=== PATIENT | male | born 1955 | race Caucasian/White ===

== ENCOUNTER → 2016-03-04 | Outpatient (REF) | payer MEDICARE, MEDICAID ==
[~2016-03-04] MED LIST: LISI-542 PO; METO50TA2 PO; VARE1TA PO
[2016-03-04 19:06] LABS: ADD MORPHOLOGY? YES; BASO % 0.4 % (0.0-1.0); EOS % 0.4 % (0.0-3.0); LARGE UNSTAINED CELL # 0.3 K/mm3 (0.0-0.4); LARGE UNSTAINED CELL % 2.5 % (0.0-4.0); LYMPH # 1.9 K/mm3 (1.5-4.5); LYMPH % 16.2 % (24.0-44.0); MEAN CORPUSCULAR HEMOGLOBIN 37.3 pg (27.0-33.0); MEAN CORPUSCULAR HGB CONC 34.1 g/dl (32.0-36.5); MEAN CORPUSCULAR VOLUME 109.4 fl (80.0-96.0); MONO # 0.5 K/mm3 (0.0-0.8); MONO % 4.6 % (0.0-5.0); NEUTROPHILS # 8.7 K/mm3 (1.8-7.7); NEUTROPHILS % 75.9 % (36.0-66.0); PLATELET COUNT, AUTOMATED 236 k/mm3 (150-450); RED CELL DISTRIBUTION WIDTH 13.2 % (11.5-14.5); WHITE BLOOD COUNT 11.4 K/mm3 (4.0-10.0)
[2016-03-04 20:01] LABS: ALBUMIN 3.7 GM/DL (3.2-5.2); ALBUMIN/GLOBULIN RATIO 0.88 (1.00-1.93); ALKALINE PHOSPHATASE 103 U/L (45-117); ALT/SGPT 61 U/L (12-78); AST/SGOT 109 U/L (15-37); BILIRUBIN,TOTAL 0.9 MG/DL (0.2-1.0); BLOOD UREA NITROGEN 9 MG/DL (7-18); CALCIUM LEVEL 9.1 MG/DL (8.5-10.1); CARBON DIOXIDE LEVEL 23 MEQ/L (21-32); GLOMERULAR FILTRATION RATE > 60.0 (>56); GLUCOSE, FASTING 118 MG/DL (70-105); TOTAL PROTEIN 7.9 GM/DL (6.4-8.2)
[2016-03-04 20:14] LABS: POTASSIUM SERUM 4.5 MEQ/L (3.5-5.1); SODIUM LEVEL 138 MEQ/L (136-145)
[2016-03-04 20:15] LABS: ANION GAP 13 MEQ/L (8-16); CHLORIDE LEVEL 102 MEQ/L (98-107)
[2016-03-09 14:11] LABS: HEPATITIS C QUANTITATION HCV Not Detected IU/mL (.)
== END ==
LOC: M SFHCLERA 14:21
PROVIDERS: ATTEND Family Medicine
DX: B18.2 Chronic viral hepatitis C (principal); I25.10 Atherosclerotic heart disease of native coronary artery without angina pectoris; I10 Essential (primary) hypertension; Z13.29 Encounter for screening for other suspected endocrine disorder
CPT/HCPCS: 80053; 80061; 82043; 82105; 84443; 85025; 87522; G0463

== ENCOUNTER → 2016-06-20 | Outpatient (CLI) | payer MEDICARE, MEDICAID ==
--- NOTE | 2016-06-21 10:55 | REP ---
CHEST, TWO VIEWS: HISTORY: Dyspnea. COMPARISON: 12/13/2011 The lungs are clear. The heart is normal in size. The pulmonary vasculature is normal in appearance. The bony structure is intact. IMPRESSION: No acute disease. Signed by Silas Jaime MD 06/21/2016 10:59 A
== END ==
LOC: M LRY 17:54
PROVIDERS: ATTEND Nurse Practitioner Family
DX: R06.09 Other forms of dyspnea (principal); J40 Bronchitis, not specified as acute or chronic
CPT/HCPCS: 71020; 93005; G0463

== ENCOUNTER → 2017-01-05 | Outpatient (REF) | payer MEDICARE, MEDICAID ==
[~2017-01-05] MED LIST changes: -METO50TA2 PO; +METO50TA7 PO
[2017-01-05 19:30] LABS: MEAN CORPUSCULAR HGB CONC 33.5 g/dl (32.0-36.5); MEAN CORPUSCULAR VOLUME 104.5 fl (80.0-96.0); PLATELET COUNT, AUTOMATED 265 10^3/uL (150-450); RED CELL DISTRIBUTION WIDTH 12.1 % (11.5-14.5); WHITE BLOOD COUNT 9.4 10^3/uL (4.0-10.0)
[2017-01-05 19:42] LABS: ALBUMIN 3.9 GM/DL (3.2-5.2); ALBUMIN/GLOBULIN RATIO 0.98 (1.00-1.93); ALKALINE PHOSPHATASE 82 U/L (45-117); ALT/SGPT 27 U/L (12-78); ANION GAP 6 MEQ/L (8-16); AST/SGOT 26 U/L (7-37); BILIRUBIN,TOTAL 0.5 MG/DL (0.2-1.0); BLOOD UREA NITROGEN 11 MG/DL (7-18); CALCIUM LEVEL 9.9 MG/DL (8.5-10.1); CARBON DIOXIDE LEVEL 29 MEQ/L (21-32); CHLORIDE LEVEL 103 MEQ/L (98-107); CREATININE FOR GFR 0.96 MG/DL (0.70-1.30); GLOMERULAR FILTRATION RATE > 60.0 (>56); GLUCOSE, FASTING 110 MG/DL (70-105); SODIUM LEVEL 138 MEQ/L (136-145); TOTAL PROTEIN 7.9 GM/DL (6.4-8.2)
[2017-01-05 19:45] LABS: POTASSIUM SERUM 5.3 MEQ/L (3.5-5.1)
[2017-01-05 19:53] LABS: INR 0.97
== END ==
LOC: M SFHCLERA 16:29
PROVIDERS: ATTEND Family Medicine
DX: R10.821 Right upper quadrant rebound abdominal tenderness (principal); Z23 Encounter for immunization
CPT/HCPCS: 80053; 85027; 85610; 90686; 90732; G0008; G0009; G0463

== ENCOUNTER → 2017-01-20 | Outpatient (CLI) | payer MEDICARE, MEDICAID ==
--- NOTE | 2017-01-20 15:00 | REP ---
Clinical: COPD. Comparison: 12/13/2011. Findings: Moderate COPD and emphysematous changes are appreciated with minimal scattered scarring. Focal area of scarring in the posterior right lower lobe with a 14 mm nodular soft tissue component is identified and represent a change from prior examination (image 68). No further consolidation, pleural effusion, nodule or mass lesion. No pneumothorax. Tracheobronchial tree is patent. Mediastinum demonstrates atherosclerotic changes to the thoracic aorta and coronary arteries. A small pericardial effusion is identified and there is evidence of prior CABG. A small pericardial effusion is identified. No obvious adenopathy. Fatty infiltration to the liver noted. Impression: 1. Chronic COPD. 2. 14 mm soft tissue nodule with surrounding scarring in the posterior right lower lobe. 3-month follow-up is recommended. 3. Small pericardial effusion and evidence of prior CABG. 4. Fatty infiltration of the liver. Signed by Denilson Recinos MD 01/20/2017 02:51 P
== END ==
LOC: M RAD 13:48
PROVIDERS: ATTEND Internal Medicine Pulmonary Disease
DX: J44.9 Chronic obstructive pulmonary disease, unspecified (principal)

== ENCOUNTER → 2017-01-26 | Outpatient (REF) | payer MEDICARE, MEDICAID ==
[2017-01-26 21:23] LABS: ANION GAP 8 MEQ/L (8-16); BLOOD UREA NITROGEN 10 MG/DL (7-18); CALCIUM LEVEL 8.9 MG/DL (8.5-10.1); CARBON DIOXIDE LEVEL 26 MEQ/L (21-32); CHLORIDE LEVEL 104 MEQ/L (98-107); CREATININE FOR GFR 0.69 MG/DL (0.70-1.30); GLOMERULAR FILTRATION RATE > 60.0 (>56); GLUCOSE, FASTING 93 MG/DL (70-105); SODIUM LEVEL 138 MEQ/L (136-145)
== END ==
LOC: M SFHCLERA 16:36
PROVIDERS: ATTEND Family Medicine
DX: E87.5 Hyperkalemia (principal)
CPT/HCPCS: 80048; G0463

== ENCOUNTER → 2017-02-02 | Outpatient (CLI) | payer MEDICARE, MEDICAID ==
--- NOTE | 2017-02-03 12:13 | REP ---
PET/CT: History: Solitary pulmonary nodule. Comparisons: Comparison chest CT study January 20, 2017 described of 14 mm soft tissue nodule with surrounding scarring in the right lower lobe. CT study also showed a small pericardial effusion. TECHNIQUE: 53 minutes following the intravenous injection of a 9.9 mCi dose of F-18 FDG, three-dimensional PET scintigraphy is acquired from the skull base to the proximal thighs. Triplanar noncontrast CT scanning is acquired through the same anatomic range for attenuation correction, and image registration with scan parameters optimized to minimize radiation exposure to the patient. PET scintigraphy and CT datasets were fused and displayed on a workstation with multiplanar and projection display capability. PET/CT Findings: The fibroatelectatic appearing density in the right lower lobe of the lung shows borderline FDG accumulation, maximum SUV value 2.3. It is not frankly hypermetabolic. It is unchanged from the January 20, [address] No other hypermetabolic uptake is seen in the thorax. The previously noted pericardial effusion is again seen but no abnormal hypermetabolic uptake is seen associated with this. Head and neck soft tissues are remarkable for some brown fat FDG distribution as well as a normal variant skeletal muscle uptake. In the abdomen and pelvis, there is normal FDG distribution to the liver, spleen, gastrointestinal, and genitourinary tracts. No abnormal hypermetabolic uptake is seen. Impression: The fibroatelectatic density in the right lower lobe shows borderline FDG accumulation, SUV 2.3. Pericardial effusion again seen without hypermetabolic uptake associated with this. Recommend follow-up chest CT in 4-6 months. Signed by Zana Farah MD 02/03/2017 02:45 P
== END ==
LOC: M PLARAD 14:43
PROVIDERS: ATTEND Internal Medicine Pulmonary Disease
DX: R91.1 Solitary pulmonary nodule (principal)
CPT/HCPCS: 78815; A9552

== ENCOUNTER → 2017-04-19 | Outpatient (CLI) | payer MEDICARE, MEDICAID | LOC: M RAD 16:31 | DX: R91.1 Solitary pulmonary nodule (principal) | CPT/HCPCS: 71250 ==

== ENCOUNTER → 2017-05-14 | Outpatient (CLI) | payer MEDICARE, MEDICAID | LOC: M RAD 12:40 | DX: I70.213 Atherosclerosis of native arteries of extremities with intermittent claudication, bilateral legs (principal) | CPT/HCPCS: 93923 ==

== ENCOUNTER → 2017-06-23 | Outpatient (CLI) | payer MEDICARE, MEDICAID ==
[2017-06-23 15:09] LABS: BASO % 0.4 % (0.0-1.0); EOS # 0.1 10^3/uL (0.0-0.50); EOS % 1.5 % (0.0-3.0); HEMOGLOBIN 16.6 g/dl (13.5-17.5); IMMATURE GRANULOCYTE % 0.5 % (0-3.0); LYMPH # 2.3 10^3/uL (1.5-4.5); LYMPH % 30.9 % (24.0-44.0); MEAN CORPUSCULAR HEMOGLOBIN 36.5 pg (27.0-33.0); MEAN CORPUSCULAR HGB CONC 35.3 g/dl (32.0-36.5); MEAN CORPUSCULAR VOLUME 103.3 fl (80.0-96.0); MONO # 0.6 10^3/uL (0.0-0.8); MONO % 7.5 % (0.0-5.0); NEUTROPHILS # 4.4 10^3/uL (1.8-7.7); NEUTROPHILS % 59.2 % (36.0-66.0); PLATELET COUNT, AUTOMATED 229 10^3/uL (150-450); RED BLOOD COUNT 4.55 10^6/uL (4.30-6.10); RED CELL DISTRIBUTION WIDTH 12.7 % (11.5-14.5); WHITE BLOOD COUNT 7.4 10^3/uL (4.0-10.0)
[2017-06-23 15:37] LABS: ANION GAP 8 MEQ/L (8-16); BLOOD UREA NITROGEN 7 MG/DL (7-18); CARBON DIOXIDE LEVEL 25 MEQ/L (21-32); CHLORIDE LEVEL 103 MEQ/L (98-107); CREATININE FOR GFR 0.77 MG/DL (0.70-1.30); GLOMERULAR FILTRATION RATE > 60.0 (>49); GLUCOSE, FASTING 80 MG/DL (70-100); SODIUM LEVEL 136 MEQ/L (136-145)
== END ==
LOC: M LAB 14:42
DX: I70.213 Atherosclerosis of native arteries of extremities with intermittent claudication, bilateral legs (principal)
CPT/HCPCS: 80048

== ENCOUNTER → 2017-07-02 | Outpatient (CLI) | payer MEDICARE, MEDICAID ==
[~2017-07-02] MED LIST changes: +HEPARIN 1,000 UNITS/ML 10ML VIAL (FOR RADIOLOGY& DIALYSIS ONLY) As Ordered; +ISOVUE-300 61% 50ML VIAL (Q9967) As Ordered; -LISI-542 PO; -METO50TA7 PO; +MIDAZOLAM INJ 2 MG/2 ML VIAL (J2250) As Ordered; -VARE1TA PO; +fentaNYL 100 MCG/2 ML INJECTION (J3010) As Ordered
== END | disposition home or self-care (01) ==
LOC: M IRPRO 06:37
DX: I70.202 Unspecified atherosclerosis of native arteries of extremities, left leg (principal); I10 Essential (primary) hypertension; B19.20 Unspecified viral hepatitis C without hepatic coma; I25.10 Atherosclerotic heart disease of native coronary artery without angina pectoris; E78.00 Pure hypercholesterolemia, unspecified; J44.9 Chronic obstructive pulmonary disease, unspecified; Z72.0 Tobacco use; Z95.1 Presence of aortocoronary bypass graft
CPT/HCPCS: 37221

== ENCOUNTER → 2017-07-23 | Outpatient (CLI) | payer MEDICARE, MEDICAID ==
[2017-07-23 17:36] LABS: BASO % 0.6 % (0.0-1.0); EOS # 0.1 10^3/uL (0.0-0.50); EOS % 1.1 % (0.0-3.0); HEMATOCRIT 44.9 % (42.0-52.0); HEMOGLOBIN 15.8 g/dl (13.5-17.5); IMMATURE GRANULOCYTE % 0.7 % (0-3.0); LYMPH # 1.9 10^3/uL (1.5-4.5); LYMPH % 27.4 % (24.0-44.0); MEAN CORPUSCULAR HEMOGLOBIN 36.4 pg (27.0-33.0); MEAN CORPUSCULAR HGB CONC 35.2 g/dl (32.0-36.5); MEAN CORPUSCULAR VOLUME 103.5 fl (80.0-96.0); MONO # 0.7 10^3/uL (0.0-0.8); MONO % 10.1 % (0.0-5.0); NEUTROPHILS # 4.2 10^3/uL (1.8-7.7); NEUTROPHILS % 60.1 % (36.0-66.0); PLATELET COUNT, AUTOMATED 231 10^3/uL (150-450); RED BLOOD COUNT 4.34 10^6/uL (4.30-6.10); RED CELL DISTRIBUTION WIDTH 12.7 % (11.5-14.5); WHITE BLOOD COUNT 7.1 10^3/uL (4.0-10.0)
[2017-07-23 17:40] LABS: ALBUMIN 3.4 GM/DL (3.2-5.2); ALBUMIN/GLOBULIN RATIO 0.79 (1.00-1.93); ALKALINE PHOSPHATASE 101 U/L (45-117); ALT/SGPT 25 U/L (12-78); ANION GAP 8 MEQ/L (8-16); AST/SGOT 30 U/L (7-37); BILIRUBIN,TOTAL 0.5 MG/DL (0.2-1.0); BLOOD UREA NITROGEN 6 MG/DL (7-18); CALCIUM LEVEL 8.7 MG/DL (8.8-10.2); CARBON DIOXIDE LEVEL 26 MEQ/L (21-32); CHLORIDE LEVEL 99 MEQ/L (98-107); CREATININE FOR GFR 0.72 MG/DL (0.70-1.30); FREE T4 1.03 NG/DL (0.76-1.46); GLOMERULAR FILTRATION RATE > 60.0 (>49); GLUCOSE, FASTING 94 MG/DL (70-100); POTASSIUM SERUM 4.1 MEQ/L (3.5-5.1); SODIUM LEVEL 133 MEQ/L (136-145); TOTAL PROTEIN 7.7 GM/DL (6.4-8.2)
== END ==
LOC: M LRY 14:25
DX: R00.0 Tachycardia, unspecified (principal)
CPT/HCPCS: 84443

== ENCOUNTER → 2017-12-01 | Outpatient (REF) | payer MEDICARE, MEDICAID | LOC: M SFHCLERA 14:18 | DX: Z13.1 Encounter for screening for diabetes mellitus (principal); F10.10 Alcohol abuse, uncomplicated; Z53.21 Procedure and treatment not carried out due to patient leaving prior to being seen by health care provider ==

== ENCOUNTER → 2018-02-01 | Outpatient (CLI) | payer MEDICARE, MEDICAID | LOC: M RAD 17:05 | DX: J98.4 Other disorders of lung (principal); N28.1 Cyst of kidney, acquired; K76.0 Fatty (change of) liver, not elsewhere classified | CPT/HCPCS: 71250 ==

== ENCOUNTER → 2018-02-07 | Outpatient (CLI) | payer MEDICARE, MEDICAID ==
[~2018-02-07] MED LIST changes: +BISO5TAB5 PO; -HEPARIN 1,000 UNITS/ML 10ML VIAL (FOR RADIOLOGY& DIALYSIS ONLY) As Ordered; +INCR1INH PO; -ISOVUE-300 61% 50ML VIAL (Q9967) As Ordered; +LISI-542 PO; +METO50TA7 PO; -MIDAZOLAM INJ 2 MG/2 ML VIAL (J2250) As Ordered; +VARE1TA PO; +VENTAER PO; -fentaNYL 100 MCG/2 ML INJECTION (J3010) As Ordered
--- NOTE | 2018-02-08 07:49 | ECHO ---
DATE OF PROCEDURE: 02/07/2018 REFERRING PHYSICIAN: DAVID Carbajal INDICATION: Shortness of breath. HEIGHT: 175 cm WEIGHT: 78 kg 2D MEASUREMENTS: Left atrium: 3.2 cm Ventricular septum: 1.11 cm Posterior wall: 1.12 cm Left ventricle diastole: 3.6 cm Aortic root: 3.2 cm Aortic annulus: 2.0 cm Inferior vena cava: 1.3 cm DOPPLER MEASUREMENTS: Aortic valve velocity: 338 cm/s LVOT velocity: 166 cm/s with mild dynamic obstructive features LVOT VTI: 25.2 cm Mitral E velocity: 48.8 cm/s Mitral A velocity: 81.2 cm/s Mitral deceleration time: 88 ms Pulmonary artery systolic pressure: 41 mmHg by pulmonary acceleration time method. MITRAL ANNULAR TISSUE DOPPLER: E prime septal: 4.5 cm/s E prime lateral: 3.9 cm/s DESCRIPTION: Rhythm was sinus tachycardia. This was a moderately technically difficult echocardiogram. This was a 2D, M-mode, color flow Doppler and pulse wave Doppler examination and included mitral annular tissue Doppler. CONCLUSIONS: 1. Large circumferential pericardial effusion with more than 25% respiratory variation of intracardiac velocities and mitral annular tissue Doppler systolic waveform. Mild swinging of the heart within the pericardial effusion. No masses apparent in the pericardial effusion. Pericardial effusion measured 2.1 cm over the posterior wall of the left ventricle. Reduced left ventricle cavity volume. Relative underfilling of the left ventricle. Relative underfilling of the right ventricle. Partial collapse of the right ventricle, suggestive of near cardiac tamponade. 2. Hyperdynamic left ventricle systolic function, left ventricular ejection fraction of 75%. No regional wall motion abnormalities of the left ventricle. 3. Mild aortic valve sclerosis with a three-cusp aortic valve. No aortic regurgitation. 4. Suggestive of mild elevation of pulmonary artery systolic pressure (41 mmHg). RECOMMENDATIONS: Recommend urgent referral to cardiac surgery for consideration of pericardial window.
== END ==
LOC: M CARPUL 13:10
PROVIDERS: ATTEND Physician Assistant
DX: I31.3 Pericardial effusion (noninflammatory) (principal)

== ENCOUNTER 2018-02-08 14:06 | Emergency (ER) | payer MEDICARE, MEDICAID ==
[2018-02-08 14:59] LABS: BASO % 0.1 % (0.0-1.0); EOS % 0.4 % (0.0-3.0); HEMATOCRIT 37.4 % (42.0-52.0); HEMOGLOBIN 13.3 g/dl (13.5-17.5); IMMATURE GRANULOCYTE % 0.6 % (0-3.0); LYMPH # 1.5 10^3/uL (1.5-4.5); LYMPH % 20.2 % (24.0-44.0); MEAN CORPUSCULAR HEMOGLOBIN 42.4 pg (27.0-33.0); MEAN CORPUSCULAR HGB CONC 35.6 g/dl (32.0-36.5); MONO # 0.8 10^3/uL (0.0-0.8); MONO % 10.6 % (0.0-5.0); NEUTROPHILS # 4.9 10^3/uL (1.8-7.7); NEUTROPHILS % 68.1 % (36.0-66.0); PLATELET COUNT, AUTOMATED 159 10^3/uL (150-450); RED BLOOD COUNT 3.14 10^6/uL (4.30-6.10); RED CELL DISTRIBUTION WIDTH 14.6 % (11.5-14.5); WHITE BLOOD COUNT 7.2 10^3/uL (4.0-10.0)
[2018-02-08] MEDS: NS 1,000 ML IV (15:00)
[2018-02-08 15:15] LABS: ALBUMIN 3.3 GM/DL (3.2-5.2); ALBUMIN/GLOBULIN RATIO 0.83 (1.00-1.93); ALKALINE PHOSPHATASE 106 U/L (45-117); ALT/SGPT 16 U/L (12-78); ANION GAP 12 MEQ/L (8-16); AST/SGOT 20 U/L (7-37); BILIRUBIN,DIRECT 0.2 MG/DL (0.0-0.2); BILIRUBIN,TOTAL 0.7 MG/DL (0.2-1.0); BLOOD UREA NITROGEN 11 MG/DL (7-18); CALCIUM LEVEL 8.5 MG/DL (8.8-10.2); CARBON DIOXIDE LEVEL 22 MEQ/L (21-32); CHLORIDE LEVEL 100 MEQ/L (98-107); CK-MB VALUE MASS < 1.0 NG/ML (<3.6); CPK CREATINE PHOSPHOKINASE 37 U/L (39-308); CREATININE FOR GFR 0.99 MG/DL (0.70-1.30); GLOMERULAR FILTRATION RATE > 60.0 (>49); GLUCOSE, FASTING 102 MG/DL (70-100); POTASSIUM SERUM 4.4 MEQ/L (3.5-5.1); SODIUM LEVEL 134 MEQ/L (136-145); TOTAL PROTEIN 7.3 GM/DL (6.4-8.2); TROPONIN I < 0.02 NG/ML (< 0.10)
[2018-02-08] MEDS ORDERED: ISOVUE-370 76% 100ML VIAL (Q9967) As Ordered (15:18)
[2018-02-08 15:24] LABS: MEAN CORPUSCULAR VOLUME 119.1 fl (80.0-96.0); POSITIVE MORPH POS FLAG
[2018-02-08 15:25] LABS: ADD MORPHOLOGY? YES
[2018-02-08 15:35] LABS: PLATELET ESTIMATE DECREASED (NORMAL); POLYCHROMASIA 1+
== END 2018-02-08 18:01 | disposition short-term general hospital (02) ==
LOC: M ED 14:06
DX: I31.3 Pericardial effusion (noninflammatory) (principal); K76.0 Fatty (change of) liver, not elsewhere classified; I51.9 Heart disease, unspecified; I10 Essential (primary) hypertension; Z95.1 Presence of aortocoronary bypass graft; Z72.0 Tobacco use; Z88.8 Allergy status to other drugs, medicaments and biological substances
CPT/HCPCS: Q9967

== ENCOUNTER 2018-02-18 21:02 | Emergency (ER) | payer MEDICARE, MEDICAID ==
[~2018-02-18] VITALS: Ht 175.3 cm; Wt 72.2 kg
[2018-02-18] MEDS ORDERED: ALBUTEROL SULFATE 2.5 MG/0.5 ML INH NEB SOLN NEB ONE (21:30)
[2018-02-18 22:11] LABS: BASO % 0.2 % (0.0-1.0); EOS # 0.1 10^3/uL (0.0-0.50); EOS % 0.8 % (0.0-3.0); HEMATOCRIT 36.8 % (42.0-52.0); HEMOGLOBIN 12.7 g/dl (13.5-17.5); LYMPH # 1.8 10^3/uL (1.5-4.5); LYMPH % 15.5 % (24.0-44.0); MEAN CORPUSCULAR HEMOGLOBIN 40.2 pg (27.0-33.0); MEAN CORPUSCULAR HGB CONC 34.5 g/dl (32.0-36.5); MONO # 1.7 10^3/uL (0.0-0.8); MONO % 14.1 % (0.0-5.0); NEUTROPHILS # 8.1 10^3/uL (1.8-7.7); NEUTROPHILS % 68.2 % (36.0-66.0); PLATELET COUNT, AUTOMATED 256 10^3/uL (150-450); RED BLOOD COUNT 3.16 10^6/uL (4.30-6.10); WHITE BLOOD COUNT 11.8 10^3/uL (4.0-10.0)
[2018-02-18 22:12] LABS: MEAN CORPUSCULAR VOLUME 116.5 fl (80.0-96.0)
[2018-02-18] MEDS ORDERED: FUROSEMIDE 20 MG/2 ML VIAL (J1940) IV ONE (22:15)
[2018-02-18 22:21] LABS: INR 1.04; PROTHROMBIN TIME 13.8 SECONDS (12.1-14.4)
[2018-02-18 22:29] LABS: PLATELET ESTIMATE NORMAL (NORMAL)
[2018-02-18 22:34] LABS: ALT/SGPT 16 U/L (12-78); BILIRUBIN,DIRECT 0.3 MG/DL (0.0-0.2); BILIRUBIN,TOTAL 0.7 MG/DL (0.2-1.0); BLOOD UREA NITROGEN 11 MG/DL (7-18); CALCIUM LEVEL 8.4 MG/DL (8.8-10.2); CARBON DIOXIDE LEVEL 20 MEQ/L (21-32); CHLORIDE LEVEL 104 MEQ/L (98-107); CK-MB VALUE MASS < 1.0 NG/ML (<3.6); CPK CREATINE PHOSPHOKINASE 23 U/L (39-308); CREATININE FOR GFR 0.66 MG/DL (0.70-1.30); ETHYL ALCOHOL (ETHANOL) 0.038 % (0.000-0.010); GLOMERULAR FILTRATION RATE > 60.0 (>49); GLUCOSE, FASTING 90 MG/DL (70-100); MB/CK RELATIVE INDEX 4.35 (< OR =4); NT-PRO BNP 340 PG/ML (<125); POTASSIUM SERUM 4.4 MEQ/L (3.5-5.1); SODIUM LEVEL 133 MEQ/L (136-145); TOTAL PROTEIN 6.6 GM/DL (6.4-8.2); TROPONIN I < 0.02 NG/ML (< 0.10)
[2018-02-18 22:44] LABS: ABG BASE EXCESS -5.1 (-2.0-2.0); ABG HCO3 15.9 MEQ/L (22.0-26.0); ABG O2 SATURATION 92.8 % (95.0-99.0); ABG PARTIAL PRESSURE CO2 20.8 mmHg (35.0-45.0); ABG PARTIAL PRESSURE O2 63.5 mmHg (75.0-100.0); ABG STANDARD HCO3 20.2 MEQ/L (22.0-26.0); ABG TOTAL CO2 16.5 MEQ/L (23.0-31.0)
[2018-02-18] MEDS ORDERED: ALBUTEROL 90 MCG/ACT 8GM HFA INHALER INH ONE (23:15)
[2018-02-19 00:30] VITALS: BP 10/60
--- NOTE | 2018-02-19 07:29 | REP ---
Clinical: Cough and dyspnea . Comparison: 07/23/2017 . Technique: PA and lateral. Findings: The mediastinum and cardiac silhouette are stable. Prior sternotomy noted. The lung busby are clear and without acute consolidation, effusion, or pneumothorax. The skeletal structures are intact and normal. Impression: No focal consolidation appreciated. Electronically Signed by Denilson Recinos MD 02/19/2018 07:21 A
--- NOTE | 2018-02-19 08:58 | ECGEPIP ---
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
== END 2018-02-19 00:45 | disposition home or self-care (01) ==
LOC: M ED 21:02
DX: J81.1 Chronic pulmonary edema (principal); I10 Essential (primary) hypertension; F10.10 Alcohol abuse, uncomplicated; I25.10 Atherosclerotic heart disease of native coronary artery without angina pectoris; Z79.899 Other long term (current) drug therapy; Z88.8 Allergy status to other drugs, medicaments and biological substances; F17.210 Nicotine dependence, cigarettes, uncomplicated
CPT/HCPCS: 36600; 71046; 80048; 80076; 82550; 82553; 82803; 83880; 84484; 85025; 85610; 93005; 93041; 96374; 99285; G0480; J1940

== ENCOUNTER → 2018-06-20 | Outpatient (REF) | payer MEDICARE, MEDICAID ==
[2018-06-20 20:27] LABS: BASO % 0.2 % (0.0-1.0); EOS # 0.1 10^3/uL (0.0-0.50); EOS % 0.8 % (0.0-3.0); HEMATOCRIT 45.3 % (42.0-52.0); HEMOGLOBIN 15.7 g/dl (13.5-17.5); LYMPH # 1.9 10^3/uL (1.5-4.5); LYMPH % 21.8 % (24.0-44.0); MEAN CORPUSCULAR HEMOGLOBIN 38.1 pg (27.0-33.0); MEAN CORPUSCULAR HGB CONC 34.7 g/dl (32.0-36.5); MONO # 0.5 10^3/uL (0.0-0.8); MONO % 6.1 % (0.0-5.0); NEUTROPHILS # 6.1 10^3/uL (1.8-7.7); NEUTROPHILS % 70.6 % (36.0-66.0); PLATELET COUNT, AUTOMATED 182 10^3/uL (150-450); RED BLOOD COUNT 4.12 10^6/uL (4.30-6.10); WHITE BLOOD COUNT 8.7 10^3/uL (4.0-10.0)
[2018-06-20 20:38] LABS: ALBUMIN 3.6 GM/DL (3.2-5.2); ALT/SGPT 20 U/L (12-78); BLOOD UREA NITROGEN 10 MG/DL (7-18); CALCIUM LEVEL 8.9 MG/DL (8.8-10.2); CARBON DIOXIDE LEVEL 26 MEQ/L (21-32); CHLORIDE LEVEL 102 MEQ/L (98-107); CHOLESTEROL LEVEL 194 MG/DL (<200); CHOLESTEROL RISK RATIO 5.388 (<5); CREATININE FOR GFR 0.84 MG/DL (0.70-1.30); GLOMERULAR FILTRATION RATE > 60.0 (>49); GLUCOSE, FASTING 104 MG/DL (70-100); HDL CHOLESTEROL 36 MG/DL (>40); LDL CHOLESTEROL 129 MG/DL (<100); NON-HDL-C 158 MG/DL; POTASSIUM SERUM 4.8 MEQ/L (3.5-5.1); SODIUM LEVEL 134 MEQ/L (136-145); TOTAL PROTEIN 8.2 GM/DL (6.4-8.2); TRIGLYCERIDES LEVEL 143 MG/DL (<150)
[2018-06-20 20:39] LABS: VITAMIN B12 LEVEL 1104 PG/ML
[2018-06-20 20:40] LABS: FOLATE 0.6 NG/ML
[2018-06-20 20:41] LABS: HEMOGLOBIN A1c 5.6 %
== END ==
LOC: M SFHCLERA 15:52
PROVIDERS: ATTEND Family Medicine
DX: K74.60 Unspecified cirrhosis of liver (principal); F10.10 Alcohol abuse, uncomplicated; I25.2 Old myocardial infarction; R00.0 Tachycardia, unspecified
CPT/HCPCS: 80053; 80061; 82105; 82607; 82746; 83036; 84443; 85025; G0463

== ENCOUNTER → 2018-06-24 | Outpatient (CLI) | payer MEDICARE, MEDICAID ==
--- NOTE | 2018-06-24 19:32 | REP ---
RIGHT UPPER QUADRANT ULTRASOUND: Real-time sonographic evaluation of the right upper quadrant performed. The study is limited as the patient was unable to suspend respirations appropriately. The gallbladder demonstrates no evidence of intraluminal sludge or calculi, wall thickening or pericholecystic fluid. There is no intrahepatic or extrahepatic biliary dilatation, common bile duct measuring 3 mm. The liver demonstrates heterogeneous echotexture compatible with fibrofatty infiltration. No gross liver or pancreatic mass is seen. The right kidney is grossly normal in size with no hydronephrosis measuring 10 cm in length. IMPRESSION: Diffuse fibrofatty infiltration of the liver. Electronically Signed by Jose Briceno MD 06/25/2018 03:07 P
== END ==
LOC: M LRY 09:15
PROVIDERS: ATTEND Family Medicine
DX: K76.0 Fatty (change of) liver, not elsewhere classified (principal)

== ENCOUNTER → 2018-09-01 | Outpatient (CLI) | payer MEDICARE, MEDICAID ==
[~2018-09-01] MED LIST changes: +ASPI-1 PO; +AZIT500T2 PO; +BLOOKIT XX; +DIGO0.12 PO; +OMEP40CA2 PO; +ONDA4TAB5 PO; +PRED10TA2 PO; +ZOLP10TA2 PO
--- NOTE | 2018-09-01 19:12 | REP ---
CT CHEST WITHOUT CONTRAST: 09/01/2018. Comparison: 02/01/2018, 04/19/2017, 01/20/2017 CT chest. Clinical history: Followup abnormal chest CT finding. Technique. Noncontrast chest CT protocol with coronal and sagittal reconstructions. Findings: Curvilinear fibrosis in the medial basal segment of the right lower lobe similar appearance to previous studies with less thickening of the stranding noted. This may reflect some superimposed subsegmental atelectasis decreased. I do not see definite nodular component of a solid nature currently. There is a semi solid density on image 69 about 15 mm in the area where previously a solid density was suggested. There is some minor linear fibrotic change in the superior segment of the right lower lobe and 3.5 mm pleural-based nodule superior segment of the right lower lobe on image 39 abutting the posterior margin of the major fissure, unchanged both findings. Some emphysematous changes in the upper and midlung zones. The anterior segment right upper lobe shows new subpleural stranding suggesting some fibrotic change since the 02/08 study. Minimal linear apical fibrotic change and laterally on the left and medially and superiorly on the right. Some minor fibrotic stranding in the lingula extending from the anterior segment of the left upper lobe. Left lower lobe without at acute finding. Some mild cervical bronchiectatic changes are noted. Heart size not enlarged. There is coronary calcifications, aortic calcifications without aneurysm and no pericardial thickening or effusion. Sternotomy wires and clips from CABG noted. No pathologic sized mediastinal, hilar, axillary, supraclavicular masses. The bone windows show the sternum and manubrium without acute finding with sternotomy wires as before, medial clavicles, portions of ribs and scapula and humeral heads seen are unremarkable. The visualized portions of upper abdomen included showed simple cyst upper pole left kidney. No hydronephrosis in either stomach with some retained fluid. Adrenal glands without mass. Visualized pancreas intact. Gallbladder without calcified stone. Impression: 1. Some curvilinear fibrotic change in the medial basal segment of the right lower lobe with ill-defined ground-glass opacity where previously a more solid nodular appearing 15 mm component was seen in the 01/20/2017 exam. Less thickening of that curvilinear fibrosis than previous studies. 2. Other areas of scattered fibrotic change in both lungs are unchanged but there is a new area of peripheral linear fibrotic changes in the zone of the anterior segment of the left upper lobe and extending into the lingula without nodule, effusion, mass or any mediastinal or hilar abnormality. Electronically Signed by Lui Stark MD 09/01/2018 07:55 P
== END ==
LOC: M RAD 14:09
PROVIDERS: ATTEND Internal Medicine Pulmonary Disease
DX: R91.8 Other nonspecific abnormal finding of lung field (principal)

== ENCOUNTER 2018-09-08 15:30 | Inpatient (IN) | payer MEDICARE, MEDICAID ==
[~2018-09-08] VITALS: Ht 175.3 cm; Wt 66.9 kg
[~2018-09-08 15:30] MED LIST changes: -ASPI-1 PO; -AZIT500T2 PO; +BISO5TAB14 PO; -BISO5TAB5 PO; -BLOOKIT XX; -DIGO0.12 PO; -OMEP40CA2 PO; -ONDA4TAB5 PO; -PRED10TA2 PO; -ZOLP10TA2 PO
[2018-09-08] MEDS ORDERED: ZOLP10TA2 PO (15:37)
[2018-09-08 16:42] LABS: BASO % 0.2 % (0.0-1.0); EOS % 0.2 % (0.0-3.0); HEMATOCRIT 26.1 % (42.0-52.0); HEMOGLOBIN 9.7 g/dl (13.5-17.5); LYMPH # 0.8 10^3/uL (1.5-4.5); LYMPH % 18.2 % (24.0-44.0); MEAN CORPUSCULAR HGB CONC 37.2 g/dl (32.0-36.5); MONO # 0.2 10^3/uL (0.0-0.8); MONO % 4.6 % (0.0-5.0); NEUTROPHILS # 3.5 10^3/uL (1.8-7.7); NEUTROPHILS % 76.1 % (36.0-66.0); PLATELET COUNT, AUTOMATED 104 10^3/uL (150-450); RED BLOOD COUNT 2.11 10^6/uL (4.30-6.10); WHITE BLOOD COUNT 4.6 10^3/uL (4.0-10.0)
[2018-09-08 16:49] LABS: MEAN CORPUSCULAR VOLUME 123.7 fl (80.0-96.0)
--- NOTE | 2018-09-08 16:52 | REP ---
Portable chest x-ray: Single view. History: Dyspnea and cough. Comparison chest x-ray: February 18, 2018. Findings: Prior sternotomy wires are noted. Emphysematous changes and relative oligemia are seen in the upper lung zones consistent with COPD. Mildly increased interstitial markings are noted in the bases. No focal infiltrate is seen. Pleural angles are sharp. Impression: COPD changes as before. No focal infiltrate. Prior sternotomy wires. Electronically Signed by Zana Farah MD 09/08/2018 07:25 P
[2018-09-08 16:54] LABS: INR 1.22; PROTHROMBIN TIME 15.1 SECONDS (11.8-14.0)
[2018-09-08 16:58] LABS: ALBUMIN 3.5 GM/DL (3.2-5.2); ALT/SGPT 15 U/L (12-78); BILIRUBIN,DIRECT 0.3 MG/DL (0.0-0.2); BILIRUBIN,TOTAL 1.5 MG/DL (0.2-1.0); BLOOD UREA NITROGEN 17 MG/DL (7-18); CALCIUM LEVEL 8.8 MG/DL (8.8-10.2); CARBON DIOXIDE LEVEL 20 MEQ/L (21-32); CHLORIDE LEVEL 103 MEQ/L (98-107); CK-MB VALUE MASS < 1.0 NG/ML (<3.6); CPK CREATINE PHOSPHOKINASE 30 U/L (39-308); CREATININE FOR GFR 0.89 MG/DL (0.70-1.30); GLOMERULAR FILTRATION RATE > 60.0 (>49); GLUCOSE, FASTING 102 MG/DL (70-100); MB/CK RELATIVE INDEX 3.33 (< OR =4); NT-PRO BNP 412 PG/ML (<125); SODIUM LEVEL 133 MEQ/L (136-145); TOTAL PROTEIN 7.3 GM/DL (6.4-8.2); TROPONIN I < 0.02 NG/ML (< 0.10)
[2018-09-08 17:24] LABS: ANISOCYTOSIS 1+; OVALOCYTES 1+; POIKILOCYTOSIS 1+; POLYCHROMASIA 1+
[2018-09-08 17:25] LABS: PLATELET ESTIMATE DECREASED (NORMAL)
[2018-09-08 17:42] VITALS: O2SAT 82
[2018-09-08] MEDS ORDERED: ISOVUE-370 76% 100ML VIAL (Q9967) As Ordered ONE (18:08)
[2018-09-08 18:13] LABS: ABG BASE EXCESS -6.6 (-2.0-2.0); ABG O2 SATURATION 86.6 % (95.0-99.0); ABG STANDARD HCO3 18.8 MEQ/L (22.0-26.0); ABG TOTAL CO2 15.6 MEQ/L (23.0-31.0); ABG pH (ARTERIAL) 7.496 UNITS (7.350-7.450)
[2018-09-08 18:15] LABS: ABG PARTIAL PRESSURE CO2 19.9 mmHg (35.0-45.0)
--- NOTE | 2018-09-08 19:44 | REPVR ---
EXAM: CT Angiography Chest With Contrast EXAM DATE/TIME: 09/08/2018 6:20 PM CLINICAL HISTORY: 63 years old, male; Other: Hypoxia; Additional info: Hypoxia R/O pe TECHNIQUE: Imaging protocol: Axial computed tomographic angiography images of the chest with intravenous contrast using CT angiography protocol. Coronal and sagittal reformatted images were created and reviewed. 3D rendering: MIP reconstructed images were created and reviewed. Radiation optimization: All CT scans at this facility use at least one of these dose optimization techniques: automated exposure control; mA and/or kV adjustment per patient size (includes targeted exams where dose is matched to clinical indication); or iterative reconstruction. Contrast material: ISOVUE 370; Contrast volume: 75 ml; Contrast route: IV; COMPARISON: CT Chest without contrast 09/01/2018 2:20 PM FINDINGS: Pulmonary arteries: Normal. No pulmonary emboli. Aorta: Unremarkable. No aortic aneurysm. No aortic dissection. Lungs: Paraseptal type emphysema noted in the upper lung busby bilaterally. Centrilobular type emphysema noted bilaterally predominantly in the mid and upper lung busby, right side greater than left Discoid atelectasis or scar in the right lower lobe. Coarse subpleural pleural based linear opacities in the anterior segment of the left upper lobe suggest thickened interlobular septa.Triangular pleural based opacity in the right middle lobe measuring 5.8 mm (series 402 image 77) stable from 02/01/2018. Pleural space: 3.5 mm pleural-based nodule contiguous with the major fissure. (Series 402 image 40). Heart: Unremarkable. No cardiomegaly. No pericardial effusion. Diaphragm: Eventration of the right hemidiaphragm. Kidneys and ureters: 1.8 cm simple cyst in the upper pole the left kidney. Lymph nodes: Unremarkable. No enlarged lymph nodes. Bones/joints: Mild anterior compression deformity of the T8 vertebral body. No retropulsed fragments seen. Chronic fracture of the spinous process noted at T1. Soft tissues: Unremarkable. IMPRESSION: 1. No acute pulmonary emboli. 2. Emphysema 3. Thickening of interlobular septa with adjacent hazy density in the anterior segment left upper lobe could represent an interstitial pneumonitis. 4. Stable pulmonary nodules from 2018. Previous CT scans and reports from those earlier studies are not available.For patients at low risk (minimal or absent history of smoking and of other known risk factors), no routine follow-up is indicated. For patients at high risk (history of smoking or of other known risk factors), consider optional CT at 12 months. (Joseph et al., Fleischner Society, 2017) Electronically signed by: Shakira Shipley On 09/08/2018 19:43:40 PM
[2018-09-08] MEDS ORDERED: IPRATROPIUM 0.5MG/ALBUTEROL 2.5MG INH SOL UD 3ML (DUONEB)(J7620) NEB ONE (20:00)
[2018-09-08] MEDS ORDERED: methylPREDNISolone INJ 125 MG/2 ML VIAL (J2930) IV ONE (20:00)
[2018-09-08] MEDS ORDERED: AZIT500T5 PO (20:24)
[2018-09-08] MEDS ORDERED: ONDA-83 PO (20:25)
[2018-09-08] MEDS ORDERED: ONDANSETRON 4MG/2ML VIAL (J2405) As Ordered ONE (20:27)
[2018-09-08] MEDS ORDERED: ALBUTEROL SULFATE 2.5 MG/0.5 ML INH NEB SOLN NEB PRN (20:30)
[2018-09-08] MEDS ORDERED: ONDANSETRON 4 MG TAB (S0181) PO PRN (20:30)
--- NOTE | 2018-09-08 20:44 | HPEPDOC ---
General Date of Admission 09/08/18 Date of Service: Sep 08, 2018 Primary Care Physician: ALINE HERNANDEZ MD Attending Physician: BELIA FRANCOIS MD Chief Complaint The patient is a 63-year-old male admitted with a reason for visit of legs weak/sob. Source: Patient Exam Limitations: No limitations Severity: Moderate Associated Symptoms: Shortness of breath History of Present Illness 63 years old white male sent from Dr. Coleman's office with chief complaints of increasing shortness of breath since last few days. Patient does have extensive medical history of CAD status post CABG, status post abdominal stents, hernia repair, developed increasing shortness of breath since last few days which is progressively getting worse and also complaining of weakness of his both legs since last few days. Patient was found to have a exacerbation of COPD and we were asked to admit this patient to medical floor. Patient also has a pericardial effusion drainage in place from [facility] Medications Scheduled Azithromycin (Azithromycin) 500 Mg Tablet, 500 MG PO DAILY, (Reported) FILLED 09/06/2018, HAS NOT STARTED YET Bisoprolol Fumarate (Bisoprolol Fumarate) 5 Mg Tab, 2.5 MG PO DAILY, (Reported) Umeclidinium Pollard (Incruse Ellipta) 62.5 Mcg/Inh Inh, 1 PUFF PO DAILY, (Reported) Scheduled PRN Albuterol Sulfate (Ventolin Hfa) 108 Mcg/Act Aer, 1 PUFF PO Q4H PRN for SHORTNESS OF BREATH, (Reported) Ondansetron HCl (Ondansetron HCl) 4 Mg Tablet, 4 MG PO BID PRN for nausea/vomi ting, (Reported) FILLED 09/05/2018. HAS NOT STARTED THIS YET Zolpidem Tartrate (Zolpidem Tartrate) 10 Mg Tablet, 10 MG PO QHS PRN for INSOMNIA, (Reported) Allergies Coded Allergies: chlorpromazine (Verified Allergy, Unknown, 09/08/18) acute dystonic reaction Past Medical History Medical History CAD, CABG, abdominal stents, arthritis Surgical History CABG pericardial effusion drainage tube, hernia repair Family History Significant Family History: No pertinent family hx Social History * Smoker: current smoker Alcohol: Denies Drugs: denies A-FIB/CHADSVASC A-FIB History Current/History of A-Fib/PAF?: No Review of Systems Constitutional: Reports: Malaise Eyes: Denies: Pain, Vision change, Conjunctivae inflammation, Eyelid inflammati on, Redness, Other ENT: Denies: Head Aches, Ear Pain, Dysphagia, Sinus Congestion, Post Nasal Drip, Sore Throat, Epistaxis, Other Symptoms Skin: Denies: Rash, Lesions, Jaundice, Bruising, Itching, Dry, Breakdown, Nail Changes, Other Pulmonary: Reports: Dyspnea, Cough Cardiovascular: Denies: Chest Pain, Palpitations, Orthopnea, Paroxysmal Noc. Dyspnea, Edema, Lt Headedness, Other Symptoms Gastrointestinal: Denies: Nausea, Vomiting, Abdominal Pain, Diarrhea, Constipation, Melena, Hematochezia, Other Symptoms Genitourinary: Denies: Dysuria, Frequency, Incontinence, Hematuria, Retention, Other Symptoms Hematologic: Denies: Bruising, Bleeding Excessively, Petecchia, Purpura, Enlarged Lymph Nodes, Other Hematologic Endocrine: Denies: Polydipsia, Polyphagia, Polyuria, Heat Intolerance, Cold Intolerance, Other Endocrine Sx Musculoskeletal: Denies: Neck Pain, Back Pain, Shoulder Pain, Arm Pain, Hand Pain, Leg Pain, Foot Pain, Joint Pain, Muscle Pain, Spasms, Other Symptoms Neurological: Denies: Weakness, Numbness, Incoordination, Change in speech, Confusion, Seizures, Other Symptoms Psych: Denies: Mood Normal, Anxiety, Depression, Memory Issues, Thoughts of Self Harm, Anger, Thoughts of Harming Other, Other Psych Physical Examination General Exam: Positive: Alert, Cooperative, Mild Distress Eye Exam: Positive: PERRLA, Conjunctiva & lids normal ENT Exam: Positive: Atraumatic, Mucous membr. moist/pink Neck Exam: Positive: Supple Chest Exam: Positive: Wheezing (bilateral expiratory wheezing audible) Heart Exam: Positive: Rate Normal, Normal S1, Normal S2 Telemetry: Positive: Tachycardia Abdomen Exam: Positive: Normal bowel sounds, Soft Extremity Exam: Positive: Normal pulses Skin Exam: Positive: Nl turgor and temperature Neuro Exam: Positive: Normal Speech, Strength at 5/5 X4 ext, Sensation Intact Psych Exam: Positive: Mental status NL, Mood NL Vital Signs Vital Signs Date Time Temp Pulse Resp B/P (MAP) Pulse Ox O2 Delivery O2 Flow Rate FiO2 09/08/18 19:35 96 Nasal Cannula 2.0 09/08/18 19:19 92 22 117/73 (88) 09/08/18 15:32 97.4 Laboratory Data Labs 24H Laboratory Tests 2 09/08/18 16:12: Immature Granulocyte % (Auto) 0.7, White Blood Count 4.6, Red Blood Count 2.11L, Hemoglobin 9.7L, Hematocrit 26.1L, Mean Corpuscular Volume 123.7H, Mean Corpuscular Hemoglobin 46.0H, Mean Corpuscular Hemoglobin Concent 37.2H, Red Cell Distribution Width 16.4H, Platelet Count 104L, Neutrophils (%) (Auto) 76.1H, Lymphocytes (%) (Auto) 18.2L, Monocytes (%) (Auto) 4.6, Eosinophils (%) (Auto) 0.2, Basophils (%) (Auto) 0.2, Neutrophils # (Auto) 3.5, Lymphocytes # (Auto) 0.8L, Monocytes # (Auto) 0.2, Eosinophils # (Auto) 0.0, Basophils # (Auto) 0.0, Nucleated Red Blood Cells % (auto) 0.0, Platelet Estimate DECREASED, Polychromasia 1+, Poikilocytosis 1+, Anisocytosis 1+, Macrocytosis 4+, Ovalocytes 1+, Prothrombin Time 15.1H, Prothromb Time International Ratio 1.22, Anion Gap 10, Glomerular Filtration Rate > 60.0, Lactic Acid Level 1.7, Calcium Level 8.8, Aspartate Amino Transf (AST/SGOT) 25, Alanine Aminotransferase (ALT/SGPT) 15, Alkaline Phosphatase 84, Total Bilirubin 1.5H, Direct Bilirubin 0.3H, Total Creatine Kinase 30L, Creatine Kinase MB < 1.0, Creatine Kinase MB Relative Index 3.33, Troponin I < 0.02, YK-Kqi-U-Type Natriuretic Peptide 412H, Total Protein 7.3, Albumin 3.5, Albumin/Globulin Ratio 0.92L, Thyroid Stimulating Hormone (TSH) 2.920 09/08/18 18:01: Blood Gas Bicarbonate Standard 18.8L, Arterial Blood pH 7.496H, Arterial Blood Partial Pressure CO2 19.9*L, Arterial Blood Partial Pressure O2 55.0L, Arterial Blood Total CO2 15.6L, Arterial Blood HCO3 15.0L, Arterial Blood Base Excess - 6.6L, Arterial Blood Oxygen Saturation 86.6L CBC/BMP Laboratory Tests 09/08/18 16:12 Red Blood Count 2.11 L, Mean Corpuscular Volume 123.7 H, Mean Corpuscular Hemoglobin 46.0 H, Mean Corpuscular Hemoglobin Concent 37.2 H, Red Cell Distribution Width 16.4 H, Neutrophils (%) (Auto) 76.1 H, Lymphocytes (%) (Auto) 18.2 L, Monocytes (%) (Auto) 4.6, Eosinophils (%) (Auto) 0.2, Basophils (%) (Auto) 0.2, Neutrophils # (Auto) 3.5, Lymphocytes # (Auto) 0.8 L, Monocytes # (Auto) 0.2, Eosinophils # (Auto) 0.0, Basophils # (Auto) 0.0 Problems (1) COPD with acute exacerbation Status: Acute Problem Text: Admit to PCU for close observation under telemetry Saline lock O2 support , Solu-Medrol 80 mg every8 hours DuoNeb every 4 hours , Proventil as needed every 2 hours Continue all home meds Due to prophylaxis with heparin COPD diet Out of bed as tolerated Follow a.m. level work Plan / VTE VTE Prophylaxis Ordered?: Yes BELIA FRANCOIS MD Sep 08, 2018 20:44
[2018-09-08 22:40] VITALS: BP 128/82
[2018-09-08] MEDS: zolPIDEM TARTRATE 5 MG TAB PO PRN (23:34)
[2018-09-08 23:59] VITALS: BP 106/58
[2018-09-09] VITALS (7 sets, daily range): BP systolic 96–118; BP diastolic 60–73
[2018-09-09] MEDS ORDERED: methylPREDNISolone INJ 125 MG/2 ML VIAL (J2930) IV SCH (04:00)
[2018-09-09] MEDS: IPRATROPIUM 0.5MG/ALBUTEROL 2.5MG INH SOL UD 3ML (DUONEB)(J7620) NEB SCH ×4 (04:23→19:44)
--- NOTE | 2018-09-09 05:49 | ECGEPIP ---
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
[2018-09-09] MEDS: BISOPROLOL FUM 2.5 MG PER 1/2TAB PO SCH (08:03)
[2018-09-09] MEDS: HEPARIN SOD (PORCINE) 5000 UNITS/ML VIAL SC SCH ×3 (08:04→21:02)
[2018-09-09] MEDS: CALCIUM CARBONATE 500 MG CHEW U/D PO PRN ×4 (08:08→21:07)
[2018-09-09 08:09] LABS: HEMATOCRIT 26.8 % (42.0-52.0); HEMOGLOBIN 9.7 g/dl (13.5-17.5); MEAN CORPUSCULAR HEMOGLOBIN 44.3 pg (27.0-33.0); MEAN CORPUSCULAR HGB CONC 36.2 g/dl (32.0-36.5); RED BLOOD COUNT 2.19 10^6/uL (4.30-6.10)
[2018-09-09 08:31] LABS: ALBUMIN 3.6 GM/DL (3.2-5.2); ALT/SGPT 14 U/L (12-78); BILIRUBIN,TOTAL 1.6 MG/DL (0.2-1.0); BLOOD UREA NITROGEN 15 MG/DL (7-18); CARBON DIOXIDE LEVEL 18 MEQ/L (21-32); CHLORIDE LEVEL 104 MEQ/L (98-107); CREATININE FOR GFR 0.99 MG/DL (0.70-1.30); GLOMERULAR FILTRATION RATE > 60.0 (>49); GLUCOSE, FASTING 156 MG/DL (70-100); POTASSIUM SERUM 4.1 MEQ/L (3.5-5.1); SODIUM LEVEL 134 MEQ/L (136-145); TOTAL PROTEIN 7.5 GM/DL (6.4-8.2)
[2018-09-09 08:43] LABS: MEAN CORPUSCULAR VOLUME 122.4 fl (80.0-96.0); PLATELET COUNT, AUTOMATED 95 10^3/uL (150-450)
[2018-09-09] MEDS: NICOTINE 14 MG/24 HR TRANSDERMAL TD SCH (11:23)
--- NOTE | 2018-09-09 14:52 | IPNPDOC ---
Text Note Date of Service The patient was seen on 09/09/18. NOTE Subjective: Patient is a 63-year-old male with a PMHx of CAD s/p CABG, Abdominal stents, Arthritis, Recent history of pericardial effusion s/p drainage tube who presented to the ER with complaints of shortness of breath and associated wheezing. Patient was admitted to hospitalist service for COPD exacerbation Patient was seen and examined at the bedside. . Patient reports that his breathing is doing better. He denies any chest pain, or palpitations. Does report mild cough. Denies nausea, vomiting, abdominal pain, constipation, diarrhea, or urinary discomfort. Objective: Vitals (See below) General: Lying in bed, no acute distress, comfortable, AAOx3 HEENT: NC, AT CVS: RRR, +S1S2 Lungs: Fair air entry b/l, mild expiratory wheezing. No rhonchi or rales Abdomen: Soft, ND, NT Extremities: - Edema, - Calf tenderness Assessment and plan: Shortness of breath - likely 2/2 Acute COPD exacerbation - Presented to the emergency room with complaints of shortness of breath - Physical had initially and currently revealed expiratory wheezing - CTA chest 09/08: 1. No acute pulmonary emboli. 2. Emphysema 3. Thickening of interlobular septa with adjacent hazy density in the anterior segment left upper lobe could represent an interstitial pneumonitis. 4. Stable pulmonary nodules from 2018. - Will reduce dose of Solu-Medrol - Continue with inhaled therapy is ordered Pancytopenia - Patient has a history of Hepatitis C; appears to have been treated - No evidence of bleeding - Will repeat hepatitis profile (A/B/C) - Will continue to monitor Mild hyponatremia - improving Active smoker - Advised smoking cessation - c/w Nicotine patch CAD s/p CABG - c/w Bisoprolol Abdominal stents - Patient is not on ASA / Plavix; will differ to outpatient provider Arthritis - Currently with no pain Insomnia - c/w Zolpidem Recent history of pericardial effusion s/p drainage tube - Will have outpatient follow DVT prophylaxis - c/w Heparin VS,Fishbone, I+O VS, Fishbone, I+O Laboratory Tests 09/08/18 16:12 Red Blood Count 2.11 L, Mean Corpuscular Volume 123.7 H, Mean Corpuscular Hemoglobin 46.0 H, Mean Corpuscular Hemoglobin Concent 37.2 H, Red Cell Distribution Width 16.4 H, Neutrophils (%) (Auto) 76.1 H, Lymphocytes (%) (Auto) 18.2 L, Monocytes (%) (Auto) 4.6, Eosinophils (%) (Auto) 0.2, Basophils (%) (Auto) 0.2, Neutrophils # (Auto) 3.5, Lymphocytes # (Auto) 0.8 L, Monocytes # (Auto) 0.2, Eosinophils # (Auto) 0.0, Basophils # (Auto) 0.0 09/09/18 07:48 Red Blood Count 2.19 L, Mean Corpuscular Volume 122.4 H, Mean Corpuscular Hemoglobin 44.3 H, Mean Corpuscular Hemoglobin Concent 36.2, Red Cell Distribution Width 16.2 H, Calcium Level 9.0, Aspartate Amino Transf (AST/SGOT) 20, Alanine Aminotransferase (ALT/SGPT) 14, Alkaline Phosphatase 82, Total Bilirubin 1.6 H, Total Protein 7.5, Albumin 3.6 Vital Signs Date Time Temp Pulse Resp B/P (MAP) Pulse Ox O2 Delivery O2 Flow Rate FiO2 09/09/18 12:00 2.0 09/09/18 12:00 97.1 112 21 107/67 (80) 94 09/08/18 22:13 Nasal Cannula I&O- Last 24 Hours up to 6 AM 09/09/18 06:00 Intake Total 0 ml Output Total 0 ml Balance 0 ml DERRICK ROSALES MD Sep 09, 2018 14:52
[2018-09-09] MEDS: methylPREDNISolone INJ 125 MG/2 ML VIAL (J2930) IV SCH (15:08)
[2018-09-09] MEDS ORDERED: AZITHROMYCIN INJ 500 MG, VIAL MATE ADAPTER 1 EACH in D5W 250 ML IV SCH (17:00)
[2018-09-09] MEDS ORDERED: NS 500 ML IV ONE (18:45)
[2018-09-09] MEDS ORDERED: BISOPROLOL FUM 2.5 MG PER 1/2TAB PO ONE (19:00)
[2018-09-09] MEDS: zolPIDEM TARTRATE 5 MG TAB PO PRN (22:33)
[2018-09-10] VITALS (11 sets, daily range): BP systolic 78–125; BP diastolic 56–72
[2018-09-10] MEDS: CALCIUM CARBONATE 500 MG CHEW U/D PO PRN ×3 (01:20→21:04)
[2018-09-10] MEDS ORDERED: NS 500 ML IV ONE ×2 (01:30→09:15)
[2018-09-10] MEDS: IPRATROPIUM 0.5MG/ALBUTEROL 2.5MG INH SOL UD 3ML (DUONEB)(J7620) NEB SCH ×4 (02:00→20:51)
[2018-09-10] MEDS: methylPREDNISolone INJ 125 MG/2 ML VIAL (J2930) IV SCH (03:21)
[2018-09-10] MEDS ORDERED: NS 1,000 ML IV ONE ×2 (03:45→16:15)
[2018-09-10 07:47] LABS: BASO % 0.1 % (0.0-1.0); HEMATOCRIT 23.5 % (42.0-52.0); HEMOGLOBIN 8.5 g/dl (13.5-17.5); LYMPH # 0.5 10^3/uL (1.5-4.5); LYMPH % 3.5 % (24.0-44.0); MEAN CORPUSCULAR HEMOGLOBIN 45.2 pg (27.0-33.0); MEAN CORPUSCULAR HGB CONC 36.2 g/dl (32.0-36.5); MONO # 0.2 10^3/uL (0.0-0.8); MONO % 1.3 % (0.0-5.0); NEUTROPHILS # 12.1 10^3/uL (1.8-7.7); NEUTROPHILS % 94.3 % (36.0-66.0); RED BLOOD COUNT 1.88 10^6/uL (4.30-6.10); WHITE BLOOD COUNT 12.8 10^3/uL (4.0-10.0)
[2018-09-10 08:13] LABS: BLOOD UREA NITROGEN 16 MG/DL (7-18); CALCIUM LEVEL 8.5 MG/DL (8.8-10.2); CARBON DIOXIDE LEVEL 19 MEQ/L (21-32); CHLORIDE LEVEL 105 MEQ/L (98-107); CREATININE FOR GFR 0.83 MG/DL (0.70-1.30); GLOMERULAR FILTRATION RATE > 60.0 (>49); GLUCOSE, FASTING 111 MG/DL (70-100); POTASSIUM SERUM 4.2 MEQ/L (3.5-5.1); SODIUM LEVEL 132 MEQ/L (136-145)
[2018-09-10 08:17] LABS: PLATELET COUNT, AUTOMATED 79 10^3/uL (150-450)
[2018-09-10 08:18] LABS: ANISOCYTOSIS 1+; OVALOCYTES 1+; PLATELET ESTIMATE DECREASED (NORMAL)
[2018-09-10] MEDS: BISOPROLOL FUM 2.5 MG PER 1/2TAB PO SCH ×2 (09:00→14:07)
[2018-09-10] MEDS: HEPARIN SOD (PORCINE) 5000 UNITS/ML VIAL SC SCH ×2 (09:00→20:53)
[2018-09-10] MEDS: predniSONE 20 MG TAB PO SCH (09:01)
[2018-09-10] MEDS: AZITHROMYCIN 250 MG TAB PO SCH (09:01)
[2018-09-10] MEDS: NICOTINE 14 MG/24 HR TRANSDERMAL TD SCH (09:01)
[2018-09-10] MEDS ORDERED: DIGOXIN INJ 0.5 MG/2 ML AMP (J1160) IV ONE ×2 (14:00→20:00)
--- NOTE | 2018-09-10 14:22 | IPNPDOC ---
Text Note Date of Service The patient was seen on 09/10/18. NOTE Subjective: Patient is a 63-year-old male with a PMHx of CAD s/p CABG, Abdominal stents, Arthritis, Recent history of pericardial effusion s/p drainage tube who presented to the ER with complaints of shortness of breath and associated wheezing. Patient was admitted to hospitalist service for COPD exacerbation Patient was seen and examined at the bedside. Currently patient still complains of shortness of breath. He denies any chest pain or palpitations. Denies nausea, vomiting, abdominal pain, constipation, diarrhea, or urinary discomfort. Objective: Vitals (See below) General: Lying in bed, no acute distress, comfortable, AAOx3 HEENT: NC, AT CVS: +S1S2 Lungs: Fair air entry b/l, again there is mild expiratory wheezing bilaterally. No evidence of rhonchi, rales Abdomen: Soft, nondistended and nontender Extremities: No evidence of lower extremity edema, - Calf tenderness Assessment and plan: Shortness of breath - likely 2/2 Acute COPD exacerbation - Presented to the emergency room with complaints of shortness of breath - Physical had initially and currently revealed expiratory wheezing - CTA chest 09/08: 1. No acute pulmonary emboli. 2. Emphysema 3. Thickening of interlobular septa with adjacent hazy density in the anterior segment left upper lobe could represent an interstitial pneumonitis. 4. Stable pulmonary nodules from 2018. - Will check CXR now - Will start Prednisone; Will DC Solumedrol - Continue with inhaled therapy is ordered A. fib with RVR - As an outpatient, they take bisoprolol 2.5 daily - morning medication was held hold parameters (Hypotension) - Will provide additional dose of bisoprolol now - If HR is uncontrolled; will start digoxin - Will get ECHO - Will discuss into anticoagulation therapy with patient Pancytopenia - Patient has a history of Hepatitis C; appears to have been treated - No evidence of bleeding - Will repeat hepatitis profile (A/B/C) - Will continue to monitor Mild hyponatremia - improving Active smoker - Advised smoking cessation - c/w Nicotine patch CAD s/p CABG - c/w Bisoprolol Abdominal stents - Patient is not on ASA / Plavix; will differ to outpatient provider Arthritis - Currently with no pain Insomnia - c/w Zolpidem Recent history of pericardial effusion s/p drainage tube - Will have outpatient follow DVT prophylaxis - c/w Heparin VS,Fishbone, I+O VS, Fishbone, I+O Laboratory Tests 09/10/18 07:28 Red Blood Count 1.88 L, Mean Corpuscular Volume 125.0 H, Mean Corpuscular Hemoglobin 45.2 H, Mean Corpuscular Hemoglobin Concent 36.2, Red Cell Distribu tion Width 16.5 H, Neutrophils (%) (Auto) 94.3 H, Lymphocytes (%) (Auto) 3.5 L, Monocytes (%) (Auto) 1.3, Eosinophils (%) (Auto) 0.0, Basophils (%) (Auto) 0.1, Neutrophils # (Auto) 12.1 H, Lymphocytes # (Auto) 0.5 L, Monocytes # (Auto) 0.2, Eosinophils # (Auto) 0.0, Basophils # (Auto) 0.0, Calcium Level 8.5 L Vital Signs Date Time Temp Pulse Resp B/P (MAP) Pulse Ox O2 Delivery O2 Flow Rate FiO2 09/10/18 14:07 120 117/69 09/10/18 12:00 96.8 20 92 09/09/18 16:00 09/08/18 22:13 Nasal Cannula I&O- Last 24 Hours up to 6 AM 09/10/18 05:59 Intake Total 1855 ml Output Total 400 ml Balance 1455 ml DERRICK ROSALES MD Sep 10, 2018 14:22
--- NOTE | 2018-09-10 14:39 | REP ---
CHEST, SINGLE VIEW: COMPARISON: 09/08/2018 Once again, there is mild interstitial infiltrate in the left upper lobe. Findings are stable. No new infiltrate is seen bilaterally. The heart is normal in size and the mediastinal silhouette is unchanged. Multiple sternal wires are present. IMPRESSION: Stable exam. Electronically Signed by Jose Briceno MD 09/11/2018 10:13 P
[2018-09-10 15:18] LABS: CK-MB VALUE MASS 1.5 NG/ML (<3.6); CPK CREATINE PHOSPHOKINASE 44 U/L (39-308); MB/CK RELATIVE INDEX 3.41 (< OR =4); TROPONIN I < 0.02 NG/ML (< 0.10)
[2018-09-10] MEDS: NS 1,000 ML IV SCH (17:20)
[2018-09-10] MEDS ORDERED: GI COCKTAIL 50ML BTL(HYOSCYAMINE/MAALOX/LIDOCAINE VISCOUS)(1:3:1) PO ONE (17:30)
[2018-09-10] MEDS: zolPIDEM TARTRATE 5 MG TAB PO PRN (21:04)
[2018-09-11] MEDS: NS 1,000 ML IV SCH ×2 (00:57→08:45)
[2018-09-11] MEDS ORDERED: DIGOXIN INJ 0.5 MG/2 ML AMP (J1160) IV ONE (01:00)
[2018-09-11] MEDS: CALCIUM CARBONATE 500 MG CHEW U/D PO PRN ×2 (01:05→09:11)
[2018-09-11] MEDS: IPRATROPIUM 0.5MG/ALBUTEROL 2.5MG INH SOL UD 3ML (DUONEB)(J7620) NEB SCH ×2 (02:15→07:07)
[2018-09-11 03:30] LABS: EOS % 0.1 % (0.0-3.0); HEMATOCRIT 22.1 % (42.0-52.0); HEMOGLOBIN 7.8 g/dl (13.5-17.5); LYMPH # 1.4 10^3/uL (1.5-4.5); LYMPH % 15.7 % (24.0-44.0); MEAN CORPUSCULAR HEMOGLOBIN 44.8 pg (27.0-33.0); MEAN CORPUSCULAR HGB CONC 35.3 g/dl (32.0-36.5); MONO # 0.3 10^3/uL (0.0-0.8); MONO % 3.9 % (0.0-5.0); NEUTROPHILS % 79.7 % (36.0-66.0); RED BLOOD COUNT 1.74 10^6/uL (4.30-6.10); WHITE BLOOD COUNT 8.8 10^3/uL (4.0-10.0)
[2018-09-11 03:32] LABS: PLATELET COUNT, AUTOMATED 77 10^3/uL (150-450)
[2018-09-11 03:47] LABS: BLOOD UREA NITROGEN 15 MG/DL (7-18); CARBON DIOXIDE LEVEL 22 MEQ/L (21-32); CHLORIDE LEVEL 105 MEQ/L (98-107); GLOMERULAR FILTRATION RATE > 60.0 (>49); GLUCOSE, FASTING 87 MG/DL (70-100); MAGNESIUM LEVEL 1.9 MG/DL (1.8-2.4); POTASSIUM SERUM 3.8 MEQ/L (3.5-5.1); SODIUM LEVEL 135 MEQ/L (136-145)
[2018-09-11 03:55] LABS: ANISOCYTOSIS 1+
[2018-09-11 03:56] LABS: PLATELET ESTIMATE DECREASED (NORMAL)
[2018-09-11 04:00] VITALS: BP 116/68
[2018-09-11 08:00] VITALS: BP 124/76
[2018-09-11] MEDS: NICOTINE 14 MG/24 HR TRANSDERMAL TD SCH (08:44)
[2018-09-11] MEDS: predniSONE 20 MG TAB PO SCH (08:44)
[2018-09-11] MEDS: AZITHROMYCIN 250 MG TAB PO SCH (08:44)
[2018-09-11] MEDS: HEPARIN SOD (PORCINE) 5000 UNITS/ML VIAL SC SCH (08:45)
[2018-09-11 08:50] VITALS: BP 126/60
[2018-09-11] MEDS: BISOPROLOL FUM 2.5 MG PER 1/2TAB PO SCH (08:50)
[2018-09-11] MEDS ORDERED: DIGOXIN 0.125 MG TAB PO SCH (09:00)
[2018-09-11] MEDS ORDERED: ASPIRIN 325 MG TAB PO SCH (09:00)
[2018-09-11] MEDS ORDERED: ASPI-1 PO (09:07)
[2018-09-11] MEDS ORDERED: AZIT500T5 PO (09:07)
[2018-09-11] MEDS ORDERED: DIGO0.123 PO (09:07)
[2018-09-11] MEDS ORDERED: PRED10TA2 PO (09:07)
--- NOTE | 2018-09-11 09:17 | ECHO ---
DATE OF SERVICE: 09/10/2018 AGE: 63. REFERRING PROVIDER: Cleo Colon MD PATIENT LOCATION: Room 3213. REASON FOR THE ECHOCARDIOGRAM: Abnormal electrocardiogram (EKG). 2D MEASUREMENTS: IVS: 0.9 cm LV: 3.5 cm LVPW: 1.0 cm LA: 2.1 cm Aorta: 3.0 cm RV: 2.5 cm IVC: 1.8 cm DOPPLER MEASUREMENTS: Peak velocity across the aortic valve: 1.3 m/s Peak velocity across the LVOT: 0.76 m/s Mitral E: 0.90 Maximum tricuspid valve velocity: 2.8 m/s 2D COMMENTS: 1. Normal left ventricular size, wall thickness, and normal global left ventricular systolic function. The estimated left ventricular systolic ejection fraction is 65% to 70%. 2. The left atrium appeared to be normal. Normal right atrium and right ventricle. 3. The atrial septum appeared to be normal without evidence of defect or shunt. 4. Normal aortic root. 5. No pericardial effusion seen. 6. Minimally calcified aortic valve with normal leaflet excursion. Mildly calcified mitral annulus with normal anterior mitral valve leaflet motion. Normal tricuspid valve. The pulmonic valve and proximal pulmonary artery branches were not well visualized. 7. The inferior vena cava was normal in size, central venous pressure is most likely normal. DOPPLER: Only mild tricuspid regurgitation detected. The calculated pulmonary artery systolic pressure varies between 30 and 40 mmHg. Assessment of the left ventricular diastolic function was limited in view of the underlying atrial fibrillation. IMPRESSION: 1. Normal global left ventricular systolic function with a hyperdynamic left ventricle. Assessment of the left ventricular diastolic function was limited in view of the underlying atrial fibrillation. 2. Aortic valve sclerosis without stenosis or aortic regurgitation. 3. Isolated mitral annulus calcification. No significant mitral regurgitation detected in this transthoracic echocardiogram. 4. Mild tricuspid regurgitation with mild pulmonary hypertension. 5. No significant pericardial effusion detected. [facility]
--- NOTE | 2018-09-11 11:30 | DS.PDOC ---
Discharge Summary General Date of Admission Sep 08, 2018 at 20:29 Date of Discharge 09/11/2018 Discharge Summary PROCEDURES PERFORMED DURING STAY: [None]. ADMITTING DIAGNOSES / DISCHARGE DIAGNOSES: Shortness of breath - likely 2/2 Acute COPD exacerbation A. fib with RVR Pancytopenia Mild hyponatremia Active smoker CAD s/p CABG Abdominal stents Arthritis Insomnia Recent history of pericardial effusion s/p drainage tube DVT prophylaxis COMPLICATIONS/CHIEF COMPLAINT: Shortness of breath HISTORY OF PRESENT ILLNESS: Patient is a 63-year-old male with a PMHx of CAD s/p CABG, Abdominal stents, Arthritis, Recent history of pericardial effusion s/p drainage tube who presented to the ER with complaints of shortness of breath and associated wheezing. Patient was admitted to hospitalist service for COPD exacerbation HOSPITAL COURSE: Shortness of breath - likely 2/2 Acute COPD exacerbation - Presented to the emergency room with complaints of shortness of breath - Physical had initially and currently revealed expiratory wheezing - CTA chest 09/08: 1. No acute pulmonary emboli. 2. Emphysema 3. Thickening of interlobular septa with adjacent hazy density in the anterior segment left upper lobe could represent an interstitial pneumonitis. 4. Stable pulmonary nodules from 2018. - CXR 09/10: mild interstitial infiltrate in the left upper lobe. Findings are stable. No new infiltrate is seen bilaterally. The heart is normal in size and the mediastinal silhouette is unchanged. - c/w Prednisone; s/p Solumedrol; will c/w Solumedrol taper as outpatient - c/w Azithromycin for immunomodulatory effect - Continue with inhaled therapy is ordered - Will have outpatient follow up with Dr. David on 09/13/2018 A. fib s/p RVR - As an outpatient, they take bisoprolol 2.5 daily - morning medication was held hold parameters (Hypotension - HR is better controlled; remains optimized - CHADSVasc = 0 - ECHO 09/10: Normal EF, mild TR, mild pulmonary HTN - c/w Bisoprolol and Digoxin - c/w ASA 325 daily - Will have outpatient follow up with Dr. Zach Russell Pancytopenia - Patient has a history of Hepatitis C; appears to have been treated - No evidence of bleeding - Will repeat hepatitis profile (A/B/C) - Will continue to monitor - Will have outpatient follow up with Dr. Zach Russell Mild hyponatremia - improving Normocytic anemia - likely 2/2 dilutional etiology - Slowly trending down Hg after giving >5 L on normal saline - Will continue to monitor Active smoker - Advised smoking cessation - c/w Nicotine patch CAD s/p CABG - c/w Bisoprolol Abdominal stents - Patient is not on ASA / Plavix; will differ to outpatient provider Arthritis - Currently with no pain Insomnia - c/w Zolpidem Recent history of pericardial effusion s/p drainage tube - Will have outpatient follow DVT prophylaxis - c/w Heparin DISCHARGE MEDICATIONS: Please see below. ALLERGIES: Please see below. PHYSICAL EXAMINATION ON DISCHARGE: Vitals (See below) General: Lying in bed, no acute distress, comfortable, AAOx3 HEENT: NC, AT CVS: +S1S2 Lungs: Fair air entry b/l, no evidence of rhonchi / rales / wheezing on exam this morning Abdomen: Remains soft without distention or tenderness Extremities: Lower extremities are free of any edema, - Calf tenderness LABORATORY DATA: Please see below. ACTIVITY: [As tolerated]. DISCHARGE PLAN: Follow up with Dr. Zach Russell within 7 days Remain compliant with treatment plan and medications Return to the ER if you experience any problems DISPOSITION: Home DISCHARGE CONDITION: [Stable]. TIME SPENT ON DISCHARGE: 35 minutes Vital Signs/I&Os Vital Signs Date Time Temp Pulse Resp B/P (MAP) Pulse Ox O2 Delivery O2 Flow Rate FiO2 09/11/18 08:50 90 126/60 09/11/18 08:00 97.8 19 90 09/11/18 04:00 2.0 09/08/18 22:13 Nasal Cannula I&O- Last 24 Hours up to 6 AM 09/11/18 06:00 Intake Total 4310 ml Output Total 1500 ml Balance 2810 ml Laboratory Data Labs 24H Laboratory Tests 2 09/10/18 14:42: Total Creatine Kinase 44, Creatine Kinase MB 1.5, Creatine Kinase MB Relative I ndex 3.41, Troponin I < 0.02 09/10/18 15:16: Lactic Acid Level 3.9*H 09/10/18 19:32: Lactic Acid Followup at 4 Hours 4.0*H 09/11/18 03:22: Lactic Acid Level 2.8*H, Immature Granulocyte % (Auto) 0.6, White Blood Count 8.8, Red Blood Count 1.74L, Hemoglobin 7.8L, Hematocrit 22.1L, Mean Corpuscular Volume 127.0H, Mean Corpuscular Hemoglobin 44.8H, Mean Corpuscular Hemoglobin Concent 35.3, Red Cell Distribution Width 16.5H, Platelet Count 77L, Neutrophils (%) (Auto) 79.7H, Lymphocytes (%) (Auto) 15.7L, Monocytes (%) (Auto) 3.9, Eosinophils (%) (Auto) 0.1, Basophils (%) (Auto) 0.0, Neutrophils # (Auto) 7.0, Lymphocytes # (Auto) 1.4L, Monocytes # (Auto) 0.3, Eosinophils # (Auto) 0.0, Basophils # (Auto) 0.0, Nucleated Red Blood Cells % (auto) 0.0, Platelet Estimate DECREASED, Immature Platelet Fraction 4.5, Anisocytosis 1+, Macrocytos is 4+, Anion Gap 8, Glomerular Filtration Rate > 60.0, Blood Urea Nitrogen 15, Creatinine 0.70, Sodium Level 135L, Potassium Level 3.8, Chloride Level 105, Carbon Dioxide Level 22, Calcium Level 8.0L, Magnesium Level 1.9 09/11/18 07:39: Lactic Acid Followup at 4 Hours 2.1*H CBC/BMP Laboratory Tests 09/11/18 03:22 Red Blood Count 1.74 L, Mean Corpuscular Volume 127.0 H, Mean Corpuscular Hemoglobin 44.8 H, Mean Corpuscular Hemoglobin Concent 35.3, Red Cell Distribution Width 16.5 H, Neutrophils (%) (Auto) 79.7 H, Lymphocytes (%) (Auto) 15.7 L, Monocytes (%) (Auto) 3.9, Eosinophils (%) (Auto) 0.1, Basophils (%) (Auto) 0.0, Neutrophils # (Auto) 7.0, Lymphocytes # (Auto) 1.4 L, Monocytes # (Auto) 0.3, Eosinophils # (Auto) 0.0, Basophils # (Auto) 0.0, Calcium Level 8.0 L Microbiology Microbiology 09/11/18 Blood Culture, Received Pending Discharge Medications Scheduled Aspirin (Aspirin) 325 Mg Tablet, 325 MG PO DAILY Azithromycin (Azithromycin) 500 Mg Tablet, 500 MG PO DAILY Bisoprolol Fumarate (Bisoprolol Fumarate) 5 Mg Tab, 2.5 MG PO DAILY, (Reported) Digoxin (Digoxin) 125 Mcg Tablet, 0.125 MG PO DAILY Prednisone (Prednisone) 10 Mg Tablet, 10 MG PO TAPER Take 4 tabs daily x 3 days, then 3 tabs daily x 3 days, then 2 tabs daily x 3 days, then 1 tab daily x 3 days and stop Umeclidinium Braggs (Incruse Ellipta) 62.5 Mcg/Inh Inh, 1 PUFF PO DAILY, (Reported) Scheduled PRN Albuterol Sulfate (Ventolin Hfa) 108 Mcg/Act Aer, 1 PUFF PO Q4H PRN for SHORTNESS OF BREATH, (Reported) Zolpidem Tartrate (Zolpidem Tartrate) 10 Mg Tablet, 10 MG PO QHS PRN for INSOMNIA, (Reported) Allergies Coded Allergies: chlorpromazine (Verified Allergy, Unknown, 09/08/18) acute dystonic reaction DERRICK ROSALES MD Sep 11, 2018 11:30
[2018-09-11] MEDS ORDERED: BLOOKIT XX (11:54)
[2018-09-11] MEDS ORDERED: OMEP40CA97 PO (11:54)
--- NOTE | 2018-09-11 19:07 | ECGEPIP ---
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
[2018-09-12 11:44] LABS: HEPATITIS A ANTIBODY IGM NEGATIVE (NEGATIVE); HEPATITIS B CORE ANTIBODY IGM EQUIVOCAL (NEGATIVE); HEPATITIS B SURFACE ANTIGEN NEGATIVE (NEGATIVE)
[2018-09-12 11:45] LABS: HEPATITIS C VIRUS ABY INDEX > 11.0 INDEX (<0.8)
[2018-10-04] MEDS ORDERED: DIGO0.123 PO (11:19)
[2018-10-04] MEDS ORDERED: OMEP40CA97 PO (11:19)
== END 2018-09-11 12:09 | disposition home or self-care (01) | DRG 191 ==
LOC: M ED 15:30 → M ED INP 20:29 → M PCU 22:36
PROVIDERS: ADMIT Internal Medicine; ATTEND Internal Medicine
DX: J44.1 Chronic obstructive pulmonary disease with (acute) exacerbation (principal); D61.818 Other pancytopenia; E87.1 Hypo-osmolality and hyponatremia; I25.10 Atherosclerotic heart disease of native coronary artery without angina pectoris; Z95.5 Presence of coronary angioplasty implant and graft; Z79.899 Other long term (current) drug therapy; Z88.8 Allergy status to other drugs, medicaments and biological substances; F17.200 Nicotine dependence, unspecified, uncomplicated; M19.90 Unspecified osteoarthritis, unspecified site; G47.00 Insomnia, unspecified; I48.91 Unspecified atrial fibrillation

== ENCOUNTER → 2018-09-21 | Outpatient (CLI) | payer MEDICARE, MEDICAID ==
[~2018-09-21] MED LIST changes: +ASPI-1 PO; +AZIT500T2 PO; -BISO5TAB14 PO; +BISO5TAB5 PO; +BLOOKIT XX; +DIGO0.12 PO; +OMEP40CA2 PO; +ONDA4TAB5 PO; +PRED10TA2 PO; +ZOLP10TA2 PO
--- NOTE | 2018-09-21 10:21 | REP ---
Clinical: Symptoms related to peripheral atherosclerotic disease. Comparison: 05/14/2017 Technique: Real time merritt scale and color Doppler evaluation of the bilateral lower extremity arterial vasculature using linear high frequency transducer. Findings: There is a history of bilateral common iliac artery stenting. The right common iliac artery demonstrates normal triphasic arterial wave pattern with proximal velocity at 133 cm/sec and distal velocity beyond the stent at 116 cm/sec. The right external iliac artery demonstrates normal triphasic arterial wave pattern with a velocity of 117 cm/sec. The left common iliac artery demonstrates monophasic arterial wave patterns with a proximal velocity of 71 cm/sec and distal velocities measuring up to 218 cm/sec. The left external iliac artery demonstrates monophasic arterial wave pattern with a velocity of 189 cm/sec. Bilateral lower extremities again demonstrate significant mixed atheromatous plaquing. The right lower extremity now demonstrates increased flow as compared to prior examination. The left lower extremity again demonstrates complete occlusion of the superficial femoral artery with a large collateral originating above the area of occlusion with focal area of proximal stenosis and revascularizes the distal superficial femoral artery. Peak systolic velocities (cm/sec) RIGHT LEFT STEW 0.8 0.6 Common femoral artery 137 (biphasic) 137 (biphasic) Profunda femoris 100 (biphasic) 203 (monophasic) SFA (proximal) 88 (biphasic) 120 (monophasic) SFA (mid) 103 (biphasic) occluded SFA (distal) 100 (biphasic) 24 (monophasic) Popliteal artery 103 (biphasic) 26 (monophasic) MILTON (prox.) 35 (monophasic) 9 (monophasic) Tibioperoneal trunk 82 (biphasic) 20 (monophasic) SLOPE HOIST OPERATOR (prox.) 70 (biphasic) 33 (monophasic) SLOPE HOIST OPERATOR (distal) 31 (biphasic) 13 (monophasic) MILTON (distal) 38 (biphasic) 18 (monophasic) Impression: 1. Continued evidence for significant peripheral vascular disease as described above. New area of stenosis suggested at the origin of the collateral vessel in the proximal left superficial femoral artery. 2. Left common iliac artery findings suggests a stenosis proximal to the stented portion of the vessel with subsequent decreased velocities and monophasic wave patterns. Electronically Signed by Denilson Recinos MD 09/21/2018 10:13 A
--- NOTE | 2018-09-21 10:31 | REP ---
Bilateral carotid artery duplex ultrasound: Peak flow velocity analysis: RIGHT LEFT ICA Peak flow velocity cm/sec the 92.3 84.6 ICA Diastolic flow velocity cm/sec 44.9 41.1 ICA/CCA Ratio 1.7 2.0 ECA Peak flow velocity cm/sec 77.6 162.3 CCA Peak flow velocity cm/sec 54.2 distal 42.8 distal CCA Peak Flow velocity cm/sec 155 prox 129 prox There is moderate atheromatous plaque bilaterally except that the plaque is slightly heavier in the proximal common carotid arteries bilaterally. The peak flow velocities are normal bilaterally except in the proximal common carotid arteries were the peak flow velocities are slightly elevated bilaterally. This is compatible with 50 - 69% stenosis in the proximal common carotid arteries bilaterally. However, the proximal common carotid arteries are not optimally visualized by ultrasound because of low position in the neck. Therefore, as a precaution, follow-up MRA or CTA might be considered. The peak flow velocities in the distal common carotid arteries, internal carotid arteries and external carotid arteries are normal bilaterally . This in combination with moderate plaque indicates less than 50% stenosis bilaterally in these vessels. There is antegrade flow in the vertebral arteries bilaterally. Impression: 50 - 69% stenosis in the proximal common carotid arteries bilaterally. The proximal common carotid arteries are not optimally visualized because of the low location in the neck , therefore, follow-up MRA or CTA might be considered for further evaluation. Otherwise, there is less than 50% stenosis in the distal common carotid arteries, external carotid arteries, internal carotid arteries bilaterally. There is antegrade flow in the vertebral arteries bilaterally. Electronically Signed by Jose Kwon MD 09/21/2018 10:23 A
== END ==
LOC: M RAD 07:42
PROVIDERS: ATTEND Physician Assistant
DX: R42 Dizziness and giddiness (principal); M79.604 Pain in right leg; M79.605 Pain in left leg; I65.23 Occlusion and stenosis of bilateral carotid arteries; I70.203 Unspecified atherosclerosis of native arteries of extremities, bilateral legs; I77.1 Stricture of artery; Z95.820 Peripheral vascular angioplasty status with implants and grafts

== ENCOUNTER 2018-10-04 08:01 | Inpatient (IN) | payer MEDICARE, MEDICAID ==
[~2018-10-04] VITALS: Ht 175.3 cm; Wt 62.9 kg
[2018-10-04] MEDS: TIOTROPIUM INHALER/CAPSULE (SPIRIVA) INH SCH (08:00)
[~2018-10-04 08:01] MED LIST changes: -BAYE325T12 PO; -BUPIVACAINE HCL 0.5% 10 ML VIAL As Ordered ONE; -HEPARIN 1,000 UNITS/ML 10ML VIAL (FOR RADIOLOGY& DIALYSIS ONLY) As Ordered ONE; -ISOVUE-300 61% 50ML VIAL (Q9967) As Ordered ONE; -LIDOCAINE 2% MDV 20 ML VIAL As Ordered ONE; -MIDAZOLAM INJ 2 MG/2 ML VIAL (J2250) As Ordered ONE; -diphenhydrAMINE INJ 50MG/ML VIAL (J1200) As Ordered ONE; -fentaNYL 100 MCG/2 ML INJECTION (J3010) As Ordered ONE
[2018-10-04] MEDS ORDERED: dexameTHASONE 20 MG/5 ML VIAL (J1100) IV ONE (08:30)
[2018-10-04 08:36] LABS: ABG BASE EXCESS -8.2 (-2.0-2.0); ABG O2 SATURATION 82.9 % (95.0-99.0); ABG PARTIAL PRESSURE O2 50.3 mmHg (75.0-100.0); ABG STANDARD HCO3 17.5 MEQ/L (22.0-26.0); ABG TOTAL CO2 14.6 MEQ/L (23.0-31.0); ABG pH (ARTERIAL) 7.483 UNITS (7.350-7.450)
[2018-10-04 08:39] LABS: ABG PARTIAL PRESSURE CO2 19.1 mmHg (35.0-45.0)
[2018-10-04] MEDS: ENOXAPARIN 40 MG/0.4 ML SYRINGE (J1650) SC SCH ×2 (09:00→17:47)
[2018-10-04] MEDS: FOLIC ACID 1 MG TAB PO SCH ×2 (09:00→20:01)
--- NOTE | 2018-10-04 09:02 | REP ---
PORTABLE CHEST X-RAY: Single view. HISTORY: Dyspnea and cough. COMPARISON CHEST X-RAY: September 10, 2018. FINDINGS: Median sternotomy wires are noted. EKG electrodes are visible along with oxygen delivery tubing. There are some emphysematous changes in the upper lobes bilaterally, particularly on the right unchanged. Right hemidiaphragm remains somewhat elevated. The heart is not enlarged. Pulmonary vascular markings are not increased. No acute infiltrate. IMPRESSION: No acute infiltrate seen. Evidence of COPD. Prior sternotomy. Electronically Signed by Zana Farah MD 10/04/2018 07:28 P
[2018-10-04 09:19] LABS: HEMOGLOBIN 7.5 g/dl (13.5-17.5); MEAN CORPUSCULAR HEMOGLOBIN 49.7 pg (27.0-33.0); MEAN CORPUSCULAR HGB CONC 35.7 g/dl (32.0-36.5); MEAN CORPUSCULAR VOLUME 139.1 fl (80.0-96.0); PLATELET COUNT, AUTOMATED 134 10^3/uL (150-450); RED BLOOD COUNT 1.51 10^6/uL (4.30-6.10); WHITE BLOOD COUNT 6.2 10^3/uL (4.0-10.0)
[2018-10-04 09:39] LABS: ALBUMIN 3.2 GM/DL (3.2-5.2); ALT/SGPT 8 U/L (12-78); BILIRUBIN,DIRECT 0.6 MG/DL (0.0-0.2); BLOOD UREA NITROGEN 21 MG/DL (7-18); CALCIUM LEVEL 8.6 MG/DL (8.8-10.2); CARBON DIOXIDE LEVEL 17 MEQ/L (21-32); CHLORIDE LEVEL 106 MEQ/L (98-107); CK-MB VALUE MASS < 1.0 NG/ML (<3.6); CPK CREATINE PHOSPHOKINASE 18 U/L (39-308); CREATININE FOR GFR 0.96 MG/DL (0.70-1.30); DIGOXIN LEVEL 0.4 NG/ML (0.5-2.0); ETHYL ALCOHOL (ETHANOL) < 0.003 % (0.000-0.010); GLOMERULAR FILTRATION RATE > 60.0 (>49); GLUCOSE, FASTING 102 MG/DL (70-100); LYMPHOCYTES 15 % (16-52); MB/CK RELATIVE INDEX 5.56 (< OR =4); MONOCYTES 1 % (0-8); NEUTROPHILS 84 % (35-75); NT-PRO BNP 1464 PG/ML (<125); POTASSIUM SERUM 4.4 MEQ/L (3.5-5.1); SODIUM LEVEL 134 MEQ/L (136-145); TOTAL PROTEIN 6.6 GM/DL (6.4-8.2); TROPONIN I < 0.02 NG/ML (< 0.10)
[2018-10-04 09:40] LABS: ANISOCYTOSIS 2+; HYPERSEGMENTED POLYS 1+; PLATELET ESTIMATE DECREASED (NORMAL); POIKILOCYTOSIS 1+
[2018-10-04 10:29] LABS: FOLATE < 0.4 NG/ML; VITAMIN B12 LEVEL 943 PG/ML
[2018-10-04 10:45] LABS: BASO % 0.2 % (0.0-1.0); EOS % 0.2 % (0.0-3.0); LYMPH # 0.9 10^3/uL (1.5-4.5); LYMPH % 13.6 % (24.0-44.0); MONO # 0.2 10^3/uL (0.0-0.8); MONO % 2.9 % (0.0-5.0); NEUTROPHILS # 5.3 10^3/uL (1.8-7.7)
--- NOTE | 2018-10-04 11:03 | ECGEPIP ---
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
[2018-10-04] MEDS ORDERED: DIGO0.12 PO (11:19)
[2018-10-04] MEDS ORDERED: BAYE325T12 PO (11:19)
[2018-10-04] MEDS ORDERED: OMEP40CA2 PO (11:19)
[2018-10-04 12:37] LABS: FERRITIN 166 NG/ML (26-388); IRON (FE) 236 UG/DL (65-175); PERCENT SATURATION 93.3 % (19.7-50.0); TOTAL IRON BINDING CAPACITY 253 UG/DL (250-450)
[2018-10-04] MEDS ORDERED: FUROSEMIDE 40 MG/4 ML VIAL (J1940) IV ONE (13:00)
[2018-10-04] MEDS ORDERED: ISOVUE-370 76% 100ML VIAL (Q9967) As Ordered ONE ×2 (13:22→16:52)
[2018-10-04] MEDS ORDERED: LEVALBUTEROL 1.25 MG/0.5 ML CONCENTRATE NEB INH PRN (13:45)
[2018-10-04 15:05] VITALS: BP 120/68
[2018-10-04] MEDS: ALBUTEROL SULFATE 2.5 MG/0.5 ML INH NEB SOLN NEB SCH ×2 (15:42→21:26)
[2018-10-04] MEDS ORDERED: NICOTINE 21MG/24HR 1 EA TRANSDERMAL TD PRN (16:30)
--- NOTE | 2018-10-04 18:09 | REPVR ---
EXAM: CT Angiography Chest With Contrast EXAM DATE/TIME: 10/04/2018 5:26 PM CLINICAL HISTORY: 63 years old, male; Chest pain; Additional info: SOB, resp alkalosis, pulmonary embolism TECHNIQUE: Imaging protocol: Axial computed tomographic angiography images of the chest with intravenous contrast using CT angiography protocol. Coronal and sagittal reformatted images were created and reviewed. 3D rendering: MIP reconstructed images were created and reviewed. Radiation optimization: All CT scans at this facility use at least one of these dose optimization techniques: automated exposure control; mA and/or kV adjustment per patient size (includes targeted exams where dose is matched to clinical indication); or iterative reconstruction. Contrast material: ISO 370;Contrast volume: 75 ml;Contrast route: IV; COMPARISON: CT ANGIO CHEST 09/08/2018 6:13 PM FINDINGS: Pulmonary arteries: There are no pulmonary emboli. Great vessels off aortic arch: Moderate stenosis at the origin of the left subclavian artery. Aorta: The aorta demonstrates mild atherosclerotic calcification. There is no aortic dissection or aneurysm. Other arteries: Moderate stenosis in the proximal left common carotid artery and mild stenosis on the right. Lungs: Infiltrates demonstrated in the lingula lobe left lower lobe, and a smaller focus in the right middle lobe, with cystic changes. Increased interstitial markings in the anterior subpleural aspect of the left upper lobe were noted on the prior CT of 09/08/2018. The other mixed cystic and interstitial infiltrates are new in comparison to the prior study. Bibasilar atelectasis. Moderate bilateral centrilobular emphysema most pronounced in the mid and upper lung zones. COPD. Pleural space: Unremarkable. No pneumothorax. No pleural effusion. Heart: There is moderate atherosclerotic calcification of the coronary arteries. Status post CABG. Lymph nodes: Unremarkable. No enlarged lymph nodes. Bones/joints: Status post sternotomy. Soft tissues: Unremarkable. IMPRESSION: 1. Infiltrates demonstrated in the lingula lobe left lower lobe, and a smaller focus in the right middle lobe, with cystic changes. Increased interstitial markings in the anterior subpleural aspect of the left upper lobe were noted on the prior CT of 09/08/2018. The other mixed cystic and interstitial infiltrates are new in comparison to the prior study. 2. Moderate bilateral centrilobular emphysema most pronounced in the mid and upper lung zones. COPD. 3. There are no pulmonary emboli. 4. There is no aortic dissection or aneurysm. Electronically signed by: Norbert Matamoros On 10/04/2018 18:09:02 PM
[2018-10-04 18:12] LABS: HEMATOCRIT 31.1 % (42.0-52.0); MEAN CORPUSCULAR HEMOGLOBIN 39.8 pg (27.0-33.0); MEAN CORPUSCULAR VOLUME 113.5 fl (80.0-96.0); PLATELET COUNT, AUTOMATED 127 10^3/uL (150-450); RED BLOOD COUNT 2.74 10^6/uL (4.30-6.10); WHITE BLOOD COUNT 8.4 10^3/uL (4.0-10.0)
[2018-10-04 18:26] LABS: HEMOGLOBIN 10.9 g/dl (13.5-17.5)
[2018-10-04 18:45] LABS: CK-MB VALUE MASS < 1.0 NG/ML (<3.6); CPK CREATINE PHOSPHOKINASE 30 U/L (39-308); MB/CK RELATIVE INDEX 3.33 (< OR =4); TROPONIN I < 0.02 NG/ML (< 0.10)
[2018-10-04 18:51] VITALS: BP 141/84
[2018-10-04] MEDS: methylPREDNISolone INJ 40 MG/1 ML VIAL (J2920) IV SCH (19:58)
[2018-10-04 20:00] VITALS: BP 101/71
[2018-10-04] MEDS: ASPIRIN 325 MG TAB PO SCH (20:00)
[2018-10-04] MEDS: OMEPRAZOLE 20 MG CAP PO SCH (20:01)
[2018-10-04] MEDS: DIGOXIN 0.125 MG TAB PO SCH (20:01)
[2018-10-04] MEDS: SYMBICORT 80/4.5MCG INHALER 6GM INH SCH (21:25)
[2018-10-04] MEDS: MOXIFLOXACIN HCL 400 MG in APPROPRIATE DILUENT 1 EA IV SCH (21:39)
[2018-10-04] MEDS: zolPIDEM TARTRATE 5 MG TAB PO PRN (22:53)
[2018-10-04 23:59] VITALS: BP 112/63
[2018-10-05] VITALS (10 sets, daily range): BP systolic 105–126; BP diastolic 58–72; O2SAT 87–93
[2018-10-05 00:29] LABS: ABG BASE EXCESS -7.1 (-2.0-2.0); ABG HCO3 14.8 MEQ/L (22.0-26.0); ABG O2 SATURATION 93.5 % (95.0-99.0); ABG PARTIAL PRESSURE CO2 20.6 mmHg (35.0-45.0); ABG PARTIAL PRESSURE O2 70.9 mmHg (75.0-100.0); ABG STANDARD HCO3 18.6 MEQ/L (22.0-26.0); ABG TOTAL CO2 15.5 MEQ/L (23.0-31.0); ABG pH (ARTERIAL) 7.475 UNITS (7.350-7.450)
[2018-10-05] MEDS: methylPREDNISolone INJ 40 MG/1 ML VIAL (J2920) IV SCH ×4 (01:03→20:14)
[2018-10-05] MEDS ORDERED: zolPIDEM TARTRATE 5 MG TAB PO ONE (01:45)
[2018-10-05] MEDS: zolPIDEM TARTRATE 5 MG TAB PO PRN ×2 (01:57→22:42)
[2018-10-05 02:17] LABS: ABG HCO3 14.9 MEQ/L (22.0-26.0); ABG O2 SATURATION 88.7 % (95.0-99.0); ABG PARTIAL PRESSURE CO2 20.4 mmHg (35.0-45.0); ABG PARTIAL PRESSURE O2 56.8 mmHg (75.0-100.0); ABG STANDARD HCO3 18.6 MEQ/L (22.0-26.0); ABG TOTAL CO2 15.5 MEQ/L (23.0-31.0)
[2018-10-05 05:24] LABS: HEMOGLOBIN 9.2 g/dl (13.5-17.5); LYMPH # 0.6 10^3/uL (1.5-4.5); LYMPH % 5.3 % (24.0-44.0); MEAN CORPUSCULAR HEMOGLOBIN 41.4 pg (27.0-33.0); MEAN CORPUSCULAR HGB CONC 36.8 g/dl (32.0-36.5); MEAN CORPUSCULAR VOLUME 112.6 fl (80.0-96.0); MONO # 0.2 10^3/uL (0.0-0.8); MONO % 1.5 % (0.0-5.0); NEUTROPHILS # 9.5 10^3/uL (1.8-7.7); NEUTROPHILS % 92.1 % (36.0-66.0); PLATELET COUNT, AUTOMATED 115 10^3/uL (150-450); RED BLOOD COUNT 2.22 10^6/uL (4.30-6.10); WHITE BLOOD COUNT 10.3 10^3/uL (4.0-10.0)
[2018-10-05 05:31] LABS: BLOOD UREA NITROGEN 19 MG/DL (7-18); CALCIUM LEVEL 8.3 MG/DL (8.8-10.2); CARBON DIOXIDE LEVEL 18 MEQ/L (21-32); CHLORIDE LEVEL 104 MEQ/L (98-107); CREATININE FOR GFR 0.74 MG/DL (0.70-1.30); GLOMERULAR FILTRATION RATE > 60.0 (>49); GLUCOSE, FASTING 122 MG/DL (70-100); POTASSIUM SERUM 3.9 MEQ/L (3.5-5.1); SODIUM LEVEL 133 MEQ/L (136-145)
[2018-10-05 06:12] LABS: ANISOCYTOSIS 4+; PLATELET ESTIMATE NORMAL (NORMAL)
[2018-10-05 06:14] LABS: POLYCHROMASIA 1+
--- NOTE | 2018-10-05 06:42 | HPEPDOC ---
General Date of Admission Oct 04, 2018 at 12:05 Date of Service: Oct 04, 2018 Chief Complaint The patient is a 63-year-old male admitted with a reason for visit of Hypoxia,Symptomatic Anemia. Source: Patient Exam Limitations: No limitations Severity: Severe History of Present Illness 63 year old male with PMH of CAD s/p AMI , PVD, CABG, Atrial fibrillation, Intra abdominal stent, COPD, smoker, heavy alcohol user, cirrhosis of liver, chronic hepatitis C h/o pericardial effusion s/p drainage in jan 2018 presented today from the IR suit send to ED for SOB and Hypoxia. Patient had come to the IR today for elective angiography of his legs for claudication when he was noted to be extremely short of breath, tachypneic . He was found to be hypoxic to 70s in room air so the procedure was cancelled and he was sent to the ED for e valuation. He complained of gradually increasing exertional SOB over the past month. Now it has reached such an extent that even walking to the bathroom has become very difficult. he also complained of 1 episode of chest tightness in the past week when he used nitroglycerine. He denied any cough or pleuritic chest pain . He denied any bleeding from any where. ABG showed respiratory alkalosis. In ED he is requiring 5 liters of oxygen for maintianing his oxygen saturation to above 90% and his RR on my exam was 26. He is admitted for Acute respiratory failure due to COPD exacerbation with Severe anemia. Home Medications Scheduled Aspirin (Aspirin) 325 Mg Tablet, 325 MG PO QHS, (Reported) Digoxin (Digoxin) 125 Mcg Tablet, 125 MCG PO QHS, (Reported) Omeprazole (Omeprazole) 40 Mg Capsule.dr, 40 MG PO QHS, (Reported) Umeclidinium [place] (Incruse Ellipta) 62.5 Mcg/Inh Inh, 1 PUFF PO DAILY, (Reported) Scheduled PRN Albuterol Sulfate (Ventolin Hfa) 108 Mcg/Act Aer, 2 PUFF PO Q4H PRN for SHORTNESS OF BREATH, (Reported) Zolpidem Tartrate (Zolpidem Tartrate) 10 Mg Tablet, 10 MG PO QHS PRN for INSOMNIA, (Reported) Allergies Coded Allergies: chlorpromazine (Verified Allergy, Unknown, 09/08/18) acute dystonic reaction Past Medical History Medical History CAD HYPERLIPIDEMIA HTN OA LOW BACK PAIN CHRONIC HEPATITIS C GENOTYPE 1A VIRAL LOAD 3.6 MILLION VACCINATED FOR HEPA/B IN HISTORY OF ALCOHOL ABUSE HISTORY OF MULTIPLE DRUG ABUSE INTRAVENOUS COCAINE HISTORY OF INSOMNIA UNSPECIFIED CIRRHOSIS OF LIVER DEGENERATIVE DISC DISEASE, LUMBAR TOBACCO ABUSE HISTORY OF [place] (MYOCARDIAL INFARCTION) 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 HISTORY OF HEPATITIS C MASS OF EAR CANAL, LEFT CHRONIC OBSTRUCTIVE PULMONARY DISEASE, UNSPECIFIED COPD Surgical History RIGHT KNEE ARTHROSCOPY 1986 STENT PLACEMENT 07/2007 RIGHT INGUINAL HERNIA REPAIR 12/2009 HEART BYPASS SURGERY - [facility] 2-2014 LIVER BIOPSY- WAS TOLD THAT HIS LIVER WAS AT STAGE 1 2003 [facility] 06/2017 PERICARDIAL DRAIN IN JAN 2018 FAMILY HISTORY Family History FATHER: DIABETIC NEPHROPATHY, DIAGNOSED WITH DIABETES, HYPERTENSION, HEA RT DISEASE AGE 80 MOTHER: THYROID DISORDER ALIVE 1 SON(S) .HTN, DM WITH NEPHROPATHY, MATERNAL GRANDMOTHER, AUNT WITH HEART DISEASE Social History * Smoker: current smoker Alcohol: heavy Drugs: cocaine (in the past), IV drug use (in the past) A-FIB/CHADSVASC A-FIB History Current/History of A-Fib/PAF?: Yes Current PO Anticoag Therapy: No Review of Systems Constitutional: Denies: Chills, Fever, Night Sweats Eyes: Denies: Pain, Vision change ENT: Denies: Head Aches, Ear Pain, Dysphagia Skin: Denies: Rash, Lesions, Breakdown Pulmonary: Reports: Dyspnea; Denies: Cough, Pleuritic Chest Pain Cardiovascular: Reports: Chest Pain, Palpitations, Orthopnea Gastrointestinal: Denies: Nausea, Vomiting, Abdominal Pain, Diarrhea Genitourinary: Denies: Dysuria, Frequency, Incontinence, Retention Hematologic: Denies: Bruising, Bleeding Excessively Musculoskeletal: Reports: Back Pain; Denies: Neck Pain, Joint Pain, Muscle Pain, Spasms Physical Examination General Exam: Positive: Alert, Cooperative, Mild Distress Eye Exam: Positive: PERRLA, Conjunctiva & lids normal, EOMI, Sclera icteric ENT Exam: Positive: Atraumatic, Mucous membr. moist/pink, Pharynx Normal Neck Exam: Positive: Supple; Negative: JVD, thyromegaly Chest Exam: Positive: Rhonchi, Wheezing Heart Exam: Positive: Tachycardic, Regular Rhythm, Normal S1, Normal S2; Negative: Gallops, Murmurs, Rubs Telemetry: Positive: Sinus, Tachycardia Abdomen Exam: Positive: Normal bowel sounds, Soft; Negative: Tenderness, Hepatospenomegaly Extremity Exam: Negative: Clubbing, Cyanosis, Edema Skin Exam: Positive: Nl turgor and temperature; Negative: Breakdown, Lesion Vital Signs Vital Signs Date Time Temp Pulse Resp B/P (MAP) Pulse Ox O2 Delivery O2 Flow Rate FiO2 10/04/18 11:30 90 134/75 (94) 100 Nasal Cannula 5.0 10/04/18 08:34 97.5 10/04/18 08:31 24 Laboratory Data Labs 24H Laboratory Tests 2 10/04/18 08:29: Blood Gas Bicarbonate Standard 17.5L, Arterial Blood pH 7.483H, Arterial Blood Partial Pressure CO2 19.1*L, Arterial Blood Partial Pressure O2 50.3L, Arterial Blood Total CO2 14.6L, Arterial Blood HCO3 14.0L, Arterial Blood Base Excess - 8.2L, Arterial Blood Oxygen Saturation 82.9L 10/04/18 08:43: Vitamin B12 Level 943, Folate < 0.4 10/04/18 08:44: Lactic Acid Level 2.9*H 10/04/18 08:45: Immature Granulocyte % (Auto) 1.1, White Blood Count 6.2, Red Blood Count 1.51L, Hemoglobin 7.5L, Hematocrit 21.0L, Mean Corpuscular Volume 139.1H, Mean Corpuscular Hemoglobin 49.7H, Mean Corpuscular Hemoglobin Concent 35.7, Red Cell Distribution Width 18.9H, Platelet Count 134L, Neutrophils (%) (Auto) 82.0H, Lymphocytes (%) (Auto) 13.6L, Monocytes (%) (Auto) 2.9, Eosinophils (%) (Auto) 0.2, Basophils (%) (Auto) 0.2, Neutrophils # (Auto) 5.3, Lymphocytes # (Auto) 0.9L, Monocytes # (Auto) 0.2, Eosinophils # (Auto) 0.0, Basophils # (Auto) 0.0, Immature Granulocyte # (Auto) 0.1H, Reticulocyte # (auto) 21.3, Nucleated Red Blood Cells % (auto) 0.0, Neutrophils 84H, Lymphocytes (Manual) 15L, Monocytes (Manual) 1, Hypersegmented Polys 1+, Platelet Estimate DECREASED, Poikilocytosis 1+, Anisocytosis 2+, Macrocytosis 2+, Percent Reticulocyte Count 1.4, Reticulocyte Hemoglobin Equivalent 50.7H, Anion Gap 11, Glomerular Filtration Rate > 60.0, Calcium Level 8.6L, Aspartate Amino Transf (AST/SGOT) 17, Alanine Aminotransferase (ALT/SGPT) 8L, Alkaline Phosphatase 80, Total Bilirubin 2.0H, Direct Bilirubin 0.6H, Total Creatine Kinase 18L, Creatine Kinase MB < 1.0, Creatine Kinase MB Relative Index 5.56H, Troponin I < 0.02, CO-Lsv-V-Type Natriuretic Peptide 1464H, Total Protein 6.6, Albumin 3.2, Albumin/Globulin Ratio 0.94L, Digoxin Level 0.4L, Ethyl Alcohol Level < 0.003 CBC/BMP Laboratory Tests 10/04/18 08:45 Red Blood Count 1.51 L, Mean Corpuscular Volume 139.1 H, Mean Corpuscular Hemoglobin 49.7 H, Mean Corpuscular Hemoglobin Concent 35.7, Red Cell Distribution Width 18.9 H, Neutrophils (%) (Auto) 82.0 H, Lymphocytes (%) (Auto) 13.6 L, Monocytes (%) (Auto) 2.9, Eosinophils (%) (Auto) 0.2, Basophils (%) (Auto) 0.2, Neutrophils # (Auto) 5.3, Lymphocytes # (Auto) 0.9 L, Monocytes # (Auto) 0.2, Eosinophils # (Auto) 0.0, Basophils # (Auto) 0.0 Microbiology Microbiology 10/04/18 Blood Culture, Received Pending 10/04/18 Blood Culture, Received Pending Assessment/Plan Acute respiratory failure with hypoxia due COPD exacerbation seems to have advanced COPD and was on oxygen during last hospitalization also. Follows with Dr Delaney. will give 2 units of blood, albuterol nebs, Symbicort and spiriva, steroids. oxygen supplementation Has h/o pericardial effusion and drainage in 2018, CXR did not show any enlargement of heart Last echo in 08/2018 was negative for pericardial effusion, normal EF mild pulmonary HTN without right heart failure. will cycle cardiac enzymes. will get CT angio of chest. Lactic acidosis due to underlying cirrhosis of liver and increased work of breathing patient does not seem to be septic as no fever or increased WBC will get CT angio if there is suggestion of infection will add antibiotics. Macrocytic anemia folate deficiency due to heavy alcohol use supplementation prbc transfusion will check iron panel and stool for occult blood refused rectal exam. Peripheral vascular disease with claudication s/p abdominal aortic stents planned for angio of the lower extremities Paroxysmal Afib continue with digoxin and asa. CAD with H/O AMI s/p CABG continue asa will cycle cardiac enzymes. HYPERLIPIDEMIA HTN Bp well controlled at present. ALCOHOL ABUSE and Hepatitis C with CIRRHOSIS of Liver. CHRONIC HEPATITIS C GENOTYPE 1A VIRAL LOAD 3.6 MILLION VACCINATED thiamine, folate watch for withdrawal. HISTORY OF INSOMNIA ambien prn DEGENERATIVE DISC DISEASE, LUMBAR TOBACCO ABUSE counselled about quitting. thinking about it. Plan / VTE VTE Prophylaxis Ordered?: Yes RAMÓN CONNELL MD Oct 04, 2018 13:01
[2018-10-05] MEDS: ALBUTEROL SULFATE 2.5 MG/0.5 ML INH NEB SOLN NEB SCH ×3 (08:00→19:41)
[2018-10-05] MEDS: FOLIC ACID 1 MG TAB PO SCH ×2 (09:55→20:14)
[2018-10-05] MEDS: ENOXAPARIN 40 MG/0.4 ML SYRINGE (J1650) SC SCH (09:56)
[2018-10-05] MEDS ORDERED: LORazepam 2 MG TAB PO PRN (10:15)
--- NOTE | 2018-10-05 10:28 | IPNPDOC ---
Subjective Date Seen The patient was seen on 10/05/18. Subjective Chief Complaint/HPI Continues to have SOB unchanged from yesterday . but says he was able to sleep some overnight after he got his ambien. No chest pain , no cough or phlegm. No abdominal pain , nausea or vomiting or diarrhea. Objective Physical Examination General Exam: Positive: Alert, Cooperative, Mild Distress Eye Exam: Positive: PERRLA, Conjunctiva & lids normal, EOMI, Sclera icteric ENT Exam: Positive: Atraumatic, Mucous membr. moist/pink, Pharynx Normal Neck Exam: Positive: Supple; Negative: JVD, thyromegaly Chest Exam: Positive: Rhonchi, Wheezing Heart Exam: Positive: Tachycardic, Regular Rhythm, Normal S1, Normal S2; Negative: Gallops, Murmurs, Rubs Telemetry: Positive: Sinus, Tachycardia Abdomen Exam: Positive: Normal bowel sounds, Soft; Negative: Tenderness, Hepatospenomegaly Extremity Exam: Negative: Clubbing, Cyanosis, Edema Skin Exam: Positive: Nl turgor and temperature; Negative: Breakdown, Lesion Assessment /Plan Assessment Acute respiratory failure with hypoxia On vapotherm with 50% Fio2, on removing it spo2 drops to 82% due COPD exacerbation +/- Atypical pneumonia CT angio negative for PE but shows new cystic changes, moderate emphysema and some patchy infiltrates mixed cystic and interstitial infiltrates albuterol nebs, Symbicort and spiriva, steroids. Moxifloxacin for atypical coverage. oxygen supplementation Has h/o pericardial effusion and drainage in 2018, CXR did not show any enlargement of heart Last echo in 08/2018 was negative for pericardial effusion, normal EF mild pulmonary HTN without right heart failure. urine for legionella and pneumococcus has been ordered. Pulmonary consulted. Lactic acidosis improved due to underlying cirrhosis of liver and increased work of breathing patient does not seem to be septic as no fever or increased WBC Macrocytic anemia folate deficiency due to heavy alcohol use supplementation prbc transfusion refused rectal exam. Peripheral vascular disease with claudication s/p abdominal aortic stents planned for angio of the lower extremities Paroxysmal Afib continue with digoxin and asa. CAD with H/O AMI s/p CABG continue asa 2 sets of cardiac enzymes negative. HYPERLIPIDEMIA statin. HTN Bp well controlled at present. ALCOHOL ABUSE and Hepatitis C with CIRRHOSIS of Liver. CHRONIC HEPATITIS C GENOTYPE 1A VIRAL LOAD 3.6 MILLION VACCINATED thiamine, folate watch for withdrawal. HISTORY OF INSOMNIA ambien prn DEGENERATIVE DISC DISEASE LUMBAR TOBACCO ABUSE counselled about quitting. thinking about it. Plan/VTE VTE Prophylaxis Ordered?: Yes VS, I&O, 24H, Fishbone Vital Signs/I&O Vital Signs Date Time Temp Pulse Resp B/P (MAP) Pulse Ox O2 Delivery O2 Flow Rate FiO2 10/05/18 08:00 97.6 88 20 126/71 (89) 93 20.0 50 10/04/18 14:01 Nasal Cannula I&O- Last 24 Hours up to 6 AM 10/05/18 06:00 Intake Total 950 ml Output Total 1425 ml Balance -475 ml Laboratory Data 24H LABS Laboratory Tests 2 10/04/18 17:59: Nucleated Red Blood Cells % (auto) 0.0, Lactic Acid Level 4.2*H, Total Creatine Kinase 30L, Creatine Kinase MB < 1.0, Creatine Kinase MB Relative Index 3.33, Troponin I < 0.02 10/04/18 18:32: 10/04/18 22:20: Lactic Acid Followup at 4 Hours 2.8*H 10/05/18 00:25: Blood Gas Bicarbonate Standard 18.6L, Arterial Blood pH 7.475H, Arterial Blood Partial Pressure CO2 20.6L, Arterial Blood Partial Pressure O2 70.9L, Arterial Blood Total CO2 15.5L, Arterial Blood HCO3 14.8L, Arterial Blood Base Excess - 7.1L, Arterial Blood Oxygen Saturation 93.5L 10/05/18 02:10: Blood Gas Bicarbonate Standard 18.6L, Arterial Blood pH 7.480H, Arterial Blood Partial Pressure CO2 20.4L, Arterial Blood Partial Pressure O2 56.8L, Arterial Blood Total CO2 15.5L, Arterial Blood HCO3 14.9L, Arterial Blood Base Excess - 7.0L, Arterial Blood Oxygen Saturation 88.7L 10/05/18 04:51: Immature Granulocyte % (Auto) 1.1, White Blood Count 10.3H, Red Blood Count 2.22L, Hemoglobin 9.2L, Hematocrit 25.0L, Mean Corpuscular Volume 112.6H, Mean Corpuscular Hemoglobin 41.4H, Mean Corpuscular Hemoglobin Concent 36.8H, Red Cell Distribution Width , Platelet Count 115L, Neutrophils (%) (Auto) 92.1H, Lymphocytes (%) (Auto) 5.3L, Monocytes (%) (Auto) 1.5, Eosinophils (%) (Auto) 0.0, Basophils (%) (Auto) 0.0, Neutrophils # (Auto) 9.5H, Lymphocytes # (Auto) 0.6L, Monocytes # (Auto) 0.2, Eosinophils # (Auto) 0.0, Basophils # (Auto) 0.0, Nucleated Red Blood Cells % (auto) 0.2H, Platelet Estimate NORMAL, Polychromasia 1+, Anisocytosis 4+, Macrocytosis 2+, Anion Gap 11, Glomerular Filtration Rate > 60.0, Blood Urea Nitrogen 19H, Creatinine 0.74, Sodium Level 133L, Potassium Level 3.9, Chloride Level 104, Carbon Dioxide Level 18L, Calcium Level 8.3L CBC/BMP Laboratory Tests 10/04/18 17:59 Red Blood Count 2.74 L, Mean Corpuscular Volume 113.5 H, Mean Corpuscular Hemoglobin 39.8 H, Mean Corpuscular Hemoglobin Concent 35.0, Red Cell Distrib ution Width 28.1 H 10/05/18 04:51 Red Blood Count 2.22 L, Mean Corpuscular Volume 112.6 H, Mean Corpuscular Hemoglobin 41.4 H, Mean Corpuscular Hemoglobin Concent 36.8 H, Red Cell Distribution Width , Neutrophils (%) (Auto) 92.1 H, Lymphocytes (%) (Auto) 5.3 L, Monocytes (%) (Auto) 1.5, Eosinophils (%) (Auto) 0.0, Basophils (%) (Auto) 0.0, Neutrophils # (Auto) 9.5 H, Lymphocytes # (Auto) 0.6 L, Monocytes # (Auto) 0.2, Eosinophils # (Auto) 0.0, Basophils # (Auto) 0.0, Calcium Level 8.3 L Microbiology Microbiology 10/04/18 Blood Culture - Preliminary, Resulted No growth after 24 hours . All specim... 10/04/18 Blood Culture - Preliminary, Resulted No growth after 24 hours . All specim... 10/04/18 Gram Stain - Final, Resulted 10/04/18 Sputum Culture, Resulted Pending RAMÓN CONNELL MD Oct 05, 2018 10:27
--- NOTE | 2018-10-05 12:29 | CR ---
DATE OF CONSULTATION: 10/05/2018 HISTORY OF PRESENT ILLNESS: Mr. Mccartney is a 63-year-old male with a past medical history of coronary artery disease (CAD) status post coronary artery bypass graft (CABG), peripheral vascular disease, atrial fibrillation, chronic obstructive pulmonary disease (COPD), current active smoker, history of alcohol abuse and cirrhosis and chronic hepatitis C, who was initially sent to the emergency department (ED) from interventional radiology for hypoxia. The patient had presented to interventional radiology (IR) for elective angiography of his legs due to complaints of worsening claudication and fatigue with exertion. In the interventional radiology suite, he was noted to be tachypneic and hypoxic to the 70s on room air so the procedure was cancelled and he was sent to the ED for further evaluation. The patient had previously been admitted in August with an acute COPD exacerbation. During that admission, he was noted to be hypoxic, requiring nasal cannula oxygen. He was treated with steroids and azithromycin. During that admission, he also had a CT angiogram which did not show evidence of pulmonary embolism (PE), but there was a possible area in the anterior segment of the left upper lobe with possible interstitial pneumonitis. He was also noted to be in atrial fibrillation with rapid ventricular response (RVR) at that admission. He had an echocardiogram done which did show normal ejection fraction (EF) with likely mild pulmonary hypertension. Since discharge, the patient reports his shortness of breath with exertion has continued to worsen. He did complete his prednisone taper after discharge and he does feel after completing the steroids that his breathing worsened. He has also continued to note significant fatigue in his lower extremities, worse with exertion and as the day will go on. He has also complained of some chest heaviness which he feels is similar to his symptoms prior to his myocardial infarction (VT), but not as severe as it was previously when he had his acute VT. He does note the chest pain with exertion. The patient has taken nitroglycerin sublingual for the chest heaviness which he did note some improvement with the nitroglycerin. He has also had wheezing intermittently, more in the evening and at night time. He does have a chronic "smoker's cough", but this has improved slightly after his prednisone. In the past few days, however, he has noted some hemoptysis with blood mixed in his sputum. He denies any fevers or chills. He has not had any recent sick contacts. The patient denied any abdominal pain. No nausea or vomiting. He does have a history of smoking. He is currently smoking less than a half pack a day, he had been up to two packs a day. He also reports a history of marijuana usage, although he has not smoked any marijuana recently. He does snort opioid pain medications which he was doing after his discharge from the hospital. He otherwise denies any other inhalation or other drug abuse. He does drink alcohol, about a pint of bernard a day currently. On this admission, the patient was noted to be hypoxic in the ED. He was placed on nasal cannula oxygen supplementation, requiring 5 liters a minute. He was also given a dose of Lasix and Decadron in the ED. He was started on Solu-Medrol as well as Avelox. The patient was changed from the nasal cannula to Vapotherm as he had been complaining of dryness in his nares and for improved comfort. He is unclear if he finds it more comfortable, but he said he has been able to get some rest more recently. The patient was also anemic and he was transfused 2 units of packed red blood cell (PRBC) on admission. PAST MEDICAL HISTORY: 1. CAD with history of VT and CABG. 2. Hyperlipidemia. 3. Hypertension. 4. Chronic hepatitis C. 5. History of alcohol abuse and previous IV drug use. 7. Cirrhosis. 8. Insomnia. 9. COPD. 10. Peripheral vascular disease. SURGICAL [id number]: 1. Right knee arthroscopy. 2. Stent placement. 3. Right inguinal hernia repair. 4. CABG in 2014. 5. Liver biopsy in 2003. 6. Angioplasty in June 2017. 7. History of pericardial effusion and pericardial drain in January 2018. FAMILY HISTORY: Father with a history of diabetes, hypertension and heart disease. Mother with history of thyroid disorder. Son with hypertension and diabetes. No family history of pulmonary fibrosis. There is a family history of emphysema in his brothers. SOCIAL HISTORY: Current active smoker, half a pack a day, was up to two packs a day for the past 40 years. Previous history of IV drug use and cocaine in the past. Also previous history of marijuana use. This is more recent, but none since his last discharge. He has been snorting ground up opioid pills which he did report doing since his last discharge. The patient is also a heavy drinker, drinks about a pint of bernard a day currently. ALLERGIES: - CHLORPROMAZINE (acute dystonic reaction) HOME MEDICATIONS: - aspirin - digoxin - omeprazole - Incruse - albuterol as needed - Ambien as needed PHYSICAL EXAMINATION: Temperature 97.6, pulse 88, respirations 20, blood pressure 126/71, O2 sat 88-93% on Vapotherm at 20 liters a minute at 50% FiO2. Ins 850 mL, out 1.3 liters, net negative 475 mL. General: The patient is a male, well-developed, well-nourished who appears pale and is lying in bed in no acute distress. He is able to speak in complete sentences without accessory muscle use for respiration. HEENT: Normocephalic, atraumatic. Pupils are reactive to light bilaterally. There is no significant scleral icterus noted. Mucous membranes are moist. Neck is supple. Trachea is midline. No palpable adenopathy. Cardiovascular: Regular rate and rhythm. Normal S1 and S2. Unable to appreciate any murmurs with distant heart sounds. Pulmonary: Faint coarse inspiratory wheeze on the right side, but good air entry bilaterally. No significant crackles or rhonchi noted. Abdomen is soft, nontender, nondistended. Bowel sounds present. Lower Extremities: There is no lower extremity edema noted bilaterally. There is a fine resting tremor in the hands bilaterally. LABORATORY DATA: WBC 10.3, hemoglobin 9.3, platelets 115. Chemistry with sodium 133, potassium 3.9, chloride 104, bicarb 18, BUN 19, creatinine 0.74, glucose is 122. Total bilirubin was 2.0 on admission, AST 17, ALT 8, alkaline phosphatase 80. BNP was 1464. Troponins were negative. Lactic acid initially had gone up to 4.2, repeat overnight was 2.8. Cardiac enzymes were negative times two. IMAGINGS: CT angiogram showed no evidence of PE. There are emphysematous changes bilaterally, worse in the upper and mid lungs. There are some new endobronchial likely secretions in the trachea. In the lungs, there are some curvilinear fibrosis and scarring in the left lower lobe. There is also an area of some more linear fibrosis and scarring in the left upper lobe more in the superior aspect. Compared to the previous CT, there are new ground-glass opacities with some cystic changes versus secondary to underlying emphysema in the left upper lobe peripherally and along the major fissure going into the lingula as well as in the right middle lobe and in the left lower lobe more posteriorly. ASSESSMENT/PLAN: Mr. Mccartney is a 63-year-old male with a past medical history of hypertension, hyperlipidemia, CAD with history of VT, CABG, atrial fibrillation, COPD, hepatitis C, cirrhosis, history of alcohol abuse, and peripheral vascular disease who presented initially as an outpatient for an elective angiography for worsening claudication symptoms in his lower extremities. He was found to be hypoxic and sent to the ED for further evaluation. The patient recently had an admission in the end of August for an acute COPD exacerbation. He was treated with steroids and azithromycin with improvement and discharged home. Since his discharge, he has noted worsening shortness of breath with exertion as well as intermittent wheezing. He does have a cough which while not as productive of mucus as it previously had been he has noted some new hemoptysis. In terms of exposure history, the patient does continue to smoke cigarettes as well as report a history of snorting opioid pills that are crushed up. He does also continued to drink daily about a pint a day of bernard. The patient has been afebrile on this admission. He does not have significant leukocytosis. He did have a lactic acidosis on admission which appears somewhat chronic, possibly secondary to his liver disease, as well as, acutely with his increased work of breathing. His lactic acid has improved. The patient had a repeat CT angiogram done on this admission which did not show any evidence of PE. He does have some chronic fibrotic changes noted which are unchanged compared to his previous CT, but there are new findings of some ground-glass interstitial infiltrates in the lungs more on the left side than on the right with some associated cystic changes versus from his underlying emphysema. The patient was placed on nasal cannula oxygen supplementation initially at 5 liters a minute and later changed to Vapotherm for comfort. His oxygenation has improved on the Vapotherm. His ABG on admission showed evidence of combination respiratory alkalosis and metabolic acidosis. Patient with acute hypoxemic respiratory failure. He does have some evidence of increased BNP compared to his previous admission. His BNP was 1464 on this admission and on his previous admission in August it was 412. The patient was given a dose of Lasix with some diuresis, although he does not appear grossly fluid overloaded on exam and does not have significant crackles as well. His CT findings are not as consistent with pulmonary edema, but given the appearance may be consistent with an atypical infectious process or an acute pneumonitis. The patient does have some inhalational exposure history and hypersensitivity pneumonitis is in the differential. Also in the differential would be vasculitis, especially given his reported hemoptysis. The patient does also have a history of hepatitis C and previous IV drug use. He does have some relative immunosuppression and pneumocystis pneumonia (PCP) is also possibly in the differential. The patient did also note some wheezing as well with his shortness of breath. He may have an acute COPD exacerbation contributing to some of his hypoxemia as well. - Would continue with the Vapotherm to maintain an O2 sat above 90%. Would continue to wean down his FIO2 as tolerated. - Would check ANCAs for vasculitis as well as check Legionella, Mycoplasma and Chlamydia for atypical pneumonia workup. - Can continue with Avelox for now for atypical coverage as well as for acute COPD exacerbation. - Continue with Solu-Medrol. He is on 40 mg every 6 hours. Would continue for possible hypersensitivity pneumonitis as well as for his COPD exacerbation. - Would check a sputum cytology with GMS stain to evaluate for PCP. - Would also check an HIV test if he has not had any done recently. - Continue with Symbicort, Spiriva and albuterol nebulizers. - Can consider gentle diuresis with by mouth Lasix and continue monitoring his ins and outs. - The patient has a history of heavy alcohol abuse. He does have some mild resting tremors in his hands bilaterally, but denies any significant anxiety or other withdrawal symptoms currently. However, given his history would put him on a Clinical [place] Withdrawal Assessment (CIWA) protocol with benzodiazepines for withdrawal with close monitoring given his history of cirrhosis. Deep vein thrombosis (DVT) prophylaxis with Lovenox. MTDD
[2018-10-05] MEDS: TIOTROPIUM INHALER/CAPSULE (SPIRIVA) INH SCH (13:19)
[2018-10-05] MEDS: SYMBICORT 80/4.5MCG INHALER 6GM INH SCH ×2 (13:19→19:41)
[2018-10-05] MEDS: MULTIVITAMINS/MINERALS THERAP 1 TAB PO SCH (14:32)
[2018-10-05] MEDS: THIAMINE 100 MG TAB PO SCH ×2 (14:32→20:14)
[2018-10-05] MEDS: MOXIFLOXACIN HCL 400 MG in APPROPRIATE DILUENT 1 EA IV SCH (20:15)
[2018-10-05] MEDS: OMEPRAZOLE 20 MG CAP PO SCH (20:15)
[2018-10-05] MEDS: ASPIRIN 325 MG TAB PO SCH (20:15)
[2018-10-05] MEDS: DIGOXIN 0.125 MG TAB PO SCH (20:16)
[2018-10-06] VITALS (18 sets, daily range): BP systolic 84–111; BP diastolic 55–66; O2SAT 91–93
[2018-10-06] MEDS: methylPREDNISolone INJ 40 MG/1 ML VIAL (J2920) IV SCH ×2 (01:53→10:13)
[2018-10-06] MEDS: SYMBICORT 80/4.5MCG INHALER 6GM INH SCH ×2 (07:35→20:47)
[2018-10-06] MEDS: TIOTROPIUM INHALER/CAPSULE (SPIRIVA) INH SCH (07:35)
[2018-10-06] MEDS: ALBUTEROL SULFATE 2.5 MG/0.5 ML INH NEB SOLN NEB SCH ×2 (07:36→15:30)
[2018-10-06 07:58] LABS: BLOOD UREA NITROGEN 18 MG/DL (7-18); CALCIUM LEVEL 8.2 MG/DL (8.8-10.2); CARBON DIOXIDE LEVEL 21 MEQ/L (21-32); CHLORIDE LEVEL 102 MEQ/L (98-107); CREATININE FOR GFR 0.78 MG/DL (0.70-1.30); GLOMERULAR FILTRATION RATE > 60.0 (>49); GLUCOSE, FASTING 120 MG/DL (70-100); POTASSIUM SERUM 4.3 MEQ/L (3.5-5.1); SODIUM LEVEL 132 MEQ/L (136-145)
[2018-10-06 08:22] LABS: HEMATOCRIT 24.2 % (42.0-52.0); HEMOGLOBIN 8.4 g/dl (13.5-17.5); LYMPH # 0.4 10^3/uL (1.5-4.5); LYMPH % 3.2 % (24.0-44.0); MEAN CORPUSCULAR HGB CONC 34.7 g/dl (32.0-36.5); MONO # 0.5 10^3/uL (0.0-0.8); MONO % 3.5 % (0.0-5.0); PLATELET COUNT, AUTOMATED 106 10^3/uL (150-450); RED BLOOD COUNT 2.05 10^6/uL (4.30-6.10)
[2018-10-06] MEDS ORDERED: FUROSEMIDE 40 MG/4 ML VIAL (J1940) IV SCH ×2 (09:00)
[2018-10-06] MEDS: MULTIVITAMINS/MINERALS THERAP 1 TAB PO SCH (10:13)
[2018-10-06] MEDS: FOLIC ACID 1 MG TAB PO SCH ×2 (10:13→20:30)
[2018-10-06] MEDS: ENOXAPARIN 40 MG/0.4 ML SYRINGE (J1650) SC SCH (10:13)
[2018-10-06] MEDS: THIAMINE 100 MG TAB PO SCH ×2 (10:13→20:29)
[2018-10-06 10:16] LABS: PLATELET ESTIMATE DECREASED (NORMAL)
[2018-10-06 10:17] LABS: ANISOCYTOSIS 2+; POIKILOCYTOSIS 1+
--- NOTE | 2018-10-06 11:05 | REP ---
Portable chest x-ray: Sitting AP view. History: Hypoxia. Comparison chest x-ray: October 04, 2018. Findings: The patient is status post median sternotomy. There is a large new interstitial infiltrate in the left lower lobe. Right lung remains clear. Heart is not enlarged. Oxygen delivery tubing and EKG electrodes are seen. Impression: Large new interstitial infiltrate left lower lobe distribution consistent with pneumonia. Electronically Signed by Zana Farah MD 10/06/2018 05:28 P
[2018-10-06 11:16] LABS: ABG HCO3 16.6 MEQ/L (22.0-26.0); ABG O2 SATURATION 94.1 % (95.0-99.0); ABG PARTIAL PRESSURE CO2 23.3 mmHg (35.0-45.0); ABG PARTIAL PRESSURE O2 73.9 mmHg (75.0-100.0); ABG STANDARD HCO3 19.5 MEQ/L (22.0-26.0); ABG TOTAL CO2 17.3 MEQ/L (23.0-31.0); ABG pH (ARTERIAL) 7.471 UNITS (7.350-7.450)
[2018-10-06 11:29] LABS: BILIRUBIN,DIRECT 0.6 MG/DL (0.0-0.2); BILIRUBIN,TOTAL 1.7 MG/DL (0.2-1.0)
--- NOTE | 2018-10-06 11:48 | CCN ---
DATE: 10/06/2018 Patient was seen and examined this morning during bedside rounds. Patient continues to report significant dyspnea with very minimal exertion. He will note shortness of breath with just sitting up and reaching for something on his bedside table. He denies any chest pain. He does have some coughing still with some hemoptysis noted. Does not feel that it has worsened recently but it has not improved. He denies any significant wheezing. Has not had any abdominal pain. No nausea or vomiting. The patient is constipated, has not had any bowel movements recently. He previously had not noticed at home any melena or dark black stools. Has not had any blood in his stool either. The patient does feel that his shortness of breath worsens when he is sitting up and it improves when he is lying flat, although he is unsure if it is from the actual physical exertion of sitting up and not so much the position change. PHYSICAL EXAMINATION: Temperature 97.2, pulse 89, respirations 20, blood pressure 96/56, O2 sat 90-95% on Vapotherm at 20 liters a minute with FiO2 of 60%. Ins 1 liter, out 425 mL, net positive 645 mL. GENERAL: The patient is a well-developed male, appears pale and lying in bed in some mild respiratory distress. Is able to speak in phrases without any distress but does have to take some pauses occasionally. HEENT: Normocephalic, atraumatic. Pupils are reactive to light bilaterally. Mucous membranes appear moist. His conjunctiva are pale. NECK: Neck is supple. Trachea is midline. There is no palpable adenopathy. CARDIOVASCULAR: Distant heart sounds, regular rate and rhythm. Normal S1-S2. Unable to appreciate any murmurs. PULMONARY: Some coarse crackles noted more on the left side with no rhonchi or wheezing. ABDOMEN: Soft, nontender, nondistended. Bowel sounds are present. LOWER EXTREMITIES: There is no lower extremity edema noted bilaterally. LABORATORY DATA: WBC 13.0, hemoglobin 8.4, platelets 106. Chemistry sodium is 132, potassium 4.3, chloride is 102, bicarb is 21, BUN 18, creatinine 0.78, glucose is 120. Chest x-ray this morning shows increased interstitial infiltrate in the left lung compared to admission. ASSESSMENT/PLAN: Mr. Mccartney is a 63-year-old male with a past medical history of hypertension, hyperlipidemia, CAD with history of MT, coronary artery bypass grafting (CABG), atrial fibrillation, chronic obstructive pulmonary disease (COPD), hep C, cirrhosis, history of alcohol abuse, peripheral vascular disease (PVD) who presented initially as an outpatient for elective angiography for worsening claudication symptoms in his lower extremities. He was found to be hypoxic and sent to the ED for further evaluation. The patient had recently been admitted in the end of August for an acute COPD exacerbation with some acute hypoxemic respiratory failure at that time, but was discharged without oxygen. The patient has noted since discharge some increased shortness of breath with exertion as well as a cough productive of hemoptysis. He does continue to smoke cigarettes as well as reporting a history of snorting crushed opioid pills since his discharge. The patient is also continuing to drink alcohol, about a pint a day of bernard. On this admission, the patient was noted to have worsening of his acute hypoxemic respiratory failure. He is requiring increasing amounts of oxygen with the Vapotherm and does have desaturation was very minimal movement or exertion. His initial CT angiogram did not show any evidence of PE and there were some chronic fibrotic changes which were unchanged compared to his previous CT, but there are new findings of some ground-glass interstitial infiltrates in the lungs, more on the left side than the right with some associated cystic changes versus changes from his underlying emphysema. The patient's acute hypoxemic respiratory failure may possibly be in the setting of acute pneumonitis versus atypical infectious process. He does not have any fever and did not have significant leukocytosis on admission. His procalcitonin was also only very minimally elevated and likely not significant. The patient does have an inhalational exposure history and hypersensitivity pneumonitis is in the differential. Also in the differential however given the findings on CT and his reported hemoptysis, is for vasculitis and diffuse alveolar hemorrhage with possible capillaritis. The patient does have a history of hep C and previous IV drug use and there is some possible relative immunosuppression and PCP pneumonia is also in the differential. The patient does have increased BNP on admission when compared to previous but he does not appear grossly fluid overloaded and given the asymmetrical findings, pulmonary edema contributing to his hypoxemia is less likely. - Patient is on Solu-Medrol 40 mg q.6 h. Given the worsening chest x-ray however, would increase him to pulse dosed steroids for possible vasculitis and DAH. Will increase him to 125 mg q.6 h. - Would followup ANCAs for vasculitis panel as well as the workup for atypical pneumonia with Legionella, Mycoplasma, Chlamydia. - Continue with Avelox for now for atypical coverage as well as for possible acute COPD exacerbation. - Will followup sputum cytology was GMS stain to evaluate for PCP and followup his HIV test. - Given his worsening chest x-ray and hypoxia, the patient may need bronchoscopy with BAL and possible transbronchial biopsy for evaluation of DAH and for infectious organisms. Discussed with the patient that given his respiratory failure there is some concern that he will remain intubated post procedure and on the ventilator. - The patient does have a history of cirrhosis and questionable portal hypertension. Hepatopulmonary syndrome is also on the differential for his hypoxia as he does have some questionable platypnea. Would also evaluate for intracardiac shunt which may have been worsened with his worsening pulmonary hypertension from his acute hypoxemic respiratory failure. Will get an echo with a bubble study for further evaluation. - The patient does have worsening anemia. He was transfused 2 units of PRBC on admission, but his hemoglobin is trending down as well as his platelet count. He does not have any overt signs of bleeding currently, does not have any nausea, vomiting. No melena. Therefore will followup with hemolytic anemia labs including LDH, haptoglobin and bilirubin testing. - Continue with CIWA protocol for alcohol withdrawal given his history of alcohol abuse. DVT prophylaxis. Would change to sequential compression devices (SCDs) and hold Lovenox. NPO except meds FULL CODE. Will transfer the patient to ICU for further monitoring. Total critical care time spent not including any procedures approximately 50 minutes. JEREMY
[2018-10-06 12:31] LABS: INR 1.2; PROTHROMBIN TIME 14.9 SECONDS (11.8-14.0)
[2018-10-06 12:32] LABS: PARTIAL THROMBOPLASTIN TIME 26.6 SECONDS (25.0-38.4)
--- NOTE | 2018-10-06 13:18 | IPNPDOC ---
Subjective Date Seen The patient was seen on 10/06/18. Subjective Chief Complaint/HPI continues to be severely SOB with even minimal exertion like talking or reaching forward to get any thing. He did complain of inter mittent blood tinged sputum. No fever or chills, no chest pain, no abdominal pain , nausea or vomiting or diarrhea. No hematemesis or wilbert. Objective Physical Examination General Exam: Positive: Alert, Cooperative, Mild Distress Eye Exam: Positive: PERRLA, Conjunctiva & lids normal, EOMI, Sclera icteric ENT Exam: Positive: Atraumatic, Mucous membr. moist/pink, Pharynx Normal Neck Exam: Positive: Supple; Negative: JVD, thyromegaly Chest Exam: Positive: Wheezing, Diminished, Other (crackles on shaila left) Heart Exam: Positive: Tachycardic, Regular Rhythm, Normal S1, Normal S2; Negative: Gallops, Murmurs, Rubs Telemetry: Positive: Sinus, Tachycardia Abdomen Exam: Positive: Normal bowel sounds, Soft; Negative: Tenderness, Hepatospenomegaly Extremity Exam: Negative: Clubbing, Cyanosis, Edema Skin Exam: Positive: Nl turgor and temperature; Negative: Breakdown, Lesion Assessment /Plan Assessment Acute respiratory failure with hypoxia Etiology not yet determined. COPD exacerbation +/- Atypical pneumonia/ PCP pneumonia/ vasculitis/ alveolar hemorrhage/ capilliritis / allergic pneumonitis reaction to inhaled substances/ Requiring more oxygen. CXR with increased intrstitial infiltrates on the left Possible bronchoscopy today, Keep NPO . will transfer to ICU to closely monitor his breathing. On vapotherm with 60% Fio2, on removing it spo2 drops to 82% CT angio negative for PE but shows new cystic changes, moderate emphysema and some patchy infiltrates mixed cystic and interstitial infiltrates albuterol nebs, Symbicort and spiriva, steroids. Moxifloxacin for atypical coverage. oxygen supplementation ABG noted. Appreciate pulmonary consultation. Lactic acidosis due to underlying cirrhosis of liver and increased work of breathing patient does not seem to be septic as no fever or increased WBC Macrocytic anemia HH has again dropped. Received 2 units of PRBC on admission. Platelet has also dropped. ordered hemolysis work up folate deficiency due to heavy alcohol use on supplementation prbc transfusion prn refused rectal exam. Peripheral vascular disease with claudication s/p abdominal aortic stents planned for angio of the lower extremities once patient is better. Paroxysmal Afib continue with digoxin and asa. CAD with H/O AMI s/p CABG continue asa 2 sets of cardiac enzymes negative. HYPERLIPIDEMIA statin. HTN low normal at present lasix with hold parameters ALCOHOL ABUSE and Hepatitis C with CIRRHOSIS of Liver. CHRONIC HEPATITIS C GENOTYPE 1A VIRAL LOAD 3.6 MILLION VACCINATED thiamine, folate no withdrwal signs HISTORY OF INSOMNIA ambien prn DEGENERATIVE DISC DISEASE LUMBAR TOBACCO ABUSE counselled about quitting. thinking about it. Plan/VTE VTE Prophylaxis Ordered?: Yes VS, I&O, 24H, Fishbone Vital Signs/I&O Vital Signs Date Time Temp Pulse Resp B/P (MAP) Pulse Ox O2 Delivery O2 Flow Rate FiO2 10/06/18 08:00 97.2 89 20 96/56 (69) 95 20.0 60 10/04/18 14:01 Nasal Cannula I&O- Last 24 Hours up to 6 AM 10/06/18 06:00 Intake Total 1270 ml Output Total 425 ml Balance 845 ml Laboratory Data 24H LABS Laboratory Tests 2 10/05/18 22:23: 10/06/18 04:48: Immature Granulocyte % (Auto) 1.3, White Blood Count 13.0H, Red Blood Count 2.05L, Hemoglobin 8.4L, Hematocrit 24.2L, Mean Corpuscular Volume 118.0#H, Mean Corpuscular Hemoglobin 41.0H, Mean Corpuscular Hemoglobin Concent 34.7, Red Cell Distribution Width 29.2H, Platelet Count 106L, Neutrophils (%) (Auto) 92.0H, Lymphocytes (%) (Auto) 3.2L, Monocytes (%) (Auto) 3.5, Eosinophils (%) (Auto) 0.0, Basophils (%) (Auto) 0.0, Neutrophils # (Auto) 12.0H, Lymphocytes # (Auto) 0.4L, Monocytes # (Auto) 0.5, Eosinophils # (Auto) 0.0, Basophils # (Auto) 0.0, Nucleated Red Blood Cells % (auto) 0.2H, Platelet Estimate DECREASED, Poikilocytosis 1+, Anisocytosis 2+, Macrocytosis 2+, Anion Gap 9, Glomerular Filtration Rate > 60.0, Blood Urea Nitrogen 18, Creatinine 0.78, Sodium Level 132L, Potassium Level 4.3, Chloride Level 102, Carbon Dioxide Level 21, Calcium Level 8.2L 10/06/18 10:21: Total Bilirubin 1.7H, Direct Bilirubin 0.6H, Lactate Dehydrogenase 754H 10/06/18 10:55: Blood Gas Bicarbonate Standard 19.5L, Arterial Blood pH 7.471H, Arterial Blood Partial Pressure CO2 23.3L, Arterial Blood Partial Pressure O2 73.9L, Arterial Blood Total CO2 17.3L, Arterial Blood HCO3 16.6L, Arterial Blood Base Excess - 6.0L, Arterial Blood Oxygen Saturation 94.1L 10/06/18 12:08: Prothrombin Time 14.9H, Prothromb Time International Ratio 1.20, Activated Partial Thromboplast Time 26.6 CBC/BMP Laboratory Tests 10/06/18 04:48 Red Blood Count 2.05 L, Mean Corpuscular Volume 118.0 #H, Mean Corpuscular Hemoglobin 41.0 H, Mean Corpuscular Hemoglobin Concent 34.7, Red Cell Distribution Width 29.2 H, Neutrophils (%) (Auto) 92.0 H, Lymphocytes (%) (Auto) 3.2 L, Monocytes (%) (Auto) 3.5, Eosinophils (%) (Auto) 0.0, Basophils (%) (Auto) 0.0, Neutrophils # (Auto) 12.0 H, Lymphocytes # (Auto) 0.4 L, Monocytes # (Auto) 0.5, Eosinophils # (Auto) 0.0, Basophils # (Auto) 0.0, Calcium Level 8.2 L Microbiology Microbiology 10/04/18 Blood Culture - Preliminary, Resulted No Growth after 48 hours. All Specime... 10/04/18 Blood Culture - Preliminary, Resulted No Growth after 48 hours. All Specime... 10/04/18 Gram Stain - Final, Complete 10/04/18 Sputum Culture - Final, Complete Yeast Like Organism RAMÓN CONNELL MD Oct 06, 2018 13:18
[2018-10-06] MEDS: methylPREDNISolone INJ 125 MG/2 ML VIAL (J2930) IV SCH ×2 (16:19→23:59)
[2018-10-06] MEDS: BACTRIM 160MG/800MG DS TAB PO SCH ×2 (16:41→20:30)
--- NOTE | 2018-10-06 18:54 | ECHO ---
DATE OF PROCEDURE: 10/06/2018 REFERRING PHYSICIAN: Dr. Stefania Murphy and Dr. Debbie Chanel INDICATION: Hypoxemia. Height 175 cm, weight 64 kg. DIMENSIONS: IVS: 0.8 LV: 3.5 LVPW: 0.7 LA: 2.5 Aorta: 2.9 Mitral E wave velocity: 60 A wave: 81 E prime septal: 7.4 E prime lateral: 11.6 IVC: 1.0 FINDINGS: The study is of fair technical quality. The patient is in sinus rhythm. Left ventricle is of normal size and normal systolic function, I estimate ejection fraction (EF) around 65%. No segmental wall motion abnormalities are noted. Right ventricle does not appear grossly enlarged and is normally contractile. Both atria appear grossly normal. Aortic valve is minimally sclerotic but mobility of cusps is preserved. Mitral valve exhibits mild degenerative abnormalities but mobility of leaflets is preserved. Tricuspid valve appears normal. Pulmonic valve was not well seen. There is apparent pericardial fat pad and trivial effusion. Inferior vena cava is of relatively small caliber and appropriately collapses with respiration. Aortic root is normal. Aortic arch and abdominal aorta were not well seen. Doppler interrogation of aortic valve reveals no stenosis or insufficiency. There is trace mitral insufficiency and trace tricuspid insufficiency. Calculated pulmonary artery pressure is at minimum in high 50s corresponding to moderately severe pulmonary hypertension. Mitral inflow pattern and tissue Doppler imaging of mitral annulus revealed grade 1 diastolic dysfunction. Injection of agitated saline through peripheral vein leads to good opacification of right-sided heart chambers but no evidence for shunt across interatrial or intraventricular septum. CONCLUSIONS: 1. Study is of fair technical quality. 2. Normal left ventricular (LV) size with preserved LV systolic function and grade 1 diastolic dysfunction. 3. Right ventricle does not appear enlarged and is normally contractile. 4. No hemodynamically significant valvular disease. 5. Likely normal central venous pressure but at least moderately severe pulmonary hypertension. 6. No evidence for shunt across atrial or ventricular septum based on injection of agitated saline through peripheral vein ("negative bubble study"). COMMENT: Subacute bacterial endocarditis (SBE) prophylaxis is not recommended. The study does not provide explanation for hypoxemia. MTDD
[2018-10-06] MEDS: DIGOXIN 0.125 MG TAB PO SCH (20:29)
[2018-10-06] MEDS: OMEPRAZOLE 20 MG CAP PO SCH (20:29)
[2018-10-06] MEDS: ASPIRIN 325 MG TAB PO SCH (20:30)
[2018-10-06] MEDS: MOXIFLOXACIN HCL 400 MG in APPROPRIATE DILUENT 1 EA IV SCH (20:30)
[2018-10-06] MEDS ORDERED: NS 1,000 ML IV SCH (22:30)
[2018-10-06] MEDS: zolPIDEM TARTRATE 5 MG TAB PO PRN (23:59)
[2018-10-07] VITALS (19 sets, daily range): BP systolic 90–122; BP diastolic 52–75
[2018-10-07] MEDS: ALBUTEROL SULFATE 2.5 MG/0.5 ML INH NEB SOLN NEB SCH ×3 (00:05→15:05)
[2018-10-07 00:28] LABS: APPEARANCE, URINE CLEAR (CLEAR); BACTERIA, URINE AUTO NEGATIVE (NEGATIVE); BILIRUBIN, URINE AUTO 1+ (NEGATIVE); BLOOD, URINE BLOOD NEGATIVE (NEGATIVE); COLOR, URINE AMBER (YELLOW); GLUCOSE, URINE (UA) AUTO NEGATIVE (NEGATIVE); KETONE, URINE AUTO NEGATIVE (NEGATIVE); LEUKOCYTE ESTERASE, URINE AUTO NEGATIVE (NEGATIVE); NITRITE, URINE AUTO NEGATIVE (NEGATIVE); PROTEIN, URINE AUTO NEGATIVE (NEGATIVE); RBC, URINE AUTO 0 /HPF (0-3); SPECIFIC GRAVITY URINE AUTO 1.024 (1.002-1.035); SQUAMOUS EPITHELIAL CELL UR AU 0 /HPF (0-6); WBC, URINE AUTO 1 /HPF (0-3)
[2018-10-07] MEDS: methylPREDNISolone INJ 125 MG/2 ML VIAL (J2930) IV SCH ×4 (04:57→23:50)
[2018-10-07 05:01] LABS: HEMATOCRIT 21.4 % (42.0-52.0); HEMOGLOBIN 7.5 g/dl (13.5-17.5); LYMPH # 0.5 10^3/uL (1.5-4.5); LYMPH % 5.2 % (24.0-44.0); MEAN CORPUSCULAR HEMOGLOBIN 40.3 pg (27.0-33.0); MONO # 0.3 10^3/uL (0.0-0.8); MONO % 3.3 % (0.0-5.0); NEUTROPHILS # 8.3 10^3/uL (1.8-7.7); NEUTROPHILS % 90.7 % (36.0-66.0); RED BLOOD COUNT 1.86 10^6/uL (4.30-6.10); WHITE BLOOD COUNT 9.1 10^3/uL (4.0-10.0)
[2018-10-07 05:10] LABS: PLATELET COUNT, AUTOMATED 75 10^3/uL (150-450)
[2018-10-07 05:11] LABS: MEAN CORPUSCULAR VOLUME 115.1 fl (80.0-96.0)
[2018-10-07 05:47] LABS: BLOOD UREA NITROGEN 17 MG/DL (7-18); CALCIUM LEVEL 7.8 MG/DL (8.8-10.2); CARBON DIOXIDE LEVEL 19 MEQ/L (21-32); CHLORIDE LEVEL 105 MEQ/L (98-107); CREATININE FOR GFR 0.66 MG/DL (0.70-1.30); DIGOXIN LEVEL 0.8 NG/ML (0.5-2.0); GLOMERULAR FILTRATION RATE > 60.0 (>49); GLUCOSE, FASTING 112 MG/DL (70-100); POTASSIUM SERUM 4.5 MEQ/L (3.5-5.1); SODIUM LEVEL 134 MEQ/L (136-145)
[2018-10-07] MEDS: SYMBICORT 80/4.5MCG INHALER 6GM INH SCH ×2 (08:12→20:59)
[2018-10-07] MEDS: TIOTROPIUM INHALER/CAPSULE (SPIRIVA) INH SCH (08:13)
[2018-10-07] MEDS: MULTIVITAMINS/MINERALS THERAP 1 TAB PO SCH (09:07)
[2018-10-07] MEDS: BACTRIM 160MG/800MG DS TAB PO SCH ×3 (09:07→20:31)
[2018-10-07] MEDS: THIAMINE 100 MG TAB PO SCH ×2 (09:07→20:31)
[2018-10-07] MEDS: FOLIC ACID 1 MG TAB PO SCH ×2 (09:08→20:31)
--- NOTE | 2018-10-07 10:01 | CCN ---
DATE: 10/07/2018 I attended [facility] M[facility] here in the intensive care unit. Patient has been examined, chart reviewed. I spoke with the nurse at the bedside. T-max overnight 97.9, blood pressure in the 90s his morning. Heart rate has been in the 70s to 90s as well. Respiratory rate 18 to 22 without obvious accessory muscle use. He remains on 25 liter flow via Vapotherm. Oxygen saturation anywhere from 85 to 94%. Intake and output 1460 mL in with 660 mL out midnight to midnight. Laboratories show a white blood cell count of 9.1, hemoglobin 7.5, platelet count of 75,000 which is down from 106,000 yesterday. 91% segs, no bands. Sodium 134, K of 4.5, chloride 105, CO2 19, BUN 17, creatinine 0.66, glucose 112. Blood gas done yesterday is again reviewed and shows a respiratory alkalosis with acceptable oxygenation status with a pO2 of 73.9 on the Vapotherm. No new chest x-ray today. Other available radiographic studies have been reviewed. On exam, he is awake, alert and appropriate, comfortable in bed. He is not tachypneic and has no accessory muscle use. HEENT otherwise normocephalic, atraumatic. Pupils reactive. Neck is supple. Trachea is midline. No obvious JVD. He is mildly pale. Chest does show symmetric expansion although it is diminished. Percussion reasonable. Inspiratory crackles in the left chest throughout, some at the right base. No convincing egophony. No rubs or wheezes. Cardiac exam is generally regular. Peripheral pulses palpable. No obvious edema. Abdomen soft, nontender with active bowel sounds. No organomegaly or masses. Extremities no cyanosis or clubbing. Neurologically he is awake, alert and appropriate. Psych normal mood and affect. Pulse ox is variable and he does desaturate with activity and conversation. IMPRESSION: 1. Acute hypoxic respiratory failure complicating a chronic component. 2. Abnormal chest x-ray/CT scan. 3. Longstanding and continued tobacco abuse. 4. Worsening anemia, likely multifactorial. 5. Thrombocytopenia. 6. Vascular disease. 7. Coronary artery disease (CAD). Plan: Agree with current antibiotics. Will transfuse 2uPRBCs today. Spoke at length with patient regarding his status. Hemoptysis not surprising given his thrombocytopenia. Ulcer/DVT prophylaxis per primary service. Not tachypnic. O2 requirements fluctaute. Will add an expectorant. He will be followed closely while he is here. Further recommendations will be made in the progress record as new information becomes available. JEREMY
--- NOTE | 2018-10-07 10:31 | IPNPDOC ---
Subjective Date Seen The patient was seen on 10/07/18. Subjective Chief Complaint/HPI Breathing remains unchanged. still in Vapotherm with high flow. Becomes hypoxic to 85 % during conversations. When laying still maintaining around 88% to 90%. still having blood tinged sputum. No fever or chills, no chest pain. No abdominal pain , nausea or vomiting. Says he ate a good meal last night. Objective Physical Examination General Exam: Positive: Alert, Cooperative, Moderate Distress Eye Exam: Positive: PERRLA, Conjunctiva & lids normal, EOMI ENT Exam: Positive: Atraumatic, Mucous membr. moist/pink, Pharynx Normal Neck Exam: Positive: Supple; Negative: JVD, thyromegaly Chest Exam: Positive: Diminished, Other (diffuse crackles on shaila left only) Heart Exam: Positive: Tachycardic, Regular Rhythm, Normal S1, Normal S2; Negative: Gallops, Murmurs, Rubs Telemetry: Positive: Sinus, Tachycardia Abdomen Exam: Positive: Normal bowel sounds, Soft; Negative: Tenderness, Hepatospenomegaly Extremity Exam: Negative: Clubbing, Cyanosis, Edema Skin Exam: Positive: Nl turgor and temperature; Negative: Breakdown, Lesion Assessment /Plan Assessment Acute respiratory failure with hypoxia Etiology not yet determined. COPD exacerbation +/- Atypical pneumonia/ PCP pneumonia/ vasculitis/ alveolar hemorrhage/ capillaritis / allergic pneumonitis reaction to inhaled substances/ CXR with increased interstitial infiltrates on the left On vapotherm with 60% Fio2, on removing it spo2 drops to 82% CT angio negative for PE but shows new cystic changes, moderate emphysema and some patchy infiltrates mixed cystic and interstitial infiltrates albuterol nebs, Symbicort and spiriva, steroids. Moxifloxacin for atypical coverage. DOse of steroids has been increased. oxygen supplementation Echo noted, no increased venous pressure, no valvular disease, EFF is good , hperdynamic. Pateint is not fluid overloaded will stop lasix. Appreciate pulmonary consultation. Lactic acidosis due to underlying cirrhosis of liver and increased work of breathing patient does not seem to be septic as no fever or increased WBC Thrombocytopenia will stop lovenox patent had significant thrombocytopenia during last admission in august which is new. will check DAVID antibody and MARIAA hemolysis work up in progress Has stents in heart and aorta will continue ASA Macrocytic anemia Received 2 units of PRBC on admission. Hb has dropped again to 7.5 today Platelet has also dropped. ordered hemolysis work up folate deficiency due to heavy alcohol use on supplementation prbc transfusion prn Peripheral vascular disease with claudication s/p abdominal aortic stents planned for angio of the lower extremities once patient is better. Paroxysmal Afib continue with digoxin and asa. CAD with H/O AMI s/p CABG also s/p stents. continue asa 2 sets of cardiac enzymes negative. HYPERLIPIDEMIA statin. HTN low normal at present lasix with hold parameters ALCOHOL ABUSE and Hepatitis C with CIRRHOSIS of Liver. CHRONIC HEPATITIS C GENOTYPE 1A VIRAL LOAD 3.6 MILLION VACCINATED thiamine, folate no withdrwal signs HISTORY OF INSOMNIA ambien prn DEGENERATIVE DISC DISEASE LUMBAR TOBACCO ABUSE counselled about quitting. thinking about it. Plan/VTE VTE Prophylaxis Ordered?: Yes VS, I&O, 24H, Fishbone Vital Signs/I&O Vital Signs Date Time Temp Pulse Resp B/P (MAP) Pulse Ox O2 Delivery O2 Flow Rate FiO2 10/07/18 09:00 25.0 60 10/07/18 08:16 87 10/07/18 08:00 98.6 94 26 120/70 (87) 10/04/18 14:01 Nasal Cannula I&O- Last 24 Hours up to 6 AM 10/07/18 06:00 Intake Total 1520 ml Output Total 910 ml Balance 610 ml Laboratory Data 24H LABS Laboratory Tests 2 10/06/18 10:21: Haptoglobin 70, Total Bilirubin 1.7H, Direct Bilirubin 0.6H, Lactate Dehydrogenase 754H 10/06/18 10:55: Blood Gas Bicarbonate Standard 19.5L, Arterial Blood pH 7.471H, Arterial Blood Partial Pressure CO2 23.3L, Arterial Blood Partial Pressure O2 73.9L, Arterial Blood Total CO2 17.3L, Arterial Blood HCO3 16.6L, Arterial Blood Base Excess - 6.0L, Arterial Blood Oxygen Saturation 94.1L 10/06/18 12:08: Prothrombin Time 14.9H, Prothromb Time International Ratio 1.20, Activated Partial Thromboplast Time 26.6 10/06/18 23:59: Urine Appearance CLEAR, Urine Color WILLIAM, Urine pH 6.0, Urine Specific [place] 1.024, Urine Protein NEGATIVE, Urine Glucose (UA) NEGATIVE, Urine Ketones NEGATIVE, Urine Urobilinogen 4.0H, Urine Bilirubin 1+H, Urine Leukocyte Esterase NEGATIVE, Urine Blood NEGATIVE, Urine Nitrite NEGATIVE, Urine WBC (Auto) 1, Urine RBC (Auto) 0, Urine Hyaline Casts (Auto) 0, Urine Bacteria (Auto) NEGATIVE, Urine Squamous Epithelial Cells 0, Urine Sperm (Auto) 10/07/18 04:50: Immature Granulocyte % (Auto) 0.8, White Blood Count 9.1, Red Blood Count 1.86L, Hemoglobin 7.5L, Hematocrit 21.4L, Mean Corpuscular Volume 115.1H, Mean Corpuscular Hemoglobin 40.3H, Mean Corpuscular Hemoglobin Concent 35.0, Red Cell Distribution Width 28.6H, Platelet Count 75L, Neutrophils (%) (Auto) 90.7H, Lymphocytes (%) (Auto) 5.2L, Monocytes (%) (Auto) 3.3, Eosinophils (%) (Auto) 0.0, Basophils (%) (Auto) 0.0, Neutrophils # (Auto) 8.3H, Lymphocytes # (Auto) 0.5L, Monocytes # (Auto) 0.3, Eosinophils # (Auto) 0.0, Basophils # (Auto) 0.0, Nucleated Red Blood Cells % (auto) 0.2H, Immature Platelet Fraction 2.9, Anion Gap 10, Glomerular Filtration Rate > 60.0, Blood Urea Nitrogen 17, Creatinine 0.66L, Sodium Level 134L, Potassium Level 4.5, Chloride Level 105, Carbon Dioxide Level 19L, Calcium Level 7.8L, Digoxin Level 0.8 CBC/BMP Laboratory Tests 10/07/18 04:50 Red Blood Count 1.86 L, Mean Corpuscular Volume 115.1 H, Mean Corpuscular Hemoglobin 40.3 H, Mean Corpuscular Hemoglobin Concent 35.0, Red Cell Distribution Width 28.6 H, Neutrophils (%) (Auto) 90.7 H, Lymphocytes (%) (Auto) 5.2 L, Monocytes (%) (Auto) 3.3, Eosinophils (%) (Auto) 0.0, Basophils (%) (Auto) 0.0, Neutrophils # (Auto) 8.3 H, Lymphocytes # (Auto) 0.5 L, Monocytes # (Auto) 0.3, Eosinophils # (Auto) 0.0, Basophils # (Auto) 0.0, Calcium Level 7.8 L Microbiology Microbiology 10/04/18 Blood Culture - Preliminary, Resulted No Growth after 72 hours. All specime... 10/04/18 Blood Culture - Preliminary, Resulted No Growth after 72 hours. All specime... 10/06/18 Gram Stain, Received Pending 10/06/18 Sputum Culture, Received Pending 10/04/18 Gram Stain - Final, Complete 10/04/18 Sputum Culture - Final, Complete Yeast Like Organism RAMÓN CONNELL MD Oct 07, 2018 10:31
[2018-10-07] MEDS: guaiFENesin ER 600 MG TAB PO SCH ×2 (10:33→20:31)
[2018-10-07] MEDS: ASPIRIN 325 MG TAB PO SCH (20:30)
[2018-10-07] MEDS: DIGOXIN 0.125 MG TAB PO SCH (20:31)
[2018-10-07] MEDS: OMEPRAZOLE 20 MG CAP PO SCH (20:31)
[2018-10-07] MEDS: MOXIFLOXACIN HCL 400 MG in APPROPRIATE DILUENT 1 EA IV SCH (20:32)
[2018-10-07] MEDS: zolPIDEM TARTRATE 5 MG TAB PO PRN (21:36)
[2018-10-08] VITALS (10 sets, daily range): BP systolic 97–139; BP diastolic 59–78
[2018-10-08 00:07] LABS: G6PD2 2.18 x10E6/uL (4.14-5.80); G6PD3 536 (146-376)
[2018-10-08] MEDS: ALBUTEROL SULFATE 2.5 MG/0.5 ML INH NEB SOLN NEB SCH ×3 (00:19→14:58)
[2018-10-08 05:12] LABS: BASO % 0.1 % (0.0-1.0); HEMATOCRIT 32.5 % (42.0-52.0); LYMPH # 0.5 10^3/uL (1.5-4.5); LYMPH % 2.7 % (24.0-44.0); MEAN CORPUSCULAR HEMOGLOBIN 37.7 pg (27.0-33.0); MEAN CORPUSCULAR HGB CONC 34.8 g/dl (32.0-36.5); MEAN CORPUSCULAR VOLUME 108.3 fl (80.0-96.0); MONO # 1.5 10^3/uL (0.0-0.8); MONO % 8.3 % (0.0-5.0); NEUTROPHILS # 15.5 10^3/uL (1.8-7.7); NEUTROPHILS % 87.5 % (36.0-66.0); WHITE BLOOD COUNT 17.7 10^3/uL (4.0-10.0)
[2018-10-08] MEDS: methylPREDNISolone INJ 125 MG/2 ML VIAL (J2930) IV SCH ×4 (05:13→23:25)
[2018-10-08 05:26] LABS: HEMOGLOBIN 11.3 g/dl (13.5-17.5); PLATELET COUNT, AUTOMATED 92 10^3/uL (150-450)
[2018-10-08 05:27] LABS: BLOOD UREA NITROGEN 14 MG/DL (7-18); CALCIUM LEVEL 7.9 MG/DL (8.8-10.2); CARBON DIOXIDE LEVEL 19 MEQ/L (21-32); CHLORIDE LEVEL 106 MEQ/L (98-107); GLOMERULAR FILTRATION RATE > 60.0 (>49); GLUCOSE, FASTING 114 MG/DL (70-100); POTASSIUM SERUM 4.5 MEQ/L (3.5-5.1); SODIUM LEVEL 132 MEQ/L (136-145)
[2018-10-08] MEDS: guaiFENesin ER 600 MG TAB PO SCH ×2 (08:44→21:04)
[2018-10-08] MEDS: FOLIC ACID 1 MG TAB PO SCH ×2 (08:44→21:02)
[2018-10-08] MEDS: BACTRIM 160MG/800MG DS TAB PO SCH ×3 (08:44→21:04)
[2018-10-08] MEDS: MULTIVITAMINS/MINERALS THERAP 1 TAB PO SCH (08:44)
[2018-10-08] MEDS: VORICONAZOLE 200MG TABLET (VFEND) PO SCH ×2 (09:00→21:05)
[2018-10-08] MEDS: TIOTROPIUM INHALER/CAPSULE (SPIRIVA) INH SCH (09:02)
[2018-10-08] MEDS: SYMBICORT 80/4.5MCG INHALER 6GM INH SCH ×2 (09:02→20:51)
[2018-10-08] MEDS ORDERED: FUROSEMIDE 40 MG/4 ML VIAL (J1940) IV ONE (11:00)
--- NOTE | 2018-10-08 11:07 | REP ---
AP PORTABLE CHEST: 10/08/2018. Comparison: 10/06/2018, 10/04/2018. Clinical history: Hypoxemia. Findings: Far more extensive pattern of interstitial and alveolar infiltrates in the left lung and now some scarring in the right compared to 10/06/2018. No definite effusion. Heart size not enlarged. No widened of the mediastinum. Aorta intact. Sternotomy wires as before. No other changes. Impression: 1. Significant progression of the left lung infiltrates and new patchy interstitial infiltrates in the right lung. No effusion, cardiomegaly or jefry edema. Electronically Signed by Lui Stark MD 10/08/2018 09:48 P
--- NOTE | 2018-10-08 11:12 | IPN ---
DATE OF VISIT: 10/08/2018 I again attended [facility] Mccartney here in the intensive care unit. The patient has been examined and the chart reviewed. He remains with intermittent hemoptysis. He also remains on Vapotherm, requiring 25 to 30 liters of flow to maintain a saturation of 88-92%. T-max overnight 98, blood pressure 115 to 130, heart rate generally in the 80s, respiratory rate low to mid 20s without obvious accessory muscle use. Ins and outs midnight to midnight 2770 mL in with 1775 mL out. Sodium 132, potassium 4.5, chloride 106, CO2 19, BUN 14, creatinine 0.7. White blood cell count 17.7 (on high dose steroids), hemoglobin 11.3 after transfusion yesterday, platelet count 92,000 with 87% segs and 0 bands. Chest x-ray shows increased diffuse interstitial markings. On exam, he is awake, alert and appropriate. He is not short of breath with conversation. HEENT: Shows pupils react, sclerae clear, trachea is in the midline. No obvious jugular venous distention (JVD). Chest shows diffuse inspiratory crackles. No convincing egophony or wheezing. No rubs. Cardiac exam generally regular without any gallop. There may be a soft early systolic murmur. Peripheral pulses are diminished. No obvious edema. Abdomen soft with active bowel sounds. Nontender. No convincing organomegaly or masses. Extremities: Without cyanosis or clubbing. Neurologic: He is awake, alert and appropriate. Grossly, the motor exam is nonfocal. IMPRESSION: 1. Progressive hypoxemic respiratory failure. 2. Interstitial lung disease versus alveolar hemorrhage. 3. Long standing continued tobacco abuse. 4. Peripheral vascular disease. 5. Hepatitis C. 6. Hepatic insufficiency. 7. Thrombocytopenia. RECOMMENDATIONS: At this point, will continue his broad spectrum antimicrobials and high dose steroids. He remains with intermittent hemoptysis. His oxygen requirements are a little more today and I will gently diurese him. I had a long discussion with him regarding the high likelihood that he may progress and there is a likelihood he may not survive this hospitalization. He wonders what his function will be like when he is out of the hospital and at this point that is impossible to predict. We will proceed as outlined above. Further recommendations will be made in the progress record as new information becomes available.
--- NOTE | 2018-10-08 12:15 | IPNPDOC ---
Subjective Date Seen The patient was seen on 10/08/18. Subjective Chief Complaint/HPI patient continues to be i acute respiratory failure, continues to have hemoptysis. His oxygen requirement seems to be a little worse than yesterday. Says could not eat much today. No fever or chills, no nausea or vomiting or diarrhea. Objective Physical Examination General Exam: Positive: Alert, Cooperative, Moderate Distress Eye Exam: Positive: PERRLA, Conjunctiva & lids normal, EOMI ENT Exam: Positive: Atraumatic, Mucous membr. moist/pink, Pharynx Normal Neck Exam: Positive: Supple; Negative: JVD, thyromegaly Chest Exam: Positive: Diminished, Other (diffuse crackles now bilaterally) Heart Exam: Positive: Tachycardic, Regular Rhythm, Normal S1, Normal S2; Negative: Gallops, Murmurs, Rubs Telemetry: Positive: Sinus, Tachycardia Abdomen Exam: Positive: Normal bowel sounds, Soft; Negative: Tenderness, Hepatospenomegaly Extremity Exam: Negative: Clubbing, Cyanosis, Edema Skin Exam: Positive: Nl turgor and temperature; Negative: Breakdown, Lesion Assessment /Plan Assessment Acute respiratory failure with hypoxia Etiology not yet determined. Interstitial lung disease vs alveolar hemorrhage / Fungal infection on the back ground of COPD Atypical pneumonia/ PCP pneumonia/ vasculitis/ allergic pneumonitis reaction to inhaled substances are also in the differential. CXR with increased interstitial infiltrates on left now also on right Sputum with large amount of yeast like organism with pseudohyphae. gram positive cocci in pairs and chains and clusters. urine legionella in progress. will send sputum for fungus smear and culture. wll start on voriconazole and vancomycin. albuterol nebs, Symbicort and spiriva, steroids. Moxifloxacin for atypical coverage, steroids has been increased. Bactrim oxygen supplementation Echo noted, no increased venous pressure, no valvular disease, EFF is good , hyperdynamic. Pateint is not fluid overloaded CT angio negative for PE but shows new cystic changes, moderate emphysema and some patchy infiltrates mixed cystic and interstitial infiltrates Appreciate pulmonary consultation. Seems to be worsening. If continues in this pattern he may not survive this admission. Thrombocytopenia patent had significant thrombocytopenia during last admission in august which is new. will check DAVID antibody and MARIAA hemolysis work up in progress Has stents in heart and aorta will continue ASA Macrocytic anemia Received 4 units of PRBC since admission. Platelet has also dropped. ordered hemolysis work up folate deficiency due to heavy alcohol use on supplementation prbc transfusion prn Peripheral vascular disease with claudication s/p abdominal aortic stents planned for angio of the lower extremities once patient is better. Paroxysmal Afib continue with digoxin and asa. CAD with H/O AMI s/p CABG also s/p stents. continue asa 2 sets of cardiac enzymes negative. HYPERLIPIDEMIA statin. HTN low normal at present lasix with hold parameters ALCOHOL ABUSE and Hepatitis C with CIRRHOSIS of Liver. CHRONIC HEPATITIS C GENOTYPE 1A VIRAL LOAD 3.6 MILLION VACCINATED thiamine, folate no withdrwal signs HISTORY OF INSOMNIA ambien prn DEGENERATIVE DISC DISEASE LUMBAR TOBACCO ABUSE counselled about quitting. Plan/VTE VTE Prophylaxis Ordered?: Yes VS, I&O, 24H, Fishbone Vital Signs/I&O Vital Signs Date Time Temp Pulse Resp B/P (MAP) Pulse Ox O2 Delivery O2 Flow Rate FiO2 10/08/18 09:00 89 30.0 89 10/08/18 08:00 97.4 81 26 132/78 (96) 10/04/18 14:01 Nasal Cannula I&O- Last 24 Hours up to 6 AM 10/08/18 05:59 Intake Total 2890 ml Output Total 1275 ml Balance 1615 ml Laboratory Data 24H LABS Laboratory Tests 2 10/07/18 15:02: 10/08/18 04:47: Immature Granulocyte % (Auto) 1.4, White Blood Count 17.7H, Red Blood Count 3.00L, Hemoglobin 11.3#L, Hematocrit 32.5L, Mean Corpuscular Volume 108.3H, Mean Corpuscular Hemoglobin 37.7H, Mean Corpuscular Hemoglobin Concent 34.8, Red Cell Distribution Width 27.7H, Platelet Count 92L, Neutrophils (%) (Auto) 87.5H, Lymphocytes (%) (Auto) 2.7L, Monocytes (%) (Auto) 8.3H, Eosinophils (%) (Auto) 0.0, Basophils (%) (Auto) 0.1, Neutrophils # (Auto) 15.5H, Lymphocytes # (Auto) 0.5L, Monocytes # (Auto) 1.5H, Eosinophils # (Auto) 0.0, Basophils # (Auto) 0.0, Nucleated Red Blood Cells % (auto) 0.3H, Anion Gap 7L, Glomerular Filtration Rate > 60.0, Blood Urea Nitrogen 14, Creatinine 0.70, Sodium Level 132L, Potassium Level 4.5, Chloride Level 106, Carbon Dioxide Level 19L, Calcium Level 7.9L CBC/BMP Laboratory Tests 10/08/18 04:47 Red Blood Count 3.00 L, Mean Corpuscular Volume 108.3 H, Mean Corpuscular Hemoglobin 37.7 H, Mean Corpuscular Hemoglobin Concent 34.8, Red Cell Distribution Width 27.7 H, Neutrophils (%) (Auto) 87.5 H, Lymphocytes (%) (Auto) 2.7 L, Monocytes (%) (Auto) 8.3 H, Eosinophils (%) (Auto) 0.0, Basophils (%) (Auto) 0.1, Neutrophils # (Auto) 15.5 H, Lymphocytes # (Auto) 0.5 L, Monocytes # (Auto) 1.5 H, Eosinophils # (Auto) 0.0, Basophils # (Auto) 0.0, Calcium Level 7.9 L Microbiology Microbiology 10/04/18 Blood Culture - Preliminary, Resulted No Growth after 72 hours. All specime... 10/04/18 Blood Culture - Preliminary, Resulted No Growth after 72 hours. All specime... 10/07/18 Stool Occult Blood (JOSE) - Final, Complete 10/06/18 Gram Stain - Final, Resulted 10/06/18 Sputum Culture - Preliminary, Resulted Yeast Like Organism 10/04/18 Gram Stain - Final, Complete 10/04/18 Sputum Culture - Final, Complete Yeast Like Organism RAMÓN CONNELL MD Oct 08, 2018 12:14
--- NOTE | 2018-10-08 12:52 | PHACANCOPD ---
PHARMACY VANCOMYCIN DOSING Pt Demographics Demographics Patient Age:63 , Weight:64.800 , Gender: male Adjusted Body Weight Date: 10/08/18, Adjusted Body Weight: Kg Events Past 24 Hours Events Past 24 Hours: YES: Elevation in WBC; NO: Dialysis, Diuretic Therapy, Change in CrCl, Fever, Pending Diagnostics, Pending Procedures, Other Vancomycin Vancomycin Target Ranges: 15-20 mcg/ml Vancomycin Load Y/N: Yes Load Dose Date Time Vancomycin Load Dose: 1500MG Date: 10/08/18 Time: 1500 Vancomycin Dose Date: 10/08/18. Current Vancomycin Dose: Intermittent Dosing?: No Labs Labs Vital Signs Label Value Date Time Patient Temperature 97.2 degrees F 10/08/18 1200 Temperature Source Temporal 10/08/18 1200 Patient Temperature 97.4 degrees F 10/08/18 0800 Temperature Source Temporal 10/08/18 0800 Patient Temperature 98.0 degrees F 10/08/18 0400 Temperature Source Temporal 10/08/18 0400 Item Value Date Time White Blood Count 17.7 10^3/uL H 10/08/18 0447 White Blood Count 9.1 10^3/uL 10/07/18 0450 White Blood Count 13.0 10^3/uL H 10/06/18 0448 Creatinine 0.70 MG/DL 10/08/18 0447 Creatinine 0.66 MG/DL L 10/07/18 0450 Creatinine 0.78 MG/DL 10/06/18 0448 Micro Microbiology 10/08/18 Blood Fungal Culture, Received Pending 10/04/18 Blood Culture - Preliminary, Resulted No Growth after 72 hours. All specime... 10/04/18 Blood Culture - Preliminary, Resulted No Growth after 72 hours. All specime... 10/07/18 Stool Occult Blood (JOSE) - Final, Complete 10/06/18 Gram Stain - Final, Resulted 10/06/18 Sputum Culture - Preliminary, Resulted Yeast Like Organism 10/04/18 Gram Stain - Final, Complete 10/04/18 Sputum Culture - Final, Complete Yeast Like Organism Creatinine Clearance Date:10/08/18. Creatinine Clearance: . Assessment and Plan Maintaining Current Dose?: Yes Reason for dose change: No Dose Change Pharmacist Note Pharmacist Note Date: 10/08/18. Pharmacist note: Pt. is a 63 year old male who was admitted originally due to acute resp failure due to a COPD exacerbation. The pt has also been experiencing intermittent hemoptysis. Today the pt's WBC are elevated. Of note pt is on steroids. The pt's O2 requirements are up today as well. I have loaded the patient with Vancomycin 1500mg x1 followed by 1G IV Q12H. I feel that the pt's Scr may be falsely low due the the patient being more sedentary due to his difficulty breathing. I will schedule an earlier trough to ensure I am not underdosing this patient. Sputum culture is pending with preliminary showing gram (+). This patient has no Vanco or MRSA hx with us. We will continue to monitor and adjust dose as needed. ELIECER OLMEDO [facility]ARMAC[facility] Oct 08, 2018 12:52
[2018-10-08] MEDS ORDERED: VANCOMYCIN HCL 500 MG in D5W MINI-BAG PLUS 100 ML IV ONE (13:00)
[2018-10-08] MEDS ORDERED: MICAFUNGIN SODIUM 150 MG in D5W MINI-BAG PLUS 100 ML IV SCH (13:00)
[2018-10-08] MEDS ORDERED: MICAFUNGIN SODIUM 150 MG in D5W 100 ML IV SCH (14:00)
[2018-10-08] MEDS: VANCOMYCIN HCL 1,000 MG, VIAL MATE ADAPTER 1 EACH in D5W 250 ML IV SCH (15:13)
[2018-10-08 19:28] LABS: NT-PRO BNP 4241 PG/ML (<125)
[2018-10-08] MEDS: zolPIDEM TARTRATE 5 MG TAB PO PRN (21:02)
[2018-10-08] MEDS: DIGOXIN 0.125 MG TAB PO SCH (21:03)
[2018-10-08] MEDS: ASPIRIN 325 MG TAB PO SCH (21:03)
[2018-10-08] MEDS: OMEPRAZOLE 20 MG CAP PO SCH (21:04)
[2018-10-08] MEDS: MOXIFLOXACIN HCL 400 MG in APPROPRIATE DILUENT 1 EA IV SCH (21:22)
[2018-10-09] VITALS (12 sets, daily range): BP systolic 99–124; BP diastolic 63–85; O2SAT 95–97
[2018-10-09] MEDS: ALBUTEROL SULFATE 2.5 MG/0.5 ML INH NEB SOLN NEB SCH ×4 (00:06→23:40)
[2018-10-09 00:22] LABS: ABG BASE EXCESS -4.9 (-2.0-2.0); ABG HCO3 17.4 MEQ/L (22.0-26.0); ABG O2 SATURATION 90.6 % (95.0-99.0); ABG PARTIAL PRESSURE CO2 24.3 mmHg (35.0-45.0); ABG PARTIAL PRESSURE O2 59.9 mmHg (75.0-100.0); ABG STANDARD HCO3 20.3 MEQ/L (22.0-26.0); ABG TOTAL CO2 18.1 MEQ/L (23.0-31.0); ABG pH (ARTERIAL) 7.472 UNITS (7.350-7.450)
[2018-10-09] MEDS ORDERED: FUROSEMIDE 40 MG/4 ML VIAL (J1940) IV ONE (01:00)
[2018-10-09] MEDS: VANCOMYCIN HCL 1,000 MG, VIAL MATE ADAPTER 1 EACH in D5W 250 ML IV SCH ×2 (02:52→14:59)
[2018-10-09 05:28] LABS: BASO % 0.1 % (0.0-1.0); EOS % 0.1 % (0.0-3.0); HEMATOCRIT 31.2 % (42.0-52.0); HEMOGLOBIN 11.1 g/dl (13.5-17.5); LYMPH # 0.3 10^3/uL (1.5-4.5); LYMPH % 1.7 % (24.0-44.0); MEAN CORPUSCULAR HEMOGLOBIN 37.8 pg (27.0-33.0); MEAN CORPUSCULAR HGB CONC 35.6 g/dl (32.0-36.5); MEAN CORPUSCULAR VOLUME 106.1 fl (80.0-96.0); MONO # 1.3 10^3/uL (0.0-0.8); MONO % 8.6 % (0.0-5.0); NEUTROPHILS # 13.7 10^3/uL (1.8-7.7); NEUTROPHILS % 88.3 % (36.0-66.0); RED BLOOD COUNT 2.94 10^6/uL (4.30-6.10); WHITE BLOOD COUNT 15.5 10^3/uL (4.0-10.0)
[2018-10-09] MEDS: methylPREDNISolone INJ 125 MG/2 ML VIAL (J2930) IV SCH ×2 (05:41→12:26)
[2018-10-09 05:55] LABS: PLATELET COUNT, AUTOMATED 88 10^3/uL (150-450)
[2018-10-09 06:12] LABS: BLOOD UREA NITROGEN 16 MG/DL (7-18); CALCIUM LEVEL 7.7 MG/DL (8.8-10.2); CARBON DIOXIDE LEVEL 20 MEQ/L (21-32); CHLORIDE LEVEL 102 MEQ/L (98-107); CREATININE FOR GFR 0.64 MG/DL (0.70-1.30); DIGOXIN LEVEL 0.8 NG/ML (0.5-2.0); GLOMERULAR FILTRATION RATE > 60.0 (>49); GLUCOSE, FASTING 111 MG/DL (70-100); POTASSIUM SERUM 3.8 MEQ/L (3.5-5.1); SODIUM LEVEL 134 MEQ/L (136-145)
[2018-10-09] MEDS: FUROSEMIDE 40 MG/4 ML VIAL (J1940) IV SCH ×2 (09:42→18:07)
[2018-10-09] MEDS: guaiFENesin ER 600 MG TAB PO SCH ×2 (09:43→20:34)
[2018-10-09] MEDS: BACTRIM 160MG/800MG DS TAB PO SCH ×3 (09:43→20:34)
[2018-10-09] MEDS: MULTIVITAMINS/MINERALS THERAP 1 TAB PO SCH (09:43)
[2018-10-09] MEDS: VORICONAZOLE 200MG TABLET (VFEND) PO SCH ×2 (09:43→20:35)
[2018-10-09] MEDS: FOLIC ACID 1 MG TAB PO SCH ×2 (09:43→20:35)
--- NOTE | 2018-10-09 09:46 | IPN ---
DATE: 10/09/2018 I again attended Chele Mccartney here in the intensive care unit. The patient has been admitted and chart is reviewed. I have spoken at length with the nurse at the bedside. Through the night, he had increasing FiO2 requirements and is now on C-PAP. At 10 cm of water pressure with FiO2 of 90% his current oxygen saturation is 96-98%. He moves tidal volumes anywhere from 800 to 1100 mL with that pressure. He is less dyspneic. T-max overnight 98.8, blood pressure in the 110s, heart rate generally in the 80s to 90s with a sinus mechanism, respiratory rate generally in the low to mid 20s without accessory muscle use. Ins and outs midnight to midnight 1170 in with 2060 out. Since midnight, 270 in with 1050 out. Most recent laboratories show a white blood cell count of 15.5, hemoglobin 11.1, and platelet count of 88,000 with 88% segs and 0 bands. Sodium 134, potassium 3.8, chloride 102, CO2 20, BUN 16, creatinine 0.64. Blood gas done at 0015 on Vapotherm of 30 liters showed a pH of 7.472, pCO2 of 24.3 and pO2 of 59.9. Other laboratories show a pro-BNP drawn yesterday of 4241. Urine for Legionella remains pending. On exam, he is awake, alert and appropriate. He answers all questions. Pupils react. Sclerae are clear. Trachea is in midline. Jugular venous system difficult to assess with the C-PAP mask in place. Lung busby show symmetric expansion, fairly clear anteriorly. There are some dependent crackles, but no convincing egophony. Cardiac exam is regular with no gallop. Peripheral pulses are diminished. No obvious edema. Abdomen soft, nontender, with active bowel sounds. No organomegaly or masses. Extremities show markedly diminished pulses of the lower extremities bilaterally. Almost some early mottling it appears of the lower extremities. Microbiology shows yeast-like organism with heavy growth and moderate gram positive cocci in pairs, chains and clusters. Antimicrobials and antifungals were broadened yesterday. IMPRESSION: 1. Progressive hypoxemic respiratory failure, multifactorial. 2. Coronary artery and vascular disease with stents in place. 3. Elevated pro-BNP suggesting volume overload. 4. Anemia. 5. Thrombocytopenia. 6. Advanced obstructive lung disease with continued tobacco abuse. At this point, would continue C-PAP. We are able to titrate down his FiO2 requirements. Given his markedly elevated pro-BNP, we will continue to diurese him as tolerated. For now, his hemoglobin appears to be holding. He has not had any further hemoptysis and I believe the C-PAP is helping in that regard as well. The primary service did have a code status discussion with him, but he has not made a firm decision either way yet. I did discuss it with him briefly and again he is as yet undecided for now. Will check a procalcitonin, but for now will continue his current antimicrobials and antifungals, especially in view of his overall status and his culture results. He remains on ulcer and deep vein thrombosis (DVT) prophylaxis through the primary service. He is known to have very severe underlying vascular disease and had claudication of the lower extremities prior to his presentation. I remain quite concerned in that regard, but at this point he is not a candidate for intervention. He does remain critically ill. There is a very high likelihood of further compromise. Certainly, given his status, should he end up formally intubated and mechanically ventilated, his prognosis would be even more poor, especially regarding ability to wean. Will proceed as outlined above. For now, he remains a full code. Further recommendations will be made in the progress record as new information becomes available.
[2018-10-09] MEDS: TIOTROPIUM INHALER/CAPSULE (SPIRIVA) INH SCH (11:39)
[2018-10-09] MEDS: SYMBICORT 80/4.5MCG INHALER 6GM INH SCH ×2 (11:39→19:30)
--- NOTE | 2018-10-09 11:51 | IPNPDOC ---
Subjective Date Seen The patient was seen on 10/09/18. Subjective Chief Complaint/HPI increased oxygen requirements overnight. Now patient on CPAP support. No hemoptysis this morning. Objective Physical Examination General Exam: Positive: Alert, Cooperative, Moderate Distress Eye Exam: Positive: PERRLA, Conjunctiva & lids normal, EOMI ENT Exam: Positive: Atraumatic, Mucous membr. moist/pink, Pharynx Normal Neck Exam: Positive: Supple; Negative: JVD, thyromegaly Chest Exam: Positive: Rhonchi, Wheezing (on the left), Diminished, Other (diffuse crackles now bilaterally) Heart Exam: Positive: Tachycardic, Regular Rhythm, Normal S1, Normal S2; Negative: Gallops, Murmurs, Rubs Telemetry: Positive: Sinus, Tachycardia Abdomen Exam: Positive: Normal bowel sounds, Soft; Negative: Tenderness, Hepatospenomegaly Extremity Exam: Negative: Clubbing, Cyanosis, Edema Skin Exam: Positive: Nl turgor and temperature; Negative: Breakdown, Lesion Assessment /Plan Assessment Acute respiratory failure with hypoxia Worsening oxygen sats with high flow so put on CPAP. Etiology not yet determined. Interstitial lung disease vs alveolar hemorrhage / Fungal infection on the back ground of COPD Atypical pneumonia/ PCP pneumonia/ vasculitis/ allergic pneumonitis reaction to inhaled substances are also in the differential. CXR with increased interstitial infiltrates on left now also on right Sputum with large amount of yeast like organism with pseudohyphae. gram positive cocci in pairs and chains and clusters. urine legionella in progress. will send sputum for fungus smear and culture. will start on voriconazole and vancomycin. albuterol nebs, Symbicort and spiriva, steroids. Moxifloxacin for atypical coverage, steroids has been increased. Bactrim oxygen supplementation Echo noted, no increased venous pressure, no valvular disease, EFF is good , hyperdynamic. Pateint is not fluid overloaded CT angio negative for PE but shows new cystic changes, moderate emphysema and some patchy infiltrates mixed cystic and interstitial infiltrates Appreciate pulmonary consultation. Seems to be worsening. If continues in this pattern he may not survive this admission. Advance directive: at this point he is Full code I did discuss with him this am. about his advance directives. At this point he wants to be put on a ventilator if we can no longer maintain his oxygenation with CPAP. He is undecided about whether its going to be for a limited time or for however long was needed. He did mention that he was thinking about 2 weeks of trial of ventilation if by then his lung do not get better then he wanted to be taken off the ventilator. He has not made a firm decision yet. he is still thinking. I urged him to reach out to his family if he wanted to talk with them and explained that if he is on the ventilator he wont be able to talk to them any more. He specifically told me that he did not want his family involved in his medical decisions as he thought them to be "greedy" and he feels they will not take the decision that is right for him. Thrombocytopenia patent had significant thrombocytopenia during last admission in august which is new. will check DAVID antibody and MARIAA hemolysis work up has a normal haptoglobin level though LDH is elevated, RBC G6PD is low . He may have G6PD now with oxidative stress he is having hemolysis. Has stents in heart and aorta will continue ASA Macrocytic anemia Received 4 units of PRBC since admission. Platelet has also dropped. hemolysis work up done folate deficiency due to heavy alcohol use on supplementation prbc transfusion prn Peripheral vascular disease with claudication s/p abdominal aortic stents planned for angio of the lower extremities once patient is better. Paroxysmal Afib continue with digoxin and asa. CAD with H/O AMI s/p CABG also s/p stents. continue asa HYPERLIPIDEMIA statin. HTN low normal at present lasix with hold parameters ALCOHOL ABUSE and Hepatitis C with CIRRHOSIS of Liver. CHRONIC HEPATITIS C GENOTYPE 1A VIRAL LOAD 3.6 MILLION VACCINATED thiamine, folate HISTORY OF INSOMNIA ambien prn DEGENERATIVE DISC DISEASE LUMBAR TOBACCO ABUSE counselled about quitting. Plan/VTE VTE Prophylaxis Ordered?: Yes VS, I&O, 24H, [place] Vital Signs/I&O Vital Signs Date Time Temp Pulse Resp B/P (MAP) Pulse Ox O2 Delivery O2 Flow Rate FiO2 10/09/18 08:00 97.5 87 20 124/74 (91) 95 90 10/09/18 04:20 BIPAP/CPAP 10/09/18 00:07 40.0 I&O- Last 24 Hours up to 6 AM 10/09/18 06:00 Intake Total 1260 ml Output Total 2735 ml Balance -1475 ml Laboratory Data 24H LABS Laboratory Tests 2 10/09/18 00:15: Blood Gas Bicarbonate Standard 20.3L, Arterial Blood pH 7.472H, Arterial Blood Partial Pressure CO2 24.3L, Arterial Blood Partial Pressure O2 59.9L, Arterial Blood Total CO2 18.1L, Arterial Blood HCO3 17.4L, Arterial Blood Base Excess - 4.9L, Arterial Blood Oxygen Saturation 90.6L 10/09/18 05:07: Immature Granulocyte % (Auto) 1.2, White Blood Count 15.5H, Red Blood Count 2.94L, Hemoglobin 11.1L, Hematocrit 31.2L, Mean Corpuscular Volume 106.1H, Mean Corpuscular Hemoglobin 37.8H, Mean Corpuscular Hemoglobin Concent 35.6, Red Cell Distribution Width 27.1H, Platelet Count 88L, Neutrophils (%) (Auto) 88.3H, Lymphocytes (%) (Auto) 1.7L, Monocytes (%) (Auto) 8.6H, Eosinophils (%) (Auto) 0.1, Basophils (%) (Auto) 0.1, Neutrophils # (Auto) 13.7H, Lymphocytes # (Auto) 0.3L, Monocytes # (Auto) 1.3H, Eosinophils # (Auto) 0.0, Basophils # (Auto) 0.0, Nucleated Red Blood Cells % (auto) 0.4H, Immature Platelet Fraction 5.6, Anion Gap 12, Glomerular Filtration Rate > 60.0, Blood Urea Nitrogen 16, Creatinine 0.64L, Sodium Level 134L, Potassium Level 3.8, Chloride Level 102, Carbon Diox ly Level 20L, Calcium Level 7.7L, Digoxin Level 0.8 CBC/BMP Laboratory Tests 10/09/18 05:07 Red Blood Count 2.94 L, Mean Corpuscular Volume 106.1 H, Mean Corpuscular Hemoglobin 37.8 H, Mean Corpuscular Hemoglobin Concent 35.6, Red Cell Distribution Width 27.1 H, Neutrophils (%) (Auto) 88.3 H, Lymphocytes (%) (Auto) 1.7 L, Monocytes (%) (Auto) 8.6 H, Eosinophils (%) (Auto) 0.1, Basophils (%) (Auto) 0.1, Neutrophils # (Auto) 13.7 H, Lymphocytes # (Auto) 0.3 L, Monocytes # (Auto) 1.3 H, Eosinophils # (Auto) 0.0, Basophils # (Auto) 0.0, Calcium Level 7.7 L Microbiology Microbiology 10/08/18 Blood Fungal Culture, Received Pending 10/04/18 Blood Culture - Final, Complete NO GROWTH AFTER 5 DAYS 10/04/18 Blood Culture - Final, Complete NO GROWTH AFTER 5 DAYS 10/07/18 Stool Occult Blood (JOSE) - Final, Complete 10/08/18 Fungal Smear, Received Pending 10/08/18 Fungal Culture, Received Pending 10/06/18 Gram Stain - Final, Complete 10/06/18 Sputum Culture - Final, Complete Yeast Like Organism 10/04/18 Gram Stain - Final, Complete 10/04/18 Sputum Culture - Final, Complete Yeast Like Organism RAMÓN CONNELL MD Oct 09, 2018 11:51
[2018-10-09] MEDS: LORazepam 0.5 MG TAB PO PRN ×2 (14:13→20:34)
--- NOTE | 2018-10-09 14:50 | PHACANCOPD ---
PHARMACY VANCOMYCIN DOSING Pt Demographics Demographics Patient Age:63 , Weight:64.500 , Gender: male Adjusted Body Weight Date: 10/08/18, Adjusted Body Weight: Kg Events Past 24 Hours Events Past 24 Hours: NO: Dialysis, Diuretic Therapy, Change in CrCl, Fever, Elevation in WBC, Pending Diagnostics, Pending Procedures, Other Vancomycin Vancomycin Target Ranges: 15-20 mcg/ml Vancomycin Load Y/N: Yes Load Dose Date Time Vancomycin Load Dose: 1500MG Date: 10/08/18 Time: 1500 Vancomycin Dose Date: 10/08/18. Current Vancomycin Dose: Intermittent Dosing?: No Labs Labs Vital Signs Label Value Date Time Patient Temperature 97.5 degrees F 10/09/18 0800 Temperature Source Temporal 10/09/18 0800 Patient Temperature 98.8 degrees F 10/09/18 0400 Temperature Source Temporal 10/09/18 0400 Item Value Date Time White Blood Count 15.5 10^3/uL H 10/09/18 0507 White Blood Count 17.7 10^3/uL H 10/08/18 0447 White Blood Count 9.1 10^3/uL 10/07/18 0450 Creatinine 0.64 MG/DL L 10/09/18 0507 Creatinine 0.70 MG/DL 10/08/18 0447 Creatinine 0.66 MG/DL L 10/07/18 0450 Vancomycin Level Trough 10.4 UG/ML 10/09/18 1355 Micro Microbiology 10/08/18 Blood Fungal Culture, Received Pending 10/04/18 Blood Culture - Final, Complete NO GROWTH AFTER 5 DAYS 10/04/18 Blood Culture - Final, Complete NO GROWTH AFTER 5 DAYS 10/07/18 Stool Occult Blood (JOSE) - Final, Complete 10/08/18 Fungal Smear, Received Pending 10/08/18 Fungal Culture, Received Pending 10/06/18 Gram Stain - Final, Complete 10/06/18 Sputum Culture - Final, Complete Yeast Like Organism 10/04/18 Gram Stain - Final, Complete 10/04/18 Sputum Culture - Final, Complete Yeast Like Organism Creatinine Clearance Date:10/08/18. Creatinine Clearance: . Assessment and Plan Maintaining Current Dose?: No Reason for dose change: Trough too low Pharmacist Note Pharmacist Note 10/09/18: Trough today after 2 doses resulted @10.4mcg/ml. This is below our goal of 15-20mcg/ml, however the patient is not yet at steady state and will likely continue to accumulate. I have added an additional 500mg today and will repeat a trough tomorrow. Blood cultures are complete with just fungal growth. May consider de-escalation tomorrow. We will continue to monitor and adjust dose as needed. Date: 10/08/18. Pharmacist note: Pt. is a 63 year old male who was admitted originally due to acute resp failure due to a COPD exacerbation. The pt has also been experiencing intermittent hemoptysis. Today the pt's WBC are elevated. Of note pt is on steroids. The pt's O2 requirements are up today as well. I have loaded the patient with Vancomycin 1500mg x1 followed by 1G IV Q12H. I feel that the pt's Scr may be falsely low due the the patient being more sedentary due to his difficulty breathing. I will schedule an earlier trough to ensure I am not underdosing this patient. Sputum culture is pending with preliminary showing gram (+). This patient has no Vanco or MRSA hx with us. We will continue to monitor and adjust dose as needed. ELIECER OLMEDO [facility] Oct 09, 2018 14:50
[2018-10-09] MEDS ORDERED: VANCOMYCIN HCL 500 MG in D5W MINI-BAG PLUS 100 ML IV ONE (16:00)
[2018-10-09] MEDS: ASPIRIN 325 MG TAB PO SCH (20:34)
[2018-10-09] MEDS: DIGOXIN 0.125 MG TAB PO SCH (20:35)
[2018-10-09] MEDS: OMEPRAZOLE 20 MG CAP PO SCH (20:35)
[2018-10-09] MEDS: MOXIFLOXACIN HCL 400 MG in APPROPRIATE DILUENT 1 EA IV SCH (21:13)
[2018-10-10] VITALS (18 sets, daily range): BP systolic 72–148; BP diastolic 51–97
[2018-10-10] MEDS: VANCOMYCIN HCL 1,000 MG, VIAL MATE ADAPTER 1 EACH in D5W 250 ML IV SCH ×2 (02:17→16:24)
[2018-10-10] MEDS: FUROSEMIDE 40 MG/4 ML VIAL (J1940) IV SCH (02:20)
[2018-10-10 04:15] LABS: BASO % 0.1 % (0.0-1.0); EOS % 0.1 % (0.0-3.0); HEMATOCRIT 31.6 % (42.0-52.0); HEMOGLOBIN 11.1 g/dl (13.5-17.5); LYMPH # 0.3 10^3/uL (1.5-4.5); MEAN CORPUSCULAR HEMOGLOBIN 37.5 pg (27.0-33.0); MEAN CORPUSCULAR HGB CONC 35.1 g/dl (32.0-36.5); MEAN CORPUSCULAR VOLUME 106.8 fl (80.0-96.0); MONO % 8.2 % (0.0-5.0); NEUTROPHILS # 24.1 10^3/uL (1.8-7.7); NEUTROPHILS % 89.5 % (36.0-66.0); RED BLOOD COUNT 2.96 10^6/uL (4.30-6.10)
[2018-10-10 04:16] LABS: MONO # 2.2 10^3/uL (0.0-0.8); PLATELET COUNT, AUTOMATED 87 10^3/uL (150-450)
[2018-10-10 04:29] LABS: BLOOD UREA NITROGEN 28 MG/DL (7-18); CARBON DIOXIDE LEVEL 21 MEQ/L (21-32); CHLORIDE LEVEL 98 MEQ/L (98-107); CREATININE FOR GFR 0.91 MG/DL (0.70-1.30); GLOMERULAR FILTRATION RATE > 60.0 (>49); GLUCOSE, FASTING 104 MG/DL (70-100); POTASSIUM SERUM 3.8 MEQ/L (3.5-5.1); SODIUM LEVEL 131 MEQ/L (136-145)
[2018-10-10] MEDS: SYMBICORT 80/4.5MCG INHALER 6GM INH SCH ×2 (07:26→19:29)
[2018-10-10] MEDS: ALBUTEROL SULFATE 2.5 MG/0.5 ML INH NEB SOLN NEB SCH ×3 (07:27→23:02)
[2018-10-10] MEDS: TIOTROPIUM INHALER/CAPSULE (SPIRIVA) INH SCH (07:27)
[2018-10-10] MEDS: MULTIVITAMINS/MINERALS THERAP 1 TAB PO SCH (09:00)
[2018-10-10] MEDS: guaiFENesin ER 600 MG TAB PO SCH ×2 (09:00→19:43)
[2018-10-10] MEDS: VORICONAZOLE 200MG TABLET (VFEND) PO SCH ×3 (09:00→21:22)
[2018-10-10] MEDS: BACTRIM 160MG/800MG DS TAB PO SCH ×3 (09:00→16:00)
[2018-10-10] MEDS: FOLIC ACID 1 MG TAB PO SCH ×2 (09:00→21:22)
[2018-10-10] MEDS: LORazepam 0.5 MG TAB PO PRN (10:17)
[2018-10-10] MEDS: methylPREDNISolone INJ 125 MG/2 ML VIAL (J2930) IV SCH ×2 (10:18→16:26)
[2018-10-10 11:17] LABS: ASPERGILLUS FUMIGATUS AB Negative (Negative); AUREOBASIDIUM PULLULANS Negative (Negative); MICROPOLYSPORA FAENI AB Negative (Negative); MYCOPLASMA PNEUMONIAE IgG <100 U/mL (0-99); MYCOPLASMA PNEUMONIAE IgM <770 U/mL (0-769); PIGEON SERUM AB Negative (Negative); THERMOACTINOMYCES SACCHARI Negative (Negative); THERMOACTINOMYCES VULGARIS Negative (Negative)
[2018-10-10 13:22] LABS: INR 1.45; PROTHROMBIN TIME 17.4 SECONDS (11.8-14.0)
[2018-10-10 13:23] LABS: PARTIAL THROMBOPLASTIN TIME 28.3 SECONDS (25.0-38.4)
--- NOTE | 2018-10-10 14:42 | IPN ---
DATE OF SERVICE: 10/10/2018 I again attended Chele Mccartney here in the intensive care unit. He remains on continuous positive airway pressure (CPAP) at 10 cm of water pressure with The FIO2 between 85% and 100%. Saturations again vary from 88% to 96%. I did have a blood gas done yesterday morning but no repeats. Other laboratories done this morning show a white blood cell count up to 27.0, 89% segmented neutrophils, no bands. Hemoglobin holding at 11.1. Platelet count also holding at 87,000. Sodium 134, potassium of 4.5, chloride 105, CO2 19, BUN 17, creatinine 0.66, glucose 112. No new chest x-ray this morning. No new culture results available. On examination, he is awake, alert, and appropriate. He is comfortably conversant. Maximum temperature (Tmax) overnight 98.6, blood pressure 95 to the 120 systolic, heart rate generally 90 to one-teens with a sinus mechanism. Respiratory rate remains in the low 20s without accessory muscle use. Intake and output at midnight to midnight, 1500 mL in with 3100 mL out. Pupils react. Sclerae clear. Trachea is in midline. Chest show reasonable and symmetric expansion. There are basilar crackles bilateral but fairly clear anteriorly. No egophony or rubs. A well-healed mediastinotomy scar. Cardiac examination is regular with no gallop. Peripheral pulses markedly diminished. Abdomen soft, nontender, with active bowel sounds. No convincing organomegaly or masses. Extremities without cyanosis or clubbing. Mottling has cleared. Neurologically, he is awake, alert, and appropriate. Psychiatric: Has normal mood and affect. IMPRESSION: 1. Hypoxemic respiratory failure, multifactorial. 2. Longstanding continued tobacco abuse. 3. Coronary artery disease with stents. 4. Peripheral vascular disease with stents. 5. Drug injection via snorting. RECOMMENDATIONS: It appears the Solu-Medrol has fallen off his medication list, and this will be restarted at a lower dose. We have not really made any progress regarding his oxygenation status but really have not lost a lot of ground either, and he has been holding on CPAP. The issue is going to be nutrition. If he is able to hold the saturations to a reasonable degree with Vapotherm and the CPAP, I will allow him some liquid intake. If this is not able to be met, will have to consider alternate forms of nutrition. I believe he is adequately diuresed and will discontinue his diuretics at this point. Although his procalcitonin on admission was low at 0.16, he is on broad-spectrum antimicrobials. Will repeat this. I am reluctant to discontinue antibiotics in view of his culture results and his overall clinical status. I again discussed with him the fact that we really have not made any ground and that as a prognostic sign has negative value. I am quite concerned that he may have further compromise. He has not made up his mind regarding his code status at this point. For now, will continue as outlined above. He has a high likelihood of further decline, and there is a likelihood he may not survive this hospitalization. He is aware of that. Further recommendations will be made in the progress record as new information becomes available.
[2018-10-10] MEDS ORDERED: LIDOCAINE 1% MDV 20ML VIAL As Ordered ONE (14:45)
--- NOTE | 2018-10-10 15:00 | CR.PDOC ---
General Date of Consultation: Oct 10, [address] Coleman HPI: 63year oldM admitted to ICU with acute respiratory failure currently on CPAP and provides no additional history at this time. This am was noted to have a cool LLE and pulses not able to be obtained with Doppler. The pt is known to have h/o PAD and Dr Coleman was called to further asses. LE arterial US is requested and pending at this time. Medical History CAD HYPERLIPIDEMIA HTN OA LOW BACK PAIN CHRONIC HEPATITIS C GENOTYPE 1A VIRAL LOAD 3.6 MILLION VACCINATED ALCOHOL USE H/O substance use/IVDU. INSOMNIA UNSPECIFIED CIRRHOSIS OF LIVER DEGENERATIVE DISC DISEASE, LUMBAR TOBACCO ABUSE HISTORY OF AR (MYOCARDIAL INFARCTION) HISTORY OF HEPATITIS C CHRONIC OBSTRUCTIVE PULMONARY DISEASE Surgical History RIGHT KNEE ARTHROSCOPY 1986 STENT PLACEMENT 07/2007 RIGHT INGUINAL HERNIA REPAIR 12/2009 HEART BYPASS SURGERY - [facility] 2-2014 LIVER BIOPSY- WAS TOLD THAT HIS LIVER WAS AT STAGE 1 2003 [facility] ANGIOPLASTY 06/2017 PERICARDIAL DRAIN IN JAN 2018 SOCHX: Tobacco use: smoker chronic alcohol use FAMHX: CAD/AR, DM, HTN ROS: The pt is on CPAP, does not provide additional history at this time. PE: GEN: 63yoM. On CPAP. HEENT: Normocephalic, atraumatic. Moist mucous membranes. CHEST: Regular rate and rhythm, +S1, +S2 ABD: Round, soft, non-tender, non-distended. EXT: The LLE is cool to touch with purple discoloration of toes of the left foot and distal portion of the foot. Toes cool to touch. Poor cap refill. Pulses are not palpable and are not able to be obtained with Doppler at this time. Warming blanket is applied. NEURO: No focal deficits appreciated. A&P: 1. PAD. Cool LLE with pulses unable to be obtained with Doppler. The pt is reviewed and examined as per Dr Coleman. Continue with warming blanket applied. LLE arterial US is requested and will await these results. Possibly consider angiogram. Plt noted to be 87, unable to give heparin, would recommend AC with argotroban IV. Monitor. Vital Signs/I&O Vital Signs Date Time Temp Pulse Resp B/P (MAP) Pulse Ox O2 Delivery O2 Flow Rate FiO2 10/10/18 12:45 97.6 10/10/18 12:00 90 10/10/18 12:00 108 24 120/70 (87) 92 10/09/18 04:20 BIPAP/CPAP 10/09/18 00:07 40.0 I&O- Last 24 Hours up to 6 AM 10/10/18 05:59 Intake Total 1530 ml Output Total 2250 ml Balance -720 ml Laboratory Data Labs 24H Laboratory Tests 2 10/10/18 03:43: Immature Granulocyte % (Auto) 1.1, White Blood Count 27.0H, Red Blood Count 2.96L, Hemoglobin 11.1L, Hematocrit 31.6L, Mean Corpuscular Volume 106.8H, Mean Corpuscular Hemoglobin 37.5H, Mean Corpuscular Hemoglobin Concent 35.1, Red Cell Distribution Width 26.1H, Platelet Count 87L, Neutrophils (%) (Auto) 89.5H, Lymphocytes (%) (Auto) 1.0L, Monocytes (%) (Auto) 8.2H, Eosinophils (%) (Auto) 0.1, Basophils (%) (Auto) 0.1, Neutrophils # (Auto) 24.1H, Lymphocytes # (Auto) 0.3L, Monocytes # (Auto) 2.2H, Eosinophils # (Auto) 0.0, Basophils # (Auto) 0.0, Nucleated Red Blood Cells % (auto) 0.2H, Anion Gap 12, Glomerular Filtration Rate > 60.0, Blood Urea Nitrogen 28#H, Creatinine 0.91, Sodium Level 131L, Potassium Level 3.8, Chloride Level 98, Carbon Dioxide Level 21, Calcium Level 8.0L 10/10/18 12:58: Prothrombin Time 17.4H, Prothromb Time International Ratio 1.45, Activated Partial Thromboplast Time 28.3 10/10/18 13:49: Vancomycin Level Trough 18.6 CBC/BMP Laboratory Tests 10/10/18 03:43 Red Blood Count 2.96 L, Mean Corpuscular Volume 106.8 H, Mean Corpuscular Hemoglobin 37.5 H, Mean Corpuscular Hemoglobin Concent 35.1, Red Cell Distribution Width 26.1 H, Neutrophils (%) (Auto) 89.5 H, Lymphocytes (%) (Auto) 1.0 L, Monocytes (%) (Auto) 8.2 H, Eosinophils (%) (Auto) 0.1, Basophils (%) (A uto) 0.1, Neutrophils # (Auto) 24.1 H, Lymphocytes # (Auto) 0.3 L, Monocytes # (Auto) 2.2 H, Eosinophils # (Auto) 0.0, Basophils # (Auto) 0.0, Calcium Level 8.0 L Microbiology Microbiology 10/08/18 Blood Fungal Culture, Received Pending 10/04/18 Blood Culture - Final, Complete NO GROWTH AFTER 5 DAYS 10/04/18 Blood Culture - Final, Complete NO GROWTH AFTER 5 DAYS 10/07/18 Stool Occult Blood (JOSE) - Final, Complete 10/08/18 Fungal Smear, Received Pending 10/08/18 Fungal Culture, Received Pending 10/06/18 Gram Stain - Final, Complete 10/06/18 Sputum Culture - Final, Complete Yeast Like Organism 10/04/18 Gram Stain - Final, Complete 10/04/18 Sputum Culture - Final, Complete Yeast Like Organism Allergies Coded Allergies: chlorpromazine (Verified Allergy, Unknown, 09/08/18) acute dystonic reaction Home Medications Scheduled Aspirin (Aspirin) 325 Mg Tablet, 325 MG PO QHS, (Reported) Digoxin (Digoxin) 125 Mcg Tablet, 125 MCG PO QHS, (Reported) Omeprazole (Omeprazole) 40 Mg Capsule.dr, 40 MG PO QHS, (Reported) Umeclidinium [place] (Incruse Ellipta) 62.5 Mcg/Inh Inh, 1 PUFF PO DAILY, (Reported) Scheduled PRN Albuterol Sulfate (Ventolin Hfa) 108 Mcg/Act Aer, 2 PUFF PO Q4H PRN for SHORTNESS OF BREATH, (Reported) Zolpidem Tartrate (Zolpidem Tartrate) 10 Mg Tablet, 10 MG PO QHS PRN for INSOMNIA, (Reported) Svitlana Jimenez Oct 10, 2018 15:00
--- NOTE | 2018-10-10 15:42 | REP ---
Unilateral left lower extremity duplex arterial ultrasound: History: Cold left leg. No pulses on Doppler. Comparison study September 21, 2018. Findings: No brachial index could not be accomplished due to patient movement. Apparently, the patient's the patient was restless during exam interrupting it repeatedly. Moderate to severe plaquing is seen from the common femoral artery to the foot of the left lower extremity. A portion of the proximal profunda artery is occluded with distal revascularization. The mid superficial femoral artery is felt to be occluded with distal revascularization. Waveforms below the distal femoral artery is less than at all pulsatile characteristics and is quite slow. The profunda femoral artery occlusion appears to be new. Velocity chart left lower extremity arteries: CF A 123 cm/S Profunda occluded Proximal SFA 50 Mid SFA occluded Distal SFA 12 Popliteal 15 Proximal AT A 11 Tibioperoneal trunk 9 Proximal ORTHO RN 25 Distal ORTHO RN 3 Distal AT A 2 Electronically Signed by Zana Farah MD 10/10/2018 03:29 P
[2018-10-10 15:44] LABS: ABG BASE EXCESS -3.8 (-2.0-2.0); ABG HCO3 19.2 MEQ/L (22.0-26.0); ABG PARTIAL PRESSURE CO2 28.4 mmHg (35.0-45.0); ABG PARTIAL PRESSURE O2 53.3 mmHg (75.0-100.0); ABG STANDARD HCO3 21.1 MEQ/L (22.0-26.0); ABG pH (ARTERIAL) 7.447 UNITS (7.350-7.450)
[2018-10-10] MEDS ORDERED: SODIUM CHLORIDE 0.9% INJ 10 ML SYR IV PRN (16:30)
[2018-10-10] MEDS ORDERED: HALOPERIDOL 5 MG/ML VIAL (J1630) IV ONE (16:45)
--- NOTE | 2018-10-10 16:45 | REP ---
PICC line insertion under ultrasound guidance. The procedure was performed by REYES Nicholson, under the direct supervision of Dr. Farah. The risks and benefits of the procedure were explained to the patient and informed consent was obtained the verbally and written. Directly prior to the start of the procedure, a formal timeout was completed in the procedure room. The right basilic vein was localized using ultrasound guidance. The skin was prepped and draped in the sterile fashion. 1 ml 1% lidocaine was used as a local anesthetic. Using ultrasound guidance the right basilic vein was cannulated and a 0.018 guidewire was inserted and advanced to the SVC. Placement was checked with the portable AP chest x-ray. The needle was removed and a 5.5 Syriac dilator and peel-away sheath was inserted over the guidewire. A 5.5 Syriac dual lumen catheter was cut to the length of 35 cm. The dilator was removed and the catheter was inserted over the guide wire with the tip ending in the SVC. Catheter placement was checked again with a portable AP chest x-ray. The peel-away sheath was removed and the catheter was flushed with heparinized saline as per hospital protocol. The catheter was affixed to the skin and a sterile dressing was applied. The patient tolerated the procedure well and there were no immediate complications. 0 minutes of fluoroscopy time was utilized for this procedure. Some fluoroscopic images are performed with last image hold technology. These images require no additional radiation. Reviewed by REYES Samaniego 10/10/2018 04:31 P Electronically Signed by Zana Farah MD 10/10/2018 04:37 P
[2018-10-10] MEDS: ARGATROBAN 250 MG/250ML for non-ESRD patients IV SCH ×2 (17:00)
[2018-10-10] MEDS ORDERED: SUCCINYLCHOLINE INJ 200 MG/10 ML VIAL (J0330) As Ordered ONE (17:17)
[2018-10-10] MEDS ORDERED: PROPOFOL 1,000 MG/100 ML VIAL As Ordered ONE (17:17)
[2018-10-10] MEDS ORDERED: SUCCINYLCHOLINE INJ 200 MG/10 ML VIAL (J0330) IV STA (17:27)
[2018-10-10] MEDS ORDERED: PROPOFOL 200 MG/20 ML VIAL IV ONE (17:30)
--- NOTE | 2018-10-10 17:59 | CCN ---
DATE: 10/10/2018 START TIME: 1714 STOP TIME: 1748 I was called to attend Chele Mccartney. He had progressive decline of his mental status with decline in his oxygen saturation level despite some sedation. He was intubated just prior to my arrival by anesthesia. Ventilator manipulations made upon my arrival. Currently, oxygen saturation 93% to 96% on FiO2 of 100%, PRVC of 18, tidal volume 400, and PEEP of 10. Chest x-ray shows tube in good position. Orogastric (OG) tube just above the outlet level of the diaphragm. PHYSICAL EXAMINATION: He is sedate. Lung busby are fairly clear, fine crackles. Cardiac examination is tachycardic with a heart rate of 117 with a sinus mechanism. Abdomen does have active bowel sounds. Extremities again showed decreased pulses, more so than this morning. The most pressing problems requiring my immediate presence at the bedside are: 1. Progressive hypoxemia requiring now intubation. 2. Pulmonary hemorrhage. 3. Anemia. 4. Vascular disease with ischemic lower extremity. 5. Cardiac disease with stents. 6. Longstanding tobacco abuse with underlying obstructive lung disease. At this point, he is now intubated. We will optimize his respiratory status as best we can. We will continue his current medications. Now that he is intubated, Dr. Coleman may wish different intervention regarding his ischemic lower extremity. We will make him aware. At this point, he remains critically ill and there is a high likelihood he may have further compromise. I left the bedside at 1749 hours and 34 minutes of critical care time was spent at the bedside, not including procedures.
[2018-10-10] MEDS: PROPOFOL 1,000 MG in APPROPRIATE DILUENT 1 EA IV SCH ×2 (18:00→22:34)
[2018-10-10] MEDS: SODIUM CHLORIDE 0.9% INJ 10 ML SYR IV SCH (18:06)
[2018-10-10] MEDS: MIDAZOLAM INJ 2 MG/2 ML VIAL (J2250) IV PRN (18:10)
[2018-10-10 18:21] LABS: ABG BASE EXCESS -7.2 (-2.0-2.0); ABG HCO3 18.2 MEQ/L (22.0-26.0); ABG PARTIAL PRESSURE CO2 36.6 mmHg (35.0-45.0); ABG PARTIAL PRESSURE O2 63.1 mmHg (75.0-100.0); ABG STANDARD HCO3 18.4 MEQ/L (22.0-26.0); ABG TOTAL CO2 19.3 MEQ/L (23.0-31.0); ABG pH (ARTERIAL) 7.315 UNITS (7.350-7.450)
[2018-10-10] MEDS: D5W/0.9% SODIUM CHLORIDE 1,000 ML IV SCH (19:42)
[2018-10-10] MEDS ORDERED: NS 500 ML IV ONE (21:00)
[2018-10-10 21:02] LABS: ABG BASE EXCESS -3.3 (-2.0-2.0); ABG HCO3 19.9 MEQ/L (22.0-26.0); ABG O2 SATURATION 94.4 % (95.0-99.0); ABG STANDARD HCO3 21.7 MEQ/L (22.0-26.0); ABG TOTAL CO2 20.8 MEQ/L (23.0-31.0); ABG pH (ARTERIAL) 7.454 UNITS (7.350-7.450)
[2018-10-10] MEDS: PANTOPRAZOLE 40MG INJ (PROTONIX) (C9113) IV SCH (21:21)
[2018-10-10] MEDS: CHLORHEXIDINE GLUCONATE 0.12 % 15ML UDC (PERIDEX ORAL RINSE) MT SCH (21:21)
[2018-10-10] MEDS: DIGOXIN INJ 0.5 MG/2 ML AMP (J1160) IV SCH (21:22)
[2018-10-10] MEDS: MOXIFLOXACIN HCL 400 MG in APPROPRIATE DILUENT 1 EA IV SCH (21:23)
[2018-10-10] MEDS ORDERED: NOREPINEPHRINE 4 MG/4 ML AMP As Ordered ONE (23:21)
[2018-10-10] MEDS: NOREPINEPHRINE BITARTRATE 8 MG in D5W 492 ML IV SCH (23:30)
[2018-10-11] VITALS (48 sets, daily range): BP systolic 79–103; BP diastolic 48–67
[2018-10-11] MEDS: methylPREDNISolone INJ 125 MG/2 ML VIAL (J2930) IV SCH ×3 (01:13→17:16)
[2018-10-11] MEDS: D5W/0.9% SODIUM CHLORIDE 1,000 ML IV SCH ×4 (02:54→23:45)
[2018-10-11] MEDS: VANCOMYCIN HCL 1,000 MG, VIAL MATE ADAPTER 1 EACH in D5W 250 ML IV SCH (02:55)
[2018-10-11 05:41] LABS: ABG BASE EXCESS -6.5 (-2.0-2.0); ABG HCO3 17.7 MEQ/L (22.0-26.0); ABG O2 SATURATION 89.9 % (95.0-99.0); ABG PARTIAL PRESSURE CO2 30.4 mmHg (35.0-45.0); ABG PARTIAL PRESSURE O2 64.8 mmHg (75.0-100.0); ABG TOTAL CO2 18.6 MEQ/L (23.0-31.0); ABG pH (ARTERIAL) 7.383 UNITS (7.350-7.450)
[2018-10-11] MEDS: SODIUM CHLORIDE 0.9% INJ 10 ML SYR IV SCH ×2 (06:07→17:18)
[2018-10-11] MEDS: PROPOFOL 1,000 MG in APPROPRIATE DILUENT 1 EA IV SCH ×3 (06:07→18:51)
[2018-10-11 06:20] LABS: HEMATOCRIT 23.9 % (42.0-52.0); MEAN CORPUSCULAR HEMOGLOBIN 37.4 pg (27.0-33.0); MEAN CORPUSCULAR HGB CONC 34.3 g/dl (32.0-36.5); MEAN CORPUSCULAR VOLUME 109.1 fl (80.0-96.0); RED BLOOD COUNT 2.19 10^6/uL (4.30-6.10); WHITE BLOOD COUNT 16.2 10^3/uL (4.0-10.0)
[2018-10-11 06:25] LABS: HEMOGLOBIN 8.2 g/dl (13.5-17.5); PLATELET COUNT, AUTOMATED 67 10^3/uL (150-450)
[2018-10-11 06:53] LABS: LYMPHOCYTES 5 % (16-52); NEUTROPHILS 95 % (35-75); PLATELET ESTIMATE MARKED DECREASE (NORMAL)
[2018-10-11] MEDS: TIOTROPIUM INHALER/CAPSULE (SPIRIVA) INH SCH (07:18)
[2018-10-11] MEDS: SYMBICORT 80/4.5MCG INHALER 6GM INH SCH ×2 (07:18→20:00)
[2018-10-11] MEDS: ALBUTEROL SULFATE 2.5 MG/0.5 ML INH NEB SOLN NEB SCH ×3 (07:18→23:48)
[2018-10-11] MEDS ORDERED: LORazepam 0.5 MG TAB NG PRN (07:45)
[2018-10-11 07:57] LABS: BLOOD UREA NITROGEN 39 MG/DL (7-18); CALCIUM LEVEL 7.6 MG/DL (8.8-10.2); CARBON DIOXIDE LEVEL 19 MEQ/L (21-32); CHLORIDE LEVEL 105 MEQ/L (98-107); CREATININE FOR GFR 1.15 MG/DL (0.70-1.30); DIGOXIN LEVEL 1.1 NG/ML (0.5-2.0); GLOMERULAR FILTRATION RATE > 60.0 (>49); GLUCOSE, FASTING 153 MG/DL (70-100); POTASSIUM SERUM 4.2 MEQ/L (3.5-5.1); SODIUM LEVEL 136 MEQ/L (136-145)
[2018-10-11] MEDS ORDERED: VORICONAZOLE 200MG TABLET (VFEND) NG SCH (09:00)
[2018-10-11] MEDS: guaiFENesin ER 600 MG TAB PO SCH (09:00)
--- NOTE | 2018-10-11 09:34 | REP ---
Portable chest, 10/11/2018, 08:44 a.m., single AP view with the patient upright: Comparison is 10/10/2018. There are diffuse bilateral interstitial and alveolar infiltrates, similar to the comparison study. No pleural effusions are identified. There is an endotracheal tube with the tip terminating in the trachea at the level of the aortic arch, above the alejandra in satisfactory location. There is a nasogastric tube terminating beneath the left hemidiaphragm. The precise location of the distal tip is excluded at the inferior film margin, however, the side-hole appears to be at the gastroesophageal junction. There is a right upper extremity PICC line with the tip in the superior vena cava, unchanged. There are sternotomy wires, unchanged. Cardiac size is normal. Impression: Diffuse bilateral interstitial and alveolar infiltrates. Lines and tubes as described. Electronically Signed by Jose Kwon MD 10/11/2018 09:25 A
[2018-10-11] MEDS: FOLIC ACID 1 MG TAB NG SCH ×2 (09:41→20:43)
[2018-10-11] MEDS: CHLORHEXIDINE GLUCONATE 0.12 % 15ML UDC (PERIDEX ORAL RINSE) MT SCH ×2 (09:41→20:42)
--- NOTE | 2018-10-11 10:05 | CCN ---
DATE OF VISIT: 10/11/2018 START TIME: 0830 hours STOP TIME: 0918 hours I again attended Chele Mccartney here in the intensive care unit. The patient has been examined and the chart is reviewed. I have spoken at length with the nurse at the bedside as well as with Dr. Coleman from vascular surgery. He got intubated yesterday for worsening hypoxemia and agitation. This morning he remains intubated, sedated, mechanically ventilated. He is on propofol. With sedation vacation, he does follow commands somewhat. Maximum temperature (Tmax) overnight 98.9, blood pressure mid 70s to the low 100s on 4 mcg of Levophed. Heart rate generally in the 80s-90s with a sinus mechanism. Intakes and outputs midnight to midnight 2264 mL in with 1420 mL out. Most recent laboratories show a white blood cell count of 16.2, hemoglobin down to 8.2, platelet count 67,000, 95% segmented neutrophils, no bands. Sodium 136, potassium 4.2, chloride 105, CO2 19, BUN 39, creatinine 1.15. Blood gas done this morning on a SIMV of 15, tidal volume 400, PEEP of 10, pressure support of 20, and FiO2 of 90% has a pH of 7.383, pCO2 30.4, and a pO2 of 64.8. Chest x-ray shows persistence of significant bilateral interstitial and alveolar filling pattern. It spares the right apex. Endotracheal tube and orogastric tube in good position. A peripherally inserted central catheter (PICC) line is visible. No other acute findings. Digoxin level acceptable at 1.1. HIV negative. Mycoplasma IgG and IgM unremarkable. On exam, he is ill-appearing, sedate with gastric and oral endotracheal tube in place. Pupils do react. Sclerae are clear. Membranes are moist. Trachea is in the midline. Chest shows symmetric expansion. Percussion is reasonable, fairly clear anteriorly. There are dependent crackles bilaterally. No other focal adventitious breath sounds are identified. Cardiac exam regular, distant, without any gallop or rub. Peripheral pulses markedly diminished. Abdomen is soft. There are active bowel sounds. No obvious organomegaly or masses. Extremities show no cyanosis or clubbing. Neurologically, he is sedate but moves all extremities. The most pressing problems requiring my presence at the bedside: 1. Hypoxemic respiratory failure requiring mechanical ventilatory support. 2. Vascular disease with new ischemia and suspected clot in the left profunda. 3. Advanced obstructive lung disease. 4. Acute interstitial/alveolar process probably secondary to inhalational agent. 5. Ongoing tobacco abuse. At this point, I would agree with Infectious Disease regarding tailoring his antimicrobials especially in view of the negative procalcitonin. His anemia is progressive and will probably have to transfuse him again in the next 24-48 hours. I have spoken at length with Dr. Coleman at the bedside. At this point, any attempt at revascularization of his profunda is an extensive surgery and he is not a candidate at this point. Unfortunately, he never did sign a health care proxy and there is no immediate family even to give consent. This will be monitored closely. We will begin enteral feeds today. He is on anticoagulation per Vascular Surgery. Ulcerative prophylaxis is also in place. As outlined above, we will begin enteral nutrition in the form of Jevity 1.5. Overall, he is quite critically ill. There is a very high likelihood that he may not survive this hospitalization. However, will appreciate as outlined above. I left the bedside at 0918 hours. 48 minutes of critical care time was spent at the bedside not including procedures.
--- NOTE | 2018-10-11 10:35 | REP ---
Portable chest x-ray: Two views presented. History: Hypoxia. Intubation. Comparison chest x-ray: October 08, 2018. Findings: There is extensive mixed but predominantly interstitial infiltrate throughout the lung busby bilaterally with some sparing in the right apex. There are emphysematous changes in the right apex. The infiltrate has progressed in the right lung in the interval since the study done October 08, 2018. EKG electrodes are seen. Median sternotomy wires are noted. A right-sided PICC line is seen in place with its tip in the expected location of the superior vena cava. An endotracheal tube is seen in good position at the level of the transverse aorta. NG tube enters the left upper quadrant of the abdomen. Impression: Progressive pneumonia extensive bilateral infiltrates. Endotracheal, nasogastric, and PICC catheters in good position. Electronically Signed by Zana Farah MD 10/11/2018 07:11 P
--- NOTE | 2018-10-11 10:37 | IPNPDOC ---
Date Seen The patient was seen on 10/11/18. Progress Note Vascular Surgery Dr Coleman HPI: 63year oldM admitted to ICU with acute respiratory failure. This pt was noted to have a cool LLE and pulses not able to be obtained with Doppler. The pt is known to have h/o PAD and Vascular Surgery was called to further asses. The pt is currently intubated/ventilated. PE: GEN: 63yoM. /IntubatedVentilated HEENT: Normocephalic, atraumatic. CHEST: Regular rate and rhythm, +S1, +S2 ABD: flat, soft, non-tender, non-distended. EXT: The LLE is warmer to touch with no discoloration this am. cap refill 4 secs. DP/PT Pulses are not palpable and are not able to be obtained with Doppler at this time. Popliteal is monophasic with Doppler this am and f emoral is palpable. Warming blanket is applied. LLE arterial US Findings: No brachial index could not be accomplished due to patient movement. Apparently, the patient's the patient was restless during exam interrupting it repeatedly. Moderate to severe plaquing is seen from the common femoral artery to the foot of the left lower extremity. A portion of the proximal profunda artery is occluded with distal revascularization. The mid superficial femoral artery is felt to be occluded with distal revascularization. Waveforms below the distal femoral artery is less than at all pulsatile characteristics and is quite slow. The profunda femoral artery occlusion appears to be new. A&P: 1. PAD with LLE ischemia. The pt is reviewed and examined as per Dr Coleman. Arterial US is reviewed with Dr Coleman, profunda femoral artery occlusion appears to be new. Continue with warming blanket applied. Plt noted to be 67, avoid heparin. Would recommend continue AC with argotroban IV. Monitor PTT. Monitor. VS, I&O, 24H, Fishbone Vital Signs/I&O Vital Signs Date Time Temp Pulse Resp B/P (MAP) Pulse Ox O2 Delivery O2 Flow Rate FiO2 10/11/18 09:00 90 83/52 (62) 94 80 10/11/18 08:00 98.5 27 10/11/18 00:15 100.0 10/10/18 22:34 Ventilator I&O- Last 24 Hours up to 6 AM 10/11/18 06:00 Intake Total 3223.4 ml Output Total 1370 ml Balance 1853.4 ml Laboratory Data 24H LABS Laboratory Tests 2 10/10/18 12:58: Prothrombin Time 17.4H, Prothromb Time International Ratio 1.45, Activated Partial Thromboplast Time 28.3 10/10/18 13:49: Vancomycin Level Trough 18.6 10/10/18 15:28: Blood Gas Bicarbonate Standard 21.1L, Arterial Blood pH 7.447, Arterial Blood Partial Pressure CO2 28.4L, Arterial Blood Partial Pressure O2 53.3L, Arterial Blood Total CO2 20.0L, Arterial Blood HCO3 19.2L, Arterial Blood Base Excess - 3.8L, Arterial Blood Oxygen Saturation 86.0L 10/10/18 16:44: Bedside Glucose (Misc Panel) 105 10/10/18 18:13: Blood Gas Bicarbonate Standard 18.4L, Arterial Blood pH 7.315L, Arterial Blood Partial Pressure CO2 36.6, Arterial Blood Partial Pressure O2 63.1L, Arterial Blood Total CO2 19.3L, Arterial Blood HCO3 18.2L, Arterial Blood Base Excess - 7.2L, Arterial Blood Oxygen Saturation 88.0L 10/10/18 18:52: Activated Partial Thromboplast Time 86.8H, Methicillin-Resist S.aureus DNA PCR NOT DETECTED 10/10/18 20:48: Blood Gas Bicarbonate Standard 21.7L, Arterial Blood pH 7.454H, Arterial Blood Partial Pressure CO2 29.0L, Arterial Blood Partial Pressure O2 77.0, Arterial Bl ood Total CO2 20.8L, Arterial Blood HCO3 19.9L, Arterial Blood Base Excess - 3.3L, Arterial Blood Oxygen Saturation 94.4L 10/10/18 21:00: Activated Partial Thromboplast Time 103.4H 10/11/18 00:41: Activated Partial Thromboplast Time 130.1*H 10/11/18 03:17: Activated Partial Thromboplast Time 99.5H 10/11/18 05:25: Activated Partial Thromboplast Time 105.0H, Blood Gas Bicarbonate Standard 19.0L, Arterial Blood pH 7.383, Arterial Blood Partial Pressure CO2 30.4L, Arterial Blood Partial Pressure O2 64.8L, Arterial Blood Total CO2 18.6L, Arterial Blood HCO3 17.7L, Arterial Blood Base Excess -6.5L, Arterial Blood Oxygen Saturation 89.9L 10/11/18 06:00: White Blood Count 16.2H, Red Blood Count 2.19L, Hemoglobin 8.2#L, Hematocrit 23.9L, Mean Corpuscular Volume 109.1H, Mean Corpuscular Hemoglobin 37.4H, Mean Corpuscular Hemoglobin Concent 34.3, Red Cell Distribution Width 25.2H, Platelet Count 67L, Lymphocytes # (Auto) , Nucleated Red Blood Cells % (auto) 0.2H, Neutrophils 95H, Lymphocytes (Manual) 5L, Platelet Estimate MARKED DECREASE, Immature Platelet Fraction 4.2, Red Blood Cell Morphology NORMAL, Anion Gap 12, Glomerular Filtration Rate > 60.0, Blood Urea Nitrogen 39H, Creatinine 1.15, Sodium Level 136, Potassium Level 4.2, Chloride Level 105, Carbon Dioxide Level 19L, Calcium Level 7.6L, Digoxin Level 1.1 10/11/18 08:12: Activated Partial Thromboplast Time 130.1*H CBC/BMP Laboratory Tests 10/11/18 06:00 Red Blood Count 2.19 L, Mean Corpuscular Volume 109.1 H, Mean Corpuscular Hemoglobin 37.4 H, Mean Corpuscular Hemoglobin Concent 34.3, Red Cell Distribution Width 25.2 H, Lymphocytes # (Auto) , Calcium Level 7.6 L Microbiology Microbiology 10/08/18 Blood Fungal Culture, Received Pending 10/04/18 Blood Culture - Final, Complete NO GROWTH AFTER 5 DAYS 10/04/18 Blood Culture - Final, Complete NO GROWTH AFTER 5 DAYS 10/07/18 Stool Occult Blood (JOSE) - Final, Complete 10/10/18 Respiratory Virus Panel (PCR) (JOSE) - Final, Complete 10/08/18 Fungal Smear, Received Pending 10/08/18 Fungal Culture, Received Pending 10/06/18 Gram Stain - Final, Complete 10/06/18 Sputum Culture - Final, Complete Yeast Like Organism 10/04/18 Gram Stain - Final, Complete 10/04/18 Sputum Culture - Final, Complete Yeast Like Organism Svitlana Jimenez Oct 11, 2018 10:37
[2018-10-11 11:33] LABS: MAGNESIUM LEVEL 2.5 MG/DL (1.8-2.4)
[2018-10-11] MEDS: NOREPINEPHRINE BITARTRATE 8 MG in D5W 492 ML IV SCH (11:58)
--- NOTE | 2018-10-11 13:30 | IPNPDOC ---
Subjective Date Seen The patient was seen on 10/11/18. Subjective Chief Complaint/HPI Patient got intubated yesterday evening for increasing hypoxia with agitation and confusion. Overnight he became hypotensive needing vasopressors. Patient remains or argatroban. His hh and platelets are lower today. May need blood transfusion today. Objective Physical Examination General Exam: Positive: Other (sedated and intubated. ) ENT Exam: Positive: Atraumatic, Mucous membr. moist/pink Neck Exam: Positive: Supple; Negative: JVD, thyromegaly Chest Exam: Positive: Clear to auscultation (anteriorly) Heart Exam: Positive: Tachycardic, Regular Rhythm, Normal S1, Normal S2; Negative: Gallops, Murmurs, Rubs Telemetry: Positive: Sinus, Tachycardia Abdomen Exam: Positive: BS Hypoactive, Soft Extremity Exam: Positive: Edema (trace edema), Other (No dorsalis pedis and no posterior tibial pulse by doppler on the left leg); Negative: Clubbing, Cyanosis Neuro Exam: Positive: Other (sedated and intubated, during sedation vacation de does follow some commands. ) Assessment /Plan Assessment Acute respiratory failure with hypoxia intubated on 10/11/18 Etiology not yet determined. Interstitial lung disease with alveolar hemorrhage due to inhalational substances unlikely infective etiology as procalcitonin is normal. on the back ground of advanced COPD Finished course of avelox. WAS ON voriconazole and vancomycin and bactrim now dced as procalcitonin is negative steroids, lev albuterol, symbicort, spiriva Hypotension on vasopressors. Acute left leg ischemia looks like a occlusion in the left profunda femoris artery. there is also occultion in superficial femoral artery. on argatroban as has low platelets so could not get heparin. Dr Coleman following goal of APTT is 55 to 75 will keep it lower than usual in view of his recent hemoptysis. Macrocytic anemia Received 4 units of PRBC since admission. Platelet has also dropped. hemolysis work up done folate deficiency due to heavy alcohol use on supplementation prbc transfusion prn Thrombocytopenia patent had significant thrombocytopenia during last admission in august which is new. will check DAVID antibody and MARIAA hemolysis work up has a normal haptoglobin level though LDH is elevated, RBC G6PD is low . He may have G6PD now with oxidative stress he is having hemolysis. Has stents in heart and aorta Peripheral vascular disease with claudication s/p abdominal aortic stents and bilateral leg disease Now with acute left leg ischemia. Paroxysmal Afib continue with digoxin and asa. CAD with H/O AMI s/p CABG also s/p stents. continue asa HYPERLIPIDEMIA statin. ALCOHOL ABUSE and Hepatitis C with CIRRHOSIS of Liver. CHRONIC HEPATITIS C GENOTYPE 1A VIRAL LOAD 3.6 MILLION VACCINATED DEGENERATIVE DISC DISEASE LUMBAR TOBACCO ABUSE continuous Prognosis: Grave. I do not think patient will survive this hospitalization. Unfortunately patient did not want to fill out any HCP paperwork and he did not fill out any MOLST form even after repeated discussions by both me and dr David. Patient remains full code. Unfortunately he did not have good relations with his family members and he did not have any reliable friend to appoint as HCp. At this point all medical decisions are being made by 2 physician consent. Plan/VTE VTE Prophylaxis Ordered?: Yes VS, I&O, 24H, Fishbone Vital Signs/I&O Vital Signs Date Time Temp Pulse Resp B/P (MAP) Pulse Ox O2 Delivery O2 Flow Rate FiO2 10/11/18 12:00 65 10/11/18 09:00 90 83/52 (62) 94 10/11/18 08:00 98.5 27 10/11/18 00:15 100.0 10/10/18 22:34 Ventilator I&O- Last 24 Hours up to 6 AM 10/11/18 05:59 Intake Total 1964.4 ml Output Total 1420 ml Balance 544.4 ml Laboratory Data 24H LABS Laboratory Tests 2 10/10/18 12:58: Prothrombin Time 17.4H, Prothromb Time International Ratio 1.45, Activated Partial Thromboplast Time 28.3 10/10/18 13:49: Vancomycin Level Trough 18.6 10/10/18 15:28: Blood Gas Bicarbonate Standard 21.1L, Arterial Blood pH 7.447, Arterial Blood Partial Pressure CO2 28.4L, Arterial Blood Partial Pressure O2 53.3L, Arterial Blood Total CO2 20.0L, Arterial Blood HCO3 19.2L, Arterial Blood Base Excess - 3.8L, Arterial Blood Oxygen Saturation 86.0L 10/10/18 16:44: Bedside Glucose (Misc Panel) 105 10/10/18 18:13: Blood Gas Bicarbonate Standard 18.4L, Arterial Blood pH 7.315L, Arterial Blood Partial Pressure CO2 36.6, Arterial Blood Partial Pressure O2 63.1L, Arterial Blood Total CO2 19.3L, Arterial Blood HCO3 18.2L, Arterial Blood Base Excess - 7.2L, Arterial Blood Oxygen Saturation 88.0L 10/10/18 18:52: Activated Partial Thromboplast Time 86.8H, Methicillin-Resist S.aureus DNA PCR NOT DETECTED 10/10/18 20:48: Blood Gas Bicarbonate Standard 21.7L, Arterial Blood pH 7.454H, Arterial Blood Partial Pressure CO2 29.0L, Arterial Blood Partial Pressure O2 77.0, Arterial Blood Total CO2 20.8L, Arterial Blood HCO3 19.9L, Arterial Blood Base Excess - 3.3L, Arterial Blood Oxygen Saturation 94.4L 10/10/18 21:00: Activated Partial Thromboplast Time 103.4H 10/11/18 00:41: Activated Partial Thromboplast Time 130.1*H 10/11/18 03:17: Activated Partial Thromboplast Time 99.5H 10/11/18 05:25: Activated Partial Thromboplast Time 105.0H, Blood Gas Bicarbonate Standard 19.0L, Arterial Blood pH 7.383, Arterial Blood Partial Pressure CO2 30.4L, Arterial Blood Partial Pressure O2 64.8L, Arterial Blood Total CO2 18.6L, Arterial Blood HCO3 17.7L, Arterial Blood Base Excess -6.5L, Arterial Blood Oxygen Saturation 89.9L 10/11/18 06:00: White Blood Count 16.2H, Red Blood Count 2.19L, Hemoglobin 8.2#L, Hematocrit 23.9L, Mean Corpuscular Volume 109.1H, Mean Corpuscular Hemoglobin 37.4H, Mean Corpuscular Hemoglobin Concent 34.3, Red Cell Distribution Width 25.2H, Platelet Count 67L, Lymphocytes # (Auto) , Nucleated Red Blood Cells % (auto) 0.2H, N eutrophils 95H, Lymphocytes (Manual) 5L, Platelet Estimate MARKED DECREASE, Immature Platelet Fraction 4.2, Red Blood Cell Morphology NORMAL, Anion Gap 12, Glomerular Filtration Rate > 60.0, Blood Urea Nitrogen 39H, Creatinine 1.15, Sodium Level 136, Potassium Level 4.2, Chloride Level 105, Carbon Dioxide Level 19L, Calcium Level 7.6L, Magnesium Level 2.5H, Digoxin Level 1.1 10/11/18 08:12: Activated Partial Thromboplast Time 130.1*H 10/11/18 11:28: Activated Partial Thromboplast Time 69.4H 10/11/18 12:05: Bedside Glucose (Misc Panel) 146H CBC/BMP Laboratory Tests 10/11/18 06:00 Red Blood Count 2.19 L, Mean Corpuscular Volume 109.1 H, Mean Corpuscular Hemoglobin 37.4 H, Mean Corpuscular Hemoglobin Concent 34.3, Red Cell Distribution Width 25.2 H, Lymphocytes # (Auto) , Calcium Level 7.6 L Microbiology Microbiology 10/08/18 Blood Fungal Culture, Received Pending 10/04/18 Blood Culture - Final, Complete NO GROWTH AFTER 5 DAYS 10/04/18 Blood Culture - Final, Complete NO GROWTH AFTER 5 DAYS 10/07/18 Stool Occult Blood (JOSE) - Final, Complete 10/10/18 Respiratory Virus Panel (PCR) (JOSE) - Final, Complete 10/08/18 Fungal Smear, Received Pending 10/08/18 Fungal Culture, Received Pending 10/06/18 Gram Stain - Final, Complete 10/06/18 Sputum Culture - Final, Complete Yeast Like Organism 10/04/18 Gram Stain - Final, Complete 10/04/18 Sputum Culture - Final, Complete Yeast Like Organism RAMÓN CONNELL MD Oct 11, 2018 13:30
[2018-10-11] MEDS: ARGATROBAN 250 MG/250ML for non-ESRD patients IV SCH ×2 (17:16)
--- NOTE | 2018-10-11 17:25 | CR ---
DATE OF CONSULTATION: 10/10/2018 INFECTIOUS DISEASE CONSULTATION Asked to consult by Dr. Murphy for evaluation of respiratory failure and possibility of infectious pneumonia. HISTORY OF PRESENT ILLNESS: Mr. Mccartney is a 63-year-old gentleman with a history of advanced chronic obstructive pulmonary disease (COPD), tobacco abuse, alcohol abuse, liver cirrhosis, hepatitis C who was sent to the emergency room for evaluation of hypoxia while he was in interventional radiology. The patient was tachypneic, hypoxic with oxygen saturation of 70%. He was afebrile. His white count was normal. The patient had progressively gotten worse in spite of being on broad-spectrum antibiotic, including Zithromax, vancomycin, moxifloxacin, antifungal therapy with voriconazole. The patient today was intubated. He was seen by Dr. Chanel and Dr. David. There was concern of chemical pneumonitis as the patient has a history of drug abuse and crushing pills. Echocardiogram showed an ejection fraction which was normal. Mild pulmonary hypertension. Also, of note today, the patient has developed a cold ischemic left leg. In interventional radiology, he was being evaluated for elective angiography due to claudication. PAST MEDICAL HISTORY: Significant for coronary artery disease, status post coronary artery bypass graft (CABG), peripheral vascular disease, atrial fibrillation, chronic alcoholism, hepatitis C, drug abuse. He denied any nausea, vomiting or abdominal pain on admission. He was having some chest pain. SURGICAL HISTORY: Right knee arthroscopy, stent placement, cardiac stent placement, right inguinal hernia repair, CABG in 2014, liver biopsy 2004, angioplasty in 2017, history of pericardial effusion and pericardial drain in January of 2018. FAMILY HISTORY: Diabetes, hypertension, heart disease. Mother with thyroid disease. SOCIAL HISTORY: He is an active smoker, half a pack to two packs a day, IV drug use, in the past cocaine. Currently he uses marijuana and crushes opioid pills and snorts them. ALLERGIES: CHLORPROMAZINE causing an acute dystonic reaction. MEDICATIONS: - folic acid 1 mg twice a day - voriconazole 200 mg twice a day - lorazepam - Levophed - digoxin 0.125 mg IV nightly - pantoprazole 40 mg IV every 24 hours - Peridex oral rinse twice a day - propofol for sedation - midazolam for sedation - argatroban 250 mg IV every 24 hours - methylprednisolone 80 mg IV every 8 hours - vancomycin 1 gram IV every 12 hours - Bactrim two tablets by mouth three times a day - moxifloxacin 400 mg IV every 24 hours - Symbicort two puffs twice a day - nicotine patch - Spiriva one inhalation daily LABORATORY DATA: White count on admission was 8.4. White count on 10/10/2018 was 27, hemoglobin 11.1, hematocrit 31.6, platelets 87, 89% neutrophils, 8% lymphocytes. Sodium 131, potassium 3.8, chloride 98, bicarbonate 21, BUN 28, creatinine 0.91, glucose 104, calcium 8. Procalcitonin on admission was 0.16. Methicillin-resistant Staphylococcus aureus (MRSA) screen was negative. c-ANCA less than 1:20, anti-proteinase was 3.6, which is borderline elevated with a normal of 3.5, p-ANCA negative, myeloperoxidase negative. Blood cultures, two sets, on 10/04/2018 were no growth after 5 days, expectorated sputum had yeastlike organisms, moderate white blood cells. No bacterial cultures were positive. Stool Hemoccult was negative. Fungal smear and culture, blood fungal culture is pending. Respiratory panel was negative by PCR. MRSA screen was negative. IMAGING STUDIES: Chest CT shows infiltrates demonstrated in the lingula of the left lower lobe, small focus in the right middle lobe with cystic changes, interstitial markings are worse than previous CT. Moderate centrilobular emphysema. No pulmonary embolism (PE). No aortic dissection. Chest x-ray done on 10/08/2018 shows significant progression of the left lung infiltrate and new patchy interstitial infiltrate in the right lung. Sputum cytology is pending. PHYSICAL EXAM: He is a sick looking, sedated gentleman, afebrile throughout this admission. Temperature is 98.4, respiratory rate 27, blood pressure 83/61, oxygen saturation 93%, FiO2 100%. Heart: Normal S1, S2, tachycardiac. Lungs: Clear, ventilated. Abdomen: Soft, nontender. No hepatosplenomegaly. Chest has a midline scar, well healed from CABG. Extremities: No clubbing, cyanosis. There is patchy erythema of the left foot with a cold foot on the left side. No pulses appreciated on the left dorsalis pedis. IMPRESSION: This is a 63-year-old gentleman with a history of chronic hepatitis C, alcoholism, drug addiction, snorting opioid pills, peripheral vascular disease who was being evaluated for an angiogram, has developed since then an acute ischemic foot, respiratory failure, hemoptysis. The patient did not present with symptoms suggestive of bacterial pneumonia. His sputum cultures have all been negative. HIV negative. Urine Legionella antigen is pending. MRSA screen is negative. Since he is HIV negative, this is not PCP. It could be an atypical pneumonia, although my suspicion is that it is more of a chemical pneumonitis from drug abuse. The patient is on moxifloxacin, which would cover chlamydia, mycoplasma, Legionnaire's disease, as well as most other typical pathogens causing pneumonia. There is no need for antifungal therapy or PCP treatment. MRSA screen is negative and therefore vancomycin will be discontinued. PLAN: Case has been discussed with Dr. David who has known the patient from outpatient and has followed him inpatient. He agrees with the diagnosis of a chemical pneumonitis, less likely atypical and fungal is very unlikely. His prognosis is very poor. Discontinue IV vancomycin. Discontinue voriconazole.
[2018-10-11] MEDS: PANTOPRAZOLE 40MG INJ (PROTONIX) (C9113) IV SCH (20:42)
[2018-10-11] MEDS: DIGOXIN INJ 0.5 MG/2 ML AMP (J1160) IV SCH (20:43)
[2018-10-11 20:54] LABS: CK-MB VALUE MASS 3.8 NG/ML (<3.6); MB/CK RELATIVE INDEX 1.32 (< OR =4); TROPONIN I 0.26 NG/ML (< 0.10)
[2018-10-11] MEDS: MOXIFLOXACIN HCL 400 MG in APPROPRIATE DILUENT 1 EA IV SCH (21:04)
[2018-10-11] MEDS: MORPHINE 4 MG/ML 1ML VIAL/SYRINGE (J2270) IV PRN (23:43)
[2018-10-12] VITALS (35 sets, daily range): BP systolic 82–160; BP diastolic 52–93; O2SAT 92–95
[2018-10-12] MEDS: methylPREDNISolone INJ 125 MG/2 ML VIAL (J2930) IV SCH ×3 (00:32→16:47)
[2018-10-12] MEDS: PROPOFOL 1,000 MG in APPROPRIATE DILUENT 1 EA IV SCH ×4 (01:20→19:33)
[2018-10-12 05:59] LABS: ABG BASE EXCESS -6.2 (-2.0-2.0); ABG HCO3 18.3 MEQ/L (22.0-26.0); ABG O2 SATURATION 95.9 % (95.0-99.0); ABG PARTIAL PRESSURE CO2 31.8 mmHg (35.0-45.0); ABG PARTIAL PRESSURE O2 87.1 mmHg (75.0-100.0); ABG STANDARD HCO3 19.3 MEQ/L (22.0-26.0); ABG TOTAL CO2 19.2 MEQ/L (23.0-31.0); ABG pH (ARTERIAL) 7.377 UNITS (7.350-7.450)
[2018-10-12] MEDS: SODIUM CHLORIDE 0.9% INJ 10 ML SYR IV SCH ×2 (06:10→18:00)
[2018-10-12] MEDS: D5W/0.9% SODIUM CHLORIDE 1,000 ML IV SCH (06:10)
[2018-10-12 07:01] LABS: CK-MB VALUE MASS 6.7 NG/ML (<3.6); CPK CREATINE PHOSPHOKINASE 639 U/L (39-308); MB/CK RELATIVE INDEX 1.05 (< OR =4); TROPONIN I 0.19 NG/ML (< 0.10)
--- NOTE | 2018-10-12 07:28 | REP ---
Portable chest, 06:53 a.m., single AP view with the patient semi upright: Comparisons are 10/11/2018 and the 2018. There are diffuse bilateral interstitial and alveolar infiltrates that have not significantly changed. No pleural effusions are identified. There is a 17 mm nodule - like density peripherally in the left lung that has become gradually more dense over the series of films. This could represent a true lung nodule or focal subsegmental infiltrate. Cardiac size is normal. There are sternotomy wires, unchanged. The nasogastric tube, endotracheal tube and right upper extremity PICC line remain in satisfactory positions, unchanged. Impression: 17 mm nodule - like density in the left lung that has be, gradually more dense over the series of films and this could represent a true lung nodule or a developing subsegmental infiltrate. Otherwise, there are no other interval changes. Electronically Signed by Jose Kwon MD 10/12/2018 07:20 A
[2018-10-12] MEDS: SYMBICORT 80/4.5MCG INHALER 6GM INH SCH (07:33)
[2018-10-12] MEDS: ALBUTEROL SULFATE 2.5 MG/0.5 ML INH NEB SOLN NEB SCH (07:33)
[2018-10-12] MEDS: TIOTROPIUM INHALER/CAPSULE (SPIRIVA) INH SCH (07:33)
[2018-10-12 07:54] LABS: BASO % 0.1 % (0.0-1.0); HEMATOCRIT 21.6 % (42.0-52.0); LYMPH % 1.5 % (24.0-44.0); MEAN CORPUSCULAR HEMOGLOBIN 36.1 pg (27.0-33.0); MEAN CORPUSCULAR HGB CONC 32.4 g/dl (32.0-36.5); MEAN CORPUSCULAR VOLUME 111.3 fl (80.0-96.0); MONO # 0.9 10^3/uL (0.0-0.8); MONO % 8.2 % (0.0-5.0); NEUTROPHILS # 9.7 10^3/uL (1.8-7.7); NEUTROPHILS % 89.4 % (36.0-66.0); RED BLOOD COUNT 1.94 10^6/uL (4.30-6.10); WHITE BLOOD COUNT 10.8 10^3/uL (4.0-10.0)
[2018-10-12 08:14] LABS: LYMPH # 0.2 10^3/uL (1.5-4.5); PLATELET COUNT, AUTOMATED 62 10^3/uL (150-450)
[2018-10-12] MEDS: CHLORHEXIDINE GLUCONATE 0.12 % 15ML UDC (PERIDEX ORAL RINSE) MT SCH ×2 (09:00→21:32)
[2018-10-12] MEDS ORDERED: ALBUTEROL SULFATE 2.5 MG/0.5 ML INH NEB SOLN NEB PRN (09:30)
[2018-10-12 09:35] LABS: ALBUMIN 1.8 GM/DL (3.2-5.2); ALT/SGPT 20 U/L (12-78); BILIRUBIN,TOTAL 0.9 MG/DL (0.2-1.0); BLOOD UREA NITROGEN 35 MG/DL (7-18); CALCIUM LEVEL 6.9 MG/DL (8.8-10.2); CARBON DIOXIDE LEVEL 19 MEQ/L (21-32); CHLORIDE LEVEL 114 MEQ/L (98-107); CREATININE FOR GFR 0.96 MG/DL (0.70-1.30); GLOMERULAR FILTRATION RATE > 60.0 (>49); GLUCOSE, FASTING 149 MG/DL (70-100); LDH LACTATE DEHYDROGENASE 735 U/L (87-241); MAGNESIUM LEVEL 2.2 MG/DL (1.8-2.4); POTASSIUM SERUM 3.8 MEQ/L (3.5-5.1); SODIUM LEVEL 142 MEQ/L (136-145); TOTAL PROTEIN 3.9 GM/DL (6.4-8.2)
[2018-10-12] MEDS ORDERED: ISOVUE-370 76% 100ML VIAL (Q9967) As Ordered ONE (10:06)
--- NOTE | 2018-10-12 10:24 | IPNPDOC ---
Date Seen The patient was seen on 10/12/18. Progress Note Vascular Surgery Dr Coleman HPI: 63year oldM admitted to ICU with acute respiratory failure. The pt remains intubated/ventilated. This pt was noted to have a cool LLE and pulses not able to be obtained with Doppler. The pt is known to have h/o PAD and Vascular Surgery was called to further asses. PE: GEN: 63yoM. /IntubatedVentilated HEENT: Normocephalic, atraumatic. CHEST: Regular rate and rhythm, +S1, +S2 ABD: flat, soft, non-tender, non-distended. EXT: The LLE is warm to touch with no discoloration this am. cap refill 4 secs. DP/PT Pulses are not palpable and faint monophasic PT obtained with Doppler at this time, unable to obtain DP. Popliteal is monophasic with Doppler this am and femoral is palpable. Warming pad is applied to LLE. LLE arterial US Findings: No brachial index could not be accomplished due to patient movement. Apparently, the patient's the patient was restless during exam interrupting it repeatedly. Moderate to severe plaquing is seen from the common femoral artery to the foot of the left lower extremity. A portion of the proximal profunda artery is occluded with distal revascularization. The mid superficial femoral artery is felt to be occluded with distal revascularization. Waveforms below the distal femoral artery is less than at all pulsatile characteristics and is quite slow. The profunda femoral artery occlusion appears to be new. A&P: 1. PAD with LLE ischemia. The pt is reviewed and examined as per Dr Coleman. Arterial US is reviewed with Dr Coleman, profunda femoral artery occlusion appears to be new. Continue with warming pad applied. Plt noted to be 62, avoid heparin. Hgb 7.0. FOB neg 10/07/18. FOB 10/12/18 pending UA pending. CTH pending re concern for bleeding. CT A/P pending re cocnern for bleeding. Continue AC with argotroban IV. Monitor PTT. The pt is noted to be critically ill with multiple medical concerns, no additional intervention recommended from vascular standpoint at this time. [place] nue to monitor. Continue to asses for possible bleeding. 2. Anemia. primary team managing. 2 u PRBC ordered this AM. VS, I&O, 24H, [place] Vital Signs/I&O Vital Signs Date Time Temp Pulse Resp B/P (MAP) Pulse Ox O2 Delivery O2 Flow Rate FiO2 10/12/18 08:00 24 60 10/12/18 08:00 97.9 88 82/53 (63) 90 10/12/18 08:00 Ventilator 10/11/18 00:15 100.0 I&O- Last 24 Hours up to 6 AM 10/12/18 06:00 Intake Total 4965.2 ml Output Total 1245 ml Balance 3720.2 ml Laboratory Data 24H LABS Laboratory Tests 2 10/11/18 11:28: Activated Partial Thromboplast Time 69.4H 10/11/18 12:05: Bedside Glucose (Misc Panel) 146H 10/11/18 14:12: Activated Partial Thromboplast Time 79.2H 10/11/18 16:48: Activated Partial Thromboplast Time 79.9H 10/11/18 18:04: Bedside Glucose (Misc Panel) 174H 10/11/18 19:32: Activated Partial Thromboplast Time 77.9H 10/11/18 20:05: Total Creatine Kinase 287, Creatine Kinase MB 3.8H, Creatine Kinase MB Relative Index 1.32, Troponin I 0.26H 10/11/18 22:10: Activated Partial Thromboplast Time 76.0H 10/12/18 01:03: Activated Partial Thromboplast Time 70.6H 10/12/18 03:21: Activated Partial Thromboplast Time 72.1H 10/12/18 05:48: Blood Gas Bicarbonate Standard 19.3L, Arterial Blood pH 7.377, Arterial Blood Partial Pressure CO2 31.8L, Arterial Blood Partial Pressure O2 87.1, Arterial Blood Total CO2 19.2L, Arterial Blood HCO3 18.3L, Arterial Blood Base Excess - 6.2L, Arterial Blood Oxygen Saturation 95.9, Anion Gap 9, Glomerular Filtration Rate > 60.0, Blood Urea Nitrogen 35H, Creatinine 0.96, Sodium Level 142, Potassium Level 3.8, Chloride Level 114H, Carbon Dioxide Level 19L, Calcium Le kieran 6.9L, Aspartate Amino Transf (AST/SGOT) 33, Alanine Aminotransferase (ALT/SGPT) 20, Lactate Dehydrogenase 735H, Total Creatine Kinase 639#H, Alkaline Phosphatase 62, Total Bilirubin 0.9, Total Protein 3.9L, Albumin 1.8L, Magnesium Level 2.2, Creatine Kinase MB 6.7H, Creatine Kinase MB Relative Index 1.05, Troponin I 0.19#H, Albumin/Globulin Ratio 0.86L 10/12/18 05:51: Bedside Glucose (Misc Panel) 156H 10/12/18 07:41: Immature Granulocyte % (Auto) 0.8, White Blood Count 10.8H, Red Blood Count 1.94L, Hemoglobin 7.0L, Hematocrit 21.6L, Mean Corpuscular Volume 111.3H, Mean Corpuscular Hemoglobin 36.1H, Mean Corpuscular Hemoglobin Concent 32.4, Red Cell Distribution Width 25.0H, Platelet Count 62L, Neutrophils (%) (Auto) 89.4H, Lymphocytes (%) (Auto) 1.5L, Monocytes (%) (Auto) 8.2H, Eosinophils (%) (Auto) 0.0, Basophils (%) (Auto) 0.1, Neutrophils # (Auto) 9.7H, Lymphocytes # (Auto) 0.2L, Monocytes # (Auto) 0.9H, Eosinophils # (Auto) 0.0, Basophils # (Auto) 0.0, Reticulocyte # (auto) 174.9H, Nucleated Red Blood Cells % (auto) 0.0, Differential Slide Review Report, Immature Platelet Fraction 2.8, Peripheral Blood Smear Path Consult PERIPHERAL SMEAR, Percent Reticulocyte Count 8.4H, Reticulocyte Hemoglobin Equivalent 29.0 CBC/BMP Laboratory Tests 10/11/18 14:12 10/12/18 05:48 Calcium Level 6.9 L, Aspartate Amino Transf (AST/SGOT) 33, Alanine Aminotransferase (ALT/SGPT) 20, Lactate Dehydrogenase 735 H, Total Creatine Kinase 639 #H, Alkaline Phosphatase 62, Total Bilirubin 0.9, Total Protein 3.9 L, Albumin 1.8 L 10/12/18 07:41 Red Blood Count 1.94 L, Mean Corpuscular Volume 111.3 H, Mean Corpuscular Hemoglobin 36.1 H, Mean Corpuscular Hemoglobin Concent 32.4, Red Cell Distribution Width 25.0 H, Neutrophils (%) (Auto) 89.4 H, Lymphocytes (%) (Auto) 1.5 L, Monocytes (%) (Auto) 8.2 H, Eosinophils (%) (Auto) 0.0, Basophils (%) (Auto) 0.1, Neutrophils # (Auto) 9.7 H, Lymphocytes # (Auto) 0.2 L, Monocytes # (Auto) 0.9 H, Eosinophils # (Auto) 0.0, Basophils # (Auto) 0.0 Microbiology Microbiology 10/08/18 Blood Fungal Culture, Received Pending 10/04/18 Blood Culture - Final, Complete NO GROWTH AFTER 5 DAYS 10/04/18 Blood Culture - Final, Complete NO GROWTH AFTER 5 DAYS 10/07/18 Stool Occult Blood (JOSE) - Final, Complete 10/10/18 Respiratory Virus Panel (PCR) (JOSE) - Final, Complete 10/08/18 Fungal Smear, Received Pending 10/08/18 Fungal Culture, Received Pending 10/06/18 Gram Stain - Final, Complete 10/06/18 Sputum Culture - Final, Complete Yeast Like Organism 10/04/18 Gram Stain - Final, Complete 10/04/18 Sputum Culture - Final, Complete Yeast Like Organism Svitlana Jimenez Oct 12, 2018 10:17
[2018-10-12] MEDS ORDERED: MULTIVITAMIN -ADULT INJECTION 10 ML, THIAMINE INJection 100 MG, FOLIC ACID 1 MG in NS 1... IV ONE (11:00)
[2018-10-12] MEDS: NOREPINEPHRINE BITARTRATE 8 MG in D5W 492 ML IV SCH (11:30)
--- NOTE | 2018-10-12 11:45 | REP ---
CT of the abdomen and pelvis with IV contrast, without bowel contrast: There are no comparison abdomen/pelvis CT studies. The visualized lung busby demonstrate bilateral pleural effusions and bilateral interstitial infiltrates. The there is no pericardial effusion. The hepatic parenchyma is homogeneous. The gallbladder is unremarkable. The pancreas is unremarkable. There is a 2.5 cm hypodense subcapsular zone laterally in the spleen, not present on the chest CT dated 10/04/2018, possibly a small subcapsular splenic hematoma. The adrenals are unremarkable. There is a Bosniak type 1 14 mm right renal cortical cyst and there is a Bosniak type 1 19 ml left renal cortical cyst. There is no hydronephrosis. There is no perinephric hematoma. The abdominal aorta is unremarkable except for calcified atheroma. There is severe stenosis of the proximal right iliac artery just distal to the aortic bifurcation. I suspect there is stenosis in the common femoral arteries bilaterally. There are bilateral iliofemoral vascular grafts that appear patent. There is no periaortic/retroperitoneal hematoma. There is no peritoneal free fluid . Pelvis: There is no pelvic free fluid. There is a Rodriguez catheter in the bladder. The bladder is otherwise unremarkable. Prostatic of this are incidentally noted. The pelvic bowel loops are unremarkable. No diverticulosis is identified. Impression There is no intraperitoneal free fluid. There is a small 2.5 cm subcapsular hypodensity laterally in the spleen as a change from the chest CT of 10/04/2018, possibly a subcapsular splenic hematoma. Bilateral renal cortical cysts as described. No retroperitoneal hemorrhage. Bilateral iliofemoral vascular grafts and appear patent. Rodriguez catheter in the bladder. Electronically Signed by Jose Kwon MD 10/12/2018 11:36 A
[2018-10-12 11:57] LABS: APPEARANCE, URINE CLOUDY (CLEAR); BACTERIA, URINE AUTO NEGATIVE (NEGATIVE); BILIRUBIN, URINE AUTO NEGATIVE (NEGATIVE); BLOOD, URINE BLOOD 3+ (NEGATIVE); COLOR, URINE RED (YELLOW); GLUCOSE, URINE (UA) AUTO NEGATIVE (NEGATIVE); KETONE, URINE AUTO NEGATIVE (NEGATIVE); LEUKOCYTE ESTERASE, URINE AUTO TRACE (NEGATIVE); MUCUS, URINE SMALL (NEGATIVE); NITRITE, URINE AUTO NEGATIVE (NEGATIVE); PROTEIN, URINE AUTO 2+ mg/dL (NEGATIVE); RBC, URINE AUTO TNTC /HPF (0-3); SPECIFIC GRAVITY URINE AUTO 1.031 (1.002-1.035); SQUAMOUS EPITHELIAL CELL UR AU 0 /HPF (0-6); WBC, URINE AUTO 8 /HPF (0-3)
[2018-10-12] MEDS: IPRATROPIUM 0.5MG/ALBUTEROL 2.5MG INH SOL UD 3ML (DUONEB)(J7620) NEB SCH ×3 (12:00→19:48)
--- NOTE | 2018-10-12 12:52 | REP ---
REASON FOR EXAM: Stoke-like symptoms. COMPARISON: None. In the right frontal parietal region there is a large 5 cm sized area of abnormal low density. There is mild compression of the frontal horn of the right lateral ventricle. The ventricles are otherwise within normal limits. There is some effacement of the sulci on the right compared to the left likely secondary to diffuse, but mild vasogenic edema. There is no evidence of an acute intracranial hemorrhage. There is no evidence of a skull fracture, however, there is motion artifact on images of the skull base. IMPRESSION: Abnormal low density area on the right as described above. Infarction is suspected. MRI is recommended. Electronically Signed by Nacho Bettencourt DO 10/12/2018 12:57 P
[2018-10-12] MEDS: ARGATROBAN 250 MG/250ML for non-ESRD patients IV SCH ×2 (16:47)
[2018-10-12 18:55] LABS: HEMATOCRIT 31.9 % (42.0-52.0); HEMOGLOBIN 10.3 g/dl (13.5-17.5)
--- NOTE | 2018-10-12 19:56 | IPNPDOC ---
Subjective Date Seen The patient was seen on 10/12/18. Subjective Chief Complaint/HPI 63 year old male with PMH of CAD s/p AMI , PVD, CABG, Atrial fibrillation, Intra abdominal stent, COPD, smoker, heavy alcohol user, cirrhosis of liver, chronic hepatitis C h/o pericardial effusion s/p drainage in jan 2018 presented today from the IR suit send to ED for SOB and Hypoxia. Patient had come to the IR today for elective angiography of his legs for claudication when he was noted to be extremely short of breath, tachypneic . He was found to be hypoxic to 70s in room air so the procedure was cancelled and he was sent to the ED for evaluation.Patient is now intubated.He likley has chemical pneumonitis.Atbx have been d/jax.He has poor prognosis Events since last encounter 10/12/18 General: Reports: ROS Unobtainable (intubated and sedated) Objective Physical Examination General Exam: Positive: Other (sedated and intubated. ) Eye Exam: Positive: PERRLA, Conjunctiva & lids normal, EOMI ENT Exam: Positive: Atraumatic, Mucous membr. moist/pink Neck Exam: Positive: Supple; Negative: JVD, thyromegaly Chest Exam: Positive: Clear to auscultation (anteriorly), Other (Intubated) Heart Exam: Positive: Tachycardic, Regular Rhythm, Normal S1, Normal S2; Negative: Gallops, Murmurs, Rubs Telemetry: Positive: Sinus, Tachycardia Abdomen Exam: Positive: BS Hypoactive, Soft Extremity Exam: Positive: Edema (trace edema), Other (No dorsalis pedis and no posterior tibial pulse by doppler on the left leg); Negative: Clubbing, Cyanosis Skin Exam: Positive: Nl turgor and temperature; Negative: Breakdown, Lesion Neuro Exam: Positive: Other (sedated and intubated, during sedation vacation de does follow some commands. ) Psych Exam: Positive: Other (can not determine as patient is intubated) Assessment /Plan Problems (1) Acute respiratory failure with hypoxemia Status: Acute Problem Text: Causes including copd exacerbation,likely chemical pneumonitis.Antibiotics have been d/jax,including voriconazole per ID recommendations.Pt remains intubated.Continue duo-neb,solumedrol.[employer] following and appreciate input. (2) Ischemic leg Problem Text: There is occlusion in the left profunda femoris artery,also occlusion in superficial femoral artery. On argatroban as has low platelets so could not get heparin.Vascular following (3) Thrombocytopenia Problem Text: Multifactorial.No longer on heparin,now on Argatroban.Will continue to monitor (4) Hypotension Problem Text: Patient has been on pressors.However today pressors were d/jax as MAP was >65,will continue to monitor (5) COPD with acute exacerbation Status: Acute Problem Text: On duo-neb,solumedrol iv (6) PAF (paroxysmal atrial fibrillation) Problem Text: Rate controlled.Not on heparin as patient was noted with thrombocytopenia,he is now on Argatroban (7) PAD (peripheral artery disease) Problem Text: with claudication -s/p abdominal aortic stents and bilateral leg disease Now with acute left leg ischemia. (8) CAD (coronary artery disease) Problem Text: On aspirin (9) CHF (congestive heart failure) Status: Chronic Problem Text: No evidence of fluid overload,will closely monitor (10) Alcoholism Status: Chronic Problem Text: On thiamine,folic acid - banana bag given today Plan/VTE VTE Prophylaxis Ordered?: Yes (On Argatroban) Plan Anticipated Discharge: Other Anticipated D/C (Poor prognosis,still intubated.) Patient is still full code.He does not have mPOA and it is reported that patient did not want his family to be involved in his medical decision.At this point all medical decisions are being made by 2 physician consent. Disposition To be determined VS, I&O, 24H, [facility] Vital Signs/I&O Vital Signs Date Time Temp Pulse Resp B/P (MAP) Pulse Ox O2 Delivery O2 Flow Rate FiO2 10/12/18 18:00 124 26 160/93 (115) 92 70 10/12/18 16:00 98.5 10/12/18 15:00 Ventilator 10/11/18 00:15 100.0 I&O- Last 24 Hours up to 6 AM 10/12/18 06:00 Intake Total 4965.2 ml Output Total 1245 ml Balance 3720.2 ml Laboratory Data 24H LABS Laboratory Tests 2 10/11/18 19:32: Activated Partial Thromboplast Time 77.9H 10/11/18 20:05: Total Creatine Kinase 287, Creatine Kinase MB 3.8H, Creatine Kinase MB Relative Index 1.32, Troponin I 0.26H 10/11/18 22:10: Activated Partial Thromboplast Time 76.0H 10/12/18 01:03: Activated Partial Thromboplast Time 70.6H 10/12/18 03:21: Activated Partial Thromboplast Time 72.1H 10/12/18 05:48: Blood Gas Bicarbonate Standard 19.3L, Arterial Blood pH 7.377, Arterial Blood Partial Pressure CO2 31.8L, Arterial Blood Partial Pressure O2 87.1, Arterial Blood Total CO2 19.2L, Arterial Blood HCO3 18.3L, Arterial Blood Base Excess - 6.2L, Arterial Blood Oxygen Saturation 95.9, Anion Gap 9, Glomerular Filtration Rate > 60.0, Blood Urea Nitrogen 35H, Creatinine 0.96, Sodium Level 142, Potassium Level 3.8, Chloride Level 114H, Carbon Dioxide Level 19L, Calcium Level 6.9L, Aspartate Amino Transf (AST/SGOT) 33, Alanine Aminotransferase (ALT/SGPT) 20, Lactate Dehydrogenase 735H, Total Creatine Kinase 639#H, Alkaline Phosphatase 62, Total Bilirubin 0.9, Total Protein 3.9L, Albumin 1.8L, Magnesium Level 2.2, Creatine Kinase MB 6.7H, Creatine Kinase MB Relative Index 1.05, Troponin I 0.19#H, Albumin/Globulin Ratio 0.86L 10/12/18 05:51: Bedside Glucose (Misc Panel) 156H 10/12/18 07:41: Immature Granulocyte % (Auto) 0.8, White Blood Count 10.8H, Red Blood Count 1.94L, Hemoglobin 7.0L, Hematocrit 21.6L, Mean Corpuscular Volume 111.3H, Mean Corpuscular Hemoglobin 36.1H, Mean Corpuscular Hemoglobin Concent 32.4, Red Cell Distribution Width 25.0H, Platelet Count 62L, Neutrophils (%) (Auto) 89.4H, Lymphocytes (%) (Auto) 1.5L, Monocytes (%) (Auto) 8.2H, Eosinophils (%) (Auto) 0.0, Basophils (%) (Auto) 0.1, Neutrophils # (Auto) 9.7H, Lymphocytes # (Auto) 0.2L, Monocytes # (Auto) 0.9H, Eosinophils # (Auto) 0.0, Basophils # (Auto) 0.0, Reticulocyte # (auto) 174.9H, Nucleated Red Blood Cells % (auto) 0.0, Differential Slide Review Report, Immature Platelet Fraction 2.8, Peripheral Blood Smear Path Consult PERIPHERAL SMEAR, Percent Reticulocyte Count 8.4H, Reticulocyte Hemoglobin Equivalent 29.0 10/12/18 10:55: Urine Appearance CLOUDYH, Urine Color REDH, Urine pH 6.0, Urine Specific [place] 1.031, Urine Protein 2+H, Urine Glucose (UA) NEGATIVE, Urine Ketones NEGATIVE, Urine Urobilinogen 2.0H, Urine Bilirubin NEGATIVE, Urine Leukocyte Esterase TRACEH, Urine Blood 3+H, Urine Nitrite NEGATIVE, Urine WBC (Auto) 8H, Urine RBC (Auto) TNTCH, Urine Hyaline Casts (Auto) 0, Urine Bacteria (Auto) NEGATIVE, Urine Squamous Epithelial Cells 0, Urine Mucus (Auto) SMALL, Urine Sperm (Auto) CBC/BMP Laboratory Tests 10/12/18 05:48 Calcium Level 6.9 L, Aspartate Amino Transf (AST/SGOT) 33, Alanine Aminotransferase (ALT/SGPT) 20, Lactate Dehydrogenase 735 H, Total Creatine Kinase 639 #H, Alkaline Phosphatase 62, Total Bilirubin 0.9, Total Protein 3.9 L, Albumin 1.8 L 10/12/18 07:41 Red Blood Count 1.94 L, Mean Corpuscular Volume 111.3 H, Mean Corpuscular Hemoglobin 36.1 H, Mean Corpuscular Hemoglobin Concent 32.4, Red Cell Distribution Width 25.0 H, Neutrophils (%) (Auto) 89.4 H, Lymphocytes (%) (Auto) 1.5 L, Monocytes (%) (Auto) 8.2 H, Eosinophils (%) (Auto) 0.0, Basophils (%) (Auto) 0.1, Neutrophils # (Auto) 9.7 H, Lymphocytes # (Auto) 0.2 L, Monocytes # (Auto) 0.9 H, Eosinophils # (Auto) 0.0, Basophils # (Auto) 0.0 10/12/18 18:33 Microbiology Microbiology 10/08/18 Blood Fungal Culture, Received Pending 10/04/18 Blood Culture - Final, Complete NO GROWTH AFTER 5 DAYS 10/04/18 Blood Culture - Final, Complete NO GROWTH AFTER 5 DAYS 10/07/18 Stool Occult Blood (JOSE) - Final, Complete 10/10/18 Respiratory Virus Panel (PCR) (JOSE) - Final, Complete 10/08/18 Fungal Smear, Received Pending 10/08/18 Fungal Culture, Received Pending 10/06/18 Gram Stain - Final, Complete 10/06/18 Sputum Culture - Final, Complete Yeast Like Organism 10/04/18 Gram Stain - Final, Complete 10/04/18 Sputum Culture - Final, Complete Yeast Like Organism TI LO MD Oct 12, 2018 19:56
[2018-10-12] MEDS: PANTOPRAZOLE 40MG INJ (PROTONIX) (C9113) IV SCH (21:33)
[2018-10-12] MEDS: DIGOXIN INJ 0.5 MG/2 ML AMP (J1160) IV SCH (21:33)
[2018-10-12] MEDS: MOXIFLOXACIN HCL 400 MG in APPROPRIATE DILUENT 1 EA IV SCH (21:33)
[2018-10-13] VITALS (26 sets, daily range): BP systolic 88–154; BP diastolic 57–90; O2SAT 94–98
[2018-10-13 00:06] LABS: HEPARIN INDUCED PLATELET ABY 0.161 OD (0.000-0.400)
[2018-10-13] MEDS: IPRATROPIUM 0.5MG/ALBUTEROL 2.5MG INH SOL UD 3ML (DUONEB)(J7620) NEB SCH ×6 (00:29→19:45)
[2018-10-13] MEDS: methylPREDNISolone INJ 125 MG/2 ML VIAL (J2930) IV SCH ×3 (00:52→17:06)
[2018-10-13] MEDS: PROPOFOL 1,000 MG in APPROPRIATE DILUENT 1 EA IV SCH ×3 (01:47→17:07)
[2018-10-13 05:16] LABS: BASO % 0.1 % (0.0-1.0); HEMATOCRIT 28.5 % (42.0-52.0); HEMOGLOBIN 9.4 g/dl (13.5-17.5); LYMPH % 1.7 % (24.0-44.0); MEAN CORPUSCULAR HEMOGLOBIN 34.2 pg (27.0-33.0); MEAN CORPUSCULAR VOLUME 103.6 fl (80.0-96.0); MONO # 0.6 10^3/uL (0.0-0.8); MONO % 6.1 % (0.0-5.0); NEUTROPHILS # 8.5 10^3/uL (1.8-7.7); NEUTROPHILS % 91.5 % (36.0-66.0); RED BLOOD COUNT 2.75 10^6/uL (4.30-6.10); WHITE BLOOD COUNT 9.3 10^3/uL (4.0-10.0)
[2018-10-13 05:29] LABS: LYMPH # 0.2 10^3/uL (1.5-4.5); PLATELET COUNT, AUTOMATED 76 10^3/uL (150-450)
[2018-10-13 05:52] LABS: ABG BASE EXCESS -6.7 (-2.0-2.0); ABG HCO3 17.3 MEQ/L (22.0-26.0); ABG O2 SATURATION 93.4 % (95.0-99.0); ABG PARTIAL PRESSURE CO2 29.5 mmHg (35.0-45.0); ABG PARTIAL PRESSURE O2 70.7 mmHg (75.0-100.0); ABG STANDARD HCO3 18.9 MEQ/L (22.0-26.0); ABG TOTAL CO2 18.2 MEQ/L (23.0-31.0); ABG pH (ARTERIAL) 7.385 UNITS (7.350-7.450)
[2018-10-13] MEDS: NS 0.45% 1,000 ML IV SCH (05:59)
[2018-10-13] MEDS: SODIUM CHLORIDE 0.9% INJ 10 ML SYR IV SCH ×2 (06:00→17:07)
[2018-10-13 06:10] LABS: DIGOXIN LEVEL 1.4 NG/ML (0.5-2.0)
[2018-10-13 07:02] LABS: ALT/SGPT 26 U/L (12-78); BLOOD UREA NITROGEN 40 MG/DL (7-18); CARBON DIOXIDE LEVEL 20 MEQ/L (21-32); CHLORIDE LEVEL 117 MEQ/L (98-107); CHOLESTEROL LEVEL 105 MG/DL (< 200); CPK CREATINE PHOSPHOKINASE 567 U/L (39-308); CREATININE FOR GFR 0.99 MG/DL (0.70-1.30); GLOMERULAR FILTRATION RATE > 60.0 (>49); GLUCOSE, FASTING 124 MG/DL (70-100); LDH LACTATE DEHYDROGENASE 656 U/L (87-241); MAGNESIUM LEVEL 2.4 MG/DL (1.8-2.4); PHOSPHORUS LEVEL 4.8 MG/DL (2.5-4.9); POTASSIUM SERUM 5.2 MEQ/L (3.5-5.1); SODIUM LEVEL 146 MEQ/L (136-145); TOTAL PROTEIN 4.4 GM/DL (6.4-8.2); TRIGLYCERIDES LEVEL 116 MG/DL (<150)
--- NOTE | 2018-10-13 07:20 | REPVR ---
EXAM: US Duplex Bilateral Extracranial Arteries EXAM DATE/TIME: 10/12/2018 8:45 PM CLINICAL HISTORY: 63 years old, male; Coma or unconsciousness; Additional info: Stroke, TECHNIQUE: Imaging protocol: Real-time Duplex ultrasound scan of the Bilateral carotid and vertebral arteries combining merritt scale, color Doppler and spectral waveform analysis. COMPARISON: No relevant prior studies available. FINDINGS: There is soft and hard plaque involving the carotid bifurcations bilaterally. Vertebral artery flow is antegrade on the left. The right vertebral artery was not visualized. The following peak velocities were obtained (Systolic (Diastolic) in cm/sec) Right CCA: 201 Right ICA: Proximal 85 (30), Mid 124 (52), Distal 119 (51) Right ECA: 217 Left CCA: 180 Left ICA: Proximal 64 (19), Mid 111 (43), Distal 155 (62) Left ECA: 226 Peak ICA/CCA ratios: Right: 0.61 Left: 0.82 IMPRESSION: 1. There is plaque with Doppler evidence of less than 50% carotid artery stenosis on the right. This is on the basis of peak internal carotid artery systolic velocity and peak ICA/CCA systolic velocity ratio. 2. There is plaque with Doppler evidence of 50-69% carotid artery stenosis on the left, on the basis of peak internal carotid artery systolic velocity, but less than 50% stenosis on the basis of peak ICA/CCA systolic velocity ratio. Consider alternate evaluation, such as CT or MR angiogram. 3. Antegrade vertebral artery flow on the left. Right vertebral artery not visualized. Again, consider alternate evaluation. COMMENT: Carotid Stenosis Reference using SRU criteria: Mild: less than 50% stenosis. ICA PSV is less than 125 cm/second and plaque or intimal thickening is visible. Moderate: 50-69% stenosis. ICA PSV is 125 to 230 cm/second and plaque is visible. Severe: 70-94% stenosis. ICA PSV is more than 230 cm/second and visible plaque and lumen narrowing are seen. Near occlusion: 95-99% stenosis. ICA PSV is variable and significant plaque and luminal narrowing are seen. Occluded: 100% stenosis. No flow identified. Electronically signed by: Rodrigue Barakat On 10/13/2018 07:20:06 AM
--- NOTE | 2018-10-13 07:23 | REP ---
Portable chest, 06:49 a.m., single AP view with the patient semi upright: Comparison is 10/12/2018. The bilateral interstitial and alveolar infiltrates have not significantly changed. There are no pleural effusions. The nodule - like density noted in the left lung on the previous study has almost entirely resolved. Sternotomy wires are unchanged. Cardiac size is normal. The endotracheal tube, nasogastric tube and right upper extremity PICC line remain in satisfactory positions, unchanged. Impression: The bilateral infiltrates are unchanged. The nodule like density in the left lung has almost entirely resolved. Electronically Signed by Jose Kwon MD 10/13/2018 07:15 A
--- NOTE | 2018-10-13 08:51 | CR ---
DATE OF CONSULTATION: 10/12/2018 REFERRING PHYSICIAN: Dr. Santillan REASON FOR CONSULTATION: Stroke. HISTORY OF PRESENT ILLNESS: Chele Mccartney is a 63-year-old man with history of coronary artery disease, peripheral vascular disease, history of atrial fibrillation, coronary artery bypass graft, abdominal stent, alcoholism, cirrhosis of liver and chronic obstructive pulmonary artery disease (COPD) with chronic hepatitis, pericardial effusion who was sent from interventional radiology to emergency department due to shortness of breath. The patient had come for elective angiography of his legs for intermittent claudication and was noted to have shortness of breath and tachypnea. His oxygen saturations on room air were 70%. His procedure was cancelled and he was transferred to the emergency department. In the emergency room (ER) he required 5 liters of oxygen. He was found to have acute respiratory failure with COPD exacerbation and severe anemia. The patient developed altered mental status earlier this week. He also developed left femoral arterial thromboembolism. Vascular surgery was consulted. The patient was started on argatroban. The patient has low platelet count. Antibody for heparin-induced thrombocytopenia is pending. The patient had developed altered mental status before he was started on agatroban. The patient was intubated. The patient currently is intubated and is sedated. His propofol was stopped, but he is still extremely drowsy. He is unable to provide any meaningful history. History was obtained from the patient's nurses and electronic medical records. I was consulted as CT scan of his head showed a large right middle cerebral artery stroke affecting anterior division completely and a small region in posterior division of right MCA. His CBC showed a hemoglobin of 7, platelet count 25, WBCs 10.8. Metabolic profile was within normal limits. Vitamin B12 level was 943. Echocardiogram showed no abnormalities. There is no PFO. Ejection fraction is normal. PAST MEDICAL HISTORY: Atrial fibrillation, coronary artery disease, peripheral arterial disease, COPD, alcoholism, cirrhosis of liver, chronic hepatitis, history of pericardial effusion. CURRENT MEDICATIONS: Argatroban, Solu-Medrol, digoxin, Protonix, propofol, moxifloxacin, albuterol, propofol. ALLERGIES: Chlorpromazine. PAST SURGICAL HISTORY: Knee arthroscopic surgery, stent placement, inguinal hernia repair, coronary artery bypass graft, liver biopsy, pericardial drain. FAMILY HISTORY: Father with diabetes, hypertension and heart disease. Mother with hypothyroidism. One son with diabetes and hypertension with nephropathy. SOCIAL HISTORY: He has abused cocaine and IV drug use in the past. He has history of heavy alcoholism. He continued to smoke. REVIEW OF SYSTEMS: All systems were reviewed and found to be noncontributory except as mentioned in the history of present illness. PHYSICAL EXAMINATION: Temperature 98.5, pulse 102, respiratory 24, blood pressure 90/59 and it reached up to 79/50 on October 11, 2018. Heart: Regular rate and rhythm. Lungs: Clear to auscultation. Abdomen: Soft, nontender, nondistended. No pedal edema. No musculoskeletal abnormalities. No rash. The patient is intubated and sedated. He withdraws right arm and leg to pain. He withdraws right side of body to sternal rub. He is unable to open eyes or follow commands. His plantars are mute. Deep tendon flexes are 1+ in arms and knees and absent at ankles. Sensory cerebellar and gait testing could not be performed. ASSESSMENT: 1. Embolic right middle cerebral artery stroke affecting anterior division completely and posterior division partially. 2. Left femoral arterial thromboembolism. 3. History of atrial fibrillation, coronary artery disease and peripheral arterial disease. 4. Respiratory failure. PLAN: 1. Carotid ultrasound. 2. Continue argatroban. 3. His overall prognosis of recovery is guarded. 4. Continue supportive care.
[2018-10-13] MEDS: METOCLOPRAMIDE INJ 10MG/2ML VIAL (J2765) IV SCH ×3 (09:55→21:13)
[2018-10-13] MEDS: CHLORHEXIDINE GLUCONATE 0.12 % 15ML UDC (PERIDEX ORAL RINSE) MT SCH ×2 (09:55→21:13)
[2018-10-13] MEDS ORDERED: MULTIVITAMIN -ADULT INJECTION 10 ML, THIAMINE INJection 100 MG, FOLIC ACID 1 MG in NS 1... IV ONE (11:00)
--- NOTE | 2018-10-13 11:45 | IPNPDOC ---
Date Seen The patient was seen on 10/13/18. Progress Note Vascular Surgery Dr Coleman HPI: 63year oldM admitted to ICU with acute respiratory failure. The pt remains intubated/ventilated. This pt was noted to have a cool LLE and pulses not able to be obtained with Doppler. The pt is known to have h/o PAD and Vascular Surgery was called to further asses. PE: GEN: 63yoM. /IntubatedVentilated HEENT: Normocephalic, atraumatic. CHEST: Regular rate and rhythm, +S1, +S2 ABD: flat, soft, non-tender, non-distended. EXT: The LLE is warm to touch with no discoloration this am. cap refill <3 secs. DP/PT Pulses are not palpable and faint monophasic PT obtained with Doppler at this time, unable to obtain DP. Popliteal is monophasic with Doppler this am and femoral is palpable. LLE arterial US Findings: No brachial index could not be accomplished due to patient movement. Apparently, the patient's the patient was restless during exam interrupting it repeatedly. Moderate to severe plaquing is seen from the common femoral artery to the foot of the left lower extremity. A portion of the proximal profunda artery is occluded with distal revascularization. The mid superficial femoral artery is felt to be occluded with distal revascularization. Waveforms below the distal femoral artery is less than at all pulsatile characteristics and is quite slow. The profunda femoral artery occlusion appears to be new. A&P: 1. PAD with LLE ischemia. The pt is reviewed and examined as per Dr Coleman. Arterial US is reviewed with Dr Coleman, profunda femoral artery occlusion appears to be new. K pad applied with discoloration noted to posterior aspect of LLE, removed and apply bear hugger only. Plt noted to be 76, avoid heparin. Hgb 9.4. S/P 2 u PRBC 10/12/18. CTH with embolic CVA. Neurology consulted. CT A/P with 2.5cm subcapsular splenic hematoma. Continue AC with argotroban IV. Monitor PTT. The pt is reviewed and examined as per Dr Coleman this AM. The pt is noted to be critically ill with multiple medical concerns, would be a high risk surgical candidate. No additional intervention recommended from vascular standpoint at this time. Continue to monitor. Continue to asses for possible bleeding. 2. Anemia. primary team managing. 2 u PRBC 10/12/18. VS, I&O, 24H, [place] Vital Signs/I&O Vital Signs Date Time Temp Pulse Resp B/P (MAP) Pulse Ox O2 Delivery O2 Flow Rate FiO2 10/13/18 11:00 100 24 124/70 (88) 94 45 10/13/18 08:03 Ventilator 10/13/18 08:00 97.7 10/11/18 00:15 100.0 I&O- Last 24 Hours up to 6 AM 10/13/18 06:00 Intake Total 2115.4 ml Output Total 1560 ml Balance 555.4 ml Laboratory Data 24H LABS Laboratory Tests 2 10/13/18 04:51: Immature Granulocyte % (Auto) 0.6, White Blood Count 9.3, Red Blood Count 2.75L, Hemoglobin 9.4L, Hematocrit 28.5L, Mean Corpuscular Volume 103.6H, Mean Corpuscular Hemoglobin 34.2H, Mean Corpuscular Hemoglobin Concent 33.0, Red Cell Distribution Width 23.3H, Platelet Count 76L, Neutrophils (%) (Auto) 91.5H, Lymphocytes (%) (Auto) 1.7L, Monocytes (%) (Auto) 6.1H, Eosinophils (%) (Auto) 0.0, Basophils (%) (Auto) 0.1, Neutrophils # (Auto) 8.5H, Lymphocytes # (Auto) 0.2L, Monocytes # (Auto) 0.6, Eosinophils # (Auto) 0.0, Basophils # (Auto) 0.0, Nucleated Red Blood Cells % (auto) 0.0, Activated Partial Thromboplast Time 42.7H, Blood Gas Bicarbonate Standard 18.9L, Arterial Blood pH 7.385, Arterial Blood Partial Pressure CO2 29.5L, Arterial Blood Partial Pressure O2 70.7L, A rterial Blood Total CO2 18.2L, Arterial Blood HCO3 17.3L, Arterial Blood Base Excess -6.7L, Arterial Blood Oxygen Saturation 93.4L, Anion Gap 9, Glomerular Filtration Rate > 60.0, Blood Urea Nitrogen 40H, Creatinine 0.99, Sodium Level 146H, Potassium Level 5.2H, Chloride Level 117H, Carbon Dioxide Level 20L, Calcium Level 8.0#L, Phosphorus Level 4.8, Aspartate Amino Transf (AST/SGOT) 42H, Alanine Aminotransferase (ALT/SGPT) 26, Lactate Dehydrogenase 656H, Total Creatine Kinase 567H, Alkaline Phosphatase 66, Total Bilirubin 1.0, Triglycerides Level 116, Cholesterol Level 105, Total Protein 4.4L, Albumin 2.0L, Magnesium Level 2.4, Albumin/Globulin Ratio 0.83L, Digoxin Level 1.4 10/13/18 05:39: Activated Partial Thromboplast Time 41.9H 10/13/18 07:53: Activated Partial Thromboplast Time 40.5H 10/13/18 11:04: Activated Partial Thromboplast Time 40.9H CBC/BMP Laboratory Tests 10/12/18 18:33 10/13/18 04:51 Red Blood Count 2.75 L, Mean Corpuscular Volume 103.6 H, Mean Corpuscular Hemoglobin 34.2 H, Mean Corpuscular Hemoglobin Concent 33.0, Red Cell Distribution Width 23.3 H, Neutrophils (%) (Auto) 91.5 H, Lymphocytes (%) (Auto) 1.7 L, Monocytes (%) (Auto) 6.1 H, Eosinophils (%) (Auto) 0.0, Basophils (%) ( Auto) 0.1, Neutrophils # (Auto) 8.5 H, Lymphocytes # (Auto) 0.2 L, Monocytes # (Auto) 0.6, Eosinophils # (Auto) 0.0, Basophils # (Auto) 0.0, Calcium Level 8.0 #L, Phosphorus Level 4.8, Aspartate Amino Transf (AST/SGOT) 42 H, Alanine Aminotransferase (ALT/SGPT) 26, Lactate Dehydrogenase 656 H, Total Creatine Kinase 567 H, Alkaline Phosphatase 66, Total Bilirubin 1.0, Triglycerides Level 116, Cholesterol Level 105, Total Protein 4.4 L, Albumin 2.0 L Microbiology Microbiology 10/08/18 Blood Fungal Culture, Received Pending 10/04/18 Blood Culture - Final, Complete NO GROWTH AFTER 5 DAYS 10/04/18 Blood Culture - Final, Complete NO GROWTH AFTER 5 DAYS 10/07/18 Stool Occult Blood (JOSE) - Final, Complete 10/10/18 Respiratory Virus Panel (PCR) (JOSE) - Final, Complete 10/08/18 Fungal Smear, Received Pending 10/08/18 Fungal Culture, Received Pending 10/06/18 Gram Stain - Final, Complete 10/06/18 Sputum Culture - Final, Complete Yeast Like Organism 10/04/18 Gram Stain - Final, Complete 10/04/18 Sputum Culture - Final, Complete Yeast Like Organism Svitlana Jimenez Oct 13, 2018 11:45
[2018-10-13] MEDS ORDERED: FUROSEMIDE 20 MG/2 ML VIAL (J1940) IV ONE (12:30)
--- NOTE | 2018-10-13 13:40 | CCN ---
DATE: 10/13/2018 NOTE: Mr. Mccartney remains critically ill with acute hypoxemic respiratory failure secondary to pulmonary hemorrhage/acute respiratory distress syndrome (ARDS) leading to mechanical ventilation. He also has had a significant right middle carotid artery stroke. No hemodynamic events overnight. His oxygen has been able to be weaned to 45%. On sedation holiday today, he is not following any commands. He will grimace to sternal rub. He moves his right arm spontaneously and does appear to have some purposeful movement as he will swat at you if you are doing painful stimuli on his left side or the sternal rub. He will move his right lower extremity but very little, he does withdrawal to pain. On his left upper extremity, he has minimal withdrawal to pain. He does not move his left lower extremity at all. He does not follow commands. He did not tolerate tube feeds overnight despite being on trickle feeds at 20 mL per hour. OBJECTIVE: PHYSICAL EXAMINATION: GENERAL: Mr. Mccartney is lying in bed synchronous with the ventilator. VITAL SIGNS: Temperature 97.7 with a maximum temperature (t-max) of 98.8, pulse 100, respiratory rate 20, blood pressure 124/70 with a MAP of 88, SpO2 of 94% on FiO2 of 0.45. HEENT: Anicteric. Left pupil 2 to 4 mm and brisk. Right pupil 2 mm and minimal reaction. Nares: Patent bilaterally. Moist mucosa. Oropharynx: ET tube and OG tube in place. Neck is supple and without apparent jugular venous distention (JVD), thyromegaly or masses. Trachea is midline. LYMPHATICS: Without cervical or supraclavicular lymphadenopathy. CHEST: Normal shape. LUNGS: Symmetric excursion. Good air entry. No significant wheeze, rhonchi or crackle on tidal excursion. Prolonged expiratory phase. Occasional abdominal muscle usage on exhalation. No retractions. CARDIOVASCULAR: Regular rate and rhythm with normal S1, S2. No murmur, rub or gallop appreciated. ABDOMEN: Minimal bowel sounds but there are bowel sounds present. Soft and nondistended. No hepatosplenomegaly or masses appreciated. EXTREMITIES: Right extremity is warm and well perfused. Palpable pedal pulses. No cyanosis or edema. Left extremity is warm but he is on a K pad. Dopperable posterior tibialis. Cannot Doppler the dorsalis pedis. LABORATORY DATA: CBC shows a hemoglobin of 9.4, hematocrit 28.5, platelet count 76,000, white blood cell count 9,300 with a differential of 92% neutrophils, 2% lymphocytes, 6% monocytes. Chemistry showed a sodium of 146, potassium 5.2, chloride 117, bicarbonate 20, anion gap 9, BUN 40, creatinine 1.0, glucose 124, calcium 8.0, phosphorous 4.8, magnesium 2.4, total bilirubin 1.0, AST 42, ALT 26, alkaline phosphatase 66, LDH 656 (down from 735), CK 567 (down from 639), total protein 4.4, albumin 2.0. PTT 40.9. Arterial blood gas this morning on pressure regulated volume control (PRVC) with a tidal volume of 550, rate 16, PEEP of 12 and FiO2 of 0.5 was 7.39/30/71 with a measured saturation of 93% and a base excess of -6.7. Yesterday input and output was 2480 in and 1460 out making him positive 1020. Thus far today 1135 in and 800 out making him positive 800. His weight is 71.5 kg. I reviewed his chest x-ray, as well as the report from earlier today. That x-ray showed normal appearing cardiac silhouette, pulmonary vascular shadows. Normal appearing mediastinal and hilar regions. Likely slight improvement of the mixed interstitial alveolar infiltrates. There remains relative sparing of the right upper lobe, which is felt secondary to emphysema. Normal inflation. No consolidated regions. ET tube and NG tube in good position. IMPRESSION: 1. Acute hypoxic respiratory failure secondary to pulmonary hemorrhage. He meets the definition of moderate acute respiratory distress syndrome (ARDS). His FiO2 has been able to be weaned some. 2. Pulmonary hemorrhage, thought in part secondary to inhalation injury. 3. Chronic obstructive pulmonary disease (COPD), severe at baseline. 4. Pulmonary hypertension, moderately severe on echocardiogram this admission. 5. Anemia, felt multifactorial with some of that being secondary to pulmonary hemorrhage, as well as splenic subcapsular bleed and hemolysis. Additionally, he is losing some blood from blood draws. He has received 6 units of packed red blood cells since admission. No evidence of gastrointestinal bleed. 6. Large right middle cerebral CVA. Per neurology. He is on Argatroban. 7. Ischemic left leg. Per Dr. Coleman. He is on Argatroban. 8. Infectious disease. On Avelox. Infectious disease involved. 9. Deep vein thrombosis (DVT) prophylaxis. He is fully anticoagulated. 10. Stress ulcer prophylaxis in place. 11. Nutrition. Did not tolerate tube feeds. RECOMMENDATIONS: 1. We will continue to wean the ventilator as tolerated. He is now on appropriate lung volume protective settings. The tidal volume is 6 mL per kg of predicted body weight. 2. Yesterday he demonstrated PEEP dependence and with his saturations around 91%, I do not feel that he is ready to decrease the PEEP at this point but hopefully we will be able to do so in the near future. 3. We will continue argatroban. 4. The plan will be that if he has another a couple of gram drops in hemoglobin would be to rescan his abdomen to reevaluate the splenic bleed. If it had worsened, we would consider interventional radiology procedure. Dr. Coleman is aware. 5. I spoke with Dr. Coleman's service and at the present time there is no plan for intervention for the ischemic left lower extremity. 6. In regard to nutrition, he was placed on Reglan today and we will reintroduce trickle feeds. If that does not help and he does not tolerate feeds, we would consider TPN tomorrow. 7. We will give one dose of diuretic. He is significantly ahead on input versus output. Critical care time: 40 minutes, not including procedure time. MTDD
--- NOTE | 2018-10-13 15:22 | CCN ---
DATE: 10/12/[address]art[address] had a CT scan that showed a large stroke. Neurology was consulted. Hemodynamically, he had done better today, including more stable oxygenation but still at high pressures. It was felt at this point that we could go on to a sedation holiday. On the sedation holiday it was not following commands; however, he did move his right side spontaneously but no spontaneous move on the left side. With deep pain on the left side, he moved his right side, but again not his left side. He did not open his eyes. He became tachypneic during the trial, and it was felt best to restart sedation. Additional critical care time 15 minutes, not including procedure time. JEREMY
[2018-10-13] MEDS: ARGATROBAN 250 MG/250ML for non-ESRD patients IV SCH ×2 (17:06)
--- NOTE | 2018-10-13 17:59 | IPNPDOC ---
Subjective Date Seen The patient was seen on 10/13/18. Subjective Chief Complaint/HPI 63 year old male with PMH of CAD s/p AMI , PVD, CABG, Atrial fibrillation, Intra abdominal stent, COPD, smoker, heavy alcohol user, cirrhosis of liver, chronic hepatitis C h/o pericardial effusion s/p drainage in jan 2018 presented today from the IR suit send to ED for SOB and Hypoxia. Patient had come to the IR today for elective angiography of his legs for claudication when he was noted to be extremely short of breath, tachypneic . He was found to be hypoxic to 70s in room air so the procedure was cancelled and he was sent to the ED for evaluation.Patient is now intubated.He likley has chemical pneumonitis.Atbx have been d/jax.He has poor prognosis Events since last encounter 10/12/18 Objective Physical Examination General Exam: Positive: Other (sedated and intubated. ) Eye Exam: Positive: PERRLA, Conjunctiva & lids normal, EOMI ENT Exam: Positive: Atraumatic, Mucous membr. moist/pink Neck Exam: Positive: Supple; Negative: JVD, thyromegaly Chest Exam: Positive: Clear to auscultation (anteriorly), Other (Intubated) Heart Exam: Positive: Tachycardic, Regular Rhythm, Normal S1, Normal S2; Negative: Gallops, Murmurs, Rubs Telemetry: Positive: Sinus, Tachycardia Abdomen Exam: Positive: BS Hypoactive, Soft Extremity Exam: Positive: Edema (trace edema), Other (No dorsalis pedis and no posterior tibial pulse by doppler on the left leg); Negative: Clubbing, Cyanosis Skin Exam: Positive: Nl turgor and temperature; Negative: Breakdown, Lesion Neuro Exam: Positive: Other (sedated and intubated, during sedation vacation de does follow some commands. ) Psych Exam: Positive: Other (can not determine as patient is intubated) Assessment /Plan Problems (1) Acute respiratory failure with hypoxemia Status: Acute Problem Text: Causes including copd exacerbation,likely chemical pneumonitis.Antibiotics have been d/jax,including voriconazole per ID recommendations.Pt remains intubated.Continue duo-neb,solumedrol.Patient tr ansferred to the beater engineer team (2) Acute embolic stroke Problem Text: CT head on 10/12/18:Abnormal low density area on the right as described above. Infarction is suspected.Neurology following.Continue Argatroban (3) Ischemic leg Problem Text: There is occlusion in the left profunda femoris artery,also occlusion in superficial femoral artery. On argatroban as has low platelets so could not get heparin.Vascular following.On argatroban (4) Thrombocytopenia Problem Text: Multifactorial.No longer on heparin,now on Argatroban.Will continue to monitor (5) COPD with acute exacerbation Status: Acute Problem Text: On duo-neb,solumedrol iv (6) Hypotension Problem Text: Patient has been on pressors.However today pressors were d/jax as MAP was >65,will continue to monitor (7) PAF (paroxysmal atrial fibrillation) Problem Text: Rate controlled.Not on heparin as patient was noted with thrombocytopenia,he is now on Argatroban (8) PAD (peripheral artery disease) Problem Text: with claudication -s/p abdominal aortic stents and bilateral leg disease Now with acute left leg ischemia. (9) CAD (coronary artery disease) Problem Text: On aspirin (10) CHF (congestive heart failure) Status: Chronic Problem Text: No evidence of fluid overload,will closely monitor (11) Alcoholism Status: Chronic Problem Text: On thiamine,folic acid - banana bag given today Plan/VTE VTE Prophylaxis Ordered?: Yes (On Argatroban) Plan Anticipated Discharge: Other Anticipated D/C (Poor prognosis,still intubated.) VS, I&O, 24H, Fishbone Vital Signs/I&O Vital Signs Date Time Temp Pulse Resp B/P (MAP) Pulse Ox O2 Delivery O2 Flow Rate FiO2 10/13/18 15:35 98 29 94 45 10/13/18 15:35 Ventilator 10/13/18 11:00 124/70 (88) 10/13/18 08:00 97.7 10/11/18 00:15 100.0 I&O- Last 24 Hours up to 6 AM 10/13/18 06:00 Intake Total 2115.4 ml Output Total 1560 ml Balance 555.4 ml Laboratory Data 24H LABS Laboratory Tests 2 10/13/18 04:51: Immature Granulocyte % (Auto) 0.6, White Blood Count 9.3, Red Blood Count 2.75L, Hemoglobin 9.4L, Hematocrit 28.5L, Mean Corpuscular Volume 103.6H, Mean Corpuscular Hemoglobin 34.2H, Mean Corpuscular Hemoglobin Concent 33.0, Red Cell Distribution Width 23.3H, Platelet Count 76L, Neutrophils (%) (Auto) 91.5H, Lymphocytes (%) (Auto) 1.7L, Monocytes (%) (Auto) 6.1H, Eosinophils (%) (Auto) 0 .0, Basophils (%) (Auto) 0.1, Neutrophils # (Auto) 8.5H, Lymphocytes # (Auto) 0.2L, Monocytes # (Auto) 0.6, Eosinophils # (Auto) 0.0, Basophils # (Auto) 0.0, Nucleated Red Blood Cells % (auto) 0.0, Activated Partial Thromboplast Time 42.7H, Blood Gas Bicarbonate Standard 18.9L, Arterial Blood pH 7.385, Arterial Blood Partial Pressure CO2 29.5L, Arterial Blood Partial Pressure O2 70.7L, Arterial Blood Total CO2 18.2L, Arterial Blood HCO3 17.3L, Arterial Blood Base Excess -6.7L, Arterial Blood Oxygen Saturation 93.4L, Anion Gap 9, Glomerular Filtration Rate > 60.0, Blood Urea Nitrogen 40H, Creatinine 0.99, Sodium Level 146H, Potassium Level 5.2H, Chloride Level 117H, Carbon Dioxide Level 20L, Calcium Level 8.0#L, Phosphorus Level 4.8, Aspartate Amino Transf (AST/SGOT) 42H, Alanine Aminotransferase (ALT/SGPT) 26, Lactate Dehydrogenase 656H, Total Creatine Kinase 567H, Alkaline Phosphatase 66, Total Bilirubin 1.0, Triglycerides Level 116, Cholesterol Level 105, Total Protein 4.4L, Albumin 2.0L, Magnesium Level 2.4, Albumin/Globulin Ratio 0.83L, Digoxin Level 1.4 10/13/18 05:39: Activated Partial Thromboplast Time 41.9H 10/13/18 07:53: Activated Partial Thromboplast Time 40.5H 10/13/18 11:04: Activated Partial Thromboplast Time 40.9H 10/13/18 14:10: Activated Partial Thromboplast Time 42.8H CBC/BMP Laboratory Tests 10/12/18 18:33 10/13/18 04:51 Red Blood Count 2.75 L, Mean Corpuscular Volume 103.6 H, Mean Corpuscular Hemoglobin 34.2 H, Mean Corpuscular Hemoglobin Concent 33.0, Red Cell Distribution Width 23.3 H, Neutrophils (%) (Auto) 91.5 H, Lymphocytes (%) (Auto) 1.7 L, Monocytes (%) (Auto) 6.1 H, Eosinophils (%) (Auto) 0.0, Basophils (%) (Auto) 0.1, Neutrophils # (Auto) 8.5 H, Lymphocytes # (Auto) 0.2 L, Monocytes # (Auto) 0.6, Eosinophils # (Auto) 0.0, Basophils # (Auto) 0.0, Calcium Level 8.0 #L, Phosphorus Level 4.8, Aspartate Amino Transf (AST/SGOT) 42 H, Alanine Aminotransferase (ALT/SGPT) 26, Lactate Dehydrogenase 656 H, Total Creatine Kinase 567 H, Alkaline Phosphatase 66, Total Bilirubin 1.0, Triglycerides Level 116, Cholesterol Level 105, Total Protein 4.4 L, Albumin 2.0 L Microbiology Microbiology 10/08/18 Blood Fungal Culture, Received Pending 10/04/18 Blood Culture - Final, Complete NO GROWTH AFTER 5 DAYS 10/04/18 Blood Culture - Final, Complete NO GROWTH AFTER 5 DAYS 10/07/18 Stool Occult Blood (JOSE) - Final, Complete 10/10/18 Respiratory Virus Panel (PCR) (JOSE) - Final, Complete 10/08/18 Fungal Smear, Received Pending 10/08/18 Fungal Culture, Received Pending 10/06/18 Gram Stain - Final, Complete 10/06/18 Sputum Culture - Final, Complete Yeast Like Organism 10/04/18 Gram Stain - Final, Complete 10/04/18 Sputum Culture - Final, Complete Yeast Like Organism TI LO MD Oct 13, 2018 17:59
[2018-10-13] MEDS: PANTOPRAZOLE 40MG INJ (PROTONIX) (C9113) IV SCH (21:14)
[2018-10-13] MEDS: DIGOXIN INJ 0.5 MG/2 ML AMP (J1160) IV SCH (21:14)
[2018-10-13] MEDS: MOXIFLOXACIN HCL 400 MG in APPROPRIATE DILUENT 1 EA IV SCH (21:14)
--- NOTE | 2018-10-13 22:07 | CCN ---
DATE: 10/12/2018 Mr. Mccartney remains critically ill with multisystem organ failure. He remains intubated secondary to hypoxic respiratory failure due to moderate acute respiratory distress syndrome (ARDS) felt in part related to a chemical pneumonitis related to inhaled drugs and pulmonary hemorrhage. He had been on Levophed overnight but that was able to be weaned off around 05:30 this morning. He remains on high ventilatory pressures and requiring significant fraction of inspired oxygen (FiO2). A sedation holiday was not completed this morning as he became quite hypoxemic on any attempts to change his level of consciousness. He is making urine though it is blood tinged. No bowel movements. He did drop his hemoglobin another gram overnight without an obvious source of bleeding. He does have oral secretions that are frankly bloody. OBJECTIVE: PHYSICAL EXAMINATION: GENERAL: Mr. Mccartney is intubated and relatively synchronous with the ventilator. He occasionally uses abdominal muscles on exhalation. VITAL SIGNS: Temperature 97.9 with a maximum temperature (T-max) of 99.3. Respiratory rate in the mid 20s, pulse 88, blood pressure 82/53 with a mean arterial pressure (MAP) of 64, SPO2 89% to 90% on an FIO2 0.6. Minute ventilation is about 16-17. HEENT: Anicteric, pupils 2-3 mm on the right and reactive, 3-4 mm on the left and sluggish. Oropharynx: Endotracheal (ET) tube and orogastric (OG) tube in place, moist mucosa. NECK: Without thyromegaly or masses. Trachea is midline. No apparent jugular venous distention (JVD). LYMPHATICS: Without cervical or supraclavicular lymphadenopathy. LUNGS: Symmetric excursion, fair air entry with perhaps slightly decreased air entry at the left upper lung region. No wheeze, rhonchi or crackle. Prolonged expiratory phase. Occasional abdominal accessory muscle usage. No retractions. CARDIOVASCULAR: Regular rate and rhythm with a normal S1, S2. No murmur, rub or gallop appreciated. ABDOMEN: Positive bowel sounds, soft, nondistended. No hepatosplenomegaly or masses appreciated. EXTREMITIES: Right extremity is warm without clubbing or cyanosis, palpable pedal pulses, the left cooler than the right with dopplerable posterior tibialis pulse but unable to doppler the dorsalis pulse.. LABORATORY DATA: CBC from this morning showed a hemoglobin of 7.0, hematocrit 21.6, platelet count 62,000, and white blood cell count 10,800 with a differential of 89% neutrophils, 2% lymphocytes, and 8% monocytes. Reticulocyte 8.4%. Chemistries showed a sodium of 142, potassium 3.8, chloride 114, bicarbonate 19, anion gap 9, BUN 35, creatinine 1.0, glucose 149, calcium 6.9, magnesium 2.2, total bilirubin 0.9, AST 33, ALT 20, alkaline phosphatase 62, LDH 735, CK 639 (up from 289), CK-MB 6.7, CK 0.19, total protein 3.9 and albumin 1.8. INR 72.1. Arterial blood gas on SIMV with a rate of 16, tidal volume of 400, pressure support 20, and FIO2 0.6 was 7.38/32/87 with a measured saturation of 96% and a base excess of -2. Yesterday's intake and output showed 5126 in and 1370 out, making him positive 3756. Thus far today, 1430 in and 550 out, making him positive 880. Repeat prolactin from 10/09/2018 was 0.25. I reviewed his chest x-ray as well as the report from earlier today. That x-ray showed normal-appearing cardiac silhouette and pulmonary vascular shadows. There remained diffuse interstitial and alveolar infiltrates with relative sparing of the right upper lobe (place of significant emphysematous changes). No significant change compared to chest x-ray from yesterday. The report discusses a 17 mm nodule but there is no nodule present on the chest CT scan from earlier this admission. I suspect this may be infiltrate versus subsegmental atelectasis. I reviewed his abdominal pelvis CT scan report which showed no retroperitoneal hemorrhage. There was a small 2.5 cm subcapsular splenic hypodensity consistent with splenic hematoma that was not present on 10/04/2018. There is bilateral dependent interstitial infiltrates with tiny effusions. IMPRESSION: 1. Acute hypoxemic respiratory failure. He meets the criteria for moderate acute respiratory distress syndrome (ARDS) with a PaO2/FIO2 ratio of 145. Etiology is thought to be secondary to a chemical pneumonitis related to drug inhalation complicated by pulmonary hemorrhage. 2. Pulmonary hemorrhage, on systemic corticosteroids. 3. Anemia. It is not clear where the blood loss is coming from but I suspect it is multifactorial. I suspect some of this is secondary to pulmonary hemorrhage and upper airway bleed. Some is also likely related to the subcapsular splenic hematoma as well as some urinary loss. Differential would still include homolysis, some dilutional, or other. He does not appear to have a gastrointestinal (GI) bleed given that he has had no bowel movements which if he was bleeding should be cathartic. Additionally, his nasogastric (NG) tube output is clear. 4. Subcapsular hematoma. 5. Arterial vascular disease, on argatroban, followed by vascular surgery. 6. Thrombocytopenia. Heparin-induced antibodies still pending. This may also be secondary to bone marrow suppression and/or consumption. 7. Mental status changes. Just prior to intubation, he was described as being agitated. The reason is not clear. He was not hypercapnic or hypotensive. 8. Elevated creatine kinase (CK). No evidence of compartment syndrome on examination. I question if this may be in part secondary to his ischemic left lower extremity. His CK-MB shows cardiac not to be the primary source. 9. Red urine, this is probably secondary to his anticoagulation. We will send a urinalysis. 10. Nutrition. He did not tolerate tube feeds. We will give at least a banana bag today so he receives thiamin, folate and a multivitamin. We will try to reintroduce tube feeds at a lower rate. 11. Deep vein thrombosis (DVT) prophylaxis, fully anticoagulated with argatroban. 12. GI prophylaxis, on proton pump inhibitor. 13. Infectious disease (ID), on Avelox, followed by infectious disease. RECOMMENDATIONS: 1. We will obtain a head CT, abdominal and pelvic CT (these results dictated above). 2. Dr. Coleman's service aware of this splenic subcapsular bleed. 3. At the present time, we will follow clinically. If his hemoglobin drops significantly, we will rescan to see whether or not that bleed has expanded. If it does, we will let Dr. Coleman's service know for consideration of interventional radiology. 4. We will change to a lung protective strategy. I suspect that his FIO2 needs may go up initially but I am concerned with the number of synchronized intermittent mandatory ventilation (SIMV) rests that he has taken that are 900 mL to 1100 mL. If he does not tolerate a change to controlled fashion, we will change him to pressure support so that he will likely be more synchronous versus the SIMV mode. 5. We will check a urinalysis to see how many red blood cell (RBCs) are present. 6. We will give a banana bag today to make certain that he gets his thiamine, folate and multivitamin. 7. We will reintroduce tube feeds but if he still does not tolerate then we will need to consider total parenteral nutrition (TPN) tomorrow. 8. Appreciate input of the consulting services. PROGNOSIS: Guarded. CRITICAL CARE TIME: 2 hours, not including procedure time. JEREMY
[2018-10-14] VITALS (22 sets, daily range): BP systolic 92–172; BP diastolic 56–91; O2SAT 90
[2018-10-14] MEDS: methylPREDNISolone INJ 125 MG/2 ML VIAL (J2930) IV SCH ×2 (00:08→08:53)
[2018-10-14] MEDS: IPRATROPIUM 0.5MG/ALBUTEROL 2.5MG INH SOL UD 3ML (DUONEB)(J7620) NEB SCH ×6 (00:15→20:21)
[2018-10-14] MEDS: NS 0.45% 1,000 ML IV SCH ×3 (01:33→20:06)
[2018-10-14] MEDS: PROPOFOL 1,000 MG in APPROPRIATE DILUENT 1 EA IV SCH (02:27)
[2018-10-14] MEDS: METOCLOPRAMIDE INJ 10MG/2ML VIAL (J2765) IV SCH ×4 (03:32→21:23)
[2018-10-14] MEDS: SODIUM CHLORIDE 0.9% INJ 10 ML SYR IV SCH ×2 (05:07→18:25)
[2018-10-14 05:31] LABS: HEMATOCRIT 29.5 % (42.0-52.0); HEMOGLOBIN 9.3 g/dl (13.5-17.5); LYMPH % 1.7 % (24.0-44.0); MEAN CORPUSCULAR HEMOGLOBIN 33.2 pg (27.0-33.0); MEAN CORPUSCULAR HGB CONC 31.5 g/dl (32.0-36.5); MEAN CORPUSCULAR VOLUME 105.4 fl (80.0-96.0); MONO # 0.5 10^3/uL (0.0-0.8); MONO % 5.1 % (0.0-5.0); NEUTROPHILS # 8.4 10^3/uL (1.8-7.7); NEUTROPHILS % 92.6 % (36.0-66.0); WHITE BLOOD COUNT 9.1 10^3/uL (4.0-10.0)
[2018-10-14 05:40] LABS: ABG BASE EXCESS -5.8 (-2.0-2.0); ABG HCO3 19.4 MEQ/L (22.0-26.0); ABG O2 SATURATION 94.4 % (95.0-99.0); ABG PARTIAL PRESSURE CO2 36.9 mmHg (35.0-45.0); ABG PARTIAL PRESSURE O2 79.9 mmHg (75.0-100.0); ABG STANDARD HCO3 19.6 MEQ/L (22.0-26.0); ABG TOTAL CO2 20.5 MEQ/L (23.0-31.0); ABG pH (ARTERIAL) 7.339 UNITS (7.350-7.450)
[2018-10-14 05:44] LABS: LYMPH # 0.2 10^3/uL (1.5-4.5); PLATELET COUNT, AUTOMATED 94 10^3/uL (150-450)
[2018-10-14 06:13] LABS: ALT/SGPT 29 U/L (12-78); BILIRUBIN,TOTAL 0.9 MG/DL (0.2-1.0); BLOOD UREA NITROGEN 44 MG/DL (7-18); CALCIUM LEVEL 7.9 MG/DL (8.8-10.2); CARBON DIOXIDE LEVEL 23 MEQ/L (21-32); CHLORIDE LEVEL 118 MEQ/L (98-107); CHOLESTEROL LEVEL 119 MG/DL (< 200); CPK CREATINE PHOSPHOKINASE 516 U/L (39-308); CREATININE FOR GFR 0.81 MG/DL (0.70-1.30); GLOMERULAR FILTRATION RATE > 60.0 (>49); GLUCOSE, FASTING 147 MG/DL (70-100); LDH LACTATE DEHYDROGENASE 588 U/L (87-241); MAGNESIUM LEVEL 2.4 MG/DL (1.8-2.4); PHOSPHORUS LEVEL 4.6 MG/DL (2.5-4.9); POTASSIUM SERUM 5.2 MEQ/L (3.5-5.1); SODIUM LEVEL 148 MEQ/L (136-145); TOTAL PROTEIN 4.5 GM/DL (6.4-8.2); TRIGLYCERIDES LEVEL 118 MG/DL (<150)
--- NOTE | 2018-10-14 07:29 | REP ---
Portable chest, 06:53 a.m., single AP view with the patient semi upright: Comparison is the 2018. The diffuse bilateral interstitial and alveolar infiltrates have slightly improved. There are no pleural effusions. Cardiac size remains normal. The endotracheal tube, nasogastric tube and right upper extremity PICC line remain in satisfactory positions, unchanged. Impression: Improving bilateral interstitial and alveolar infiltrates. Electronically Signed by Jose Kwon MD 10/14/2018 07:20 A
[2018-10-14] MEDS: CHLORHEXIDINE GLUCONATE 0.12 % 15ML UDC (PERIDEX ORAL RINSE) MT SCH ×2 (08:53→21:22)
[2018-10-14] MEDS: MOM 30ML SUSPENSION UDC NG SCH ×2 (09:00→21:00)
[2018-10-14] MEDS: BISACODYL 10 MG SUPP PR SCH ×2 (09:00→21:00)
--- NOTE | 2018-10-14 10:00 | IPNPDOC ---
Date Seen The patient was seen on 10/14/18. Progress Note Vascular Surgery Dr Coleman HPI: 63year oldM admitted to ICU with acute respiratory failure. The pt remains intubated/ventilated. This pt was noted to have a cool LLE and pulses not able to be obtained with Doppler. The pt is known to have h/o PAD and Vascular Surgery was called to further asses. PE: GEN: 63yoM. /IntubatedVentilated HEENT: Normocephalic, atraumatic. CHEST: Regular rate and rhythm, +S1, +S2 ABD: flat, soft, non-tender, non-distended. EXT: The LLE is warm to touch with no discoloration this am. No wounds or skin breakdown. DP/PT Pulses are not palpable and monophasic PT/DP obtained with Doppler at this time. LLE arterial US Findings: No brachial index could not be accomplished due to patient movement. Apparently, the patient's the patient was restless during exam interrupting it repeatedly. Moderate to severe plaquing is seen from the common femoral artery to the foot of the left lower extremity. A portion of the proximal profunda artery is occluded with distal revascularization. The mid superficial femoral artery is felt to be occluded with distal revascularization. Waveforms below the distal femoral artery is less than at all pulsatile characteristics and is quite slow. The profunda femoral artery occlusion appears to be new. A&P: 1. PAD with LLE ischemia. The pt is reviewed and examined as per Dr Coleman. Arterial US is reviewed with Dr Coleman, profunda femoral artery occlusion appears to be new. Continue with bear hugger to LLE. Plt noted to be 94, avoid heparin related to thrombocytopenia. Hgb 9.3. S/P 2 u PRBC 10/12/18. Hgb stable at this time. CTH with embolic CVA. Neurology consulted. CT A/P with 2.5cm subcapsular splenic hematoma. Continue AC with argotroban IV. Monitor PTT. The pt is reviewed and examined as per Dr Coleman. The pt is noted to be critically ill with multiple medical concerns, would be a high risk surgical candidate. No additional intervention recommended from vascular standpoint at th is time. Continue to monitor. Continue to asses for possible bleeding. 2. Anemia. primary team managing. 2 u PRBC 10/12/18. VS, I&O, 24H, [facility] Vital Signs/I&O Vital Signs Date Time Temp Pulse Resp B/P (MAP) Pulse Ox O2 Delivery O2 Flow Rate FiO2 10/14/18 09:00 101 32 139/76 (97) 94 10/14/18 08:00 45 10/14/18 08:00 97.8 10/13/18 15:35 Ventilator 10/11/18 00:15 100.0 I&O- Last 24 Hours up to 6 AM 10/14/18 06:00 Intake Total 2311.7 ml Output Total 1405 ml Balance 906.7 ml Laboratory Data 24H LABS Laboratory Tests 2 10/13/18 11:04: Activated Partial Thromboplast Time 40.9H 10/13/18 14:10: Activated Partial Thromboplast Time 42.8H 10/13/18 18:14: Activated Partial Thromboplast Time 43.2H 10/13/18 21:23: Activated Partial Thromboplast Time 43.6H 10/14/18 00:01: Activated Partial Thromboplast Time 55.7H 10/14/18 02:51: Activated Partial Thromboplast Time 57.5H 10/14/18 05:13: Immature Granulocyte % (Auto) 0.6, White Blood Count 9.1, Red Blood Count 2.80L, Hemoglobin 9.3L, Hematocrit 29.5L, Mean Corpuscular Volume 105.4H, Mean Corpuscular Hemoglobin 33.2H, Mean Corpuscular Hemoglobin Concent 31.5L, Red Cell Distribution Width 23.0H, Platelet Count 94L, Neutrophils (%) (Auto) 92.6H, Lymphocytes (%) (Auto) 1.7L, Monocytes (%) (Auto) 5.1H, Eosinophils (%) (Auto) 0.0, Basophils (%) (Auto) 0.0, Neutrophils # (Auto) 8.4H, Lymphocytes # (Auto) 0.2L, Monocytes # (Auto) 0.5, Eosinophils # (Auto) 0.0, Basophils # (Auto) 0.0, Nucleated Red Blood Cells % (auto) 0.0, Immature Platelet Fraction 2.1, Anion Gap 7L, Glomerular Filtration Rate > 60.0, Blood Urea Nitrogen 44H, Creatinine 0.81, Sodium Level 148H, Potassium Level 5.2H, Chloride Level 118H, Carbon Dioxide Level 23, Calcium Level 7.9L, Phosphorus Level 4.6, Aspartate Amino Transf (AST/SGOT) 43H, Alanine Aminotransferase (ALT/SGPT) 29, Lactate Dehydrogenase 588H, Total Creatine Kinase 516H, Alkaline Phosphatase 60, Total Bilirubin 0.9, Triglycerides Level 118, Cholesterol Level 119, Total Protein 4.5L, Albumin 2.0L, Magnesium Level 2.4, Albumin/Globulin Ratio 0.80L 10/14/18 05:32: Blood Gas Bicarbonate Standard 19.6L, Arterial Blood pH 7.339L, Arterial Blood Partial Pressure CO2 36.9, Arterial Blood Partial Pressure O2 79.9, Arterial Blood Total CO2 20.5L, Arterial Blood HCO3 19.4L, Arterial Blood Base Excess - 5.8L, Arterial Blood Oxygen Saturation 94.4L CBC/BMP Laboratory Tests 10/14/18 05:13 Red Blood Count 2.80 L, Mean Corpuscular Volume 105.4 H, Mean Corpuscular Hemoglobin 33.2 H, Mean Corpuscular Hemoglobin Concent 31.5 L, Red Cell Distribution Width 23.0 H, Neutrophils (%) (Auto) 92.6 H, Lymphocytes (%) (Auto) 1.7 L, Monocytes (%) (Auto) 5.1 H, Eosinophils (%) (Auto) 0.0, Basophils (%) (Auto) 0.0, Neutrophils # (Auto) 8.4 H, Lymphocytes # (Auto) 0.2 L, Monocytes # (Auto) 0.5, Eosinophils # (Auto) 0.0, Basophils # (Auto) 0.0, Calcium Level 7.9 L, Phosphorus Level 4.6, Aspartate Amino Transf (AST/SGOT) 43 H, Alanine Aminotransferase (ALT/SGPT) 29, Lactate Dehydrogenase 588 H, Total Creatine Kinase 516 H, Alkaline Phosphatase 60, Total Bilirubin 0.9, Triglycerides Level 118, Cholesterol Level 119, Total Protein 4.5 L, Albumin 2.0 L Microbiology Microbiology 10/08/18 Blood Fungal Culture, Received Pending 10/04/18 Blood Culture - Final, Complete NO GROWTH AFTER 5 DAYS 10/04/18 Blood Culture - Final, Complete NO GROWTH AFTER 5 DAYS 10/07/18 Stool Occult Blood (JOSE) - Final, Complete 10/10/18 Respiratory Virus Panel (PCR) (JOSE) - Final, Complete 10/08/18 Fungal Smear, Received Pending 10/08/18 Fungal Culture, Received Pending 10/06/18 Gram Stain - Final, Complete 10/06/18 Sputum Culture - Final, Complete Yeast Like Organism 10/04/18 Gram Stain - Final, Complete 10/04/18 Sputum Culture - Final, Complete Yeast Like Organism Svitlana Jimenez Oct 14, 2018 10:00
--- NOTE | 2018-10-14 14:54 | CCN ---
CRITICAL CARE PROGRESS NOTE: DATE: 10/14/2018 SUBJECTIVE: Patient examined at bedside. No reported issues overnight. He remains sedated and intubated. Was unable to tolerate tube feeds into this morning with almost all of his orogastric (OG) input removed on residual check. He is difficult to arouse when given sedation holiday this morning. Not making any purposeful movements or withdrawing to pain. He is being weaned down on his ventilator settings and appears to be saturating well this morning. PHYSICAL EXAMINATION: VITAL SIGNS: Temperature 97.8, pulse 97, respirations 22, blood pressure (BP) 167/87, mean arterial pressure (MAP) of 113, pulse oximetry 95% on mechanical ventilator with an FiO2 of 45. Intake and output: 1731 intake, 1430 output with a balance of +301. Weight is at 72 kg this morning, up from 65 kg on admission. GENERAL: Lying in bed. No acute distress. Is sedated and intubated. Resting comfortably. HEENT: Normocephalic, atraumatic. There is scleral edema present with pale conjunctivae bilaterally, dilated pupils around 4-5 mm without any visible conjunctival hemorrhage. Pupils equal, round, reactive to light. Patient has an endotracheal and orogastric tube in place. NECK: Supple without noticeable jugular venous distention (JVD). Trachea is midline. CARDIAC: Regular rate and rhythm without any clicks, gallops, murmurs. Normal S1, S2. LUNGS: Patient is intubated on ventilator with equal and clear breath sounds throughout. No wheezes, rhonchi, or rales. Equal chest rise bilaterally. No accessory muscle use. ABDOMEN: Hypoactive bowel sounds, soft. Negative Mckinney Davis's and Wingate's sign. No appreciable abdominal masses. GENITOURINARY: Rodriguez in place with dark yellow urine with scant blood. EXTREMITIES: Left lower extremity under Audra Hugger. Decreased pulses throughout. No peripheral edema. NEUROLOGIC: Remains sedated and intubated. Unable to move any of his extremities or interact, even hours after propofol has been turned off. LABORATORY DATA: WBC 9.1, hemoglobin and hematocrit 9.3 and 29.5, platelets 94. Sodium and potassium 140 and 5.2, chloride and bicarbonate 118 and 23, BUN and creatinine 44 and 0.8, magnesium and phosphorus 2.4 and 4.6. AST and ALT 34 and 29. LDH decreased at 588. CPK down to 516. Albumin low at 2. ABG this morning: A pH 7.339, pCO2 of 36.9, bicarbonate 19.4, pO2 of 79.9. Peripheral smear read as chronic macrocytic anemia with 2+ anisocytosis, mild leukocytosis of neutrophilia, minimal monocytosis, mild lymphopenia, likely reactive. No blast forms identified, and there is thrombocytopenia. Chest x-ray this morning is noted to be improved with decreased haziness throughout. There are no pleural effusions, and cardiac silhouette appears normal. Endotracheal (ET) tube, OG tube, and peripherally inserted central catheter (PICC) line in place. IMPRESSION: 1. Acute respiratory failure secondary to likely pulmonary hemorrhage, chronic obstructive pulmonary disease (COPD) exacerbation, and inhalation toxicity. 2. 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 3. Left lower extremity ischemia in setting of severe peripheral arterial disease. 4. Acute blood loss anemia status post 6 units transfused with a subcapsular splenic bleed and likely pulmonary hemorrhage and possible gastrointestinal (GI) bleed. 5. Malnutrition, unable to tolerate tube feeds and in setting of cirrhosis and low albumin. PLAN: Respiratory-zavala, Mr. Mccartney does appear to be improving this morning with reassuring chest x-ray and arterial blood gas (ABG) as well as maintaining his saturations when being weaned off of the ventilator this morning. We have switched him over to pressure support of 10, FiO2 of 45, positive end-expiratory pressure (PEEP) 6, and he is continuing to maintain oxygen saturations of 95-96. He has been on 11 days of high-dose steroids as well as 11 days of antibiotics. We will discontinue these as patient is afebrile with normal white count and is improving. Will taper down his steroids. His stroke has been discussed with vascular surgery and neurology, who are in agreement to continue his argatroban. Luckily, his hemoglobin and hematocrit are stable this morning. His baseline hemoglobin is around 12-13. He is status post 6 units transfused during his hospitalization. Continue monitoring his hemoglobin and hematocrit. If it declines again, will consider re-imaging his abdomen to reassess his splenic bleed. Maintain hgb>7. Will also add in bowel regimen so that we can assess his stools for additional signs of GI bleed. It appears he has not had any bowel movement in quite some time. We will aim to hopefully extubate him today or tomorrow if he continues to improve. Ischemic leg is being managed by vascular surgery. The other concern is his nutrition status. He has failed tube feeds for the past 3 days. We will reattempt today at a slower rate and hope that he will be able to tolerate oral if he does become successfully extubated in the near future. Continue GI prophylaxis with intravenous (IV) Protonix. Mr. Mccartney has a very guarded prognosis; however, we are hopeful that his respiratory status will continue to improve gradually. Should he survive this hospitalization, he will require significant support. We will reach out PFS to assist with this. Appreciate all other consultants on board. 1hr 40minutes of critical care time was spent, excluding all procedures. My faculty preceptor for this patient encounter was physically present during the encounter and was fully available. All aspects of the patient interview, examination, medical decision making process, and medical care plan development were reviewed and approved by the faculty preceptor. The faculty preceptor is aware and concurs with the plan as stated in the body of this note and will attest to such by his/her co-signature. JEREMY
[2018-10-14] MEDS: MIDAZOLAM INJ 2 MG/2 ML VIAL (J2250) IV PRN ×3 (16:15→21:03)
[2018-10-14] MEDS: ARGATROBAN 250 MG/250ML for non-ESRD patients IV SCH ×2 (16:37)
[2018-10-14] MEDS ORDERED: methylPREDNISolone INJ 40 MG/1 ML VIAL (J2920) IV SCH (21:00)
[2018-10-14] MEDS: ACETAMINOPHEN 325 MG/10.15 ML UDC GT PRN ×2 (21:23→22:44)
[2018-10-14] MEDS: PANTOPRAZOLE 40MG INJ (PROTONIX) (C9113) IV SCH (21:23)
[2018-10-14] MEDS: DIGOXIN INJ 0.5 MG/2 ML AMP (J1160) IV SCH (21:23)
[2018-10-15] VITALS (25 sets, daily range): BP systolic 106–174; BP diastolic 61–87; O2SAT 85–94
[2018-10-15] MEDS: IPRATROPIUM 0.5MG/ALBUTEROL 2.5MG INH SOL UD 3ML (DUONEB)(J7620) NEB SCH ×7 (00:28→23:33)
[2018-10-15] MEDS: MIDAZOLAM INJ 2 MG/2 ML VIAL (J2250) IV PRN (01:25)
[2018-10-15] MEDS: MORPHINE 4 MG/ML 1ML VIAL/SYRINGE (J2270) IV PRN (01:27)
[2018-10-15] MEDS: METOCLOPRAMIDE INJ 10MG/2ML VIAL (J2765) IV SCH ×4 (04:13→21:10)
[2018-10-15 05:10] LABS: ABG BASE EXCESS -1.1 (-2.0-2.0); ABG HCO3 21.7 MEQ/L (22.0-26.0); ABG PARTIAL PRESSURE CO2 29.7 mmHg (35.0-45.0); ABG PARTIAL PRESSURE O2 63.4 mmHg (75.0-100.0); ABG STANDARD HCO3 23.5 MEQ/L (22.0-26.0); ABG TOTAL CO2 22.6 MEQ/L (23.0-31.0); ABG pH (ARTERIAL) 7.482 UNITS (7.350-7.450)
[2018-10-15 05:33] LABS: BASO % 0.1 % (0.0-1.0); HEMATOCRIT 28.4 % (42.0-52.0); HEMOGLOBIN 9.2 g/dl (13.5-17.5); LYMPH # 0.5 10^3/uL (1.5-4.5); LYMPH % 3.1 % (24.0-44.0); MEAN CORPUSCULAR HEMOGLOBIN 33.7 pg (27.0-33.0); MEAN CORPUSCULAR HGB CONC 32.4 g/dl (32.0-36.5); MONO # 1.2 10^3/uL (0.0-0.8); MONO % 7.3 % (0.0-5.0); NEUTROPHILS # 14.7 10^3/uL (1.8-7.7); NEUTROPHILS % 88.4 % (36.0-66.0); PLATELET COUNT, AUTOMATED 110 10^3/uL (150-450); RED BLOOD COUNT 2.73 10^6/uL (4.30-6.10); WHITE BLOOD COUNT 16.7 10^3/uL (4.0-10.0)
[2018-10-15 06:00] LABS: ALT/SGPT 41 U/L (12-78); BILIRUBIN,TOTAL 1.2 MG/DL (0.2-1.0); BLOOD UREA NITROGEN 46 MG/DL (7-18); CALCIUM LEVEL 7.7 MG/DL (8.8-10.2); CARBON DIOXIDE LEVEL 25 MEQ/L (21-32); CHLORIDE LEVEL 115 MEQ/L (98-107); CHOLESTEROL LEVEL 123 MG/DL (< 200); CPK CREATINE PHOSPHOKINASE 484 U/L (39-308); CREATININE FOR GFR 0.75 MG/DL (0.70-1.30); GLOMERULAR FILTRATION RATE > 60.0 (>49); GLUCOSE, FASTING 123 MG/DL (70-100); LDH LACTATE DEHYDROGENASE 533 U/L (87-241); PHOSPHORUS LEVEL 2.9 MG/DL (2.5-4.9); POTASSIUM SERUM 4.9 MEQ/L (3.5-5.1); SODIUM LEVEL 146 MEQ/L (136-145); TOTAL PROTEIN 4.4 GM/DL (6.4-8.2); TRIGLYCERIDES LEVEL 114 MG/DL (<150)
[2018-10-15 06:01] LABS: ALBUMIN 2.1 GM/DL (3.2-5.2); DIGOXIN LEVEL 1.3 NG/ML (0.5-2.0); MAGNESIUM LEVEL 2.2 MG/DL (1.8-2.4)
[2018-10-15] MEDS: SODIUM CHLORIDE 0.9% INJ 10 ML SYR IV SCH ×2 (06:39→18:02)
[2018-10-15] MEDS ORDERED: FUROSEMIDE 40 MG/4 ML VIAL (J1940) IV ONE ×2 (08:30→16:00)
[2018-10-15] MEDS: MOM 30ML SUSPENSION UDC NG SCH ×2 (09:00→20:10)
[2018-10-15] MEDS: BISACODYL 10 MG SUPP PR SCH ×2 (09:00→21:10)
--- NOTE | 2018-10-15 10:19 | REP ---
Portable chest, 06:57 a.m., single AP view with the patient upright: Comparison is 10/14/2018. The diffuse bilateral interstitial and alveolar infiltrates demonstrate focal increasing density peripherally in the left lung. There is no other interval change. There are no pleural effusions. The cardiac size is normal. The endotracheal tube, nasogastric tube and right upper extremity PICC line are all in satisfactory locations, unchanged. Impression: Focal increasing density peripherally in the left lung, otherwise, diffuse bilateral infiltrates are unchanged. Electronically Signed by Jose Kwon MD 10/15/2018 10:11 A
--- NOTE | 2018-10-15 10:33 | IPNPDOC ---
Subjective Date Seen The patient was seen on 10/15/18. Subjective Chief Complaint/HPI Patient response to painful stimuli. He is moving his right arm and leg, still intubated and on vent support General: Reports: ROS Unobtainable Objective Physical Examination General Exam: Positive: Other (sedated and intubated. ) Eye Exam: Positive: Sclera icteric ENT Exam: Positive: Mucous membr. moist/pink, Other ENT (. ETT in place) Neck Exam: Positive: Supple Chest Exam: Positive: Other (. Harsh clear breath sounds. No rales, rhonchi or crackles) Heart Exam: Positive: Tachycardic, Regular Rhythm, Normal S1, Normal S2 Telemetry: Positive: Sinus, Tachycardia Abdomen Exam: Positive: Soft Extremity Exam: Positive: Edema (trace edema), Other (No dorsalis pedis and no posterior tibial pulse by doppler on the left leg) Skin Exam: Positive: Nl turgor and temperature Neuro Exam: Positive: Other (. Patient is responsive to painful stimuli but unable to perform neuro exam) Psych Exam: Positive: Other (can not determine as patient is intubated) Assessment /Plan Problems (1) Acute respiratory failure with hypoxemia Status: Acute Problem Text: Causes including copd exacerbation,likely chemical pneumonitis.Antibiotics have been d/jax,including voriconazole per ID recommendations.Pt remains intubated. Possible extubation today Oxygen support Supportive care (2) Acute embolic stroke Problem Text: CT head on 10/12/18:Abnormal low density area on the right as described above. Infarction is suspected.Neurology following.Continue Argatroban Supportive care (3) Ischemic leg Problem Text: There is occlusion in the left profunda femoris artery,also occlusion in superficial femoral artery. On argatroban as has low platelets so could not get heparin.Vascular following.On argatroban (4) Thrombocytopenia Problem Text: Multifactorial.No longer on heparin,now on Argatroban.Will continue to monitor (5) COPD with acute exacerbation Status: Acute Problem Text: On duo-neb,solumedrol iv (6) Hypotension Problem Text: Patient has been on pressors.However today pressors were d/jax as MAP was >65,will continue to monitor (7) PAF (paroxysmal atrial fibrillation) Problem Text: Rate controlled.Not on heparin as patient was noted with thro mbocytopenia,he is now on Argatroban (8) PAD (peripheral artery disease) Problem Text: with claudication -s/p abdominal aortic stents and bilateral leg disease Now with acute left leg ischemia. (9) CAD (coronary artery disease) Problem Text: On aspirin (10) CHF (congestive heart failure) Status: Chronic Problem Text: No evidence of fluid overload,will closely monitor (11) Alcoholism Status: Chronic Problem Text: On thiamine,folic acid - banana bag given today Plan/VTE VTE Prophylaxis Ordered?: Yes (On Argatroban) Plan Anticipated Discharge: Other Anticipated D/C (Poor prognosis,still intubated.) VS, I&O, 24H, Fishbone Vital Signs/I&O Vital Signs Date Time Temp Pulse Resp B/P (MAP) Pulse Ox O2 Delivery O2 Flow Rate FiO2 10/15/18 08:55 60 10/15/18 07:15 76 20 89 10/15/18 04:30 Ventilator 10/15/18 04:00 153/75 (101) 10/14/18 23:00 99.8 10/11/18 00:15 100.0 I&O- Last 24 Hours up to 6 AM 10/15/18 06:00 Intake Total 2114.6 ml Output Total 2350 ml Balance -235.4 ml Laboratory Data 24H LABS Laboratory Tests 2 10/15/18 04:54: Blood Gas Bicarbonate Standard 23.5, Arterial Blood pH 7.482H, Arterial Blood Partial Pressure CO2 29.7L, Arterial Blood Partial Pressure O2 63.4L, Arterial Blood Total CO2 22.6L, Arterial Blood HCO3 21.7L, Arterial Blood Base Excess - 1.1, Arterial Blood Oxygen Saturation 92.0L 10/15/18 05:05: Immature Granulocyte % (Auto) 1.1, White Blood Count 16.7H, Red Blood Count 2.73L, Hemoglobin 9.2L, Hematocrit 28.4L, Mean Corpuscular Volume 104.0H, Mean Corpuscular Hemoglobin 33.7H, Mean Corpuscular Hemoglobin Concent 32.4, Red Cell Distribution Width 22.2H, Platelet Count 110L, Neutrophils (%) (Auto) 88.4H, Lymphocytes (%) (Auto) 3.1L, Monocytes (%) (Auto) 7.3H, Eosinophils (%) (Auto) 0.0, Basophils (%) (Auto) 0.1, Neutrophils # (Auto) 14.7H, Lymphocytes # (Auto) 0.5L, Monocytes # (Auto) 1.2H, Eosinophils # (Auto) 0.0, Basophils # (Auto) 0.0, Nucleated Red Blood Cells % (auto) 0.0, Anion Gap 6L, Glomerular Filtration Rate > 60.0, Blood Urea Nitrogen 46H, Creatinine 0.75, Sodium Level 146H, Potassium Level 4.9, Chloride Level 115H, Carbon Dioxide Level 25, Calcium Level 7.7L, Phosphorus Level 2.9#, Aspartate Amino Transf (AST/SGOT) 46H, Alanine Aminotransferase (ALT/SGPT) 41, Lactate Dehydrogenase 533H, Total Creatine Kinas e 484H, Alkaline Phosphatase 65, Total Bilirubin 1.2H, Triglycerides Level 114, Cholesterol Level 123, Total Protein 4.4L, Albumin 2.1L, Magnesium Level 2.2, Albumin/Globulin Ratio 0.91L, Digoxin Level 1.3 CBC/BMP Laboratory Tests 10/15/18 05:05 Red Blood Count 2.73 L, Mean Corpuscular Volume 104.0 H, Mean Corpuscular Hemoglobin 33.7 H, Mean Corpuscular Hemoglobin Concent 32.4, Red Cell Distribution Width 22.2 H, Neutrophils (%) (Auto) 88.4 H, Lymphocytes (%) (Auto) 3.1 L, Monocytes (%) (Auto) 7.3 H, Eosinophils (%) (Auto) 0.0, Basophils (%) (Auto) 0.1, Neutrophils # (Auto) 14.7 H, Lymphocytes # (Auto) 0.5 L, Monocytes # (Auto) 1.2 H, Eosinophils # (Auto) 0.0, Basophils # (Auto) 0.0, Calcium Level 7.7 L, Phosphorus Level 2.9 #, Aspartate Amino Transf (AST/SGOT) 46 H, Alanine Aminotransferase (ALT/SGPT) 41, Lactate Dehydrogenase 533 H, Total Creatine Kinase 484 H, Alkaline Phosphatase 65, Total Bilirubin 1.2 H, Triglycerides Level 114, Cholesterol Level 123, Total Protein 4.4 L, Albumin 2.1 L Microbiology Microbiology 10/08/18 Blood Fungal Culture, Received Pending 10/07/18 Stool Occult Blood (JOSE) - Final, Complete 10/10/18 Respiratory Virus Panel (PCR) (JOSE) - Final, Complete 10/08/18 Fungal Smear, Received Pending 10/08/18 Fungal Culture, Received Pending 10/06/18 Gram Stain - Final, Complete 10/06/18 Sputum Culture - Final, Complete Yeast Like Organism BELIA FRANCOIS MD Oct 15, 2018 10:33
[2018-10-15] MEDS: ARGATROBAN 250 MG/250ML for non-ESRD patients IV SCH ×4 (14:59→17:59)
[2018-10-15] MEDS ORDERED: DILUENT IV SCH (16:00)
[2018-10-15] MEDS ORDERED: ARGATROBAN IV SCH (16:00)
[2018-10-15] MEDS: PANTOPRAZOLE 40MG INJ (PROTONIX) (C9113) IV SCH (21:09)
[2018-10-15] MEDS: DIGOXIN INJ 0.5 MG/2 ML AMP (J1160) IV SCH (21:10)
[2018-10-16] VITALS (27 sets, daily range): BP systolic 98–158; BP diastolic 62–85; O2SAT 91–94
[2018-10-16] MEDS: IPRATROPIUM 0.5MG/ALBUTEROL 2.5MG INH SOL UD 3ML (DUONEB)(J7620) NEB SCH ×5 (04:00→19:45)
[2018-10-16] MEDS: ARGATROBAN 250 MG/250ML for non-ESRD patients IV SCH ×4 (04:22→21:57)
[2018-10-16] MEDS: METOCLOPRAMIDE INJ 10MG/2ML VIAL (J2765) IV SCH ×4 (04:22→21:57)
[2018-10-16] MEDS: SODIUM CHLORIDE 0.9% INJ 10 ML SYR IV SCH ×2 (04:22→18:50)
[2018-10-16 04:44] LABS: BASO % 0.1 % (0.0-1.0); EOS # 0.1 10^3/uL (0.0-0.50); EOS % 0.7 % (0.0-3.0); HEMATOCRIT 29.4 % (42.0-52.0); HEMOGLOBIN 9.5 g/dl (13.5-17.5); LYMPH # 0.7 10^3/uL (1.5-4.5); MEAN CORPUSCULAR HEMOGLOBIN 33.6 pg (27.0-33.0); MEAN CORPUSCULAR HGB CONC 32.3 g/dl (32.0-36.5); MEAN CORPUSCULAR VOLUME 103.9 fl (80.0-96.0); MONO # 0.8 10^3/uL (0.0-0.8); MONO % 6.4 % (0.0-5.0); NEUTROPHILS # 10.3 10^3/uL (1.8-7.7); NEUTROPHILS % 85.8 % (36.0-66.0); PLATELET COUNT, AUTOMATED 104 10^3/uL (150-450); RED BLOOD COUNT 2.83 10^6/uL (4.30-6.10)
[2018-10-16 05:18] LABS: ALBUMIN 2.1 GM/DL (3.2-5.2); ALT/SGPT 49 U/L (12-78); BLOOD UREA NITROGEN 39 MG/DL (7-18); CALCIUM LEVEL 7.7 MG/DL (8.8-10.2); CARBON DIOXIDE LEVEL 30 MEQ/L (21-32); CHLORIDE LEVEL 110 MEQ/L (98-107); CHOLESTEROL LEVEL 130 MG/DL (< 200); CPK CREATINE PHOSPHOKINASE 359 U/L (39-308); CREATININE FOR GFR 0.65 MG/DL (0.70-1.30); GLOMERULAR FILTRATION RATE > 60.0 (>49); GLUCOSE, FASTING 102 MG/DL (70-100); LDH LACTATE DEHYDROGENASE 556 U/L (87-241); MAGNESIUM LEVEL 1.9 MG/DL (1.8-2.4); PHOSPHORUS LEVEL 3.4 MG/DL (2.5-4.9); POTASSIUM SERUM 4.1 MEQ/L (3.5-5.1); SODIUM LEVEL 146 MEQ/L (136-145); TOTAL PROTEIN 4.6 GM/DL (6.4-8.2); TRIGLYCERIDES LEVEL 160 MG/DL (<150)
[2018-10-16] MEDS: BISACODYL 10 MG SUPP PR SCH ×2 (08:31→21:00)
[2018-10-16] MEDS: FUROSEMIDE 40 MG/4 ML VIAL (J1940) IV SCH (08:31)
--- NOTE | 2018-10-16 08:51 | IPNPDOC ---
Subjective Date Seen The patient was seen on 10/16/18. Subjective Chief Complaint/HPI Patient is on a BiPAP follow simple commands with his right side of body, in no apparent distress General: Reports: ROS Unobtainable Objective Physical Examination General Exam: Positive: Other (sedated and intubated. ) Eye Exam: Positive: Sclera icteric ENT Exam: Positive: Mucous membr. moist/pink, Other ENT (. ETT in place) Neck Exam: Positive: Supple Chest Exam: Positive: Other (. Harsh clear breath sounds. No rales, rhonchi or crackles) Heart Exam: Positive: Tachycardic, Regular Rhythm, Normal S1, Normal S2 Telemetry: Positive: Sinus, Tachycardia Abdomen Exam: Positive: Soft Extremity Exam: Positive: Edema (trace edema), Other (No dorsalis pedis and no posterior tibial pulse by doppler on the left leg) Skin Exam: Positive: Nl turgor and temperature Neuro Exam: Positive: Other (. Patient is responsive to painful stimuli but unable to perform neuro exam) Psych Exam: Positive: Other (can not determine as patient is intubated) Assessment /Plan Problems (1) Acute respiratory failure with hypoxemia Status: Acute Problem Text: Causes including copd exacerbation,likely chemical pneumonitis.Antibiotics have been d/jax,including voriconazole per ID recommendations.Pt remains intubated. Possible extubation today Oxygen support Supportive care (2) Acute embolic stroke Problem Text: CT head on 10/12/18:Abnormal low density area on the right as described above. Infarction is suspected.Neurology following.Continue Argatroban Supportive care (3) Ischemic leg Problem Text: There is occlusion in the left profunda femoris artery,also o cclusion in superficial femoral artery. On argatroban as has low platelets so could not get heparin.Vascular following.On argatroban (4) Thrombocytopenia Problem Text: Multifactorial.No longer on heparin,now on Argatroban.Will continue to monitor (5) COPD with acute exacerbation Status: Acute Problem Text: On duo-neb,solumedrol iv (6) Hypotension Problem Text: Patient has been on pressors.However today pressors were d/jax as MAP was >65,will continue to monitor (7) PAF (paroxysmal atrial fibrillation) Problem Text: Rate controlled.Not on heparin as patient was noted with thrombocytopenia,he is now on Argatroban (8) PAD (peripheral artery disease) Problem Text: with claudication -s/p abdominal aortic stents and bilateral leg disease Now with acute left leg ischemia. (9) CAD (coronary artery disease) Problem Text: On aspirin (10) CHF (congestive heart failure) Status: Chronic Problem Text: No evidence of fluid overload,will closely monitor (11) Alcoholism Status: Chronic Problem Text: On thiamine,folic acid - banana bag given today Plan/VTE VTE Prophylaxis Ordered?: Yes (On Argatroban) Plan Anticipated Discharge: Other Anticipated D/C (Poor prognosis,still intubated.) VS, I&O, 24H, Fishbone Vital Signs/I&O Vital Signs Date Time Temp Pulse Resp B/P (MAP) Pulse Ox O2 Delivery O2 Flow Rate FiO2 10/16/18 07:15 50 10/16/18 06:50 92 10/16/18 06:25 15.0 10/16/18 06:00 108 135/85 (102) 10/16/18 04:00 98.2 24 10/16/18 03:59 BIPAP/CPAP I&O- Last 24 Hours up to 6 AM 10/16/18 06:00 Intake Total 334 ml Output Total 3975 ml Balance -3641 ml Laboratory Data 24H LABS Laboratory Tests 2 10/15/18 12:34: Activated Partial Thromboplast Time 43.7H 10/15/18 18:46: Activated Partial Thromboplast Time 82.3H 10/15/18 23:54: Activated Partial Thromboplast Time 83.0H 10/16/18 04:19: Activated Partial Thromboplast Time 75.1H, Immature Granulocyte % (Auto) 1.0, White Blood Count 12.0H, Red Blood Count 2.83L, Hemoglobin 9.5L, Hematocrit 29.4L, Mean Corpuscular Volume 103.9H, Mean Corpuscular Hemoglobin 33.6H, Mean Corpuscular Hemoglobin Concent 32.3, Red Cell Distribution Width 21.2H, Platelet Count 104L, Neutrophils (%) (Auto) 85.8H, Lymphocytes (%) (Auto) 6.0L, Monocytes (%) (Auto) 6.4H, Eosinophils (%) (Auto) 0.7, Basophils (%) (Auto) 0.1, Neutrophils # (Auto) 10.3H, Lymphocytes # (Auto) 0.7L, Monocytes # (Auto) 0.8, Eosinophils # (Auto) 0.1, Basophils # (Auto) 0.0, Nucleated Red Blood Cells % (auto) 0.0, Anion Gap 6L, Glomerular Filtration Rate > 60.0, Blood Urea Nitrogen 39H, Creatinine 0.65L, Sodium Level 146H, Potassium Level 4.1, Chloride Level 110H, Carbon Dioxide Level 30, Calcium Level 7.7L, Phosphorus Level 3.4, Aspartate Amino Transf (AST/SGOT) 46H, Alanine Aminotransferase (ALT/SGPT) 49, Lactate Dehydrogenase 556H, Total Creatine Kinase 359H, Alkaline Phosphatase 67, Total Bilirubin 2.0#H, Triglycerides Level 160H, Cholesterol Level 130, Total Protein 4.6L, Albumin 2.1L, Magnesium Level 1.9, Albumin/Globulin Ratio 0.84L CBC/BMP Laboratory Tests 10/16/18 04:19 Red Blood Count 2.83 L, Mean Corpuscular Volume 103.9 H, Mean Corpuscular Hemoglobin 33.6 H, Mean Corpuscular Hemoglobin Concent 32.3, Red Cell Distribution Width 21.2 H, Neutrophils (%) (Auto) 85.8 H, Lymphocytes (%) (Auto) 6.0 L, Monocytes (%) (Auto) 6.4 H, Eosinophils (%) (Auto) 0.7, Basophils (%) (A uto) 0.1, Neutrophils # (Auto) 10.3 H, Lymphocytes # (Auto) 0.7 L, Monocytes # (Auto) 0.8, Eosinophils # (Auto) 0.1, Basophils # (Auto) 0.0, Calcium Level 7.7 L, Phosphorus Level 3.4, Aspartate Amino Transf (AST/SGOT) 46 H, Alanine Aminotransferase (ALT/SGPT) 49, Lactate Dehydrogenase 556 H, Total Creatine Kinase 359 H, Alkaline Phosphatase 67, Total Bilirubin 2.0 #H, Triglycerides Level 160 H, Cholesterol Level 130, Total Protein 4.6 L, Albumin 2.1 L Microbiology Microbiology 10/08/18 Blood Fungal Culture, Received Pending 10/07/18 Stool Occult Blood (JOSE) - Final, Complete 10/10/18 Respiratory Virus Panel (PCR) (JOSE) - Final, Complete 10/08/18 Fungal Smear, Received Pending 10/08/18 Fungal Culture, Received Pending 10/06/18 Gram Stain - Final, Complete 10/06/18 Sputum Culture - Final, Complete Yeast Like Organism BELIA FRANCOIS MD Oct 16, 2018 08:51
[2018-10-16] MEDS: MOM 30ML SUSPENSION UDC NG SCH ×2 (09:00→21:00)
[2018-10-16] MEDS ORDERED: NS 500 ML IV ONE (18:30)
[2018-10-16] MEDS: DIGOXIN INJ 0.5 MG/2 ML AMP (J1160) IV SCH (21:57)
[2018-10-16] MEDS: PANTOPRAZOLE 40MG INJ (PROTONIX) (C9113) IV SCH (21:57)
[2018-10-17] VITALS (28 sets, daily range): BP systolic 88–140; BP diastolic 53–84; O2SAT 90–92
[2018-10-17] MEDS: IPRATROPIUM 0.5MG/ALBUTEROL 2.5MG INH SOL UD 3ML (DUONEB)(J7620) NEB SCH ×7 (00:22→23:43)
[2018-10-17] MEDS: METOCLOPRAMIDE INJ 10MG/2ML VIAL (J2765) IV SCH ×4 (04:18→21:12)
[2018-10-17] MEDS: SODIUM CHLORIDE 0.9% INJ 10 ML SYR IV SCH ×2 (05:25→16:33)
[2018-10-17 05:50] LABS: BASO % 0.1 % (0.0-1.0); EOS % 0.2 % (0.0-3.0); HEMATOCRIT 28.7 % (42.0-52.0); HEMOGLOBIN 9.1 g/dl (13.5-17.5); LYMPH # 0.7 10^3/uL (1.5-4.5); LYMPH % 4.6 % (24.0-44.0); MEAN CORPUSCULAR HEMOGLOBIN 32.3 pg (27.0-33.0); MEAN CORPUSCULAR HGB CONC 31.7 g/dl (32.0-36.5); MEAN CORPUSCULAR VOLUME 101.8 fl (80.0-96.0); MONO # 0.9 10^3/uL (0.0-0.8); NEUTROPHILS # 13.3 10^3/uL (1.8-7.7); NEUTROPHILS % 87.9 % (36.0-66.0); PLATELET COUNT, AUTOMATED 124 10^3/uL (150-450); RED BLOOD COUNT 2.82 10^6/uL (4.30-6.10); WHITE BLOOD COUNT 15.1 10^3/uL (4.0-10.0)
[2018-10-17 06:06] LABS: ABG BASE EXCESS 7.2 (-2.0-2.0); ABG HCO3 29.2 MEQ/L (22.0-26.0); ABG O2 SATURATION 92.9 % (95.0-99.0); ABG PARTIAL PRESSURE O2 62.3 mmHg (75.0-100.0); ABG STANDARD HCO3 30.9 MEQ/L (22.0-26.0); ABG TOTAL CO2 30.2 MEQ/L (23.0-31.0); ABG pH (ARTERIAL) 7.578 UNITS (7.350-7.450)
[2018-10-17 06:16] LABS: ALBUMIN 2.1 GM/DL (3.2-5.2); ALT/SGPT 70 U/L (12-78); BILIRUBIN,TOTAL 2.2 MG/DL (0.2-1.0); BLOOD UREA NITROGEN 37 MG/DL (7-18); CARBON DIOXIDE LEVEL 31 MEQ/L (21-32); CHLORIDE LEVEL 112 MEQ/L (98-107); CHOLESTEROL LEVEL 125 MG/DL (< 200); CPK CREATINE PHOSPHOKINASE 280 U/L (39-308); CREATININE FOR GFR 0.73 MG/DL (0.70-1.30); GLOMERULAR FILTRATION RATE > 60.0 (>49); GLUCOSE, FASTING 102 MG/DL (70-100); LDH LACTATE DEHYDROGENASE 535 U/L (87-241); MAGNESIUM LEVEL 1.9 MG/DL (1.8-2.4); PHOSPHORUS LEVEL 2.6 MG/DL (2.5-4.9); POTASSIUM SERUM 3.7 MEQ/L (3.5-5.1); SODIUM LEVEL 146 MEQ/L (136-145); TOTAL PROTEIN 5.1 GM/DL (6.4-8.2); TRIGLYCERIDES LEVEL 99 MG/DL (<150)
--- NOTE | 2018-10-17 07:18 | REP ---
Portable chest, 07:00 a.m., single AP view : The feeding tube tip is been advanced and is now in satisfactory location in the gastric fundus. There are bilateral infiltrates, unchanged. The right upper extremity PICC line remains in satisfactory position, unchanged. Cardiac size is normal. The rufina, mediastinum, skeletal structures are unremarkable. Electronically Signed by Jose Kwon MD 10/17/2018 07:10 A
[2018-10-17] MEDS: BISACODYL 10 MG SUPP PR SCH ×2 (09:00→21:00)
[2018-10-17] MEDS: MOM 30ML SUSPENSION UDC NG SCH ×2 (09:00→21:00)
[2018-10-17] MEDS: FUROSEMIDE 40 MG/4 ML VIAL (J1940) IV SCH (09:08)
--- NOTE | 2018-10-17 11:56 | IPN ---
DATE: 10/17/2018 I spoke at length with the patient's mother and sister at the bedside. Apparently, he has been listing her as emergency contact at his place of housing. They have been in contact with him. The are aware of his status. His mother confirms his drug use, tobacco and alcohol use. She says per her previous conversations, he would not want to continue to live in his current state, if he cannot return to his complete prior level of function. This is confirmed by his sister. I spoke with them regarding the wishes that he had spoken to us about regarding limited full court support if he was not improving. In view of this, he has been made a DO NOT RESUSCITATE, DO NOT INTUBATE. I believe this is very appropriate. If he has not made significant progress in the next several days and is dependent still on CPAP and high level FiO2, he would much more likely wish to be comfort measures care and we will proceed in that direction when the time comes. We will make that decision in the next severe days. For now we will continue on the current level of support. Further recommendations will be made in the progress record as new information is available. JEREMY
--- NOTE | 2018-10-17 12:11 | CCN ---
DATE OF VISIT: 10/17/2018 START TIME: 824 STOP TIME: 903 I attended Chele Mccartney here in the intensive care unit. The patient has been examined and the chart is reviewed. He remains on C-PAP for oxygenation issues. T-max overnight 99.2. Blood pressure generally in the 130s, but has been as low as 90. Heart rate 90 to the 110s. Respiratory rate in the 20s. Pulse oximetry 87% to 93% currently on 70% FiO2. Ins and outs midnight to midnight 601 mL in with 2405 mL out. Most recent laboratories show a white blood cell count of 15.1, hemoglobin 9.1, and platelet count 124,000 with 87.9% segs, 0 bands. Sodium 146, potassium 3.7, chloride 112, CO2 31, BUN 37, creatinine 0.73, glucose 102. LDH mildly elevated at 535. Albumin 2.1. Bilirubin mildly elevated today at 2.2. Blood gas done this morning on C-PAP shows a pH of 7.578, pCO2 of 32.0 and pAO2 of 62, with saturation 92.9%. Chest x-ray shows persistent, but slowly improving bilateral interstitial markings, left mildly greater than right. On exam, he is sedate, arousable. He does respond to questions by nodding. C-PAP mask is in place. Left side remains flaccid. He does not move the right upper extremity very well today, but does move the right lower extremity to commands. Pupils do react, sclerae are clear. Trachea is in the midline. Jugular venous system is somewhat full. Chest shows diminished, but symmetric expansion. There are dependent crackles at the bases, left mildly greater than right. No egophony or rubs. Cardiac exam is generally regular with occasional ectopy. Peripheral pulses likely diminished. Trace lower extremity edema. Abdomen soft with active bowel sounds. Extremities without cyanosis or clubbing. Neurologically, he has a dense left hemiplegia and does not move the right upper extremity well today. The most pressing problems requiring my presence at the bedside: 1. Hypoxemic respiratory failure, multifactorial. 2. Pulmonary edema versus chemical pneumonitis. 3. Right MCA stroke. 4. Severe vascular disease both peripheral and central nervous system. 5. Coronary artery disease status post stenting. 6. Long standing obstructive lung disease. 7. Left lower extremity edema. 8. Anemia/thrombocytopenia. At this point, he has required higher FiO2. There is family available now to discuss manager terminal plans as I do not believe it would be appropriate to reintubate him should it come to that. Prior to intubation, he had voiced concerns regarding his declining quality of life, but had voiced to myself as well as to the nursing staff that he wished to try full support for at least a week. We are clearly past that and his overall status continues to decline. I believe it would be very appropriate to make him a DO NOT RESUSCITATE (DNR) and if he continues to decline more likely comfort measures care as he did not wish to have any less quality of life than he had coming in. I will discuss this with his family. In the interim, we will continue his current regimen. He is tolerating tube feeds. He remains on digoxin which has kept his heart rate reasonably under control and he remains on argatroban for his thrombotic disease. He is being followed by vascular surgery. Will continue his gentle diuresis and monitor his renal function and electrolytes. Overall in view of the above, his prognosis is grim and there is a very high likelihood he will not survive this hospitalization. Further recommendations will be made as new information becomes available. I left the bedside at 0904 hours. 39 minutes of critical care time delivered at the bedside, not including procedures.
--- NOTE | 2018-10-17 12:11 | IPNPDOC ---
Subjective Date Seen The patient was seen on 10/17/18. Subjective Chief Complaint/HPI Patient patient is on BiPAP, sedated, in no apparent distress, not arousable General: Reports: ROS Unobtainable Objective Physical Examination General Exam: Positive: Other (sedated and intubated. ) Eye Exam: Positive: Sclera icteric ENT Exam: Positive: Mucous membr. moist/pink, Other ENT (. ETT in place) Neck Exam: Positive: Supple Chest Exam: Positive: Other (. Harsh clear breath sounds. No rales, rhonchi or crackles) Heart Exam: Positive: Tachycardic, Regular Rhythm, Normal S1, Normal S2 Telemetry: Positive: Sinus, Tachycardia Abdomen Exam: Positive: Soft Extremity Exam: Positive: Edema (trace edema), Other (No dorsalis pedis and no posterior tibial pulse by doppler on the left leg) Skin Exam: Positive: Nl turgor and temperature Neuro Exam: Positive: Other (. Patient is responsive to painful stimuli but unable to perform neuro exam) Psych Exam: Positive: Other (can not determine as patient is intubated) Assessment /Plan Problems (1) Acute respiratory failure with hypoxemia Status: Acute Problem Text: Causes including copd exacerbation,likely chemical pneumonitis.Antibiotics have been d/jax,including voriconazole per ID re commendations.patient remains on BiPAP support Critical care follow-up appreciated Oxygen support Supportive care (2) Acute embolic stroke Problem Text: CT head on 10/12/18:Abnormal low density area on the right as described above. Infarction is suspected.Neurology following.Continue Argatroban Supportive care (3) Ischemic leg Problem Text: There is occlusion in the left profunda femoris artery,also oc clusion in superficial femoral artery. On argatroban as has low platelets so could not get heparin.Vascular following.On argatroban (4) Thrombocytopenia Problem Text: Multifactorial.No longer on heparin,now on Argatroban.Will continue to monitor (5) COPD with acute exacerbation Status: Acute Problem Text: On duo-neb,solumedrol iv (6) Hypotension Problem Text: Patient has been on pressors.However today pressors were d/jax as MAP was >65,will continue to monitor (7) PAF (paroxysmal atrial fibrillation) Problem Text: Rate controlled.Not on heparin as patient was noted with thrombocytopenia,he is now on Argatroban (8) PAD (peripheral artery disease) Problem Text: with claudication -s/p abdominal aortic stents and bilateral leg disease Now with acute left leg ischemia. (9) CAD (coronary artery disease) Problem Text: On aspirin (10) CHF (congestive heart failure) Status: Chronic Problem Text: No evidence of fluid overload,will closely monitor (11) Alcoholism Status: Chronic Problem Text: On thiamine,folic acid - banana bag given today Plan/VTE VTE Prophylaxis Ordered?: Yes (On Argatroban) Plan Anticipated Discharge: Other Anticipated D/C (Poor prognosis,still intubated.) VS, I&O, 24H, Fishbone Vital Signs/I&O Vital Signs Date Time Temp Pulse Resp B/P (MAP) Pulse Ox O2 Delivery O2 Flow Rate FiO2 10/17/18 09:30 108 21 88 15.0 10/17/18 09:00 104/60 (75) 70 10/17/18 08:00 98.5 10/17/18 07:20 BIPAP/CPAP I&O- Last 24 Hours up to 6 AM 10/17/18 06:00 Intake Total 1305.6 ml Output Total 2230 ml Balance -924.4 ml Laboratory Data 24H LABS Laboratory Tests 2 10/16/18 13:13: Activated Partial Thromboplast Time 72.7H 10/17/18 05:26: Activated Partial Thromboplast Time 78.0H, Immature Granulocyte % (Auto) 1.2, White Blood Count 15.1H, Red Blood Count 2.82L, Hemoglobin 9.1L, Hematocrit 28.7L, Mean Corpuscular Volume 101.8H, Mean Corpuscular Hemoglobin 32.3, Mean Corpuscular Hemoglobin Concent 31.7L, Red Cell Distribution Width 20.7H, Platelet Count 124L, Neutrophils (%) (Auto) 87.9H, Lymphocytes (%) (Auto) 4.6L, Monocytes (%) (Auto) 6.0H, Eosinophils (%) (Auto) 0.2, Basophils (%) (Auto) 0.1, Neutrophils # (Auto) 13.3H, Lymphocytes # (Auto) 0.7L, Monocytes # (Auto) 0.9H, Eosinophils # (Auto) 0.0, Basophils # (Auto) 0.0, Nucleated Red Blood Cells % (auto) 0.0, Blood Gas Bicarbonate Standard 30.9H, Arterial Blood pH 7.578H, Arterial Blood Partial Pressure CO2 32.0L, Arterial Blood Partial Pressure O2 62.3L, Arterial Blood Total CO2 30.2, Arterial Blood HCO3 29.2H, Arterial Blood Base Excess 7.2H, Arterial Blood Oxygen Saturation 92.9L, Anion Gap 3L, Glomerular Filtration Rate > 60.0, Blood Urea Nitrogen 37H, Creatinine 0.73, Sodium Level 146H, Potassium Level 3.7, Chloride Level 112H, Carbon Dioxide Level 31, Calcium Level 8.0L, Phosphorus Level 2.6#, Aspartate Amino Transf (AST/SGOT) 51H, Alanine Aminotransferase (ALT/SGPT) 70, Lactate Dehydrogenase 53 5H, Total Creatine Kinase 280, Alkaline Phosphatase 75, Total Bilirubin 2.2H, Triglycerides Level 99, Cholesterol Level 125, Total Protein 5.1L, Albumin 2.1L, Magnesium Level 1.9, Albumin/Globulin Ratio 0.70L 10/17/18 09:49: Activated Partial Thromboplast Time 71.8H CBC/BMP Laboratory Tests 10/17/18 05:26 Red Blood Count 2.82 L, Mean Corpuscular Volume 101.8 H, Mean Corpuscular Hemoglobin 32.3, Mean Corpuscular Hemoglobin Concent 31.7 L, Red Cell Distrib ution Width 20.7 H, Neutrophils (%) (Auto) 87.9 H, Lymphocytes (%) (Auto) 4.6 L, Monocytes (%) (Auto) 6.0 H, Eosinophils (%) (Auto) 0.2, Basophils (%) (Auto) 0.1, Neutrophils # (Auto) 13.3 H, Lymphocytes # (Auto) 0.7 L, Monocytes # (Auto) 0.9 H, Eosinophils # (Auto) 0.0, Basophils # (Auto) 0.0, Calcium Level 8.0 L, Phosphorus Level 2.6 #, Aspartate Amino Transf (AST/SGOT) 51 H, Alanine Aminotransferase (ALT/SGPT) 70, Lactate Dehydrogenase 535 H, Total Creatine Kinase 280, Alkaline Phosphatase 75, Total Bilirubin 2.2 H, Triglycerides Level 99, Cholesterol Level 125, Total Protein 5.1 L, Albumin 2.1 L Microbiology Microbiology 10/08/18 Blood Fungal Culture, Received Pending 10/07/18 Stool Occult Blood (JOSE) - Final, Complete 10/10/18 Respiratory Virus Panel (PCR) (JOSE) - Final, Complete 10/08/18 Fungal Smear, Received Pending 10/08/18 Fungal Culture, Received Pending BELIA FRANCOIS MD Oct 17, 2018 12:11
--- NOTE | 2018-10-17 16:31 | CCN ---
DATE: 10/15/2018 CRITICAL CARE NOTE: The patient is seen in the intensive care unit, intubated, mechanically ventilated, critically ill. This is hospital day #11. He is interactive with nursing staff this morning, following some simple commands with movement of the right side. His temperature is 99, pulse rate 76, respirations 22, blood pressure 153/77. Intake and output for the past 24 hours, 2669 in, 1725 out, since midnight 752 in, 945 out. At bedside he is ill appearing, cachectic. His oral mucosa is moist and pink. He has scleral edema. Oral dentition is in poor repair. He has periodontal disease. His neck is supple. There is no stridor. Jugular veins are 2 cm distended. Heart sounds are regular without appreciable murmur. Breath sounds are diminished with coarse rales bilaterally. Abdomen soft, intact bowel sounds. No palpable mass. There is no adenopathy in the groin. Extremities show some spontaneous movement on the right. His left leg is discolored, white. Pulses are appreciable with a Doppler. DIAGNOSTIC STUDIES: Chest x-ray shows interstitial edema. His sodium is 146, potassium 4.9, chloride 115, CO2 25, BUN 46, creatinine 0.75, glucose 123, white cell count is 16.7. Differential white cell count shows 88% neutrophils, hemoglobin 9.2, hematocrit 28.4, platelet count is up to 110. Arterial blood gases show pH 7.48, pCO2 29, pO2 63, this on pressure support mode of ventilation 10/5. CPK is down to 484, albumin is up to 2.1, PTT 57.5. Heparin antibodies are 0.16, bilirubin 1.2. The primary problem requiring critical attention is acute respiratory failure. Will proceed with weaning and extubation though I am concerned about the patient's ability to maintain his airway. Pulmonary edema. Will administer Lasix. Right middle cerebral artery CVA. The patient is on anticoagulation with the argatroban. Anemia, unclear etiology, hemoglobin is relatively stable. Left leg ischemia. Pulses are appreciable with a Doppler. He will continue on IV argatroban. Alcoholism by history. The patient has had several days of B12 and folate. Protein calorie malnutrition. He is now tolerating tube feedings and with cathartics has had bowel movements. Infectious disease is a question. Antibiotics had been being administered since admission for unclear source. His white cell count is up slightly and he did have a fever yesterday. Will watch closely and reculture if he spikes a fever once again. Stress ulcer risk. He is on IV Protonix. DVT risk. He is on IV argatroban. Extensive conversation was held with the patient's family to update them on his status. The patient's condition is critical. Prognosis is guarded. One hour and 15 minutes was spent in the provision of bedside critical care and coordination.
[2018-10-17] MEDS: ARGATROBAN 250 MG/250ML for non-ESRD patients IV SCH ×2 (18:42)
--- NOTE | 2018-10-17 20:11 | CCN ---
DATE: 10/16/2018 The patient is seen in the intensive care unit, hypoxemic, critically ill on pressure therapy for oxygen support. He is moving and responds to commands today on his right side. His temperature is 98.2, T-max for the past 24 hours 99, pulse rate 99, respirations 24, blood pressure 141/72. Input and output for the past 24 hours, 1000 mL in, 4525 out, since midnight 250 mL out. At bedside, he is ill-appearing and cachectic. His oral mucosa is pink. Dentition is poor. Neck is supple without meningismus. Heart sounds are regular. Breath sounds diminished with some subtle rales in the bases. Abdomen is soft. Positive bowel sounds in right lower quadrant. Extremities: Left side is flaccid, left leg is cold. Pulses are appreciable with Doppler. Right side is moving spontaneously and to command from time to time. DIAGNOSTIC STUDIES: Sodium is 146, potassium 4.1, chloride 110, CO2 30, BUN 39, creatinine 0.63, glucose 102, white cell count is down to 12, hemoglobin 9.5, hematocrit 29.4, platelet count 104,000. CPK is down to 359. AST is up to 46, bilirubin is up to 2, PTT is 75.1, albumin is 2.1. The primary problem requiring critical attention is hypoxemia. We will wean from C-PAP to high-flow oxygen and follow arterial blood gases. Pulmonary edema much improved with diuresis, IV fluids are off, chest x-ray is ordered for the morning. Blood loss anemia. Serum hemoglobin is better. Cerebrovascular accident (CVA). Right middle cerebral artery (MCA) stroke on argatroban. Cognition is improved today. Left leg ischemia with argatroban. Pulses are consistent with a Doppler. Chronic obstructive pulmonary disease (COPD). The patient's pCO2 has been good throughout, oxygen is improving some. We will continue with beta agonists. Protein calorie malnutrition. I am restarting tube feedings, will use a Kangaroo tube and deliver some free water as well. Infectious disease risk. The patient had an extensive antibiotics early in the hospital stay. His white cell count and temperature are down today, will remain away from antibiotic therapy. The patient's condition is critical. Prognosis is guarded. 92 minutes were spent in provision of bedside critical care and coordination.
[2018-10-17] MEDS: PANTOPRAZOLE 40MG INJ (PROTONIX) (C9113) IV SCH (21:12)
[2018-10-17] MEDS: DIGOXIN INJ 0.5 MG/2 ML AMP (J1160) IV SCH (21:14)
[2018-10-18] VITALS (26 sets, daily range): BP systolic 93–192; BP diastolic 62–82; O2SAT 88–95
[2018-10-18] MEDS: IPRATROPIUM 0.5MG/ALBUTEROL 2.5MG INH SOL UD 3ML (DUONEB)(J7620) NEB SCH ×5 (04:28→20:41)
[2018-10-18] MEDS: METOCLOPRAMIDE INJ 10MG/2ML VIAL (J2765) IV SCH ×3 (04:43→14:59)
[2018-10-18] MEDS: SODIUM CHLORIDE 0.9% INJ 10 ML SYR IV SCH ×2 (06:35→16:22)
[2018-10-18 07:12] LABS: BASO % 0.1 % (0.0-1.0); EOS # 0.1 10^3/uL (0.0-0.50); EOS % 0.3 % (0.0-3.0); HEMATOCRIT 29.2 % (42.0-52.0); HEMOGLOBIN 9.3 g/dl (13.5-17.5); LYMPH # 0.9 10^3/uL (1.5-4.5); LYMPH % 5.4 % (24.0-44.0); MEAN CORPUSCULAR HEMOGLOBIN 33.8 pg (27.0-33.0); MEAN CORPUSCULAR HGB CONC 31.8 g/dl (32.0-36.5); MEAN CORPUSCULAR VOLUME 106.2 fl (80.0-96.0); MONO # 1.6 10^3/uL (0.0-0.8); MONO % 8.9 % (0.0-5.0); NEUTROPHILS # 14.7 10^3/uL (1.8-7.7); PLATELET COUNT, AUTOMATED 122 10^3/uL (150-450); RED BLOOD COUNT 2.75 10^6/uL (4.30-6.10); WHITE BLOOD COUNT 17.5 10^3/uL (4.0-10.0)
[2018-10-18] MEDS: MOM 30ML SUSPENSION UDC NG SCH ×2 (07:25→20:41)
[2018-10-18 07:40] LABS: ALT/SGPT 61 U/L (12-78); BILIRUBIN,TOTAL 1.8 MG/DL (0.2-1.0); BLOOD UREA NITROGEN 40 MG/DL (7-18); CALCIUM LEVEL 7.9 MG/DL (8.8-10.2); CARBON DIOXIDE LEVEL 32 MEQ/L (21-32); CHLORIDE LEVEL 109 MEQ/L (98-107); CHOLESTEROL LEVEL 119 MG/DL (< 200); CPK CREATINE PHOSPHOKINASE 322 U/L (39-308); CREATININE FOR GFR 0.81 MG/DL (0.70-1.30); GLOMERULAR FILTRATION RATE > 60.0 (>49); GLUCOSE, FASTING 102 MG/DL (70-100); LDH LACTATE DEHYDROGENASE 542 U/L (87-241); MAGNESIUM LEVEL 1.8 MG/DL (1.8-2.4); PHOSPHORUS LEVEL 2.3 MG/DL (2.5-4.9); POTASSIUM SERUM 3.4 MEQ/L (3.5-5.1); SODIUM LEVEL 145 MEQ/L (136-145); TOTAL PROTEIN 4.9 GM/DL (6.4-8.2); TRIGLYCERIDES LEVEL 63 MG/DL (<150)
--- NOTE | 2018-10-18 08:36 | REP ---
Portable chest, 04:13 p.m., single AP view with the patient upright: Comparison is 10/15/2018. The previous nasogastric tube has been removed and replaced with a feeding tube. The tip of the feeding tube is beneath the left hemidiaphragm just distal to the gastroesophageal junction. There are bilateral infiltrates, unchanged. There is a right upper extremity PICC line with the tip in the superior vena cava, unchanged. The the endotracheal tube has been removed. Electronically Signed by Jose Kwon MD 10/16/2018 04:38 P
[2018-10-18] MEDS: BISACODYL 10 MG SUPP PR SCH ×2 (08:43→20:41)
[2018-10-18] MEDS: FUROSEMIDE 40 MG/4 ML VIAL (J1940) IV SCH (08:43)
--- NOTE | 2018-10-18 09:52 | CCN ---
DATE: 10/18/2018 START TIME: 834. STOP TIME: 911. I again attended Chele Mccartney here in the intensive care unit. He remains on CPAP and desaturations when it is removed. FiO2 requirement is between 50 and 70%. Maximum temperature (T-max) overnight 100 degrees, currently 97.9, blood pressure 94-130s. Heart rate generally low in the 100s. Respiratory rate in the 18-25 range without accessory muscle use. Input and output midnight to midnight 2369 mL in with 2025 mL out. More recent laboratory shows a sodium 145, potassium 3.4, chloride 109, CO2 34, BUN 40, creatinine 0.81. White blood cell count 17.4, hemoglobin 9.3, platelet count 122,000, 84% segmented neutrophils, no bands. No blood gas this morning. No recent imaging. On exam, He opens his eyes to voice. He does move his right side to command. He remains with intense left hemiplegia. Membranes are moist. Trachea is in the midline. Chest is fairly clear anteriorly. There may be some fine dependent crackles in the early inspiratory phase but no other adventitious breath sounds are identified. Cardiac exam is generally regular with ectopy, peripheral pulses markedly diminished. There is trace edema. Abdomen is soft with active bowel sounds. No convincing organomegaly or masses. Extremities show no cyanosis or clubbing. Neurologically he does respond to verbal commands and is able to move his right side. He remains with a dense left hemiplegia. Most pressing problems requiring my presence at the bedside: 1. Hypoxemic respiratory failure, multifactorial. 2. Essential assays of obstructive lung disease. 3. Vascular disease. 4. Status post cerebrovascular accident (CVA). 5. Ongoing thromboembolic phenomenon. 6. DO NOT RESUSCITATE/DO NOT INTUBATE status. At this point, he is tolerating enteral feeds. We will try weaning his FiO2. I had a long discussion yesterday with his mother and sister and this is documented. The hopes, at this point, is if we can at least achieve removal from positive pressure, we can move forward with his care. If we are not able to, then they would favor comfort measures care and I believe that would be appropriate. If he is not able to eat, we will need to have discussion regarding placement of a percutaneous endoscopic gastrostomy (PEG). At this point, we will continue his current medications. He is being gently diuresed and we will replete his potassium. He remains on anticoagulation for vascular surgery. Will have physical therapy evaluated today. Will increase his mobility as we are able. Overall, however, he remains quite critically ill and there is a high likelihood that he still may not survive this hospitalization. I left the beside at 0912 hours. A total of 37 minutes of critical care time spent at the bedside not including procedures.
[2018-10-18] MEDS ORDERED: POTASSIUM CHLORIDE 10% LIQ 20 MEQ/15 ML UDC PO ONE (10:00)
--- NOTE | 2018-10-18 10:24 | IPNPDOC ---
Subjective Date Seen The patient was seen on 10/18/18. Subjective Chief Complaint/HPI . Patient is on BiPAP, sedated verbally noncommunicative , in no apparent respiratory or cardiac distress General: Reports: ROS Unobtainable Objective Physical Examination General Exam: Positive: Other (sedated and intubated. ) Eye Exam: Positive: Sclera icteric ENT Exam: Positive: Mucous membr. moist/pink, Other ENT (. ETT in place) Neck Exam: Positive: Supple Chest Exam: Positive: Other (. Harsh clear breath sounds. No rales, rhonchi or crackles) Heart Exam: Positive: Tachycardic, Regular Rhythm, Normal S1, Normal S2 Telemetry: Positive: Sinus, Tachycardia Abdomen Exam: Positive: Soft Extremity Exam: Positive: Edema (trace edema) Skin Exam: Positive: Nl turgor and temperature Assessment /Plan Problems (1) Acute respiratory failure with hypoxemia Status: Acute Problem Text: Causes including copd exacerbation,likely chemical pneumonitis.Antibiotics have been d/jax,including voriconazole per ID recommendations.patient remains on BiPAP support Critical care follow-up appreciated Oxygen support Dr. Milton. Discussed with patient's family regarding patient's prognosis If he cannot be weaned off oxygen. Family is considering comfort measures only in a day or 2 Poor prognosis Continue present care (2) Acute embolic stroke Problem Text: CT head on 10/12/18:Abnormal low density area on the right as described above. Continue argatroban Is responsive than yesterday Supportive care (3) Ischemic leg Problem Text: There is occlusion in the left profunda femoris artery,also occlusion in superficial femoral artery. On argatroban as has low platelets so could not get heparin.Vascular following.On argatroban (4) Thrombocytopenia Problem Text: Multifactorial.No longer on heparin,now on Argatroban.Will continue to monitor (5) COPD with acute exacerbation Status: Acute Problem Text: On duo-neb,solumedrol iv (6) Hypotension Problem Text: Patient has been on pressors.However today pressors were d/jax as MAP was >65,will continue to monitor (7) PAF (paroxysmal atrial fibrillation) Problem Text: Rate controlled.Not on heparin as patient was noted with thrombocytopenia,he is now on Argatroban (8) PAD (peripheral artery disease) Problem Text: with claudication -s/p abdominal aortic stents and bilateral leg disease Now with acute left leg ischemia. (9) CAD (coronary artery disease) Problem Text: On aspirin (10) CHF (congestive heart failure) Status: Chronic Problem Text: No evidence of fluid overload,will closely monitor (11) Alcoholism Status: Chronic Problem Text: On thiamine,folic acid - banana bag given today Plan/VTE VTE Prophylaxis Ordered?: Yes Plan Anticipated Discharge: Other Anticipated D/C (Poor prognosis,still intubated.) [facility] Vital Signs/I&O Vital Signs Date Time Temp Pulse Resp B/P (MAP) Pulse Ox O2 Delivery O2 Flow Rate FiO2 10/18/18 08:00 97.9 109 23 101/65 (77) 95 70 10/18/18 07:17 BIPAP/CPAP 10/17/18 12:01 15.0 I&O- Last 24 Hours up to 6 AM 10/18/18 06:00 Intake Total 2027.6 ml Output Total 2035 ml Balance -7.4 ml Laboratory Data 24H LABS Laboratory Tests 2 10/17/18 13:53: Activated Partial Thromboplast Time 71.3H 10/18/18 06:35: Activated Partial Thromboplast Time 72.0H, Anion Gap 4L, Glomerular Filtration Rate > 60.0, Blood Urea Nitrogen 40H, Creatinine 0.81, Sodium Level 145, Potassium Level 3.4L, Chloride Level 109H, Carbon Dioxide Level 32, Calcium Level 7.9L, Phosphorus Level 2.3L, Aspartate Amino Transf (AST/SGOT) 44H, Alanine Aminotransferase (ALT/SGPT) 61, Lactate Dehydrogenase 542H, Total Creatine Kinase 322H, Alkaline Phosphatase 75, Total Bilirubin 1.8H, Triglycerides Level 63, Cholesterol Level 119, Total Protein 4.9L, Albumin 2.0L, Magnesium Level 1.8, Albumin/Globulin Ratio 0.69L 10/18/18 06:36: Immature Granulocyte % (Auto) 1.3, White Blood Count 17.5H, Red Blood Count 2.75 L, Hemoglobin 9.3L, Hematocrit 29.2L, Mean Corpuscular Volume 106.2H, Mean Corpuscular Hemoglobin 33.8H, Mean Corpuscular Hemoglobin Concent 31.8L, Red Cell Distribution Width 21.2H, Platelet Count 122L, Neutrophils (%) (Auto) 84.0H, Lymphocytes (%) (Auto) 5.4L, Monocytes (%) (Auto) 8.9H, Eosinophils (%) (Auto) 0.3, Basophils (%) (Auto) 0.1, Neutrophils # (Auto) 14.7H, Lymphocytes # (Auto) 0.9L, Monocytes # (Auto) 1.6H, Eosinophils # (Auto) 0.1, Basophils # (Auto) 0.0, Nucleated Red Blood Cells % (auto) 0.0 CBC/BMP Laboratory Tests 10/18/18 06:35 Calcium Level 7.9 L, Phosphorus Level 2.3 L, Aspartate Amino Transf (AST/SGOT) 44 H, Alanine Aminotransferase (ALT/SGPT) 61, Lactate Dehydrogenase 542 H, Total Creatine Kinase 322 H, Alkaline Phosphatase 75, Total Bilirubin 1.8 H, Triglycerides Level 63, Cholesterol Level 119, Total Protein 4.9 L, Albumin 2.0 L 10/18/18 06:36 Red Blood Count 2.75 L, Mean Corpuscular Volume 106.2 H, Mean Corpuscular Hemoglobin 33.8 H, Mean Corpuscular Hemoglobin Concent 31.8 L, Red Cell Distribution Width 21.2 H, Neutrophils (%) (Auto) 84.0 H, Lymphocytes (%) (Auto) 5.4 L, Monocytes (%) (Auto) 8.9 H, Eosinophils (%) (Auto) 0.3, Basophils (%) (Auto) 0.1, Neutrophils # (Auto) 14.7 H, Lymphocytes # (Auto) 0.9 L, Monocytes # (Auto) 1.6 H, Eosinophils # (Auto) 0.1, Basophils # (Auto) 0.0 Microbiology Microbiology 10/08/18 Blood Fungal Culture, Received Pending 10/10/18 Respiratory Virus Panel (PCR) ([facility]) - Final, Complete 10/08/18 Fungal Smear, Received Pending 10/08/18 Fungal Culture, Received Pending BELIA FRANCOIS MD Oct 18, 2018 10:24
[2018-10-18] MEDS: ARGATROBAN 250 MG/250ML for non-ESRD patients IV SCH ×2 (16:22)
[2018-10-18] MEDS: DIGOXIN INJ 0.5 MG/2 ML AMP (J1160) IV SCH (20:40)
[2018-10-18] MEDS: PANTOPRAZOLE 40MG INJ (PROTONIX) (C9113) IV SCH (20:40)
[2018-10-18] MEDS: ACETAMINOPHEN 325 MG/10.15 ML UDC GT PRN (20:57)
[2018-10-19] VITALS (22 sets, daily range): BP systolic 92–119; BP diastolic 57–78; O2SAT 93–95
[2018-10-19] MEDS: IPRATROPIUM 0.5MG/ALBUTEROL 2.5MG INH SOL UD 3ML (DUONEB)(J7620) NEB SCH ×6 (00:37→20:00)
[2018-10-19 05:16] LABS: BASO % 0.1 % (0.0-1.0); EOS % 0.2 % (0.0-3.0); HEMATOCRIT 30.1 % (42.0-52.0); HEMOGLOBIN 9.6 g/dl (13.5-17.5); LYMPH # 1.2 10^3/uL (1.5-4.5); LYMPH % 6.3 % (24.0-44.0); MEAN CORPUSCULAR HEMOGLOBIN 33.9 pg (27.0-33.0); MEAN CORPUSCULAR HGB CONC 31.9 g/dl (32.0-36.5); MEAN CORPUSCULAR VOLUME 106.4 fl (80.0-96.0); MONO # 1.7 10^3/uL (0.0-0.8); MONO % 9.2 % (0.0-5.0); NEUTROPHILS # 15.6 10^3/uL (1.8-7.7); NEUTROPHILS % 82.8 % (36.0-66.0); PLATELET COUNT, AUTOMATED 130 10^3/uL (150-450); RED BLOOD COUNT 2.83 10^6/uL (4.30-6.10); WHITE BLOOD COUNT 18.8 10^3/uL (4.0-10.0)
[2018-10-19 06:10] LABS: ALT/SGPT 51 U/L (12-78); BLOOD UREA NITROGEN 40 MG/DL (7-18); CARBON DIOXIDE LEVEL 30 MEQ/L (21-32); CHLORIDE LEVEL 108 MEQ/L (98-107); CHOLESTEROL LEVEL 117 MG/DL (< 200); CPK CREATINE PHOSPHOKINASE 333 U/L (39-308); CREATININE FOR GFR 0.91 MG/DL (0.70-1.30); GLOMERULAR FILTRATION RATE > 60.0 (>49); GLUCOSE, FASTING 128 MG/DL (70-100); LDH LACTATE DEHYDROGENASE 641 U/L (87-241); MAGNESIUM LEVEL 1.7 MG/DL (1.8-2.4); PHOSPHORUS LEVEL 2.9 MG/DL (2.5-4.9); POTASSIUM SERUM 3.7 MEQ/L (3.5-5.1); SODIUM LEVEL 145 MEQ/L (136-145); TRIGLYCERIDES LEVEL 76 MG/DL (<150)
[2018-10-19] MEDS: SODIUM CHLORIDE 0.9% INJ 10 ML SYR IV SCH ×2 (06:19→18:46)
[2018-10-19] MEDS: MOM 30ML SUSPENSION UDC NG SCH ×2 (09:00→20:59)
[2018-10-19] MEDS: BISACODYL 10 MG SUPP PR SCH ×2 (09:00→20:59)
--- NOTE | 2018-10-19 09:43 | CCN ---
DATE: 10/19/2018 I again attended Chele Mccartney here in the intensive care unit. Physical exam and electronic medical record (EMR) chart is reviewed. Maximum temperature (T-max) overnight 99.7, blood pressure 95-110 systolic. He has not required vasopressors. Heart rate generally in the low 100s. Respiratory rate varies from 30-40 without obvious accessory muscle use. Input and output midnight to midnight 2229 mL in with 2430 mL out. Most recent laboratory show a sodium 145, potassium 3.0, chloride 108, CO2 30, BUN 40, creatinine 0.91, glucose 128, magnesium borderline at 1.7. Bilirubin 2.0, which is essentially unchanged. White blood cell count 18.8, hemoglobin 9.6, platelet count 130,000. 82% segmented neutrophils, no bands. No other new microbiology evaluations available. On exam, he remains ill-appearing. Pupils do react. He remains on CPAP. Trachea is in the midline. Chest shows reasonably symmetric expansion. May be some crackles at the bases, left lung greater than right but no significant egophony, rubs, wheezes, or rhonchi. Cardiac exam generally regular. Peripheral pulses remain diminished. Extremities are warm and there is no modeling today. No cyanosis or clubbing. Abdomen is soft. There are active bowel sounds. Neurologically he is interactive, nodding yes or not appropriately. He has a dense left-hemiplegia. He moves the right side well. No new radiographic evaluations available. I spoke at length again yesterday with his mother and sister. IMPRESSION: 1. Hypoxemia, question respiratory failure, multifactorial. 2. Advanced obstructive lung disease. 3. Longstanding tobacco abuse. 4. Right middle cerebral artery (MCA) stroke. 5. Severe known vascular disease. 6. Anticoagulation. 7. Known coronary artery disease status post stenting. 8. DO NOT RESUSCITATE/DO NOT INTUBATE status. RECOMMENDATIONS: At this point, we will continue our current course. He remains on low dose diuretics. At this point, I do not see a roll for antimicrobials. He has been weaned off of the prednisone. He is requiring a little less in the way of supplemental oxygen and will try him on a Vapotherm. Clearly, his family wishes to not escalate his intervention and should he not improve, they are favoring comfort measures only care. His mother and sister said clearly his goal has always been about quality of life and given the tragic chain of events he has suffered as of late, that he would not wish to continue further should he have a decline in his status. I believe this is quite appropriate. We will therefore, proceed under those guidelines. He remains critically ill and there is a very high likelihood, he will not survive this hospitalization. Further recommendations will be made in the progress record as new information is available.
[2018-10-19] MEDS: METOCLOPRAMIDE INJ 10MG/2ML VIAL (J2765) IV SCH ×3 (10:13→21:00)
[2018-10-19] MEDS: FUROSEMIDE 40 MG/4 ML VIAL (J1940) IV SCH (10:13)
[2018-10-19] MEDS: ARGATROBAN 250 MG/250ML for non-ESRD patients IV SCH ×2 (13:48)
--- NOTE | 2018-10-19 15:12 | IPNPDOC ---
Date Seen The patient was seen on 10/19/18. Progress Note SUBJECTIVE: Patient was noted by nursing and family to be much less responsive/communicative. Did follow some commands with finger movements but otherwise very weak and nonverbal at this time. Family at bedside, understands current treatment plan and prepared for unfavorable outcomes. Working on O2 weaning. OBJECTIVE PHYSICAL EXAMINATION: VITAL SIGNS: Please see below. General: No acute distress, nonverbal, follow some commands, generalized weakness. Eyes: Normal sclera, MELANIE HENT: Atraumatic, neck supple Cardiovascular: Tachycardic Pulmonary: coarse breath sounds b/l GI: Soft, nontender, nondistended Skin: Warm and dry Neuro: generalized weakness, non verbal, follow some commands LABORATORY DATA, IMAGING STUDIES, MICROBIOLOGY: Please see below. DVT prophylaxis ordered?: Argatroban ASSESSMENT AND PLAN: 1. Hypoxemic respiratory failure - multifactorial requiring NVVP support. - Attempting to wean O2 ongoing, may not may not be successful. - Family wishes is to pursue comfort care if not successful. - Continue monitor in ICU. 2. COPD - c/w nebs. Had been weaned off prednisone. 3. R. MCA CVA - Declining mental status, less responsive and verbal now. 4. PAD - s/p abdominal aortic stents and b/l leg disease - L leg ischemia 5. CAD 6. Afib - On digoxin. - Thrombocytopenic not on heparin. Currently on Argatroban. 7. Thrombocytopenia - multifactorial. Heparin had been discontinued and on Argatroban currently. DNR/DNI Patient is high risk given respiratory failure with underlying COPD and acute CVA. Disposition unknown at this time as patient remain critical in ICU. VS, I&O, 24H, [place] Vital Signs/I&O Vital Signs Date Time Temp Pulse Resp B/P (MAP) Pulse Ox O2 Delivery O2 Flow Rate FiO2 10/19/18 11:30 36 10/19/18 10:47 95 40.0 90 10/19/18 08:00 98.0 112 111/68 (82) 10/19/18 07:20 BIPAP/CPAP I&O- Last 24 Hours up to 6 AM 10/19/18 06:00 Intake Total 2449.2 ml Output Total 2465 ml Balance -15.8 ml Laboratory Data 24H LABS Laboratory Tests 2 10/19/18 04:57: Immature Granulocyte % (Auto) 1.4, White Blood Count 18.8H, Red Blood Count 2.83L, Hemoglobin 9.6L, Hematocrit 30.1L, Mean Corpuscular Volume 106.4H, Mean Corpuscular Hemoglobin 33.9H, Mean Corpuscular Hemoglobin Concent 31.9L, Red Cell Distribution Width 20.9H, Platelet Count 130L, Neutrophils (%) (Auto) 82.8H, Lymphocytes (%) (Auto) 6.3L, Monocytes (%) (Auto) 9.2H, Eosinophils (%) (Auto) 0.2, Basophils (%) (Auto) 0.1, Neutrophils # (Auto) 15.6H, Lymphocytes # (Auto) 1.2L, Monocytes # (Auto) 1.7H, Eosinophils # (Auto) 0.0, Basophils # (Auto) 0.0, Nucleated Red Blood Cells % (auto) 0.0, Activated Partial Thromboplast Time 68.9H, Anion Gap 7L, Glomerular Filtration Rate > 60.0, Blood Urea Nitrogen 40H, Creatinine 0.91, Sodium Level 145, Potassium Level 3.7, Chloride Level 108H, Carbon Dioxide Level 30, Calcium Level 8.0L, Phosphorus Level 2.9#, Aspartate Amino Transf (AST/SGOT) 43H, Alanine Aminotransferase (ALT/SGPT) 51, Lactate Dehydrogenase 641H, Total Creatine Kinase 333H, Alkaline Phosphatase 80, Total Bilirubin 2.0H, Triglycerides Level 76, Cholesterol Level 117, Total Protein 5.0L, Albumin 2.0L, Magnesium Level 1.7L, Albumin/Globulin Ratio 0.67L CBC/BMP Laboratory Tests 10/19/18 04:57 Red Blood Count 2.83 L, Mean Corpuscular Volume 106.4 H, Mean Corpuscular Hemoglobin 33.9 H, Mean Corpuscular Hemoglobin Concent 31.9 L, Red Cell Distribution Width 20.9 H, Neutrophils (%) (Auto) 82.8 H, Lymphocytes (%) (Auto) 6.3 L, Monocytes (%) (Auto) 9.2 H, Eosinophils (%) (Auto) 0.2, Basophils (%) (Auto) 0.1, Neutrophils # (Auto) 15.6 H, Lymphocytes # (Auto) 1.2 L, Monocytes # (Auto) 1.7 H, Eosinophils # (Auto) 0.0, Basophils # (Auto) 0.0, Calcium Level 8.0 L, Phosphorus Level 2.9 #, Aspartate Amino Transf (AST/SGOT) 43 H, Alanine Aminotransferase (ALT/SGPT) 51, Lactate Dehydrogenase 641 H, Total Creatine Kinase 333 H, Alkaline Phosphatase 80, Total Bilirubin 2.0 H, Triglycerides Level 76, Cholesterol Level 117, Total Protein 5.0 L, Albumin 2.0 L Microbiology Microbiology 10/10/18 Respiratory Virus Panel (PCR) ([facility]) - Final, Complete EVANGELISTA ATWOOD MD Oct 19, 2018 15:12
[2018-10-19] MEDS: PANTOPRAZOLE 40MG INJ (PROTONIX) (C9113) IV SCH (20:59)
[2018-10-19] MEDS: ACETAMINOPHEN 325 MG/10.15 ML UDC GT PRN (20:59)
[2018-10-19] MEDS: DIGOXIN INJ 0.5 MG/2 ML AMP (J1160) IV SCH (21:00)
[2018-10-20] VITALS: BP 102/67
[2018-10-20] MEDS: IPRATROPIUM 0.5MG/ALBUTEROL 2.5MG INH SOL UD 3ML (DUONEB)(J7620) NEB SCH ×3 (00:52→07:29)
[2018-10-20 00:54] VITALS: O2SAT 93
[2018-10-20 04:00] VITALS: BP 108/71
[2018-10-20] MEDS: METOCLOPRAMIDE INJ 10MG/2ML VIAL (J2765) IV SCH (04:28)
[2018-10-20] MEDS: SODIUM CHLORIDE 0.9% INJ 10 ML SYR IV SCH (04:28)
[2018-10-20 04:44] LABS: BASO % 0.1 % (0.0-1.0); EOS # 0.1 10^3/uL (0.0-0.50); EOS % 0.2 % (0.0-3.0); HEMATOCRIT 32.4 % (42.0-52.0); LYMPH # 1.1 10^3/uL (1.5-4.5); LYMPH % 5.4 % (24.0-44.0); MEAN CORPUSCULAR HEMOGLOBIN 32.9 pg (27.0-33.0); MEAN CORPUSCULAR HGB CONC 30.9 g/dl (32.0-36.5); MEAN CORPUSCULAR VOLUME 106.6 fl (80.0-96.0); MONO # 1.5 10^3/uL (0.0-0.8); MONO % 7.1 % (0.0-5.0); NEUTROPHILS # 17.9 10^3/uL (1.8-7.7); NEUTROPHILS % 86.1 % (36.0-66.0); PLATELET COUNT, AUTOMATED 149 10^3/uL (150-450); RED BLOOD COUNT 3.04 10^6/uL (4.30-6.10); WHITE BLOOD COUNT 20.8 10^3/uL (4.0-10.0)
[2018-10-20 05:10] LABS: ALT/SGPT 45 U/L (12-78); BILIRUBIN,TOTAL 1.6 MG/DL (0.2-1.0); BLOOD UREA NITROGEN 43 MG/DL (7-18); CALCIUM LEVEL 8.4 MG/DL (8.8-10.2); CARBON DIOXIDE LEVEL 33 MEQ/L (21-32); CHLORIDE LEVEL 110 MEQ/L (98-107); CHOLESTEROL LEVEL 121 MG/DL (< 200); CPK CREATINE PHOSPHOKINASE 260 U/L (39-308); CREATININE FOR GFR 0.98 MG/DL (0.70-1.30); GLOMERULAR FILTRATION RATE > 60.0 (>49); GLUCOSE, FASTING 133 MG/DL (70-100); LDH LACTATE DEHYDROGENASE 666 U/L (87-241); MAGNESIUM LEVEL 2.1 MG/DL (1.8-2.4); PHOSPHORUS LEVEL 3.6 MG/DL (2.5-4.9); POTASSIUM SERUM 3.7 MEQ/L (3.5-5.1); SODIUM LEVEL 147 MEQ/L (136-145); TOTAL PROTEIN 5.9 GM/DL (6.4-8.2); TRIGLYCERIDES LEVEL 78 MG/DL (<150)
[2018-10-20 08:00] VITALS: BP 118/75
[2018-10-20] MEDS: MOM 30ML SUSPENSION UDC NG SCH (08:44)
[2018-10-20] MEDS: BISACODYL 10 MG SUPP PR SCH (08:44)
[2018-10-20] MEDS: FUROSEMIDE 40 MG/4 ML VIAL (J1940) IV SCH (08:45)
--- NOTE | 2018-10-20 09:36 | REP ---
Portable chest, 09:14 a.m., single AP view with the the patient semi upright: Comparison is 10/17/2018. There are bilateral interstitial infiltrates, moderately improved. There are no focal infiltrates. Cardiac size is normal. The rufina, mediastinum, skeletal structures are unremarkable. The feeding tube is unchanged. The right upper extremity PICC line is unchanged. Impression: Moderately improved interstitial infiltrates. Electronically Signed by Jose Kwon MD 10/20/2018 09:28 A
[2018-10-20] MEDS ORDERED: FLEET ENEMA PR PRN (10:00)
[2018-10-20] MEDS ORDERED: MORPHINE 4 MG/ML 1ML VIAL/SYRINGE (J2270) IV PRN (10:00)
[2018-10-20] MEDS ORDERED: LORazepam 2 MG/ML VIAL (J2060) IV PRN (10:00)
[2018-10-20] MEDS ORDERED: SCOPOLAMINE 1MG TRANSDERMAL PATCH TOP PRN (10:00)
[2018-10-20] MEDS ORDERED: ACETAMINOPHEN 650 MG SUPP PR PRN (10:00)
[2018-10-20] MEDS ORDERED: MORPHINE 10MG/0.5ML ORAL CONCENTRATE SOLUTION U/D SL PRN (10:00)
--- NOTE | 2018-10-20 10:16 | IPN ---
DATE OF VISIT: 10/20/2018 I again attended Chele Mccartney. The patient has been examined and chart reviewed. I spoke at length with the family at the bedside. Throughout the night, despite Vapotherm and 100% oxygen at times, his SaO2 varied from 88 to 90 and sometimes as low as 84. Intermittently, breathing is a lot more labored. Minimal cough and gag reflex. He intermittently will respond to verbal stimuli, but is more somnolent today overall. I did discuss this with the family. White blood cell count elevated at 20.8, hemoglobin 10.2, platelet count 149,000, with 86% segs, 0 bands. Sodium 147, potassium 3.7, chloride 110, BUN 43, creatinine 0.98. Chest x-ray shows no obvious infiltrate and there is underlying clearing of his interstitial disease for the most part. IMPRESSION: 1. Progressive hypoxic respiratory failure, multifactorial. 2. Vascular disease. 3. Right middle cerebral artery (MCA) stroke with dense left hemiplegia. 4. Coronary artery disease, status post stenting. 5. Essentially near end stage obstructive lung disease. RECOMMENDATIONS: After a lengthy discussion with the family, they wish to change his status over to comfort measures only and I believe this is quite appropriate. Clearly with the change in his respiratory status and his elevated white count, I believe that he is beginning more of his downward spiral. They clearly note that he would not wish to continue to live like this, especially given the fact that he will not have recovery regarding his motor status. In view of this, we will make him comfort measures care. I have spoken with Dr. Coe from the hospitalist service who has graciously agreed to take him on his service on the medical-surgical floor. Appropriate orders have been written. The family declines pastoral services. We will proceed as outlined above.
--- NOTE | 2018-10-20 12:46 | DS.PDOC ---
Discharge Summary General Date of Admission Oct 04, 2018 at 12:05 Date of Discharge 10/20/18 Discharge Summary DISCHARGE/ NOTE ADMITTING DIAGNOSES: 1. Acute Respiratory failure 2. PVD 3. Afib 4. CAD 5. HLD 6. HTN 7. COPD 8. Hep C DISCHARGE DIAGNOSES: 1. Acute Respiratory failure 2. PVD 3. Afib 4. CAD 5. HLD 6. HTN 7. COPD 8. Hep C COMPLICATIONS/CHIEF COMPLAINT: Hypoxia,Symptomatic Anemia. HISTORY OF PRESENT ILLNESS: "63 year old male with PMH of CAD s/p AMI , PVD, CABG, Atrial fibrillation, Intra abdominal stent, COPD, smoker, heavy alcohol user, cirrhosis of liver, chronic hepatitis C h/o pericardial effusion s/p drainage in jan 2018 presented today from the IR suit send to ED for SOB and Hypoxia. Patient had come to the IR today for elective angiography of his legs for claudication when he was noted to be extremely short of breath, tachypneic . He was found to be hypoxic to 70s in room air so the procedure was cancelled and he was sent to the ED for evaluation. He complained of gradually increasing exertional SOB over the past month. Now it has reached such an extent that even walking to the bathroom has become very difficult. he also complained of 1 episode of chest tightness in the past week when he used nitroglycerine. He denied any cough or pleuritic chest pain . He denied any bleeding from any where. ABG showed respiratory alkalosis. In ED he is requiring 5 liters of oxygen for maintianing his oxygen saturation to above 90% and his RR on my exam was 26. He is admitted for Acute respiratory failure due to COPD exacerbation with Severe anemia." HOSPITAL COURSE: Patient was treated along with grape grower/machine stoppage frequency checker in the ICU during course of hospitalization. He was on CPAP support and was unable to wean down from NVVP. Clinical status continues to decline despite aggressive treatments, patient was made DNR/DNI and subsequently comfort care per family's wishes. Mental status declined with generalized weakness, unable to answer or respond to family members for several days until he passed today. Actual time of : 11:44AM Laboratory Data Labs 24H Discharge Medications Scheduled Aspirin (Aspirin) 325 Mg Tablet, 325 MG PO QHS, (Reported) Digoxin (Digoxin) 125 Mcg Tablet, 125 MCG PO QHS, (Reported) Omeprazole (Omeprazole) 40 Mg Capsule.dr, 40 MG PO QHS, (Reported) Umeclidinium [place] (Incruse Ellipta) 62.5 Mcg/Inh Inh, 1 PUFF PO DAILY, (Rep orted) Scheduled PRN Albuterol Sulfate (Ventolin Hfa) 108 Mcg/Act Aer, 2 PUFF PO Q4H PRN for SH ORTNESS OF BREATH, (Reported) Zolpidem Tartrate (Zolpidem Tartrate) 10 Mg Tablet, 10 MG PO QHS PRN for INSOMNIA, (Reported) Allergies Coded Allergies: chlorpromazine (Verified Allergy, Unknown, 09/08/18) acute dystonic reaction EVANGELISTA ATWOOD MD Oct 20, 2018 12:45
== END 2018-10-20 11:44 | disposition expired | DRG 811 ==
LOC: M ED 08:01 → M ED INP 12:05 → M PCU 15:02 → M ICU 10-06 11:11
PROVIDERS: ADMIT Internal Medicine Nephrology; ATTEND Student in an Organized Health Care Education/Training Program
PROC: 30233N1 Transfusion of Nonautologous Red Blood Cells into Peripheral Vein, Percutaneous Approach (ICD-10-PCS; principal; 2018-10-04)
PROC: 02HV33Z Insertion of Infusion Device into Superior Vena Cava, Percutaneous Approach (ICD-10-PCS; 2018-10-10)
PROC: 0BH17EZ Insertion of Endotracheal Airway into Trachea, Via Natural or Artificial Opening (ICD-10-PCS; 2018-10-10)
PROC: 5A1955Z Respiratory Ventilation, Greater than 96 Consecutive Hours (ICD-10-PCS; 2018-10-10)
DX: D62 Acute posthemorrhagic anemia (principal); J96.01 Acute respiratory failure with hypoxia; I63.411 Cerebral infarction due to embolism of right middle cerebral artery; J44.1 Chronic obstructive pulmonary disease with (acute) exacerbation; E87.2 Acidosis; K76.6 Portal hypertension; R04.89 Hemorrhage from other sites in respiratory passages; J68.0 Bronchitis and pneumonitis due to chemicals, gases, fumes and vapors; E46 Unspecified protein-calorie malnutrition; G81.94 Hemiplegia, unspecified affecting left nondominant side; I50.32 Chronic diastolic (congestive) heart failure; Z51.5 Encounter for palliative care; Z66 Do not resuscitate; K70.30 Alcoholic cirrhosis of liver without ascites; I70.212 Atherosclerosis of native arteries of extremities with intermittent claudication, left leg; I48.0 Paroxysmal atrial fibrillation; I25.10 Atherosclerotic heart disease of native coronary artery without angina pectoris; I25.2 Old myocardial infarction; E78.5 Hyperlipidemia, unspecified; D73.5 Infarction of spleen; F11.10 Opioid abuse, uncomplicated; N52.1 Erectile dysfunction due to diseases classified elsewhere; D52.8 Other folate deficiency anemias; D69.6 Thrombocytopenia, unspecified; F10.20 Alcohol dependence, uncomplicated; M62.262 Nontraumatic ischemic infarction of muscle, left lower leg; K76.81 Hepatopulmonary syndrome; I11.0 Hypertensive heart disease with heart failure; M51.36 Other intervertebral disc degeneration, lumbar region; B18.2 Chronic viral hepatitis C; G47.00 Insomnia, unspecified; F17.210 Nicotine dependence, cigarettes, uncomplicated; Z79.82 Long term (current) use of aspirin; Z79.899 Other long term (current) drug therapy; Z88.8 Allergy status to other drugs, medicaments and biological substances; Z95.1 Presence of aortocoronary bypass graft; Z95.828 Presence of other vascular implants and grafts

== ENCOUNTER → 2018-10-04 | Outpatient (CLI) | payer MEDICARE, MEDICAID ==
[~2018-10-04] MED LIST changes: +BAYE325T12 PO; +BUPIVACAINE HCL 0.5% 10 ML VIAL As Ordered ONE; +HEPARIN 1,000 UNITS/ML 10ML VIAL (FOR RADIOLOGY& DIALYSIS ONLY) As Ordered ONE; +ISOVUE-300 61% 50ML VIAL (Q9967) As Ordered ONE; +LIDOCAINE 2% MDV 20 ML VIAL As Ordered ONE; +MIDAZOLAM INJ 2 MG/2 ML VIAL (J2250) As Ordered ONE; +diphenhydrAMINE INJ 50MG/ML VIAL (J1200) As Ordered ONE; +fentaNYL 100 MCG/2 ML INJECTION (J3010) As Ordered ONE
[2018-10-04 07:45] VITALS: BP 123/73
== END ==
LOC: M IRPRO 06:43
PROVIDERS: ATTEND Surgery Vascular Surgery
DX: I73.9 Peripheral vascular disease, unspecified (principal); R06.02 Shortness of breath; Z53.8 Procedure and treatment not carried out for other reasons